=== PATIENT | female | born 2000 | race African-American/Black ===

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

== ENCOUNTER 2018-02-07 00:19 | Emergency (ER) | payer OTHER ==
[~2018-02-07] VITALS: Ht 160 cm; Wt 88.5 kg
== END 2018-02-07 02:54 | disposition left against medical advice (07) ==
LOC: EDUNIT# 00:19 → ER 00:21
DX: R22.43 Localized swelling, mass and lump, lower limb, bilateral (principal)
CPT/HCPCS: 99281

== ENCOUNTER 2018-04-27 13:00 | Emergency (ER) | payer SELFPAY ==
[2018-05-20] MEDS ORDERED: METH18TA4 PO (10:34)
[2018-05-20] MEDS ORDERED: ONDA4TAB8 SL (11:33)
[2018-05-20] MEDS ORDERED: DOXY100T2 PO (11:49)
== END 2018-04-27 13:29 | disposition left against medical advice (07) ==
LOC: EDUNIT# 13:00 → ER 13:02
DX: N93.8 Other specified abnormal uterine and vaginal bleeding (principal); R10.9 Unspecified abdominal pain

== ENCOUNTER 2018-04-29 21:23 | Emergency (ER) | payer SELFPAY ==
[~2018-04-29] VITALS: Ht 160 cm; Wt 88.5 kg
[~2018-04-29 21:23] MED LIST changes: -DOXY100T2 PO; -METH18TA4 PO; -ONDA4TAB8 SL
--- NOTE | 2018-04-29 21:48 | ED GU-Female ---
General Stated Complaint: REQUEST FOR ULTRASOUND, POSS MISCARRIGE Source: patient Exam Limitations: no limitations History of Present Illness Date Seen by Provider: Apr 29, 2018 Time Seen by Provider: 21:46 Initial Comments to ER accompanied by boyfriend with reports of possible miscarriage. She's had several negative tests at home and one positive test last week. She missed a period last month and followed up with [facility] this morning. She had outpatient laboratory studies done and an ultrasound done here. Labs were done at [facility]. She states that she was supposed to receive a call back but has not yet received. Timing/Duration: just prior to arrival Severity/Quality: cramping Location: unknown Radiation: none Activities at Onset: none Allergies and Home Medications Allergies Coded Allergies: No Known Drug Allergies (Unverified , 10/12/16) Patient Home Medication List Home Medication List Reviewed: Yes Review of Systems Constitutional: see HPI EENTM: see HPI Respiratory: no symptoms reported Cardiovascular: see HPI Genitourinary: no symptoms reported Musculoskeletal: no symptoms reported Skin: no symptoms reported Psychiatric/Neurological: No Symptoms Reported Past Hppsjtq-Ysayqg-Pjpfyq Hx Patient Social History Drug of Choice: CANNIBUS Type Used: Cigarettes Recent Foreign Travel: No Contact w/Someone Who Travel: No Recent Hopitalizations: No Immunizations Up To Date Tetanus Booster (TDap): Less than 5yrs PED Vaccines UTD: Yes Seasonal Allergies Seasonal Allergies: No Past Medical History Surgeries: No Respiratory: No Cardiac: No Neurological: No Genitourinary: No Gastrointestinal: No Musculoskeletal: No Endocrine: No HEENT: No Cancer: No Psychosocial: Yes ADD/ADHD, Anxiety Integumentary: No Blood Disorders: No Family Medical History Diabetes, Hypertension Physical Exam Vital Signs Capillary Refill : General Appearance: WD/WN, no apparent distress HEENT: PERRL/EOMI, normal ENT inspection Neck: non-tender, full range of motion Cardiovascular: regular rate, rhythm, no murmur Respiratory: no respiratory distress, no accessory muscle use Gastrointestinal: normal bowel sounds, soft, tenderness (mild suprapubic tenderness) Extremities: normal range of motion, non-tender Neurologic/Psychiatric: alert, normal mood/affect, oriented x 3 Skin: normal color, warm/dry Progress/Results/Core Measures Suspected Sepsis SIRS Temperature: Pulse: Respiratory Rate: Laboratory Tests 04/29/18 21:55: White Blood Count 9.2 Blood Pressure / Mean: Laboratory Tests 04/29/18 21:55: Platelet Count 370 Results/Orders Lab Results Laboratory Tests Test 04/29/18 21:48 04/29/18 21:55 Range/Units Urine Test NEGATIVE NEGATIVE White Blood Count 9.2 4.3-11.0 10^3/uL Red Blood Count 4.40 4.35-5.85 10^6/uL Hemoglobin 13.4 11.5-16.0 G/DL Hematocrit 39 35-52 % Mean Corpuscular Volume 88 80-99 FL Mean Corpuscular Hemoglobin 31 25-34 PG Mean Corpuscular Hemoglobin Concent 35 32-36 G/DL Red Cell Distribution Width 14.1 10.0-14.5 % Platelet Count 370 130-400 10^3/uL Mean Platelet Volume 9.4 7.4-10.4 FL Neutrophils (%) (Auto) 64 42-75 % Lymphocytes (%) (Auto) 30 12-44 % Monocytes (%) (Auto) 5 0-12 % Eosinophils (%) (Auto) 1 0-10 % Basophils (%) (Auto) 0 0-10 % Neutrophils # (Auto) 5.9 1.8-7.8 X 10^3 Lymphocytes # (Auto) 2.8 1.0-4.0 X 10^3 Monocytes # (Auto) 0.5 0.0-1.0 X 10^3 Eosinophils # (Auto) 0.1 0.0-0.3 10^3/uL Basophils # (Auto) 0.0 0.0-0.1 10^3/uL Human Chorionic Gonadotropin, Quant < 5 <5 MIU/ML My Orders Orders - DIANNE KENNEDY BUSINESS TECHNOLOGY ANALYST Cbc With Automated Diff (04/29/18 21:42) Hcg,Quantitative (04/29/18 21:42) Ua Culture If Indicated (04/29/18 21:59) Hcg,Qualitative Urine (04/29/18 21:59) Rx-Acetaminophen/Codeine (Rx-Tylenol #3) (04/29/18 22:45) Vital Signs/I&O Capillary Refill : Diagnostic Imaging Diagonstic Imaging: Ultrasound Comments NAME: KELBY MOSLEY [facility] REC#: [id number] PT STATUS: REG CLI : 2000 PHYSICIAN: MIKE CHU APRN ADMIT DATE: 04/29/18/RAD Signed Date of Exam: 04/29/18 US OB SINGLE FETUS<14 [id number] PROCEDURE: US OB SINGLE FETUS <14 WKS. TECHNIQUE: Multiple real-time grayscale images were obtained over the gravid uterus in various projections. INDICATION: Vaginal bleeding and positive test. FINDINGS: The uterus measures 6.4 x 3.2 x 5 cm. Endometrial thickness is 6 mm. There are no myometrial or endometrial masses. Neither ovary is visualized. There is no sonographic evidence of an intrauterine or extrauterine . There is no free fluid. IMPRESSION: Unremarkable pelvic sonogram. Specifically, there is no sonographic evidence of an intrauterine or extrauterine . Recommend correlation with beta-hCG and follow-up ultrasound as clinically warranted. Dictated by: Dictated on workstation # [id number] Dict: 04/29/18 1230 Trans: 04/29/18 1240 Interpreted by: CHRIS QUACH MD Electronically signed by: CHRIS QUACH MD 04/29/18 1240 Departure Communication (Admissions) I did discuss with the patient and the boyfriend who is at the bedside the possibilities. This would include that she's had a complete miscarriage which would explain the empty uterus on ultrasound today with hCG less than 5.alternatively, she may have had a false positive test at home and menstrual irregularities since she states that this is not the normal time for her menstrual period and is heavier than usual. This would suggest that she's completed a miscarriage. either way,She is not this time and should follow-up with [facility]. Impression Primary Impression: irregular vaginal bleeding Disposition: HOME, SELF-CARE Condition: Stable Departure-Patient Inst. Decision time for Depature: 22:31 Referrals: VALENTÍN DURHAM DO (PCP) Primary Care Physician MIKE CUH APRN (Family) Primary Care Physician Patient Instructions: Menstrual Cramps (DC) Add. Discharge Instructions: 1. Return to ER for any concerns 2. Follow-up with your doctor tomorrow 3. DIANNE KENNEDY APRN Apr 29, 2018 21:48
[2018-04-29 22:07] LABS: BASOPHILS % (AUTO) 0 % (0-10); EOSINOPHILS # (AUTO) 0.1 10^3/uL (0.0-0.3); EOSINOPHILS % (AUTO) 1 % (0-10); HEMATOCRIT 39 % (35-52); HEMOGLOBIN 13.4 G/DL (11.5-16.0); LYMPHOCYTES # (AUTO) 2.8 X 10^3 (1.0-4.0); LYMPHOCYTES % (AUTO) 30 % (12-44); MEAN CORPUSCULAR HEMOGLOBIN 31 PG (25-34); MEAN CORPUSCULAR HGB CONC 35 G/DL (32-36); MEAN CORPUSCULAR VOLUME 88 FL (80-99); MEAN PLATELET VOLUME 9.4 FL (7.4-10.4); MONOCYTES # (AUTO) 0.5 X 10^3 (0.0-1.0); MONOCYTES % (AUTO) 5 % (0-12); NEUTROPHILS # (AUTO) 5.9 X 10^3 (1.8-7.8); NEUTROPHILS % (AUTO) 64 % (42-75); PLATELET COUNT 370 10^3/uL (130-400); RED CELL DISTRIBUTION WIDTH 14.1 % (10.0-14.5); WHITE BLOOD COUNT 9.2 10^3/uL (4.3-11.0)
[2018-04-29 22:23] LABS: BILIRUBIN,URINE NEGATIVE (NEGATIVE); CLARITY,URINE CLEAR; COLOR,URINE AMBER; GLUCOSE, URINE (UA) NEGATIVE (NEGATIVE); KETONES,URINE NEGATIVE (NEGATIVE); LEUKOCYTE ESTERASE ,URINE NEGATIVE (NEGATIVE); NITRITE,URINE NEGATIVE (NEGATIVE); PH,URINE 6.5 (5-9); PROTEIN,URINE 2+ (NEGATIVE); UROBILINOGEN,URINE NORMAL (NORMAL)
[2018-04-29 22:44] LABS: BACTERIA,URINE TRACE /HPF; RBC,URINE TNTC /HPF; WBC,URINE RARE /HPF
[2018-04-29] MEDS ORDERED: RX-ACETAMINOPHEN/CODEINE TAB PPK #4 PO SCH (22:45)
[2018-05-20] MEDS ORDERED: METH18TA4 PO (10:34)
[2018-05-20] MEDS ORDERED: ONDA4TAB8 SL (11:33)
[2018-05-20] MEDS ORDERED: DOXY100T2 PO (11:49)
== END 2018-04-29 22:56 | disposition home or self-care (01) ==
LOC: EDUNIT# 21:23 → ER 21:25
DX: N93.8 Other specified abnormal uterine and vaginal bleeding (principal); F41.9 Anxiety disorder, unspecified; F90.9 Attention-deficit hyperactivity disorder, unspecified type; Z32.02 Encounter for pregnancy test, result negative
CPT/HCPCS: 36415; 81000; 84702; 84703; 85025; 99283

== ENCOUNTER → 2018-04-29 | Outpatient (CLI) | payer SELFPAY ==
[~2018-04-29] MED LIST changes: +DOXY100T2 PO; +METH18TA4 PO; +ONDA4TAB8 SL
--- NOTE | 2018-04-29 12:35 | Diagnostic Imaging Report ---
PROCEDURE: US OB SINGLE FETUS <14 WKS. TECHNIQUE: Multiple real-time grayscale images were obtained over the gravid uterus in various projections. INDICATION: Vaginal bleeding and positive test. FINDINGS: The uterus measures 6.4 x 3.2 x 5 cm. Endometrial thickness is 6 mm. There are no myometrial or endometrial masses. Neither ovary is visualized. There is no sonographic evidence of an intrauterine or extrauterine . There is no free fluid. IMPRESSION: Unremarkable pelvic sonogram. Specifically, there is no sonographic evidence of an intrauterine or extrauterine . Recommend correlation with beta-hCG and follow-up ultrasound as clinically warranted. Dictated by: Dictated on workstation # [id number]
== END ==
LOC: RAD 11:31
PROVIDERS: ATTEND Nurse Practitioner Family
DX: O46.90 Antepartum hemorrhage, unspecified, unspecified trimester (principal); Z3A.00 Weeks of gestation of pregnancy not specified
CPT/HCPCS: 76801

== ENCOUNTER 2018-05-22 00:02 | Emergency (ER) | payer SELFPAY ==
[~2018-05-22] VITALS: Ht 167.6 cm; Wt 86.2 kg
[~2018-05-22 00:02] MED LIST changes: +DOXY100T2 PO; +METH18TA4 PO; +ONDA4TAB8 SL
--- NOTE | 2018-05-22 00:27 | ED Pediatric Illness ---
HPI-Pediatric Illness General Chief Complaint: Abdominal/GI Problems Stated Complaint: ABD PAIN Nursing Triage Note: patient presents with nausea x 4 days. patient states was evaluated yesterday for same and given antibiotic and nausea medication but was not able to get them filled at the pharmacy as she does not have insurance Source: patient Exam Limitations: other (DIFFICULT TO KEEP ON SUBJECT) History of Present Illness Date Seen by Provider: May 22, 2018 Time Seen by Provider: 00:12 Initial Comments PT ARRIVES VIA POV PT WITH A MULTITUDE OF COMPLAINTS AND VERY DIFFICULT TO KEEP ON SUBJECT PT STATES "ALL THE SAME THE OTHER DAY" PT STATES "MY WHOLE LEFT SIDE HURTS" "MY EAR HURTS AND IT HURTS ALL THE WAY DOWN MY THROAT DOWN TO MY STOMACH" HAS HAD NAUSEA AND VOMITED X 4 TODAY NO DIARRHEA. HAD BM JUST PRIOR TO ARRIVAL--STATES SHE HAD A FEW SMALL LOKESH, BUT HAD TO STOP BECAUSE SHE HAD TO THROW UP C/O EPIGASTRIC PAIN --STATES "PAIN IN MY STOMACH AND IT'S CONNECTED IN WITH MY CHEST AND IT'S HARD TO BREATHE ANY MY CHEST HAS BEEN HURTING AND I BEEN HAVING SHARP PAINS IN MY CHEST" "IT FEELS LIKE NEEDLES STABBING ME IN THE CHEST WHEN I THROW UP" NO PROBLEMS URINATING--PT VOIDED JUST PRIOR TO ARRIVAL PT HAS BEEN EATING AND DRINKING ALL DAY TODAY--ATE HOT LINKS AND NOODLES JUST PRIOR TO ARRIVAL, AND DRANK DR. PEPPER JUST PRIOR TO ARRIVAL. HAD CHIPS THIS MORNING, AND HAS HAD [employer] AND FRIES TODAY. HAS HAD JUICE TO DRINK WELL TODAY. STATES SYMPTOMS HAVE BEEN GOING ON FOR 4 DAYS PT WAS SEEN HERE YESTERDAY FOR SAME--HAD A MULTITUDE OF COMPLAINTS AT THAT TIME ALSO PT WAS GIVEN DX OF PLEURITIC CHEST PAIN. SHE ALSO WANTED "CYST" TREATED--WAS INGROWN PUBIC HAIR. PT WAS GIVEN RX'S FOR DOXYCYCLINE AND ZOFRAN. PT DID NOT GET EITHER MEDICATION FILLED, STATING "I DON'T HAVE ANY INSURANCE-I CAN'T GET THEM FILLED IF I DON'T HAVE ANY INSURANCE" EXPLAINED TO PT THAT SHE DID NOT HAVE TO HAVE INSURANCE TO GET PRESCRIPTIONS FILLED, AND THAT PERHAPS IF SHE GOT THE RX FOR ZOFRAN FILLED, SHE WOULDN'T BE VOMITING, AND THAT HER SYMPTOMS WOULD NOT GET BETTER IF SHE DID NOT GET HER PRESCRIPTIONS FILLED. PT STATES SHE HAS NO INTENTION OF GETTING ANY PRESCRIPTIONS FILLED. STATES SHE DOES NOT HAVE ANY MONEY PT GOES TO [facility] AND HAS NOT ATTEMPTED TO SEE THEM AT ANY TIME FOR THIS PROBLEM, AND ADVISED HER THAT IF SHE GOES THERE, THEY CAN ASSIST HER WITH GETTING PRESCRIPTIONS FILLED. LMP--SOMETIME IN FEBRUARY. STATES SHE HAD A MISCARRIAGE LAST MONTH, "BUT THEY SAID I WASN'T " PT WAS SEEN HERE 04/27 AND 04/29 FOR VAGINAL BLEEDING, TESTS AND ULTRASOUND SHOWED NO SIGNS OF , AND QUANT BETA HCG WAS <5. PT IS NOT ON CONTROL PT HAS HAD 7 ER VISITS IN 2018--VARIOUS COMPLAINTS Allergies and Home Medications Allergies Coded Allergies: sulfamethoxazole (Verified Allergy, Unknown, 05/20/18) trimethoprim (Verified Allergy, Unknown, 05/20/18) Home Medications Doxycycline Hyclate 100 Mg Tablet, 100 MG PO BID Prescribed by: PRISCILLA CALLE on 05/20/18 1149 Hyoscyamine Sulfate 0.125 Mg Tab.subl, 1-2 TAB SL Q4H Prescribed by: DORINA FRANZ on 05/22/18 0244 Nitrofurantoin Monohyd/M-Cryst 100 Mg Capsule, 100 MG PO BID Prescribed by: DORINA FRANZ on 05/22/18 0244 Ondansetron 4 Mg Tab.rapdis, 4 MG SL Q4H PRN for NAUSEA/VOMITING-1ST LINE Prescribed by: PRISCILLA CALLE on 05/20/18 1133 Pantoprazole Sodium 40 Mg Tablet.dr, 40 MG PO DAILY Prescribed by: DORINA FRANZ on 05/22/18 0244 Promethazine HCl 25 Mg Supp.rect, 25 MG RC Q4H Prescribed by: DORINA FRANZ on 05/22/18 0244 Patient Home Medication List Home Medication List Reviewed: Yes Constitutional: chills, dizziness EENTM: ear pain, throat pain Respiratory: see HPI, short of breath Cardiovascular: see HPI, chest pain Gastrointestinal: see HPI, abdominal pain, constipation, nausea, vomiting Genitourinary: no symptoms reported Musculoskeletal: see HPI Skin: no symptoms reported Psychiatric/Neurological: See HPI, Anxiety, Headache Endocrine: No Symptoms Reported Hematologic/Lymphatic: No Symptoms Reported PMH-Pediatrics Recent Foreign Travel: No Contact w/other who traveled: No Hospitalization with Isolation: Denies Tetanus Booster (TDap): Less than 5yrs Seasonal Allergies: No HX Surgeries: No Hx Respiratory Disorders: No Hx Cardiovascular Disorders: No Hx Neurological Disorders: No Hx Reproductive Disorders: No Hx Genitourinary Disorders: No Hx Gastrointestinal Disorders: No Hx Musculoskeletal Disorders: No Hx Endocrine Disorders: No HX ENT Disorders: No Hx Cancer: No Hx Psychiatric Problems: Yes Behavioral Health Disorders: ADD/ADHD, Anxiety HX Skin/Integumentary Disorder: No Hx Blood Disorders: No Significant Family History: Diabetes, Hypertension Other + SMOKING + THC + ETOH --OCCASIONAL USE Physical Exam-Pediatric Physical Exam Vital Signs Vital Signs - First Documented 05/22/18 00:08 Temp 98.2 Pulse 94 Resp 18 B/P (MAP) 123/58 Capillary Refill : General Appearance: active, other (VERY DRAMATIC, TALKS RAPIDLY NON-STOP, THRASHING AND MOVING ALL ABOUT, FORCED DRY HEAVES. PT IS WEARING A WIG) HENT: head inspection normal, TMs normal, nose normal, pharynx normal Neck: non-tender, full range of motion, supple, normal inspection Respiratory: chest non-tender, normal breath sounds, no respiratory distress, no accessory muscle use Cardiovascular: regular rate, rhythm, no edema, no JVD, no murmur Gastrointestinal: normal bowel sounds, soft, no organomegaly; No distended, No guarding, No rebound; tenderness (MILD EPIGASTRIC AND SUPRAPUBIC TENDERNESS); No hernia, No mass Extremities: normal range of motion, non-tender, normal inspection, no pedal edema, no calf tenderness, normal capillary refill Neurologic/Psychiatric: county manager II-XII nml as tested, no motor/sensory deficits, alert, oriented x 3 Skin: normal color (PT IS BLACK), warm/dry, tattoos/piercings (TATTOOS) Progress/Results/Core Measures Results/Orders Lab Results Laboratory Tests Test 05/22/18 00:25 05/22/18 00:40 05/22/18 01:00 Range/Units Urine Color YELLOW Urine Clarity CLEAR Urine pH 6.5 5-9 Urine Specific [place] 1.010 L 1.016-1.022 Urine Protein NEGATIVE NEGATIVE Urine Glucose (UA) NEGATIVE NEGATIVE Urine Ketones NEGATIVE NEGATIVE Urine Nitrite NEGATIVE NEGATIVE Urine Bilirubin NEGATIVE NEGATIVE Urine Urobilinogen NORMAL NORMAL MG/DL Urine Leukocyte Esterase 1+ H NEGATIVE Urine RBC (Auto) 2+ H NEGATIVE Urine RBC 2-5 H /HPF Urine WBC 0-2 /HPF Urine Squamous Epithelial Cells 5-10 /HPF Urine Crystals NONE /LPF Urine Bacteria TRACE /HPF Urine Casts NONE /LPF Urine Mucus MODERATE H /LPF Urine Culture Indicated NO Urine Opiates Screen NEGATIVE NEGATIVE Urine Oxycodone Screen NEGATIVE NEGATIVE Urine Methadone Screen NEGATIVE NEGATIVE Urine Propoxyphene Screen NEGATIVE NEGATIVE Urine Barbiturates Screen NEGATIVE NEGATIVE Ur Tricyclic Antidepressants Screen NEGATIVE NEGATIVE Urine Phencyclidine Screen NEGATIVE NEGATIVE Urine Amphetamines Screen NEGATIVE NEGATIVE Urine Methamphetamines Screen NEGATIVE NEGATIVE Urine Benzodiazepines Screen NEGATIVE NEGATIVE Urine Cocaine Screen NEGATIVE NEGATIVE Urine Cannabinoids Screen NEGATIVE NEGATIVE White Blood Count 12.1 H 4.3-11.0 10^3/uL Red Blood Count 4.34 L 4.35-5.85 10^6/uL Hemoglobin 12.9 11.5-16.0 G/DL Hematocrit 38 35-52 % Mean Corpuscular Volume 88 80-99 FL Mean Corpuscular Hemoglobin 30 25-34 PG Mean Corpuscular Hemoglobin Concent 34 32-36 G/DL Red Cell Distribution Width 14.5 10.0-14.5 % Platelet Count 339 130-400 10^3/uL Mean Platelet Volume 9.4 7.4-10.4 FL Neutrophils (%) (Auto) 68 42-75 % Lymphocytes (%) (Auto) 27 12-44 % Monocytes (%) (Auto) 5 0-12 % Eosinophils (%) (Auto) 0 0-10 % Basophils (%) (Auto) 0 0-10 % Neutrophils # (Auto) 8.2 H 1.8-7.8 X 10^3 Lymphocytes # (Auto) 3.3 1.0-4.0 X 10^3 Monocytes # (Auto) 0.6 0.0-1.0 X 10^3 Eosinophils # (Auto) 0.1 0.0-0.3 10^3/uL Basophils # (Auto) 0.0 0.0-0.1 10^3/uL Sodium Level 140 135-145 MMOL/L Potassium Level 3.8 3.6-5.0 MMOL/L Chloride Level 108 H 98-107 MMOL/L Carbon Dioxide Level 20 L 21-32 MMOL/L Anion Gap 12 5-14 MMOL/L Blood Urea Nitrogen 11 7-18 MG/DL Creatinine 0.85 0.60-1.30 MG/DL Estimat Glomerular Filtration Rate > 60 BUN/Creatinine Ratio 13 Glucose Level 100 70-105 MG/DL Calcium Level 9.6 8.5-10.1 MG/DL Total Bilirubin 0.3 0.1-1.0 MG/DL Aspartate Amino Transf (AST/SGOT) 21 5-34 U/L Alanine Aminotransferase (ALT/SGPT) 12 0-55 U/L Alkaline Phosphatase 67 40-136 U/L Total Protein 8.3 H 6.4-8.2 GM/DL Albumin 4.6 H 3.2-4.5 GM/DL Amylase Level 75 25-125 U/L Lipase 6 L 8-78 U/L Human Chorionic Gonadotropin, Quant < 5 <5 MIU/ML Serum Alcohol < 10 <10 MG/DL Monoscreen NEGATIVE NEGATIVE Group A Streptococcus Screen NEGATIVE NEGATIVE My Orders Orders - DORINA FRANZ DO Saline Lock/Iv-Start (05/22/18 00:25) Urine Bedside (05/22/18 00:25) Alcohol (05/22/18 00:25) Amylase (05/22/18 00:25) Cbc With Automated Diff (05/22/18 00:25) Comprehensive Metabolic Panel (05/22/18 00:25) Drug Screen Stat (Urine) (05/22/18 00:25) Lipase (05/22/18 00:25) Monotest (05/22/18 00:25) Rapid Strep A Screen (05/22/18 00:25) Ua Culture If Indicated (05/22/18 00:25) Ondansetron Injection (Zofran Injectio (05/22/18 00:30) Hyoscyamine Sl Tablet (Levsin Sl Tablet) (05/22/18 00:30) Hcg,Quantitative (05/22/18 00:43) Ct Chest/Abdomen/Pelvis W (05/22/18 01:07) Promethazine Injection (Phenergan Injec (05/22/18 01:15) Diphenhydramine Injection (Benadryl Inje (05/22/18 01:15) Iohexol Injection (Omnipaque 350 Mg/Ml 1 (05/22/18 01:15) Sodium Chloride Flush (Catheter Flush Sy (05/22/18 01:15) Medications Given in ED Current Medications Medications Dose Ordered Sig/Nkechi Route Start Time Stop Time Status Last Admin Dose Admin Diphenhydramine HCl 25 mg ONCE ONCE IVP 05/22/18 01:15 05/22/18 01:16 DC 05/22/18 01:57 25 MG Hyoscyamine Sulfate 0.25 mg ONCE ONCE SL 05/22/18 00:30 05/22/18 00:31 UNV 05/22/18 00:38 0.25 MG Iohexol 100 ml ONCE ONCE IV 05/22/18 01:15 05/22/18 01:16 DC 05/22/18 01:33 100 ML Ondansetron HCl 4 mg ONCE ONCE IVP 05/22/18 00:30 05/22/18 00:31 UNV 05/22/18 00:45 4 MG Promethazine HCl 25 mg ONCE ONCE IVP 05/22/18 01:15 05/22/18 01:16 DC 05/22/18 01:57 25 MG Sodium Chloride 10 ml NEEDED PRN IV 05/22/18 01:15 05/22/18 01:33 10 ML Vital Signs/I&O 05/22/18 00:08 Temp 98.2 Pulse 94 Resp 18 B/P (MAP) 123/58 Progress Progress Note : Progress Note NO RELIEF WITH ZOFRAN--PT CONTINUES TO HAVE FORCED DRY HEAVES, CONTINUED THRASHING ALL OVER, ANXIOUS GIVEN LEVSIN, PHENERGAN + BENADRYL WITH RESOLUTION OF ALL SYMPTOMS AND PT SLEPT/ RESTED QUIETLY FOR REMAINDER OF ER STAY PT WANTS TO GO HOME Diagnostic Imaging Comments CT CHEST/ABDOMEN/PELVIS--NO ACUTE PROCESS, PER [facility] VIA FAX @ [phone] Reviewed: Reviewed by Me Departure Impression Primary Impression: NAUSEA, VOMITING AND EPIGASTRIC PAIN Additional Impression: UTI (urinary tract infection) Disposition: HOME, SELF-CARE Condition: Improved Departure-Patient Inst. Referrals: VALENTÍN DURHAM DO (PCP) Primary Care Physician MIKE CHU APRN (Family) Primary Care Physician Patient Instructions: Acute Abdomen (Belly Pain), Adult (DC), Nausea and Vomiting, Adult (DC), Urinary Tract Infection, Adult (DC) Add. Discharge Instructions: CLEAR LIQUIDS--WATER, BROTH, JELLO, GATORADE TOMORROW IF YOUR NAUSEA IS BETTER, ADD BRATS DIET TO CLEAR LIQUIDS--BANANAS, RICE, APPLESAUCE, TOAST, SALTINES FOLLOW UP WITH [facility] IN 2-3 DAYS IF NO BETTER--CALL THEM IN THE MORNING FOR ASSISTANCE GETTING YOUR PRESCRIPTIONS FILLED. All discharge instructions reviewed with patient and/or family. Voiced understanding. Scripts Pantoprazole Sodium (Protonix) 40 Mg Tablet.dr 40 MG PO DAILY, #15 TAB Prov: DORINA FRANZ DO 05/22/18 Hyoscyamine Sulfate (Levsin-Sl) 0.125 Mg Tab.subl 1-2 TAB SL Q4H for Abdominal Pain, #15 TAB Prov: DORINA FRANZ DO 05/22/18 Promethazine HCl (Phenergan) 25 Mg Supp.rect 25 MG RC Q4H for Nausea/Vomiting, #10 SUPP.RECT Prov: DORINA FRANZ DO 05/22/18 Nitrofurantoin Monohyd/M-Cryst (Macrobid 100 mg Capsule) 100 Mg Capsule 100 MG PO BID, #20 CAP Prov: DORINA FRANZ DO 05/22/18 DORINA FRANZ DO May 22, 2018 00:27
[2018-05-22] MEDS ORDERED: HYOSCYAMINE 0.125 MG (LEVSIN) TAB ONE (00:29)
[2018-05-22] MEDS ORDERED: ONDANSETRON 4 MG/2 ML (SDV) Z0FRAN ONE (00:29)
[2018-05-22] MEDS ORDERED: ONDANSETRON 4 MG/2 ML (SDV) Z0FRAN IVP ONE (00:30)
[2018-05-22] MEDS ORDERED: HYOSCYAMINE 0.125 MG (LEVSIN) TAB SL ONE (00:30)
[2018-05-22 00:36] LABS: BILIRUBIN,URINE NEGATIVE (NEGATIVE); CLARITY,URINE CLEAR; COLOR,URINE YELLOW; GLUCOSE, URINE (UA) NEGATIVE (NEGATIVE); KETONES,URINE NEGATIVE (NEGATIVE); LEUKOCYTE ESTERASE ,URINE 1+ (NEGATIVE); NITRITE,URINE NEGATIVE (NEGATIVE); PH,URINE 6.5 (5-9); PROTEIN,URINE NEGATIVE (NEGATIVE); UROBILINOGEN,URINE NORMAL (NORMAL)
[2018-05-22 00:48] LABS: BACTERIA,URINE TRACE /HPF; WBC,URINE 0-2 /HPF
[2018-05-22 00:52] LABS: BASOPHILS % (AUTO) 0 % (0-10); EOSINOPHILS # (AUTO) 0.1 10^3/uL (0.0-0.3); EOSINOPHILS % (AUTO) 0 % (0-10); HEMATOCRIT 38 % (35-52); HEMOGLOBIN 12.9 G/DL (11.5-16.0); LYMPHOCYTES # (AUTO) 3.3 X 10^3 (1.0-4.0); LYMPHOCYTES % (AUTO) 27 % (12-44); MEAN CORPUSCULAR HEMOGLOBIN 30 PG (25-34); MEAN CORPUSCULAR HGB CONC 34 G/DL (32-36); MEAN CORPUSCULAR VOLUME 88 FL (80-99); MEAN PLATELET VOLUME 9.4 FL (7.4-10.4); MONOCYTES # (AUTO) 0.6 X 10^3 (0.0-1.0); MONOCYTES % (AUTO) 5 % (0-12); NEUTROPHILS # (AUTO) 8.2 X 10^3 (1.8-7.8); NEUTROPHILS % (AUTO) 68 % (42-75); PLATELET COUNT 339 10^3/uL (130-400); RED BLOOD COUNT 4.34 10^6/uL (4.35-5.85); RED CELL DISTRIBUTION WIDTH 14.5 % (10.0-14.5); WHITE BLOOD COUNT 12.1 10^3/uL (4.3-11.0)
[2018-05-22 00:53] LABS: AMPHETAMINE SCREEN, URINE NEGATIVE (NEGATIVE); BARBITURATE SCREEN URINE NEGATIVE (NEGATIVE); BENZODIAZEPINES SCREEN URINE NEGATIVE (NEGATIVE); CANNABINOID SCREEN, URINE NEGATIVE (NEGATIVE); COCAINE SCREEN URINE NEGATIVE (NEGATIVE); METHADONE STAT NEGATIVE (NEGATIVE); METHAMPHETAMINE SCREEN URINE S NEGATIVE (NEGATIVE); OPIATE SCREEN URINE NEGATIVE (NEGATIVE); OXYCODONE STAT NEGATIVE (NEGATIVE); PROPOXYPHENE STAT NEGATIVE (NEGATIVE); TRICYCLIC ANTIDEPRESSANTS SCRE NEGATIVE (NEGATIVE)
[2018-05-22 01:13] LABS: ALANINE AMINOTRANSFERASE 12 U/L (0-55); ALBUMIN 4.6 GM/DL (3.2-4.5); ALKALINE PHOSPHATASE 67 U/L (40-136); AMYLASE 75 U/L (25-125); BILIRUBIN,TOTAL 0.3 MG/DL (0.1-1.0); BUN/CREATININE RATIO 13; CALCIUM 9.6 MG/DL (8.5-10.1); CARBON DIOXIDE 20 MMOL/L (21-32); CHLORIDE 108 MMOL/L (98-107); CREATININE SERUM 0.85 MG/DL (0.60-1.30); GFR ESTIMATED > 60; GLUCOSE 100 MG/DL (70-105); LIPASE 6 U/L (8-78); POTASSIUM 3.8 MMOL/L (3.6-5.0); SODIUM 140 MMOL/L (135-145); TOTAL PROTEIN 8.3 GM/DL (6.4-8.2)
[2018-05-22] MEDS ORDERED: IOHEXOL 350 MG/ML 100 ML (OMNIPAQUE 350) VIAL IV ONE (01:15)
[2018-05-22] MEDS ORDERED: CATHETER FLUSH 10 ML SYR IV PRN (01:15)
[2018-05-22] MEDS ORDERED: diphenhydrAMINE 50 MG/ML INJ (BENADRYL) IVP ONE (01:15)
[2018-05-22] MEDS ORDERED: PROMETHAZINE INJ 25 MG/ML (PHENERGAN) AMP IVP ONE (01:15)
[2018-05-22] MEDS ORDERED: PANT40TA2 PO (02:44)
[2018-05-22] MEDS ORDERED: HYOS0.1283 SL (02:44)
[2018-05-22] MEDS ORDERED: PROM25SU43 RC (02:44)
[2018-05-22] MEDS ORDERED: NITR-65 PO (02:44)
--- NOTE | 2018-05-22 08:08 | Diagnostic Imaging Report ---
PROCEDURE: CT chest, abdomen, and pelvis with contrast. TECHNIQUE: Multiple contiguous axial images were obtained through the chest, abdomen, and pelvis after the administration of intravenous contrast. INDICATION: Abdominal pain with nausea. Exam compared with abdominal and pelvic CT 08/06/2017. CHEST: There is no lung mass, nodule or consolidation. No evidence of pneumonia or edema. There is no pleural or pericardial effusion and there is no pneumothorax. Heart and pericardium unremarkable. The aorta is patent and nonaneurysmal. No hilar or mediastinal lymphadenopathy. No acute soft tissue or osseous chest wall lesion. Abdomen pelvis: Liver, gallbladder and bile ducts appeared unremarkable. Spleen, adrenals and pancreas unremarkable. The unobstructed kidneys appeared normal. Uterus, adnexa and urinary bladder unremarkable. The appendix unremarkable. There is no evidence for acute diverticulitis. No pneumatosis or free gas. No focal inflammatory process. No ascites, abscess, hematoma or fluid collection. No focal inflammatory change is apparent. The osseous structures were unremarkable. IMPRESSION: CT chest: Unremarkable CT chest. Abdomen pelvis: No obstructive process, inflammatory changes or acute appearing abnormalities. Agree with preliminary. Dictated by: Dictated on workstation # [id number]
[2018-06-20] MEDS ORDERED: PANT40TA2 PO (14:47)
[2018-06-20] MEDS ORDERED: SUCR1TAB36 PO (14:47)
== END 2018-05-22 02:50 | disposition home or self-care (01) ==
LOC: EDUNIT# 00:02 → ER 00:03
DX: N39.0 Urinary tract infection, site not specified (principal); R11.2 Nausea with vomiting, unspecified; R10.13 Epigastric pain; Z88.2 Allergy status to sulfonamides; Z88.1 Allergy status to other antibiotic agents
CPT/HCPCS: 36415; 71260; 74177; 80053; 80306; 80320; 81000; 82150; 83690; 84702; 84703; 85025; 86308; 87430; 96374; 96375

== ENCOUNTER → 2018-06-06 | Outpatient (CLI) | payer SELFPAY ==
[~2018-06-06] MED LIST changes: +ACHD5005 PO; +CATHETER FLUSH 10 ML SYR IV PRN; +HYOS0.1283 SL; +NITR-65 PO; +PANT40TA2 PO; +PROM25SU43 RC; +SUCR1TAB36 PO
--- NOTE | 2018-06-06 17:23 | Diagnostic Imaging Report ---
INDICATION: Right upper quadrant pain. TECHNIQUE: Patient was administered 5.0 mCi technetium-99m Choletec intravenously, and imaging over the abdomen was performed. After 60 minutes, patient ingested one can of Ensure, and the gallbladder ejection fraction was calculated. FINDINGS: There is homogeneous uptake of activity by the liver with prompt excretion of activity into the common duct and gallbladder. Normal passage of activity into the small bowel is seen. Gallbladder ejection fraction is 71%. There is minimal activity in the left upper quadrant, suggestive of bile reflux. IMPRESSION: 1. No evidence of cystic duct or common bile duct obstruction. 2. Gallbladder ejection fraction of 71%. 3. Mild bile reflux. Dictated by: Dictated on workstation # [id number]
== END ==
LOC: CARD 09:25
PROVIDERS: ATTEND Nurse Practitioner Family
DX: R10.11 Right upper quadrant pain (principal); R93.5 Abnormal findings on diagnostic imaging of other abdominal regions, including retroperitoneum
CPT/HCPCS: 78227

== ENCOUNTER 2018-06-17 18:29 | Emergency (ER) | payer SELFPAY ==
[~2018-06-17] VITALS: Ht 167.6 cm; Wt 86.2 kg
[~2018-06-17 18:29] MED LIST changes: -ACHD5005 PO; -CATHETER FLUSH 10 ML SYR IV PRN; -SUCR1TAB36 PO
[2018-06-17] MEDS ORDERED: NS IV 1000 ML 1,000 ML IV SCH (18:45)
[2018-06-17] MEDS ORDERED: fentaNYL INJECTION 100 MCG/2 ML AMP IVP ONE (18:45)
[2018-06-17] MEDS ORDERED: ONDANSETRON 4 MG/2 ML (SDV) Z0FRAN IVP ONE (18:45)
--- NOTE | 2018-06-17 18:45 | ED Abdominal Pain ---
General Stated Complaint: GALLBLADDER/APPENDIX INFLAMMATION Source of Information: Patient Exam Limitations: No Limitations History of Present Illness Date Seen by Provider: Jun 17, 2018 Time Seen by Provider: 18:41 Initial Comments Patient is a 17-year-old female who presents to the emergency room with complaints of right upper and lower quadrant abdominal pain and nausea. She reports that she was seen at [facility] this morning and told that it was most likely "inflammation of her appendix and gallbladder", and they referred her to Dr. Castillo who she has not followed up with yet. She reports that the pain became worse this evening and she could not wait until an appointment was made. Denies any vomiting. Timing/Duration: 3-4 Days Location: RUQ, RLQ Radiation: RLQ Activities at Onset: None Modifying Factors: Worsens With Movement (the pain is worse with movement and ambulation.) Associated Symptoms: No Fever/Chills; Nausea/Vomiting Allergies and Home Medications Allergies Coded Allergies: sulfamethoxazole (Verified Allergy, Unknown, 05/20/18) trimethoprim (Verified Allergy, Unknown, 05/20/18) Home Medications Doxycycline Hyclate 100 Mg Tablet, 100 MG PO BID Prescribed by: PRISCILLA CALLE on 05/20/18 1149 Hydrocodone Bit/Acetaminophen 1 Tab Tab, 1 EACH PO Q4H PRN for PAIN Prescribed by: DAY KILLIAN on 06/17/18 221 Hyoscyamine Sulfate 0.125 Mg Tab.subl, 1-2 TAB SL Q4H Prescribed by: DORINA FRANZ on 05/22/18 0244 Nitrofurantoin Monohyd/M-Cryst 100 Mg Capsule, 100 MG PO BID Prescribed by: DORINA FRANZ on 05/22/18 0244 Ondansetron 4 Mg Tab.rapdis, 4 MG SL Q4H PRN for NAUSEA/VOMITING-1ST LINE Prescribed by: PRISCILLA CALLE on 05/20/18 1133 Ondansetron 4 Mg Tab.rapdis, 4 MG SL Q4H PRN for NAUSEA/VOMITING-1ST LINE Prescribed by: DAY KILLIAN on 06/17/18 2214 Pantoprazole Sodium 40 Mg Tablet.dr, 40 MG PO DAILY Prescribed by: WEST AGUDELO on 06/20/18 1447 Promethazine HCl 25 Mg Supp.rect, 25 MG RC Q4H Prescribed by: DORINA FRANZ on 05/22/18 0244 Sucralfate 1 Gm Tablet, 1 GM PO QID Prescribed by: WEST AGUDELO on 06/20/18 1447 Patient Home Medication List Home Medication List Reviewed: Yes Review of Systems Constitutional: see HPI; No chills, No fever Gastrointestinal: Abdominal Pain; Denies Constipated, Denies Diarrhea; Nausea; Denies Vomiting Genitourinary: No Symptoms Reported All Other Systems Reviewed Negative Unless Noted: Yes Past Hdmtyqd-Xcqxqc-Mufimw Hx Patient Social History Drug of Choice: thc Type Used: Cigarettes 2nd Hand Smoke Exposure: No Recent Foreign Travel: No Contact w/Someone Who Travel: No Recent Hopitalizations: No Immunizations Up To Date Tetanus Booster (TDap): Less than 5yrs PED Vaccines UTD: Yes Seasonal Allergies Seasonal Allergies: No Past Medical History Surgeries: No Respiratory: No Cardiac: Yes High Cholesterol Neurological: No Reproductive Disorders: No Genitourinary: No Gastrointestinal: No Musculoskeletal: No Endocrine: No HEENT: No Cancer: No Psychosocial: Yes ADD/ADHD, Anxiety Integumentary: No Blood Disorders: No Family Medical History Diabetes, Hypertension Physical Exam Vital Signs Capillary Refill : Height/Weight/BMI Height: 5'6.00" Weight: 190lbs. oz. 86.740996zz; 28.12 BMI Method:Stated General Appearance: WD/WN, no apparent distress Respiratory: chest non-tender, lungs clear, normal breath sounds, no respiratory distress, no accessory muscle use Cardiovascular: regular rate, rhythm, no edema, no gallop, no JVD, no murmur Gastrointestinal: normal bowel sounds, soft, no organomegaly, no pulsatile mass , guarding (right lower quadrant guarding.), tenderness (right lower quadrant tenderness.) Neurologic/Psychiatric: alert, normal mood/affect, oriented x 3 Skin: normal color, warm/dry Lymphatic: no adenopathy Progress/Results/Core Measures Results/Orders Lab Results Laboratory Tests Test 06/17/18 18:54 06/17/18 18:59 Range/Units White Blood Count 13.0 H 4.3-11.0 10^3/uL Red Blood Count 4.49 4.35-5.85 10^6/uL Hemoglobin 13.2 11.5-16.0 G/DL Hematocrit 39 35-52 % Mean Corpuscular Volume 87 80-99 FL Mean Corpuscular Hemoglobin 29 25-34 PG Mean Corpuscular Hemoglobin Concent 34 32-36 G/DL Red Cell Distribution Width 14.4 10.0-14.5 % Platelet Count 392 130-400 10^3/uL Mean Platelet Volume 9.2 7.4-10.4 FL Neutrophils (%) (Auto) 68 42-75 % Lymphocytes (%) (Auto) 26 12-44 % Monocytes (%) (Auto) 6 0-12 % Eosinophils (%) (Auto) 1 0-10 % Basophils (%) (Auto) 0 0-10 % Neutrophils # (Auto) 8.8 H 1.8-7.8 X 10^3 Lymphocytes # (Auto) 3.3 1.0-4.0 X 10^3 Monocytes # (Auto) 0.7 0.0-1.0 X 10^3 Eosinophils # (Auto) 0.1 0.0-0.3 10^3/uL Basophils # (Auto) 0.0 0.0-0.1 10^3/uL Sodium Level 142 135-145 MMOL/L Potassium Level 3.5 L 3.6-5.0 MMOL/L Chloride Level 112 H 98-107 MMOL/L Carbon Dioxide Level 20 L 21-32 MMOL/L Anion Gap 10 5-14 MMOL/L Blood Urea Nitrogen 13 7-18 MG/DL Creatinine 0.96 0.60-1.30 MG/DL Estimat Glomerular Filtration Rate > 60 BUN/Creatinine Ratio 14 Glucose Level 89 70-105 MG/DL Calcium Level 10.0 8.5-10.1 MG/DL Total Bilirubin 0.5 0.1-1.0 MG/DL Aspartate Amino Transf (AST/SGOT) 14 5-34 U/L Alanine Aminotransferase (ALT/SGPT) 8 0-55 U/L Alkaline Phosphatase 65 40-136 U/L Total Protein 8.4 H 6.4-8.2 GM/DL Albumin 4.7 H 3.2-4.5 GM/DL Amylase Level 60 25-125 U/L Lipase 4 L 8-78 U/L Serum Test, Qualitative NEGATIVE NEGATIVE Urine Color YELLOW Urine Clarity CLEAR Urine pH 6.5 5-9 Urine Specific [place] 1.015 L 1.016-1.022 Urine Protein 1+ H NEGATIVE Urine Glucose (UA) NEGATIVE NEGATIVE Urine Ketones NEGATIVE NEGATIVE Urine Nitrite NEGATIVE NEGATIVE Urine Bilirubin NEGATIVE NEGATIVE Urine Urobilinogen NORMAL NORMAL MG/DL Urine Leukocyte Esterase 2+ H NEGATIVE Urine RBC (Auto) 2+ H NEGATIVE Urine RBC 5-10 H /HPF Urine WBC 2-5 /HPF Urine Squamous Epithelial Cells 25-50 H /HPF Urine Crystals NONE /LPF Urine Bacteria FEW H /HPF Urine Casts NONE /LPF Urine Mucus LARGE H /LPF Urine Culture Indicated NO My Orders Orders - DAY KILLIAN Comprehensive Metabolic Panel (06/17/18 18:40) Lipase (06/17/18 18:40) Amylase (06/17/18 18:40) Ua Culture If Indicated (06/17/18 18:40) Hcg,Qualitative Serum (06/17/18 18:40) Saline Lock/Iv-Start (06/17/18 18:40) Cbc With Automated Diff (06/17/18 18:40) Ct Abdomen/Pelvis W (06/17/18 18:40) Ns Iv 1000 Ml (Sodium Chloride 0.9%) (06/17/18 18:45) Fentanyl Injection (Sublimaze Injection (06/17/18 18:45) Ondansetron Injection (Zofran Injectio (06/17/18 18:45) Iohexol Injection (Omnipaque 350 Mg/Ml 1 (06/17/18 19:00) Ns (Ivpb) (Sodium Chloride 0.9% Ivpb Bag (06/17/18 19:00) Us Non Ob Transvaginal [id number] (06/17/18 20:12) Rx-Ondansetron Po (Rx-Zofran Po) (06/17/18 22:16) Rx-Hydrocodone/Apap 5-325 Mg (Rx-Vicodin (06/17/18 22:30) Rx-Hydrocodone/Apap 5-325 Mg (Rx-Vicodin (06/17/18 22:17) Rx-Ondansetron Po (Rx-Zofran Po) (06/17/18 22:17) Iv Push Refinish Technician Ed (06/17/18 ) Medications Given in ED Vital Signs/I&O Progress Progress Note : Time: 19:00 Progress Note Patient's pain is much better after the administration of fentanyl and her nausea is alleviated. 2012: Patient was informed of CT findings and the recommendation of the ultrasound. She agrees with ultrasound order. Her pain is controlled at this time she has no longer nauseated. 2200: Patient agrees with plans of discharge and close follow-up with Dr. Davidson at [facility] and Dr. Castillo. Diagnostic Imaging Diagonstic Imaging: CT, Ultrasound Plain Films/CT/US/NM/MRI: abdomen, pelvis Comments NAME: KELBY MOSLEY [facility] REC#: [id number] PT STATUS: REG ER : 2000 PHYSICIAN: DAY KILLIAN ADMIT DATE: 06/17/18/ER Signed Date of Exam: 06/17/18 CT ABDOMEN/PELVIS W PROCEDURE: CT abdomen and pelvis with contrast. TECHNIQUE: Multiple contiguous axial images were obtained through the abdomen and pelvis after administration of intravenous contrast. INDICATION: Right lower quadrant abdominal pain COMPARISON: None FINDINGS: The lung bases are clear. The gallbladder, solid organs, vascular structures and bowel are unremarkable. Slight constipation is seen in the proximal colon. The appendix is normal. There is a cyst on the right ovary measuring 2.5 cm. There is mild amount of free fluid in the pelvis. This is likely physiologic. There is no inflammatory process, solid mass or abscess. Followup with ultrasound is recommended to assure resolution. The uterus is otherwise unremarkable. Distal ureters and urinary bladder normal. Osseous structures are age-appropriate. IMPRESSION: 1. A 2.5 cm cyst on the right ovary likely physiologic follicle with resultant free fluid in the pelvis. No overt hemoperitoneum seen. There is no inflammatory process. Followup with ultrasound is recommended to assure resolution. 2. Normal appendix. Dictated by: Dictated on workstation # [id number] Dict: 06/17/181953 Trans: 06/17/182020 Interpreted by: NEO MCCURDY Electronically signed by: NEO MCCURDY 06/17/182020 NAME: KELBY MOSLEY [facility] REC#: [id number] PT STATUS: REG ER : 2000 PHYSICIAN: DAY KILLIAN ADMIT DATE: 06/17/18/ER Signed Date of Exam: 06/17/18 US NON OB TRANSVAGINAL 23593 INDICATION: Pelvic pain, right ovarian cyst. EXAM: Transvaginal ultrasound images were obtained/ COMPARISON: None. FINDINGS: The uterus measures 7 x 4 x 3 cm and has a normal appearance. The endometrium is normal at 10 mm. The right ovary measures 3.5 x 3.5 x 3 cm. There is a hemorrhagic follicle in the right ovary measuring approximately 3 cm. Recommend followup to assure resolution. The left ovary measures 3 x 2 x 2.3 cm and has a normal appearance. There is a small amount of free fluid in the pelvis. There is no torsion or suspicious mass. IMPRESSION: Likely physiologic hemorrhagic follicle in the right ovary with trace free fluid in the pelvic cul-de-sac. Dictated by: Dictated on workstation # [id number] Dict: 06/17/182143 Trans: 06/17/182151 Interpreted by: NEO MCCURDY Electronically signed by: NEO MCCURDY 06/17/182151 Departure Impression Primary Impression: Ruptured ovarian cyst Disposition: HOME, SELF-CARE Condition: Stable/Unchanged Departure-Patient Inst. Decision time for Depature: 22:12 Referrals: VALENTÍN DURHAM DO (PCP) Primary Care Physician MIKE CHU APRN (Family) Primary Care Physician WARD DAVIDSON MD Patient Instructions: Ovarian Cyst (DC) Add. Discharge Instructions: Take medications as directed. Follow-up with [facility] within 1 week for recheck. Return back to the emergency room for any worsening pain, nausea, or any other worsening symptoms, or any concerns as needed. Scripts Ondansetron (Zofran Odt) 4 Mg Tab.rapdis 4 MG SL Q4H PRN for NAUSEA/VOMITING-1ST LINE, #14 TAB Prov: DAY KILLIAN 06/17/18 Hydrocodone Bit/Acetaminophen (Hydrocodone/Acetaminophen 5/325mg Tablet) 1 Tab Tab 1 EACH PO Q4H PRN for PAIN, #14 TAB Prov: DAY KILLIAN 06/17/18 DAY KILLIAN Jun 17, 2018 18:45
[2018-06-17] MEDS ORDERED: NS 100 ML (IVPB) BAG IV ONE (19:00)
[2018-06-17] MEDS ORDERED: IOHEXOL 350 MG/ML 100 ML (OMNIPAQUE 350) VIAL IV ONE (19:00)
[2018-06-17 19:04] LABS: BASOPHILS % (AUTO) 0 % (0-10); EOSINOPHILS # (AUTO) 0.1 10^3/uL (0.0-0.3); EOSINOPHILS % (AUTO) 1 % (0-10); HEMATOCRIT 39 % (35-52); HEMOGLOBIN 13.2 G/DL (11.5-16.0); LYMPHOCYTES # (AUTO) 3.3 X 10^3 (1.0-4.0); LYMPHOCYTES % (AUTO) 26 % (12-44); MEAN CORPUSCULAR HEMOGLOBIN 29 PG (25-34); MEAN CORPUSCULAR HGB CONC 34 G/DL (32-36); MEAN CORPUSCULAR VOLUME 87 FL (80-99); MEAN PLATELET VOLUME 9.2 FL (7.4-10.4); MONOCYTES # (AUTO) 0.7 X 10^3 (0.0-1.0); MONOCYTES % (AUTO) 6 % (0-12); NEUTROPHILS # (AUTO) 8.8 X 10^3 (1.8-7.8); NEUTROPHILS % (AUTO) 68 % (42-75); PLATELET COUNT 392 10^3/uL (130-400); RED BLOOD COUNT 4.49 10^6/uL (4.35-5.85); RED CELL DISTRIBUTION WIDTH 14.4 % (10.0-14.5)
[2018-06-17 19:07] LABS: BILIRUBIN,URINE NEGATIVE (NEGATIVE); CLARITY,URINE CLEAR; COLOR,URINE YELLOW; GLUCOSE, URINE (UA) NEGATIVE (NEGATIVE); KETONES,URINE NEGATIVE (NEGATIVE); LEUKOCYTE ESTERASE ,URINE 2+ (NEGATIVE); NITRITE,URINE NEGATIVE (NEGATIVE); PH,URINE 6.5 (5-9); PROTEIN,URINE 1+ (NEGATIVE); UROBILINOGEN,URINE NORMAL (NORMAL)
[2018-06-17 19:15] LABS: BACTERIA,URINE FEW /HPF; SQUAMOUS EPITHELIAL CELL,UR 25-50 /HPF
[2018-06-17 19:25] LABS: ALANINE AMINOTRANSFERASE 8 U/L (0-55); ALBUMIN 4.7 GM/DL (3.2-4.5); ALKALINE PHOSPHATASE 65 U/L (40-136); AMYLASE 60 U/L (25-125); BILIRUBIN,TOTAL 0.5 MG/DL (0.1-1.0); BUN/CREATININE RATIO 14; CARBON DIOXIDE 20 MMOL/L (21-32); CHLORIDE 112 MMOL/L (98-107); CREATININE SERUM 0.96 MG/DL (0.60-1.30); GFR ESTIMATED > 60; GLUCOSE 89 MG/DL (70-105); LIPASE 4 U/L (8-78); POTASSIUM 3.5 MMOL/L (3.6-5.0); SODIUM 142 MMOL/L (135-145); TOTAL PROTEIN 8.4 GM/DL (6.4-8.2)
--- NOTE | 2018-06-17 20:04 | Diagnostic Imaging Report ---
PROCEDURE: CT abdomen and pelvis with contrast. TECHNIQUE: Multiple contiguous axial images were obtained through the abdomen and pelvis after administration of intravenous contrast. INDICATION: Right lower quadrant abdominal pain COMPARISON: None FINDINGS: The lung bases are clear. The gallbladder, solid organs, vascular structures and bowel are unremarkable. Slight constipation is seen in the proximal colon. The appendix is normal. There is a cyst on the right ovary measuring 2.5 cm. There is mild amount of free fluid in the pelvis. This is likely physiologic. There is no inflammatory process, solid mass or abscess. Followup with ultrasound is recommended to assure resolution. The uterus is otherwise unremarkable. Distal ureters and urinary bladder normal. Osseous structures are age-appropriate. IMPRESSION: 1. A 2.5 cm cyst on the right ovary likely physiologic follicle with resultant free fluid in the pelvis. No overt hemoperitoneum seen. There is no inflammatory process. Followup with ultrasound is recommended to assure resolution. 2. Normal appendix. Dictated by: Dictated on workstation # [id number]
--- NOTE | 2018-06-17 21:49 | Diagnostic Imaging Report ---
INDICATION: Pelvic pain, right ovarian cyst. EXAM: Transvaginal ultrasound images were obtained/ COMPARISON: None. FINDINGS: The uterus measures 7 x 4 x 3 cm and has a normal appearance. The endometrium is normal at 10 mm. The right ovary measures 3.5 x 3.5 x 3 cm. There is a hemorrhagic follicle in the right ovary measuring approximately 3 cm. Recommend followup to assure resolution. The left ovary measures 3 x 2 x 2.3 cm and has a normal appearance. There is a small amount of free fluid in the pelvis. There is no torsion or suspicious mass. IMPRESSION: Likely physiologic hemorrhagic follicle in the right ovary with trace free fluid in the pelvic cul-de-sac. Dictated by: Dictated on workstation # [id number]
[2018-06-17] MEDS ORDERED: ACHD5005 PO (22:14)
[2018-06-17] MEDS ORDERED: ONDA4TAB8 SL (22:14)
[2018-06-17] MEDS ORDERED: RX-ONDANSETRON 4 MG ODT (ZOFRAN) PPK #4 PO STA (22:16)
[2018-06-17] MEDS ORDERED: RX-HYDROCODONE/APAP 5/325 MG #4 TAB PK PO ONE (22:17)
[2018-06-17] MEDS ORDERED: RX-ONDANSETRON 4 MG ODT (ZOFRAN) PPK #4 ONE (22:17)
[2018-06-17] MEDS ORDERED: RX-HYDROCODONE/APAP 5/325 MG #4 TAB PK PO PRN (22:30)
[2018-06-20] MEDS ORDERED: PANT40TA2 PO (14:47)
[2018-06-20] MEDS ORDERED: SUCR1TAB36 PO (14:47)
== END 2018-06-17 22:24 | disposition home or self-care (01) ==
LOC: EDUNIT# 18:29 → ER 18:30
DX: N83.201 Unspecified ovarian cyst, right side (principal); E78.00 Pure hypercholesterolemia, unspecified; F90.9 Attention-deficit hyperactivity disorder, unspecified type; F41.9 Anxiety disorder, unspecified; Z88.2 Allergy status to sulfonamides; Z88.8 Allergy status to other drugs, medicaments and biological substances
CPT/HCPCS: 36415; 74177; 76830; 80053; 81000; 82150; 83690; 84703; 85025; 96361; 96374; 96375

== ENCOUNTER 2018-06-20 13:20 | Day surgery (SDC) | payer SELFPAY ==
[~2018-06-20] VITALS: Ht 167.6 cm; Wt 86.2 kg
[~2018-06-20 13:20] MED LIST changes: +ACHD5005 PO
[2018-06-20] MEDS ORDERED: LACTATED RINGERS 1,000 ML IV STA (13:21)
[2018-06-20 13:30] VITALS: BP 120/72
[2018-06-20] MEDS ORDERED: HURRICAINE EXT TUBE (BENZOCAINE) XX PRN (13:30)
[2018-06-20] MEDS ORDERED: LACTATED RINGERS 1,000 ML IV ONE (13:37)
[2018-06-20] MEDS ORDERED: PROPOFOL INJECTION 50 ML IV ONE (14:01)
--- NOTE | 2018-06-20 14:44 | Progress Note-Pre Operative ---
Pre-Operative Progress Note H&P Reviewed The H&P was reviewed, patient examined and no changes noted. Date Seen by Provider: Jun 20, 2018 Time Seen by Provider: 13:45 Date H&P Reviewed: Jun 20, 2018 Time H&P Reviewed: 13:45 Pre-Operative Diagnosis: epigastric abdominal pain WEST AGUDELO DO Jun 20, 2018 14:44
[2018-06-20 14:45] VITALS: BP 145/56
--- NOTE | 2018-06-20 14:45 | Progress Note-Post Operative ---
Post-Operative Progess Note Surgeon (s)/Manager Data Warehousing (s) Surgeon WEST AGUDELO DO Manager Data Warehousing: na Pre-Operative Diagnosis epigastric abdominal pain Post-Operative Diagnosis gastritis with antral erosions Procedure & Operative Findings Date of Procedure 06/20/18 Procedure Performed/Findings egd c biopsies of antrum Anesthesia Type per boot maker Estimated Blood Loss Estimated blood loss (mL): scant Specimens/Packing Specimens Removed antrum WEST AGUDELO DO Jun 20, 2018 14:45
[2018-06-20] MEDS ORDERED: SUCR1TAB36 PO (14:47)
[2018-06-20] MEDS ORDERED: PANT40TA2 PO (14:47)
--- NOTE | 2018-06-20 14:50 | Discharge Inst-Simple/Standard ---
Discharge Inst-Standard Discharge Medications New, Converted or Re-Newed RX: Transmitted to Pharmacy Patient Instructions/Follow Up Plan of Care/Instructions/FU: 3 weeks Oleg Activity as Tolerated: Yes Discharge Diet: Regular Diet (gastrtis diet) Other Inst to Patient Follow up Appt: Make appointment for 3 week. Instructions: Gastritis/ulcer diet Symptoms to Report: Appetite Changes, Extremity Discoloration, Numbness/Tingling, Swelling Increased , Bleeding Excessive, Eyesight Changes, Pain Increased, Urine Color Change, Constipation(Persistent), Fever over 101 degree F, Pain/Pressure in chest, Urinating Difficulty, Cough Up/Vomit Blood, Heart Beat Irreg/Pounding, Pain/ Pressure in jaw, Vaginal Bleeding Increase, Cramps in feet or legs, Lightheadedness, Pain/Pressure in shoulder, Diarrhea(Persistent), Memory Changes Suddenly, Questions/Concerns, Weight gain consecutive days, Dizziness/ Fainting, Nausea/Vomiting, Shortness of Breath, Weight gain over 2 pounds If questions or concerns contact your physician Or seek help at emergency department. WEST AGUDELO DO Jun 20, 2018 14:50
[2018-06-20 15:13] VITALS: BP 111/62
--- NOTE | 2018-06-20 20:29 | OPERATIVE REPORT ---
DATE OF SERVICE: 06/20/2018 PREOPERATIVE DIAGNOSIS: Epigastric abdominal pain. POSTOPERATIVE DIAGNOSIS: Gastritis with antral erosions. PROCEDURE: EGD with biopsies of the antrum. SURGEON: West Dejesus DO ANESTHESIA: Per CHUTE BOSS. ESTIMATED BLOOD LOSS: Scant. INDICATIONS: The patient is a 17-year-old female, who has been having significant epigastric abdominal pain. She has had workup for the gallbladder, which was all negative. She understands risks and benefits of procedure and wished to proceed with procedure. Consent was signed in the chart. DESCRIPTION OF PROCEDURE: The patient was taken to the endoscopy suite, placed in left lateral recumbent position. Timeout was performed. Scope was inserted in the mouth, down the esophagus into the stomach and continue to be insufflated. The antrum had significant erythematous changes and some antral erosions. Scope was inserted into the pylorus and into the duodenum, which had no polyps, masses or ulcerations. No erythematous changes. Scope was then slowly retracted back into the stomach and was further insufflated. Biopsies of the antrum were obtained. Scope was retroflexed noting no hiatal hernia, no other pathology. Scope was returned to its normal position, slowly withdrawn until back into the distal esophagus, which had no polyps, masses or ulcerations. No erythematous changes. Scope was slowly retracted back until completely removed. The patient tolerated the procedure well without any complications. She was taken to recovery room in stable condition. RECOMMENDATIONS: The patient will be started on Protonix 40 mg daily and Carafate 1 gram 4 times a day. The patient will return to the clinic in 3 weeks to discuss pathology and see how she is doing at that time. If she has any problems prior to that, she should be reevaluated at that time. The patient is in agreement with the plan. Job ID: [id number] DocumentID: [id number] Dictated Date: 06/20/2018 15:32:15 Small Electric Engine Technician Date: 06/20/2018 20:28:37 Dictated By: WEST DEJESUS DO [facility] CENTERMariia
== END 2018-06-20 15:15 | disposition home or self-care (01) ==
LOC: SDC 13:20 → ENDO 15:15
PROVIDERS: ATTEND Surgery
DX: K29.70 Gastritis, unspecified, without bleeding (principal); K25.9 Gastric ulcer, unspecified as acute or chronic, without hemorrhage or perforation; F17.210 Nicotine dependence, cigarettes, uncomplicated
CPT/HCPCS: 84703

== ENCOUNTER 2018-07-10 00:52 | Emergency (ER) | payer SELFPAY ==
[~2018-07-10] VITALS: Ht 167.6 cm; Wt 86.2 kg
[~2018-07-10 00:52] MED LIST changes: +SUCR1TAB36 PO
[2018-07-10 01:33] LABS: HCG,QUALITATIVE URINE NEGATIVE (NEGATIVE)
[2018-07-10 01:40] LABS: AMPHETAMINE SCREEN, URINE NEGATIVE (NEGATIVE); BARBITURATE SCREEN URINE NEGATIVE (NEGATIVE); BENZODIAZEPINES SCREEN URINE NEGATIVE (NEGATIVE); CANNABINOID SCREEN, URINE NEGATIVE (NEGATIVE); COCAINE SCREEN URINE NEGATIVE (NEGATIVE); METHADONE STAT NEGATIVE (NEGATIVE); METHAMPHETAMINE SCREEN URINE S NEGATIVE (NEGATIVE); OPIATE SCREEN URINE NEGATIVE (NEGATIVE); OXYCODONE STAT NEGATIVE (NEGATIVE); PROPOXYPHENE STAT NEGATIVE (NEGATIVE); TRICYCLIC ANTIDEPRESSANTS SCRE NEGATIVE (NEGATIVE)
--- NOTE | 2018-07-10 02:05 | ED Headache ---
General Chief Complaint: Head/Cervical Problems Stated Complaint: HEAD PAIN Nursing Triage Note: PT PRESNETS TO ER WITH COMPLAINT OF HEADACHE FOR 2-3 DAYS. AND "TINGLING ALL OVER". Source: patient History of Present Illness Date Seen by Provider: Jul 10, 2018 Time Seen by Provider: 01:10 Initial Comments PT ARRIVES VIA POV FROM HOME C/O GENERALIZED HEADACHE FOR AT LEAST 2 MONTHS, WORSE THE LAST FEW DAYS--STATES "SINCE IT STARTED COMING OUT HERE" A COUPLE OF MONTHS AGO SYMPTOMS NO DIFFERENT TODAY HAS NOT TAKEN ANYTHING FOR PAIN TODAY--TOOK 1 IBUPROFEN YESTERDAY MORNING AND 1 TYLENOL AT 1600 YESTERDAY. HAS NOT SOUGHT CARE AT ANY TIME FOR THIS PT ALSO C/O "NUMB AND TINGLY ALL OVER MY BODY"--ALSO GOING ON FOR AT LEAST 2 MONTHS. STATES 'I ALMOST PASSED OUT EARLIER BECAUSE OF IT" PT GOES ON AT LENGTH WITH MULTITUDE OF OTHER ONGOING /CHRONIC COMPLAINTS-- DIFFICULT TO KEEP ON SUBJECT NONE OF THESE SYMPTOMS ARE ANY DIFFERENT TONIGHT PT WITH MULTITUDE OF VISITS--10 VISITS IN 2018 PT HAD EGS 06/20/[address] AGUDELO LMP 06/26/18 NORMAL. NO CONTROL PCP: [facility] ALSO GOES TO [facility] Allergies and Home Medications Allergies Coded Allergies: sulfamethoxazole (Verified Allergy, Unknown, 05/20/18) trimethoprim (Verified Allergy, Unknown, 05/20/18) Home Medications Doxycycline Hyclate 100 Mg Tablet, 100 MG PO BID Prescribed by: PRISCILLA CALLE on 05/20/18 1149 Hydrocodone Bit/Acetaminophen 1 Tab Tab, 1 EACH PO Q4H PRN for PAIN Prescribed by: DAY KILLIAN on 06/17/18 2214 Hyoscyamine Sulfate 0.125 Mg Tab.subl, 1-2 TAB SL Q4H Prescribed by: DORINA FRANZ on 05/22/18 0244 Nitrofurantoin Monohyd/M-Cryst 100 Mg Capsule, 100 MG PO BID Prescribed by: DORINA FRANZ on 05/22/18 0244 Ondansetron 4 Mg Tab.rapdis, 4 MG SL Q4H PRN for NAUSEA/VOMITING-1ST LINE Prescribed by: PRISCILLA CALLE on 05/20/18 1133 Ondansetron 4 Mg Tab.rapdis, 4 MG SL Q4H PRN for NAUSEA/VOMITING-1ST LINE Prescribed by: DAY KILLIAN on 06/17/184 Pantoprazole Sodium 40 Mg Tablet.dr, 40 MG PO DAILY Prescribed by: WEST AGUDELO on 06/20/18 1447 Promethazine HCl 25 Mg Supp.rect, 25 MG RC Q4H Prescribed by: DORINA FRANZ on 05/22/18 0244 Sucralfate 1 Gm Tablet, 1 GM PO QID Prescribed by: WEST AGUDELO on 06/20/18 1447 Patient Home Medication List Home Medication List Reviewed: Yes Review of Systems Constitutional: No diaphoresis; dizziness, weakness Eyes: No Symptoms Reported Ears, Nose, Mouth, Throat: ear pain (ONGOING FOR MONTHS), mouth pain (CHRONIC DENTAL ISSUSES--HAS BEEN TO [facility] AND WAS REFERRED TO DR. MURRY FOR TOOTH EXTRACTION, BUT HAS NOT ATTEMPTED TO MAKE AN APPOINTMENT WITH DR. MURRY OR ANY OTHER DENTIST/ORAL SURGEON ) Respiratory: no symptoms reported Cardiovascular: see HPI Gastrointestinal: nausea Genitourinary: no symptoms reported LMP: Jun 26, 2018 Musculoskeletal: joint pain (HIP AND BACK PAIN --CHRONIC COMPLAINT) Skin: no symptoms reported Psychiatric/Neurological: See HPI, Headache, Numbness, Paresthesia, Tingling; Denies Weakness Past Pcfzqwc-Mrrjhe-Iztjbi Hx Patient Social History Alcohol Use: Occasionally Uses Recreational Drug Use: Yes (THC) Drug of Choice: THC Smoking Status: Current Everyday Smoker Type Used: Cigarettes 2nd Hand Smoke Exposure: No Recent Foreign Travel: No Contact w/Someone Who Travel: No Recent Infectious Disease Expo: No Recent Hopitalizations: No Ebola Symptoms: Denies Symptoms Listed Immunizations Up To Date Tetanus Booster (TDap): Less than 5yrs PED Vaccines UTD: Yes Seasonal Allergies Seasonal Allergies: No Past Medical History Surgeries: No Respiratory: No Currently Using CPAP: No Currently Using BIPAP: No Cardiac: Yes High Cholesterol Neurological: Yes Headaches /Migraines Reproductive Disorders: No Genitourinary: No Gastrointestinal: No Musculoskeletal: No Endocrine: No HEENT: No Cancer: No Psychosocial: Yes ADD/ADHD, Anxiety Integumentary: No Blood Disorders: No Family Medical History Diabetes, Hypertension Physical Exam Vital Signs Vital Signs - First Documented 07/10/18 01:05 Temp 98.5 Pulse 106 Resp 20 B/P (MAP) 133/70 Pulse Ox 99 O2 Delivery Room Air Capillary Refill : Height, Weight, BMI Height: 5'6.00" Weight: 190lbs. 0.0oz. 86.394956wo; 28.12 BMI Method:Stated General Appearance: WD/WN, no apparent distress, other (TALKS RAPIDLY NON- STOP. WEARING A HAT WHICH COMPLETELY COVERS HER HEAD AND HAIR. DOES NOT APPEAR TO BE IN ANY DISCOMFORT OR DISTRESS) HEENT: PERRL/EOMI, normal ENT inspection, TMs normal, pharynx normal Neck: full range of motion, supple, normal inspection, tender lateral ( BILATERAL PARAVERTEBRAL CERVICAL MUSCLE TENDERNESS. NO RIGIDITY) Cardiovascular: regular rate, rhythm, no murmur Respiratory: normal breath sounds, no respiratory distress, no accessory muscle use Gastrointestinal: non tender, soft Extremities: normal inspection, no pedal edema, no calf tenderness, normal capillary refill Psychiatric: alert, oriented x 3 Crainal Nerves: normal hearing, normal speech, PERRL Coordination/Gait: normal gait Motor/Sensory: no motor deficit, no sensory deficit, no pronator drift Skin: normal color, warm/dry, tattoos/piercings (EXTENSIVE TATTOOS) Progress/Results/Core Measures Results/Orders Lab Results Laboratory Tests Test 07/10/18 01:18 Range/Units Urine Test NEGATIVE NEGATIVE Urine Opiates Screen NEGATIVE NEGATIVE Urine Oxycodone Screen NEGATIVE NEGATIVE Urine Methadone Screen NEGATIVE NEGATIVE Urine Propoxyphene Screen NEGATIVE NEGATIVE Urine Barbiturates Screen NEGATIVE NEGATIVE Ur Tricyclic Antidepressants Screen NEGATIVE NEGATIVE Urine Phencyclidine Screen NEGATIVE NEGATIVE Urine Amphetamines Screen NEGATIVE NEGATIVE Urine Methamphetamines Screen NEGATIVE NEGATIVE Urine Benzodiazepines Screen NEGATIVE NEGATIVE Urine Cocaine Screen NEGATIVE NEGATIVE Urine Cannabinoids Screen NEGATIVE NEGATIVE My Orders Orders - DORINA FRANZ DO Ct Head Wo (07/10/18 01:16) Urine Bedside (07/10/18 01:16) Drug Screen Stat (Urine) (07/10/18 01:16) Hcg,Qualitative Urine (07/10/18 01:19) Ketorolac Injection (Toradol Injection) (07/10/18 02:15) Diphenhydramine Injection (Benadryl Inje (07/10/18 02:15) Medications Given in ED Current Medications Medications Dose Ordered Sig/Nkechi Route Start Time Stop Time Status Last Admin Dose Admin Ketorolac Tromethamine 60 mg ONCE ONCE IM 07/10/18 02:15 07/10/18 02:17 DC 07/10/18 02:17 60 MG Vital Signs/I&O 07/10/18 07/10/18 01:05 02:19 Temp 98.5 98.5 Pulse 106 106 Resp 20 20 B/P (MAP) 133/70 Pulse Ox 99 99 O2 Delivery Room Air Room Air Progress Progress Note : Progress Note UNEVENTFUL ER STAY Diagnostic Imaging Comments CT HEAD--NO ACUTE PROCESS, PER [facility] VIA FAX @ 1023 Reviewed: Reviewed by Me Departure Impression Primary Impression: Headache Additional Impression: SUBJECTIVE PARESTHESIAS Disposition: HOME, SELF-CARE Condition: Stable Departure-Patient Inst. Referrals: [facility] (PCP) Primary Care Physician MIKE CHU APRN (Family) Primary Care Physician Patient Instructions: Headache, Adult (DC), Paresthesias (DC) Add. Discharge Instructions: HOME, REST LOTS OF CLEAR LIQUIDS FOLLOW UP WITH [facility] THIS WEEK FOR FURTHER CARE All discharge instructions reviewed with patient and/or family. Voiced understanding. DORINA FRANZ DO Jul 10, 2018 02:05
[2018-07-10] MEDS ORDERED: KETOROLAC 60 MG/2 ML VIAL IM ONE (02:15)
[2018-07-10] MEDS ORDERED: diphenhydrAMINE 50 MG/ML INJ (BENADRYL) IM ONE (02:15)
--- NOTE | 2018-07-10 06:09 | Diagnostic Imaging Report ---
PROCEDURE: CT head without contrast. TECHNIQUE: Multiple contiguous axial images were obtained through the brain without the use of intravenous contrast. INDICATION: Headache. FINDINGS: The ventricles and sulci are within normal limits. There is no hydrocephalus or cerebral edema. There is no midline shift or mass effect. There is no intracranial mass, hemorrhage, or extra-axial fluid collection. The visualized paranasal sinuses and mastoid air cells are clear. There are no regional areas of decreased attenuation appreciated to suggest an acute CVA. IMPRESSION: No acute intracranial abnormality. Dictated by: Dictated on workstation # [id number]
== END 2018-07-10 02:20 | disposition home or self-care (01) ==
LOC: EDUNIT# 00:52 → ER 00:55
DX: R51 Headache (principal); R20.2 Paresthesia of skin; E78.00 Pure hypercholesterolemia, unspecified; G43.909 Migraine, unspecified, not intractable, without status migrainosus; F90.9 Attention-deficit hyperactivity disorder, unspecified type; F41.9 Anxiety disorder, unspecified; F12.10 Cannabis abuse, uncomplicated; F17.210 Nicotine dependence, cigarettes, uncomplicated; Z88.2 Allergy status to sulfonamides; Z88.8 Allergy status to other drugs, medicaments and biological substances
CPT/HCPCS: 70450; 80306; 84703

== ENCOUNTER → 2018-08-07 | Outpatient (CLI) | payer SELFPAY ==
[~2018-08-07] MED LIST changes: -BENZ-13 PO; +BENZ100C18 PO; +IOHEXOL 350 MG/ML 100 ML (OMNIPAQUE 350) VIAL IV ONE; +NS 250 ML (IVPB) BAG IV ONE
--- NOTE | 2018-08-07 09:35 | Diagnostic Imaging Report ---
PROCEDURE: CT abdomen and pelvis with contrast. TECHNIQUE: Multiple contiguous axial images were obtained through the abdomen and pelvis after administration of intravenous contrast. INDICATION: Right ovarian cyst. Adnexal pain. COMPARISON: 06/17/2018. FINDINGS: Included portions of the lung bases are clear. CT ABDOMEN: Normal appendix is identified. Small bowel loops are nondistended. The kidneys, adrenal glands, spleen, pancreas, and liver have a normal CT appearance. There is no loculated fluid collection, free fluid, nor free air within the abdomen. No abnormal mesenteric or retroperitoneal adenopathy is seen. Bony structures show no acute abnormalities. CT PELVIS: Urinary bladder is minimally distended and unopacified. No calculi are seen within urinary bladder. Since the previous exam, there has been interval resolution of previous described right ovarian cyst and pelvic free fluid. No abnormal fluid collections are seen on today's exam. There is no free air. No abnormal lymph nodes are identified. Bony structures show no acute abnormalities. IMPRESSION: 1. Interval resolution of right-sided adnexal cyst and pelvic free fluid. 2. No acute abnormality seen within the abdomen or pelvis on today's exam. Dictated by: Dictated on workstation # [id number]
== END ==
LOC: RAD 08:10
PROVIDERS: ATTEND Nurse Practitioner Family
DX: N83.201 Unspecified ovarian cyst, right side (principal)
CPT/HCPCS: 74177

== ENCOUNTER 2018-10-02 01:44 | Emergency (ER) | payer SELFPAY ==
[~2018-10-02] VITALS: Ht 160 cm; Wt 86.2 kg
[~2018-10-02 01:44] MED LIST changes: -IOHEXOL 350 MG/ML 100 ML (OMNIPAQUE 350) VIAL IV ONE; -NS 250 ML (IVPB) BAG IV ONE
[2018-10-02] MEDS ORDERED: PANTOPRAZOLE 40 MG (PROTONIX) VIAL IV STA (02:03)
[2018-10-02] MEDS ORDERED: LACTATED RINGERS 1,000 ML IV ONE (02:03)
[2018-10-02] MEDS ORDERED: ONDANSETRON 4 MG/2 ML (SDV) Z0FRAN IVP ONE (02:15)
[2018-10-02 02:39] LABS: BASOPHILS % (AUTO) 0 % (0-10); EOSINOPHILS # (AUTO) 0.1 10^3/uL (0.0-0.3); EOSINOPHILS % (AUTO) 1 % (0-10); HEMATOCRIT 37 % (35-52); HEMOGLOBIN 12.3 G/DL (11.5-16.0); LYMPHOCYTES # (AUTO) 2.4 X 10^3 (1.0-4.0); LYMPHOCYTES % (AUTO) 25 % (12-44); MEAN CORPUSCULAR HEMOGLOBIN 30 PG (25-34); MEAN CORPUSCULAR HGB CONC 34 G/DL (32-36); MEAN CORPUSCULAR VOLUME 90 FL (80-99); MONOCYTES # (AUTO) 0.5 X 10^3 (0.0-1.0); MONOCYTES % (AUTO) 5 % (0-12); NEUTROPHILS # (AUTO) 6.5 X 10^3 (1.8-7.8); NEUTROPHILS % (AUTO) 69 % (42-75); PLATELET COUNT 345 10^3/uL (130-400); RED BLOOD COUNT 4.09 10^6/uL (4.35-5.85); RED CELL DISTRIBUTION WIDTH 13.6 % (10.0-14.5); WHITE BLOOD COUNT 9.4 10^3/uL (4.3-11.0)
[2018-10-02 02:40] LABS: BILIRUBIN,URINE NEGATIVE (NEGATIVE); CLARITY,URINE CLEAR; COLOR,URINE YELLOW; GLUCOSE, URINE (UA) NEGATIVE (NEGATIVE); KETONES,URINE NEGATIVE (NEGATIVE); LEUKOCYTE ESTERASE ,URINE NEGATIVE (NEGATIVE); NITRITE,URINE NEGATIVE (NEGATIVE); PH,URINE 6 (5-9); PROTEIN,URINE NEGATIVE (NEGATIVE); UROBILINOGEN,URINE NORMAL (NORMAL)
[2018-10-02 02:50] LABS: BACTERIA,URINE TRACE /HPF
[2018-10-02 02:53] LABS: AMPHETAMINE SCREEN, URINE NEGATIVE (NEGATIVE); BARBITURATE SCREEN URINE NEGATIVE (NEGATIVE); BENZODIAZEPINES SCREEN URINE NEGATIVE (NEGATIVE); CANNABINOID SCREEN, URINE NEGATIVE (NEGATIVE); COCAINE SCREEN URINE NEGATIVE (NEGATIVE); METHADONE STAT NEGATIVE (NEGATIVE); METHAMPHETAMINE SCREEN URINE S NEGATIVE (NEGATIVE); OPIATE SCREEN URINE NEGATIVE (NEGATIVE); OXYCODONE STAT NEGATIVE (NEGATIVE); PROPOXYPHENE STAT NEGATIVE (NEGATIVE); TRICYCLIC ANTIDEPRESSANTS SCRE NEGATIVE (NEGATIVE)
[2018-10-02 03:00] LABS: ALANINE AMINOTRANSFERASE 11 U/L (0-55); ALBUMIN 4.7 GM/DL (3.2-4.5); ALKALINE PHOSPHATASE 66 U/L (40-136); AMYLASE 76 U/L (25-125); BILIRUBIN,TOTAL 0.4 MG/DL (0.1-1.0); BUN/CREATININE RATIO 13; CALCIUM 9.9 MG/DL (8.5-10.1); CARBON DIOXIDE 22 MMOL/L (21-32); CHLORIDE 106 MMOL/L (98-107); CREATININE SERUM 0.84 MG/DL (0.60-1.30); GFR ESTIMATED > 60; GLUCOSE 109 MG/DL (70-105); LIPASE 6 U/L (8-78); MAGNESIUM 2.1 MG/DL (1.8-2.4); POTASSIUM 3.3 MMOL/L (3.6-5.0); SODIUM 141 MMOL/L (135-145); TOTAL PROTEIN 8.2 GM/DL (6.4-8.2)
[2018-10-02] MEDS ORDERED: HYOS0.1283 SL (04:04)
[2018-10-02] MEDS ORDERED: DICY20TA10 PO (04:04)
[2018-10-02] MEDS ORDERED: SUCR1ORA5 PO (04:04)
--- NOTE | 2018-10-02 04:04 | ED Abdominal Pain ---
General Chief Complaint: Abdominal/GI Problems Stated Complaint: ABD PAIN,HALLUCINATIONS Source of Information: Patient (DIFFICULT TO KEEP ON SUBJECT), Old Records History of Present Illness Date Seen by Provider: Oct 02, 2018 Time Seen by Provider: 01:53 Initial Comments PT ARRIVES VIA POV C/O LUQ PAIN RADIATING TO LEFT FLANK FOR THE PAST 2 DAYS TOOK IBUPROFEN X 1 YESTERDAY, TOOK TYLENOL X 1 YESTERDAY HAS CHRONIC ABDOMINAL PAIN AND STATES SHE HAS BEEN DX WITH [facility]--HAD AN EGD [address] AGUDELO. HAS A 3 MONTH FOLLOW UP APPOINTMENT ON SUNDAY PT HAS BEEN PRESCRIBED PANTOPRAZOLE AND CARAFATE, BUT STATES SHE HAS NOT BEEN TAKING THE CARAFATE BECAUSE THE PILLS ARE TOO BIG. + NAUSEA, NO VOMITING HAS HAD 2 HARD PEBBLE STOOLS TODAY NO FEVER + URINARY FREQUENCY--STATES SHE URINATES "6-7 TIMES AN HOUR" -STATES "EVERY TIME I DRINK SOMETHING I HAVE TO PEE" --IS NOT A NEW PROBLEM LMP 09/19/18--10 DAYS LATE. NO CONTROL, PT IS SEXUALLY ACTIVE THIS IS A CHRONIC PROBLEM AND IS UNCLEAR WHAT IS DIFFERENT TONIGHT PT HAS A MULTITUDE OF OTHER CHRONIC COMPLAINTS, NONE OF WHICH ARE NEW OR WORSE TONIGHT DIFFICULT TO KEEP ON SUBJECT AND TALKS NON-STOP PT WITH MULTITUDE OF VISITS FOR VARIOUS COMPLAINTS--11 VISITS IN 2017 PCP: [facility] SURGERY: DR. AGUDELO Allergies and Home Medications Allergies Coded Allergies: sulfamethoxazole (Verified Allergy, Unknown, 05/20/18) trimethoprim (Verified Allergy, Unknown, 05/20/18) Home Medications Dicyclomine HCl 20 Mg Tablet, 20 MG PO Q6H Prescribed by: DORINA FRANZ on 10/02/18 0404 Doxycycline Hyclate 100 Mg Tablet, 100 MG PO BID Prescribed by: PRISCILLA CALLE on 05/20/18 1149 Hydrocodone Bit/Acetaminophen 1 Tab Tab, 1 EACH PO Q4H PRN for PAIN Prescribed by: DAY KILLIAN on 06/17/18 2214 Hyoscyamine Sulfate 0.125 Mg Tab.subl, 1-2 TAB SL Q4H Prescribed by: DORINA FRANZ on 05/22/18 0244 Hyoscyamine Sulfate 0.125 Mg Tab.subl, 1-2 TAB SL Q4H Prescribed by: DORINA FRANZ on 10/02/18 0404 Nitrofurantoin Monohyd/M-Cryst 100 Mg Capsule, 100 MG PO BID Prescribed by: DORINA FRANZ on 05/22/18 0244 Ondansetron 4 Mg Tab.rapdis, 4 MG SL Q4H PRN for NAUSEA/VOMITING-1ST LINE Prescribed by: PRISCILLA CALLE on 05/20/18 1133 Ondansetron 4 Mg Tab.rapdis, 4 MG SL Q4H PRN for NAUSEA/VOMITING-1ST LINE Prescribed by: DAY KILLIAN on 06/17/18 2214 Pantoprazole Sodium 40 Mg Tablet.dr, 40 MG PO DAILY Prescribed by: WEST AGUDELO on 06/20/18 1447 Promethazine HCl 25 Mg Supp.rect, 25 MG RC Q4H Prescribed by: DORINA FRANZ on 05/22/18 0244 Sucralfate 1 Gm Tablet, 1 GM PO QID Prescribed by: WEST AGUDELO on 06/20/18 1447 Sucralfate 1 Gm/10 Ml Oral.susp, 1 GM PO QID AC AND HS Prescribed by: DORINA FRANZ on 10/02/18 040 Patient Home Medication List Home Medication List Reviewed: Yes Review of Systems Review of Systems Constitutional: No fever Gastrointestinal: See HPI, Abdominal Pain, Constipated, Nausea; Denies Vomiting Genitourinary: See HPI, Frequency; Denies Flank Pain Psychiatric/Neurological: Other (PT QUIT TAKING HER PSYCH MEDICATIONS 5-6 MONTHS AGO. ) Past Dxycxgh-Nvgtqm-Llisez Hx Patient Social History Alcohol Use: Occasionally Uses Recreational Drug Use: Yes (THC) Drug of Choice: THC Smoking Status: Current Everyday Smoker (1 PPD) Type Used: Cigarettes 2nd Hand Smoke Exposure: No Recent Foreign Travel: No Contact w/Someone Who Travel: No Recent Hopitalizations: No Immunizations Up To Date Tetanus Booster (TDap): Less than 5yrs PED Vaccines UTD: Yes Seasonal Allergies Seasonal Allergies: No Past Medical History Surgeries: Yes (EGD) Respiratory: No Currently Using CPAP: No Currently Using BIPAP: No Cardiac: Yes High Cholesterol Neurological: Yes Headaches /Migraines Reproductive Disorders: No Female Reproductive Disorders: Denies Genitourinary: No Gastrointestinal: Yes Ulcer Musculoskeletal: No Endocrine: No HEENT: No Cancer: No Psychosocial: Yes ADD/ADHD, Anxiety Integumentary: No Blood Disorders: No Family Medical History Diabetes, Hypertension Physical Exam Vital Signs Vital Signs - First Documented 10/02/18 01:50 Temp 96.9 Pulse 115 Resp 16 B/P (MAP) 140/75 (96) Pulse Ox 100 O2 Delivery Room Air Capillary Refill : Height/Weight/BMI Height: 5'6.00" Weight: 190lbs. 0.0oz. 86.736349vp; 28.12 BMI Method:Stated General Appearance: WD/WN, no apparent distress, other (WEARING A WIG. TALKS NON-STOP AT LENGTH. WALKS UPRIGHT AND MOVES QUICKLY WITHOUT DIFFICULTY, SITTING STYLE. DOES NOT APPEAR TO BE IN ANY DISCOMFORT OR DISTRESS. ) Respiratory: normal breath sounds, no respiratory distress, no accessory muscle use Cardiovascular: regular rate, rhythm, no edema, no JVD, no murmur Gastrointestinal: normal bowel sounds, soft, no organomegaly; No distended, No guarding, No rebound; tenderness (MILD LUQ TENDERNESS); No hernia, No mass Extremities: normal inspection Back: normal inspection, no CVA tenderness Neurologic/Psychiatric: java portal developer II-XII nml as tested, no motor/sensory deficits, alert, oriented x 3 Skin: normal color, warm/dry, tattoos/piercings (EXTENSIVE TATTOOS) Progress/Results/Core Measures Results/Orders Lab Results Laboratory Tests Test 10/02/18 02:30 Range/Units White Blood Count 9.4 4.3-11.0 10^3/uL Red Blood Count 4.09 L 4.35-5.85 10^6/uL Hemoglobin 12.3 11.5-16.0 G/DL Hematocrit 37 35-52 % Mean Corpuscular Volume 90 80-99 FL Mean Corpuscular Hemoglobin 30 25-34 PG Mean Corpuscular Hemoglobin Concent 34 32-36 G/DL Red Cell Distribution Width 13.6 10.0-14.5 % Platelet Count 345 130-400 10^3/uL Mean Platelet Volume 9.0 7.4-10.4 FL Neutrophils (%) (Auto) 69 42-75 % Lymphocytes (%) (Auto) 25 12-44 % Monocytes (%) (Auto) 5 0-12 % Eosinophils (%) (Auto) 1 0-10 % Basophils (%) (Auto) 0 0-10 % Neutrophils # (Auto) 6.5 1.8-7.8 X 10^3 Lymphocytes # (Auto) 2.4 1.0-4.0 X 10^3 Monocytes # (Auto) 0.5 0.0-1.0 X 10^3 Eosinophils # (Auto) 0.1 0.0-0.3 10^3/uL Basophils # (Auto) 0.0 0.0-0.1 10^3/uL Urine Color YELLOW Urine Clarity CLEAR Urine pH 6 5-9 Urine Specific [place] 1.015 L 1.016-1.022 Urine Protein NEGATIVE NEGATIVE Urine Glucose (UA) NEGATIVE NEGATIVE Urine Ketones NEGATIVE NEGATIVE Urine Nitrite NEGATIVE NEGATIVE Urine Bilirubin NEGATIVE NEGATIVE Urine Urobilinogen NORMAL NORMAL MG/DL Urine Leukocyte Esterase NEGATIVE NEGATIVE Urine RBC (Auto) 1+ H NEGATIVE Urine RBC NONE /HPF Urine WBC NONE /HPF Urine Squamous Epithelial Cells 10-25 H /HPF Urine Crystals NONE /LPF Urine Bacteria TRACE /HPF Urine Casts NONE /LPF Urine Mucus NEGATIVE /LPF Urine Culture Indicated NO Sodium Level 141 135-145 MMOL/L Potassium Level 3.3 L 3.6-5.0 MMOL/L Chloride Level 106 98-107 MMOL/L Carbon Dioxide Level 22 21-32 MMOL/L Anion Gap 13 5-14 MMOL/L Blood Urea Nitrogen 11 7-18 MG/DL Creatinine 0.84 0.60-1.30 MG/DL Estimat Glomerular Filtration Rate > 60 BUN/Creatinine Ratio 13 Glucose Level 109 H 70-105 MG/DL Calcium Level 9.9 8.5-10.1 MG/DL Corrected Calcium 8.5-10.1 MG/DL Magnesium Level 2.1 1.8-2.4 MG/DL Total Bilirubin 0.4 0.1-1.0 MG/DL Aspartate Amino Transf (AST/SGOT) 18 5-34 U/L Alanine Aminotransferase (ALT/SGPT) 11 0-55 U/L Alkaline Phosphatase 66 40-136 U/L Total Protein 8.2 6.4-8.2 GM/DL Albumin 4.7 H 3.2-4.5 GM/DL Amylase Level 76 25-125 U/L Lipase 6 L 8-78 U/L Urine Opiates Screen NEGATIVE NEGATIVE Urine Oxycodone Screen NEGATIVE NEGATIVE Urine Methadone Screen NEGATIVE NEGATIVE Urine Propoxyphene Screen NEGATIVE NEGATIVE Urine Barbiturates Screen NEGATIVE NEGATIVE Ur Tricyclic Antidepressants Screen NEGATIVE NEGATIVE Urine Phencyclidine Screen NEGATIVE NEGATIVE Urine Amphetamines Screen NEGATIVE NEGATIVE Urine Methamphetamines Screen NEGATIVE NEGATIVE Urine Benzodiazepines Screen NEGATIVE NEGATIVE Urine Cocaine Screen NEGATIVE NEGATIVE Urine Cannabinoids Screen NEGATIVE NEGATIVE My Orders Orders - DORINA FRANZ DO Saline Lock/Iv-Start (10/02/18 02:03) Urine Bedside (10/02/18 02:03) Amylase (10/02/18 02:03) Cbc With Automated Diff (10/02/18 02:03) Comprehensive Metabolic Panel (10/02/18 02:03) Drug Screen Stat (Urine) (10/02/18 02:03) Lipase (10/02/18 02:03) Magnesium (10/02/18 02:03) Ua Culture If Indicated (10/02/18 02:03) Ct Abd/Pelvis Wo(Kidney Stone) (10/02/18 02:03) Acute Abd Series (10/02/18 02:03) Ondansetron Injection (Zofran Injectio (10/02/18 02:15) Saline Lock/Iv-Start (10/02/18 02:03) Lactated Ringers (Lr 1000 Ml Iv Solution (10/02/18 02:03) Pantoprazole Injection (Protonix Injecti (10/02/18 02:03) Medications Given in ED Current Medications Medications Dose Ordered Sig/Nkechi Route Start Time Stop Time Status Last Admin Dose Admin Lactated Ringer's 1,000 ml @ 0 mls/hr Q0M ONCE IV 10/02/18 02:03 10/02/18 02:05 DC 10/02/18 02:50 0 MLS/HR Ondansetron HCl 4 mg ONCE ONCE IVP 10/02/18 02:15 10/02/18 02:16 DC 10/02/18 02:51 4 MG Vital Signs/I&O 10/02/18 10/02/18 01:50 04:20 Temp 96.9 96.9 Pulse 115 83 Resp 16 16 B/P (MAP) 140/75 (96) 110/69 (83) Pulse Ox 100 100 O2 Delivery Room Air Room Air Progress Progress Note : Progress Note UNEVENTFUL ER STAY Diagnostic Imaging Comments ACUTE ABDOMEN XRAYS--NO ACUTE PROCESS, PENDING RADIOLOGIST REVIEW CT ABDOMEN/PELVIS--NO ACUTE PROCESS PER [facility] VIA FAX @ [id number] Reviewed: Reviewed by Me Departure Impression Primary Impression: LUQ abdominal pain Disposition: 01 HOME, SELF-CARE Condition: Stable Departure-Patient Inst. Referrals: [facility] (PCP/Family) Primary Care Physician Patient Instructions: Acute Abdomen (Belly Pain), Adult (DC) Add. Discharge Instructions: TAKE ALL OF YOUR MEDICATIONS EXACTLY PRESCRIBED CLEAR LIQUIDS--WATER, BROTH, JELLO, GATORADE BRATS DIET--BANANAS, RICE, APPLESAUCE, TOAST, SALTINES KEEP YOUR APPOINTMENT WITH DR. AGUDELO FOLLOW UP WITH [facility] THIS WEEK FOR FURTHER CARE All discharge instructions reviewed with patient and/or family. Voiced understanding. Scripts Dicyclomine HCl (Dicyclomine HCl) 20 Mg Tablet 20 MG PO Q6H for Abdominal Pain, #20 TAB Prov: DORINA FRANZ DO 10/02/18 Sucralfate (Carafate) 1 Gm/10 Ml Oral.susp 1 GM PO QID AC AND HS, #400 ML Prov: DORINA FRANZ DO 10/02/18 Hyoscyamine Sulfate (Levsin-Sl) 0.125 Mg Tab.subl 1-2 TAB SL Q4H for Abdominal Pain, #15 TAB Prov: DORINA FRANZ DO 10/02/18 DORINA FRANZ DO Oct 02, 2018 04:04
[2018-10-02 04:20] VITALS: BP 110/69
--- NOTE | 2018-10-02 07:46 | Diagnostic Imaging Report ---
PROCEDURE: CT urinary tract, rule out kidney stone. TECHNIQUE: Multiple contiguous axial images were obtained through the abdomen and pelvis without the use of intravenous contrast. INDICATION: Left upper quadrant pain. Comparison with 08/07/2018. FINDINGS: The lung bases are clear. Liver appears normal. Gallbladder and bile ducts are normal. The pancreas and spleen are normal. The adrenal glands and kidneys are normal. Ureters are not dilated. Bladder is nondistended. There are no pelvic masses. There is no free air or free fluid. Bowel gas pattern is normal throughout. The appendix is visualized and is not distended. There is no periappendiceal edema. No adenopathy of pathologic size present. IMPRESSION: Negative CT abdomen and pelvis. Dictated by: Dictated on workstation # [id number]
--- NOTE | 2018-10-02 07:49 | Diagnostic Imaging Report ---
Indication: Left upper quadrant pain Exam: PA chest, supine and upright abdominal images were obtained Findings: The lungs are clear. There is no intraperitoneal free air. Bowel gas pattern is normal. Impression: Negative abdomen. Dictated by: Dictated on workstation # [id number]
== END 2018-10-02 04:20 | disposition home or self-care (01) ==
LOC: EDUNIT# 01:44 → ER 01:46
DX: R10.12 Left upper quadrant pain (principal); E78.00 Pure hypercholesterolemia, unspecified; G43.909 Migraine, unspecified, not intractable, without status migrainosus; F41.9 Anxiety disorder, unspecified; F90.9 Attention-deficit hyperactivity disorder, unspecified type; F17.210 Nicotine dependence, cigarettes, uncomplicated; F19.10 Other psychoactive substance abuse, uncomplicated; Z88.2 Allergy status to sulfonamides; Z88.1 Allergy status to other antibiotic agents
CPT/HCPCS: 36415; 74022; 74176; 80053; 80306; 81000; 82150; 83690; 83735; 85025; 96361; 96374; 96375

== ENCOUNTER 2018-11-11 14:04 | Emergency (ER) | payer SELFPAY ==
[~2018-11-11] VITALS: Ht 160 cm; Wt 81.6 kg
[~2018-11-11 14:04] MED LIST changes: +DICY20TA10 PO; +SUCR1ORA5 PO
--- NOTE | 2018-11-11 14:45 | ED Cough/URI ---
General Chief Complaint: Cough/Cold/Flu Symptoms Stated Complaint: POSS PNEUMONIA;COUGH;L FOOT SWELLING Nursing Triage Note: PT COMPLAINING OF PRODUCTIVE COUGH, BACK PAIN, AND LEFT FOOT PAIN. Source: patient Exam Limitations: no limitations History of Present Illness Date Seen by Provider: Nov 11, 2018 Time Seen by Provider: 14:41 Initial Comments Patient is a 18-year-old female who presents to the emergency room with complaints of productive cough, fever for the past week and left pain and intermittent swelling for the past 3 days. She denies taking any medications [id number] for her cough. She was able to ambulate to ED room 5 without difficulty. Timing/Duration: week Severity/Quality: moderate, productive cough Prior Episodes/Possible Cause: no prior episodes Associated Symptoms: cough, fever/chills Allergies and Home Medications Allergies Coded Allergies: sulfamethoxazole (Verified Allergy, Unknown, 05/20/18) trimethoprim (Verified Allergy, Unknown, 05/20/18) Home Medications Dicyclomine HCl 20 Mg Tablet, 20 MG PO Q6H Prescribed by: DORINA FRANZ on 10/02/18403 Doxycycline Hyclate 100 Mg Tablet, 100 MG PO BID Prescribed by: PRISCILLA CALLE on 05/20/18 1149 Hydrocodone Bit/Acetaminophen 1 Tab Tab, 1 EACH PO Q4H PRN for PAIN Prescribed by: DAY KILLIAN on 06/17/182213 Hyoscyamine Sulfate 0.125 Mg Tab.subl, 1-2 TAB SL Q4H Prescribed by: DORINA FRANZ on 05/22/18 0244 Hyoscyamine Sulfate 0.125 Mg Tab.subl, 1-2 TAB SL Q4H Prescribed by: DORINA FRANZ on 10/02/18 040 Nitrofurantoin Monohyd/M-Cryst 100 Mg Capsule, 100 MG PO BID Prescribed by: DORINA FRANZ on 05/22/18 0244 Ondansetron 4 Mg Tab.rapdis, 4 MG SL Q4H PRN for NAUSEA/VOMITING-1ST LINE Prescribed by: PRISCILLA CALLE on 05/20/18 1133 Ondansetron 4 Mg Tab.rapdis, 4 MG SL Q4H PRN for NAUSEA/VOMITING-1ST LINE Prescribed by: DAY KILLIAN on 06/17/18 221 Pantoprazole Sodium 40 Mg Tablet.dr, 40 MG PO DAILY Prescribed by: WEST AGUDELO on 06/20/18 1447 Promethazine HCl 25 Mg Supp.rect, 25 MG RC Q4H Prescribed by: DORINA FRANZ on 05/22/18 0244 Sucralfate 1 Gm Tablet, 1 GM PO QID Prescribed by: WEST AGUDELO on 06/20/18 1447 Sucralfate 1 Gm/10 Ml Oral.susp, 1 GM PO QID AC AND HS Prescribed by: DORINA FRANZ on 10/02/18 0404 Patient Home Medication List Home Medication List Reviewed: Yes Review of Systems Review of Systems Constitutional: see HPI, fever Respiratory: see HPI, cough, phlegm Musculoskeletal: see HPI, joint pain (left foot pain and swelling no injury. ) Past Xfnejas-Apuwyu-Eerzyi Hx Patient Social History Alcohol Use: Denies Use Recreational Drug Use: No Drug of Choice: THC Smoking Status: Current Everyday Smoker Type Used: Cigarettes Former Smoker, Quit: Jun 06, 2018 2nd Hand Smoke Exposure: No Recent Foreign Travel: No Contact w/Someone Who Travel: No Recent Infectious Disease Expo: No Recent Hopitalizations: No Immunizations Up To Date Tetanus Booster (TDap): Less than 5yrs PED Vaccines UTD: Yes Seasonal Allergies Seasonal Allergies: No Past Medical History Surgeries: Yes (EGD) Respiratory: No Currently Using CPAP: No Currently Using BIPAP: No Cardiac: Yes High Cholesterol Neurological: Yes Headaches /Migraines Reproductive Disorders: No Female Reproductive Disorders: Denies Genitourinary: No Gastrointestinal: Yes Ulcer Musculoskeletal: No Endocrine: No HEENT: No Cancer: No Psychosocial: Yes ADD/ADHD, Anxiety Integumentary: No Blood Disorders: No Family Medical History Diabetes, Hypertension Physical Exam Vital Signs - First Documented 11/11/18 14:16 Temp 97.7 Pulse 92 Resp 23 B/P (MAP) 115/64 (81) Pulse Ox 99 O2 Delivery Room Air Capillary Refill : Less Than 3 Seconds Height: 5'3.00" Weight: 180lbs. 0.0oz. 81.901872kp; 28.12 BMI Method:Stated General Appearance: WD/WN, no apparent distress HEENT: PERRL/EOMI, normal ENT inspection, TMs normal, pharynx normal Neck: non-tender, full range of motion, supple, normal inspection, carotid bruit Respiratory: chest non-tender, lungs clear, normal breath sounds, no respiratory distress, no accessory muscle use Cardiovascular: normal peripheral pulses, regular rate, rhythm, no edema, no gallop, no JVD, no murmur Extremities: normal range of motion, non-tender, normal inspection, no pedal edema, no calf tenderness, normal capillary refill Neurologic/Psychiatric: alert, normal mood/affect, oriented x 3 Skin: normal color, warm/dry Progress/Results/Core Measures Suspected Sepsis Recent Fever Within 48 Hours: No Infection Criteria Present: None New/Unexplained Altered Menta: No Sepsis Screen: No Definite Risk SIRS Temperature:97.7 Pulse: 92 Respiratory Rate: 23 Laboratory Tests 11/11/18 14:36: White Blood Count 7.4 Blood Pressure 115 /64 Mean: 81 Laboratory Tests 11/11/18 14:36: Creatinine 0.98, Platelet Count 343, Total Bilirubin 0.6 Results/Orders Lab Results Laboratory Tests Test 11/11/18 14:36 Range/Units White Blood Count 7.4 4.3-11.0 10^3/uL Red Blood Count 4.31 L 4.35-5.85 10^6/uL Hemoglobin 12.8 11.5-16.0 G/DL Hematocrit 38 35-52 % Mean Corpuscular Volume 89 80-99 FL Mean Corpuscular Hemoglobin 30 25-34 PG Mean Corpuscular Hemoglobin Concent 34 32-36 G/DL Red Cell Distribution Width 13.5 10.0-14.5 % Platelet Count 343 130-400 10^3/uL Mean Platelet Volume 9.3 7.4-10.4 FL Neutrophils (%) (Auto) 65 42-75 % Lymphocytes (%) (Auto) 28 12-44 % Monocytes (%) (Auto) 6 0-12 % Eosinophils (%) (Auto) 1 0-10 % Basophils (%) (Auto) 0 0-10 % Neutrophils # (Auto) 4.9 1.8-7.8 X 10^3 Lymphocytes # (Auto) 2.1 1.0-4.0 X 10^3 Monocytes # (Auto) 0.4 0.0-1.0 X 10^3 Eosinophils # (Auto) 0.1 0.0-0.3 10^3/uL Basophils # (Auto) 0.0 0.0-0.1 10^3/uL D-Dimer 0.28 0.00-0.49 UG/ML Sodium Level 139 135-145 MMOL/L Potassium Level 3.9 3.6-5.0 MMOL/L Chloride Level 108 H 98-107 MMOL/L Carbon Dioxide Level 23 21-32 MMOL/L Anion Gap 8 5-14 MMOL/L Blood Urea Nitrogen 12 7-18 MG/DL Creatinine 0.98 0.60-1.30 MG/DL Estimat Glomerular Filtration Rate > 60 BUN/Creatinine Ratio 12 Glucose Level 91 70-105 MG/DL Calcium Level 10.0 8.5-10.1 MG/DL Corrected Calcium 8.5-10.1 MG/DL Total Bilirubin 0.6 0.1-1.0 MG/DL Aspartate Amino Transf (AST/SGOT) 22 5-34 U/L Alanine Aminotransferase (ALT/SGPT) 15 0-55 U/L Alkaline Phosphatase 65 40-136 U/L Total Protein 8.3 H 6.4-8.2 GM/DL Albumin 4.6 H 3.2-4.5 GM/DL Micro Results Microbiology 11/11/18 Influenza Types A,B Antigen (ELEANOR) - Final, Complete My Orders Orders - DAY KILLIAN Cbc With Automated Diff (11/11/18 14:26) Comprehensive Metabolic Panel (11/11/18 14:26) Fibrin Degradation Products (11/11/18 14:26) Chest Pa/Lat (2 View) (11/11/18 14:26) Saline Lock/Iv-Start (11/11/18 14:26) Influenza A And B Antigens (11/11/18 14:26) Vital Signs/I&O 11/11/18 14:16 Temp 97.7 Pulse 92 Resp 23 B/P (MAP) 115/64 (81) Pulse Ox 99 O2 Delivery Room Air Capillary Refill : Less Than 3 Seconds Blood Pressure Mean: 81 Diagnostic Imaging Diagonstic Imaging: Xray Plain Films/CT/US/NM/MRI: chest Comments [facility] [place] NAME: KELBY MOSLEY Chuyita [facility] REC#: [id number] PT STATUS: REG ER : 2000 PHYSICIAN: DAY KILLIAN CEPHALOMETRIC TECHNICIAN ADMIT DATE: 12/17/18/ER Draft Date of Exam:11/11/18 CHEST PA/LAT (2 VIEW) INDICATION: Chest heaviness and cough. TIME OF EXAM: 03:31 p.m. Correlation is made with prior chest from 10/02/2018. FINDINGS: The heart size is normal. The pulmonary vascularity is unremarkable. The lungs are clear. No infiltrate, effusion or pneumothorax is detected. IMPRESSION: No acute cardiopulmonary process is detected. Dictated on workstation # [id number] Dict: 11/11/18 1512 Trans: 11/11/18 1521 [id number] Interpreted by: ERASTO MCCORMICK MD Electronically signed by: Reviewed: Reviewed by Me Departure Impression Primary Impression: Bronchitis Disposition: HOME, SELF-CARE Condition: Stable/Unchanged Departure-Patient Inst. Decision time for Depature: 15:41 [place]errals: [facility] [place] Primary Care Physician Patient Instructions: Bronchiolitis (DC) Add. Discharge Instructions: Take medication as directed. Follow-up with her primary care provider within 1 week for recheck. Return back to emergency room for any worsening symptoms or concerns as needed. All discharge instructions reviewed with patient and/or family. Voiced understanding. Scripts Methylprednisolone (Medrol) 4 Mg Tab.ds.pk 4 MG PO UD, #1 PKG Prov: DAY KILLIAN 11/11/18 Azithromycin (Zithromax) 250 Mg Tablet 250 MG PO UD, #6 TAB TAKE 2 TABLETS TODAY, THEN TAKE 1 TABLET DAILY FOR 4 MORE DAYS Prov: DAY KILLIAN 11/11/18 DAY KILLIAN Nov 11, 2018 14:45
[2018-11-11 14:46] LABS: HEMOGLOBIN 12.8 G/DL (11.5-16.0); RED BLOOD COUNT 4.31 10^6/uL (4.35-5.85); WHITE BLOOD COUNT 7.4 10^3/uL (4.3-11.0)
[2018-11-11 14:47] LABS: BASOPHILS % (AUTO) 0 % (0-10); EOSINOPHILS # (AUTO) 0.1 10^3/uL (0.0-0.3); EOSINOPHILS % (AUTO) 1 % (0-10); HEMATOCRIT 38 % (35-52); LYMPHOCYTES # (AUTO) 2.1 X 10^3 (1.0-4.0); LYMPHOCYTES % (AUTO) 28 % (12-44); MEAN CORPUSCULAR HEMOGLOBIN 30 PG (25-34); MEAN CORPUSCULAR HGB CONC 34 G/DL (32-36); MEAN CORPUSCULAR VOLUME 89 FL (80-99); MEAN PLATELET VOLUME 9.3 FL (7.4-10.4); MONOCYTES # (AUTO) 0.4 X 10^3 (0.0-1.0); MONOCYTES % (AUTO) 6 % (0-12); NEUTROPHILS # (AUTO) 4.9 X 10^3 (1.8-7.8); NEUTROPHILS % (AUTO) 65 % (42-75); PLATELET COUNT 343 10^3/uL (130-400); RED CELL DISTRIBUTION WIDTH 13.5 % (10.0-14.5)
[2018-11-11 15:06] LABS: ALANINE AMINOTRANSFERASE 15 U/L (0-55); ALBUMIN 4.6 GM/DL (3.2-4.5); ALKALINE PHOSPHATASE 65 U/L (40-136); BILIRUBIN,TOTAL 0.6 MG/DL (0.1-1.0); BUN/CREATININE RATIO 12; CARBON DIOXIDE 23 MMOL/L (21-32); CHLORIDE 108 MMOL/L (98-107); CREATININE SERUM 0.98 MG/DL (0.60-1.30); GFR ESTIMATED > 60; GLUCOSE 91 MG/DL (70-105); POTASSIUM 3.9 MMOL/L (3.6-5.0); SODIUM 139 MMOL/L (135-145); TOTAL PROTEIN 8.3 GM/DL (6.4-8.2)
--- NOTE | 2018-11-11 15:22 | Diagnostic Imaging Report ---
INDICATION: Chest heaviness and cough. TIME OF EXAM: 03:31 p.m. Correlation is made with prior chest from 10/02/2018. FINDINGS: The heart size is normal. The pulmonary vascularity is unremarkable. The lungs are clear. No infiltrate, effusion or pneumothorax is detected. IMPRESSION: No acute cardiopulmonary process is detected. Dictated by: Dictated on workstation # [id number]
[2018-11-11] MEDS ORDERED: METH4TAB PO (15:44)
[2018-11-11] MEDS ORDERED: AZIT250T PO (15:44)
[2018-11-11 15:52] VITALS: BP 113/78
== END 2018-11-11 15:53 | disposition home or self-care (01) ==
LOC: EDUNIT# 14:04 → ER 14:05
DX: J40 Bronchitis, not specified as acute or chronic (principal); E78.00 Pure hypercholesterolemia, unspecified; G43.909 Migraine, unspecified, not intractable, without status migrainosus; F98.8 Other specified behavioral and emotional disorders with onset usually occurring in childhood and adolescence; F90.9 Attention-deficit hyperactivity disorder, unspecified type; F41.9 Anxiety disorder, unspecified; F12.10 Cannabis abuse, uncomplicated; Z87.891 Personal history of nicotine dependence; Z88.2 Allergy status to sulfonamides; Z88.8 Allergy status to other drugs, medicaments and biological substances; Z87.19 Personal history of other diseases of the digestive system
CPT/HCPCS: 36415; 71046; 80053; 85025; 85379; 87804

== ENCOUNTER 2019-01-19 23:09 | Emergency (ER) | payer MEDICAID, OTHER ==
[~2019-01-19 23:09] MED LIST changes: +METH4TAB PO
== END 2019-01-19 23:55 | disposition left against medical advice (07) ==
LOC: EDUNIT# 23:09 → ER 23:11
DX: O20.9 Hemorrhage in early pregnancy, unspecified (principal); Z3A.08 8 weeks gestation of pregnancy

== ENCOUNTER 2019-03-23 06:34 | Emergency (ER) | payer MEDICAID ==
[~2019-03-23] VITALS: Ht 160 cm; Wt 81.6 kg
[2019-03-23] MEDS ORDERED: ACETAMINOPHEN 500 MG TAB (TYLENOL) PO ONE (06:45)
--- NOTE | 2019-03-23 06:53 | ED Lower Extremity ---
General Chief Complaint: Lower Extremity Stated Complaint: TWISTED ANKLE Source: patient, EMS Exam Limitations: no limitations History of Present Illness Date Seen by Provider: Mar 23, 2019 Time Seen by Provider: 06:36 Initial Comments patient reports the ER with chief complaint of about 2:30 this morning she fell down a step and rolled her right ankle. She is able to get around for a few hours but the swelling and pain became more intense and so she called EMS for a ride to the ER for evaluation. She's not taken anything for the pain. She does not take any routine medicines. She does not have any abdominal pain and vaginal bleeding dysuria fever chills cough. She denies striking her head or loss of consciousness. 17 weeks 5 days Allergies and Home Medications Allergies Coded Allergies: sulfamethoxazole (Verified Allergy, Unknown, 05/20/18) trimethoprim (Verified Allergy, Unknown, 05/20/18) Home Medications Azithromycin 250 Mg Tablet, 250 MG PO UD TAKE 2 TABLETS TODAY, THEN TAKE 1 TABLET DAILY FOR 4 MORE DAYS Prescribed by: DAY KILLIAN on 11/11/18 1544 Dicyclomine HCl 20 Mg Tablet, 20 MG PO Q6H Prescribed by: DORINA FRANZ on 10/02/18 0404 Doxycycline Hyclate 100 Mg Tablet, 100 MG PO BID Prescribed by: PRISCILLA CALLE on 05/20/18 1149 Hydrocodone Bit/Acetaminophen 1 Tab Tab, 1 EACH PO Q4H PRN for PAIN Prescribed by: DAY KILLIAN on 06/17/18 2214 Hyoscyamine Sulfate 0.125 Mg Tab.subl, 1-2 TAB SL Q4H Prescribed by: DORINA FRANZ on 05/22/18 0244 Hyoscyamine Sulfate 0.125 Mg Tab.subl, 1-2 TAB SL Q4H Prescribed by: DORINA FRANZ on 10/02/18 0404 Methylprednisolone 4 Mg Tab.ds.pk, 4 MG PO UD Prescribed by: DAY KILLIAN on 11/11/18 1544 Nitrofurantoin Monohyd/M-Cryst 100 Mg Capsule, 100 MG PO BID Prescribed by: DORINA FRANZ on 05/22/18 0244 Ondansetron 4 Mg Tab.rapdis, 4 MG SL Q4H PRN for NAUSEA/VOMITING-1ST LINE Prescribed by: PRISCILLA CALLE on 05/20/18 1133 Ondansetron 4 Mg Tab.rapdis, 4 MG SL Q4H PRN for NAUSEA/VOMITING-1ST LINE Prescribed by: DAY KILLIAN on 06/17/182213 Pantoprazole Sodium 40 Mg Tablet.dr, 40 MG PO DAILY Prescribed by: WEST AGUDELO on 06/20/18 1447 Promethazine HCl 25 Mg Supp.rect, 25 MG RC Q4H Prescribed by: DORINA FRANZ on 05/22/18 0244 Sucralfate 1 Gm Tablet, 1 GM PO QID Prescribed by: WEST AGUDELO on 06/20/18 1447 Sucralfate 1 Gm/10 Ml Oral.susp, 1 GM PO QID AC AND HS Prescribed by: DORINA FRANZ on 10/02/18 0404 Patient Home Medication List Home Medication List Reviewed: Yes Review of Systems Constitutional: No chills, No diaphoresis EENTM: No hearing loss, No ear pain Respiratory: No cough, No short of breath Cardiovascular: No chest pain, No edema Gastrointestinal: No abdominal pain, No nausea Past Lozzygo-Yxpuas-Lyaflz Hx Patient Social History Alcohol Use: Denies Use Recreational Drug Use: No Drug of Choice: THC Smoking Status: Current Someday Smoker Type Used: Cigarettes Former Smoker, Quit: Jun 06, 2018 2nd Hand Smoke Exposure: No Recent Hopitalizations: No Immunizations Up To Date Tetanus Booster (TDap): Less than 5yrs PED Vaccines UTD: Yes Seasonal Allergies Seasonal Allergies: No Past Medical History Surgeries: Yes (EGD) Respiratory: No Currently Using CPAP: No Currently Using BIPAP: No Cardiac: Yes High Cholesterol Neurological: Yes Headaches /Migraines Reproductive Disorders: No Female Reproductive Disorders: Denies Genitourinary: No Gastrointestinal: Yes Ulcer Musculoskeletal: No Endocrine: No HEENT: No Cancer: No Psychosocial: Yes ADD/ADHD, Anxiety Integumentary: No Blood Disorders: No Family Medical History Diabetes, Hypertension Physical Exam Vital Signs Vital Signs - First Documented 03/23/19 06:34 Pulse 100 Resp 20 B/P (MAP) 127/73 (91) Capillary Refill : Height, Weight, BMI Height: 5'3.00" Weight: 180lbs. 0.0oz. 81.976193zu; 28.12 BMI Method:Stated General Appearance: WD/WN, mild distress HEENT: PERRL/EOMI, pharynx normal Neck: normal inspection Cardiovascular: normal peripheral pulses, regular rate, rhythm Respiratory: no respiratory distress, no accessory muscle use Knees: bilateral knee non-tender, bilateral knee normal inspection, bilateral knee normal range of motion Ankles: left ankle non-tender, left ankle normal inspection; bilateral ankle normal range of motion; left ankle no evidence of injury; right ankle bone tenderness (posterior lateral malleolus), right ankle soft tissue tenderness, right ankle swelling Feet: bilateral foot non-tender, bilateral foot normal inspection, bilateral foot normal range of motion, bilateral foot no evidence of injury Neurologic/Tendon: normal sensation, normal motor functions, normal tendon functions, responds to pain, no evidence tendon injury Neurologic/Psychiatric: alert, normal mood/affect, oriented x 3 Skin: normal color, warm/dry Progress/Results/Core Measures Results/Orders My Orders Orders - SLY NGUYEN Acetaminophen Tablet (Tylenol Tablet) (03/23/19 06:45) Ankle, Right, 3 Views (03/23/19 06:45) Medications Given in ED Current Medications Medications Dose Ordered Sig/Nkechi Route Start Time Stop Time Status Last Admin Dose Admin Acetaminophen 1,000 mg ONCE ONCE PO 03/23/19 06:45 03/23/19 06:46 DC 03/23/19 06:45 1,000 MG Vital Signs/I&O 03/23/19 06:34 Pulse 100 Resp 20 B/P (MAP) 127/73 (91) Progress Progress Note : Time: 06:58 Progress Note Ankle x-ray. Ice, Tylenol. Diagnostic Imaging Diagonstic Imaging: Xray Plain Films/CT/US/NM/MRI: ankle (r) Comments No acute osseous abnormalities. Reviewed: Reviewed by Me Departure Impression Primary Impression: Sprained ankle Qualified Codes: S93.401A - Sprain of unspecified ligament of right ankle, initial encounter Disposition: 01 HOME, SELF-CARE Condition: Stable Departure-Patient Inst. Decision time for Depature: 07:17 Referrals: [facility] (PCP/Family) Primary Care Physician Patient Instructions: Ankle Sprain (DC) Add. Discharge Instructions: Rest your ankle when you do not need to be on it and elevated above the level of your heart when possible to help with swelling. Wrap the ankle with an Mc bandage for compression to help reduce swelling and pain. Ice the ankle for 20 minutes on every 4 hours for the first 2-3 days. Use the crutches for one to 2 weeks as necessary to get around. Tylenol 1000 mg every 8 hours as necessary for pain. You can also use the air splint placed in your shoe to help give you some extra support as necessary. Follow-up with primary care in 1 week for reevaluation. All discharge instructions reviewed with patient and/or family. Voiced understanding. Work/School Note: Work Release Form Date Seen in the Emergency Department: Mar 23, 2019 Return to Work: Mar 23, 2019 Restrictions: Need Release from Doctor Other Restrictions Listed Below: Elevate ankle when possible and use crutches as needed until 04/06/19. SLY NGUYEN Mar 23, 2019 06:53
[2019-03-23 07:44] VITALS: BP 130/75
--- NOTE | 2019-03-23 07:58 | Diagnostic Imaging Report ---
INDICATION: Twisting injury, pain FINDINGS: Soft tissue swelling about the ankle laterally is noted. Medial, lateral, and posterior malleoli appeared intact. The articular surface is smooth. No widening of the mortise. No fracture identified. IMPRESSION: Swelling laterally, however, no fracture identified. Dictated by: Dictated on workstation # [id number]
== END 2019-03-23 07:44 | disposition home or self-care (01) ==
LOC: EDUNIT# 06:34 → ER 06:38
DX: O9A.212 Injury, poisoning and certain other consequences of external causes complicating pregnancy, second trimester (principal); S93.401A Sprain of unspecified ligament of right ankle, initial encounter; O99.412 Diseases of the circulatory system complicating pregnancy, second trimester; E78.00 Pure hypercholesterolemia, unspecified; O99.352 Diseases of the nervous system complicating pregnancy, second trimester; G43.909 Migraine, unspecified, not intractable, without status migrainosus; O99.342 Other mental disorders complicating pregnancy, second trimester; F98.8 Other specified behavioral and emotional disorders with onset usually occurring in childhood and adolescence; F41.9 Anxiety disorder, unspecified; F90.9 Attention-deficit hyperactivity disorder, unspecified type; Z87.19 Personal history of other diseases of the digestive system; Z82.49 Family history of ischemic heart disease and other diseases of the circulatory system; Z79.52 Long term (current) use of systemic steroids; Z87.891 Personal history of nicotine dependence; Z88.2 Allergy status to sulfonamides; Z88.8 Allergy status to other drugs, medicaments and biological substances; Z3A.17 17 weeks gestation of pregnancy; W10.8XXA Fall (on) (from) other stairs and steps, initial encounter; X50.1XXA Overexertion from prolonged static or awkward postures, initial encounter
CPT/HCPCS: 73610

== ENCOUNTER → 2019-03-27 | Outpatient (CLI) | payer MEDICAID ==
--- NOTE | 2019-03-27 15:02 | Diagnostic Imaging Report ---
INDICATION: survey. TECHNIQUE: Multiple real-time grayscale images were obtained over the gravid uterus. COMPARISON: None. FINDINGS: There are no prior studies available for comparison. There is a single live fetus in breech presentation. heart motion was noted and a rate of 139 bpm was recorded. There were no abnormalities identified. The growth parameters are fairly uniform. The placenta is posterior and there is no previa. The amniotic fluid volume is within normal limits. The cervix was identified and measures 3.8 cm in length. Biometrical measurements are as follows: Biparietal 3.57 cm, age 17 weeks 0 days. Head circumference 14.04 cm, age 17 weeks 3 days. Abdominal circumference 12.45 cm, age 18 weeks 1 days. Femur length 2.30 cm, age 17 weeks 0 days. Sonographic estimate age: 17 weeks 3 days. Sonographic estimated date of delivery: 09/01/2019. Estimated Weight: 197 gm (+/- 29 gm). LMP percentile: 9%. heart rate: 139 beats per minute. number: 1 of 1. IMPRESSION: 1. There is a single live fetus approximately 17 weeks 3 days gestation + / - 1 week. EDC is 09/01/2019. 2. There were no abnormalities identified. 3. The growth parameters are fairly uniform. Dictated by: Dictated on workstation # [id number]
== END ==
LOC: RAD 12:50
PROVIDERS: ATTEND Obstetrics & Gynecology
DX: Z36.89 Encounter for other specified antenatal screening (principal); Z3A.17 17 weeks gestation of pregnancy
CPT/HCPCS: 76805

== ENCOUNTER 2019-05-13 09:17 | Observation (INO) | payer MEDICAID ==
[~2019-05-13] VITALS: Ht 162.6 cm; Wt 91.6 kg
--- NOTE | 2019-05-13 09:25 | NUR ---
KELBY MOSLEY presented to unit from ED, with c/o LIGHT HEADED;ABD PAIN. KELBY MOSLEY weighed, gowned, voided, and to bed. EFHM and TOCO applied, VS taken. KELBY MOSLEY oriented to bed controls, call light, TV, heat, and A/C controls.
[2019-05-13 09:30] VITALS: BP 112/61
[2019-05-13] MEDS ORDERED: NS IV 1000 ML 1,000 ML IV SCH (10:00)
[2019-05-13] MEDS ORDERED: PROMETHAZINE INJ 25 MG/ML (PHENERGAN) AMP IVP PRN (10:00)
[2019-05-13 10:28] LABS: BILIRUBIN,URINE NEGATIVE (NEGATIVE); GLUCOSE, URINE (UA) NEGATIVE (NEGATIVE); KETONES,URINE NEGATIVE (NEGATIVE); LEUKOCYTE ESTERASE ,URINE 1+ (NEGATIVE); NITRITE,URINE NEGATIVE (NEGATIVE); PH,URINE 7 (5-9); PROTEIN,URINE NEGATIVE (NEGATIVE); UROBILINOGEN,URINE NORMAL (NORMAL)
[2019-05-13 10:29] LABS: BACTERIA,URINE FEW /HPF; CLARITY,URINE CLEAR; COLOR,URINE YELLOW; WBC,URINE 0-2 /HPF
[2019-05-13 10:49] LABS: BASOPHILS % (AUTO) 0 % (0-10); EOSINOPHILS # (AUTO) 0.1 10^3/uL (0.0-0.3); EOSINOPHILS % (AUTO) 0 % (0-10); HEMATOCRIT 33 % (35-52); LYMPHOCYTES # (AUTO) 1.3 X 10^3 (1.0-4.0); LYMPHOCYTES % (AUTO) 11 % (12-44); MEAN CORPUSCULAR HEMOGLOBIN 30 PG (25-34); MEAN CORPUSCULAR HGB CONC 34 G/DL (32-36); MEAN CORPUSCULAR VOLUME 90 FL (80-99); MONOCYTES # (AUTO) 0.6 X 10^3 (0.0-1.0); MONOCYTES % (AUTO) 5 % (0-12); NEUTROPHILS # (AUTO) 9.6 X 10^3 (1.8-7.8); NEUTROPHILS % (AUTO) 83 % (42-75); PLATELET COUNT 279 10^3/uL (130-400); RED CELL DISTRIBUTION WIDTH 14.7 % (10.0-14.5); WHITE BLOOD COUNT 11.6 10^3/uL (4.3-11.0)
[2019-05-13] MEDS ORDERED: morphine INJ 10 MG/ML 1ML (SYR OR VIAL) IVP STA (10:50)
[2019-05-13] MEDS ORDERED: morphine INJ 10 MG/ML 1ML (SYR OR VIAL) ONE (10:51)
[2019-05-13 11:12] LABS: BUN/CREATININE RATIO 9; CARBON DIOXIDE 20 MMOL/L (21-32); CHLORIDE 109 MMOL/L (98-107); CREATININE SERUM 0.65 MG/DL (0.60-1.30); POTASSIUM 3.8 MMOL/L (3.6-5.0); SODIUM 139 MMOL/L (135-145)
[2019-05-13 11:13] LABS: ALANINE AMINOTRANSFERASE 10 U/L (0-55); ALBUMIN 3.6 GM/DL (3.2-4.5); ALKALINE PHOSPHATASE 62 U/L (40-136); BILIRUBIN,TOTAL 0.2 MG/DL (0.1-1.0); CALCIUM 9.7 MG/DL (8.5-10.1); GFR ESTIMATED > 60; GLUCOSE 99 MG/DL (70-105); TOTAL PROTEIN 6.8 GM/DL (6.4-8.2)
[2019-05-13] MEDS: D5 LR IV SOLUTION 1,000 ML IV SCH ×2 (14:30→16:56)
--- NOTE | 2019-05-13 15:21 | Diagnostic Imaging Report ---
INDICATION: Abdominal pain. FINDINGS: There is a single live fetus in a cephalic presentation. The heart rate was recorded at 147 BPM. The placenta is posterior. The amniotic fluid index is 13.6 cm. No retroplacental fluid collection or evidence of abruption is seen. The cervical length is 4.1 cm. IMPRESSION: Unremarkable limited obstetrical ultrasound. Dictated by: Dictated on workstation # [id number]
[2019-05-13] MEDS: DICYCLOMINE 10 MG (BENTYL) CAP PO PRN (16:59)
[2019-05-13 17:46] VITALS: BP 115/61
[2019-05-13] MEDS: fentaNYL INJECTION 100 MCG/2 ML AMP IVP PRN (17:49)
--- NOTE | 2019-05-13 19:20 | NUR ---
Report to Flaco Lopez RN.
--- NOTE | 2019-05-13 19:35 | NUR ---
Dr. Sahni on unit and informed of patient's arrival and complaints, new orders received. Addendum: 05/13/19 at 1940 by RICKEY MCKEON RN Time should be 0935.
[2019-05-13] MEDS ORDERED: diphenhydrAMINE 25 MG TAB (BENADRYL) PO PRN (21:30)
--- NOTE | 2019-05-13 22:12 | Anesthesia-Procedure Note ---
Procedures/Interventions Procedure Start/Stop/Diagnosis Date of Procedure: May 13, 2019 Start Time: 21:58 Stop Time: 22:12 Central Line/IV Access Lumen: single Central Line Procedure: no betadine prep, no sterile drapes applied, no sterile dressing applied Complications: none Post Position: good blood return Progress I was asked to start a peripheral IV on patient in Room 315. Patient is 25 weeks and needs IV fluids. Previous IV infiltrated and PROSPER Patel unable to start a second one. 22 g IV started in patient's left hand. Secured with opsite. Reported off to PROSPER Mcadams SHANNA R CRNA May 13, 2019 22:12
[2019-05-13 23:48] LABS: HEPATITIS C ANTIBODY C Non-Reactive (Non-Reactive)
[2019-05-14] MEDS: fentaNYL INJECTION 100 MCG/2 ML AMP IVP PRN (00:09)
[2019-05-14] MEDS: D5 LR IV SOLUTION 1,000 ML IV SCH (00:55)
[2019-05-14] MEDS: DICYCLOMINE 10 MG (BENTYL) CAP PO PRN ×2 (05:18)
[2019-05-14 06:29] VITALS: BP 110/58
[2019-05-14] MEDS ORDERED: LORATADINE (CLARITIN) 10 MG TAB PO SCH (09:00)
[2019-05-14 14:16] LABS: BASOPHILS % (AUTO) 0 % (0-10); EOSINOPHILS # (AUTO) 0.1 10^3/uL (0.0-0.3); EOSINOPHILS % (AUTO) 1 % (0-10); HEMATOCRIT 30 % (35-52); HEMOGLOBIN 9.9 G/DL (11.5-16.0); LYMPHOCYTES # (AUTO) 1.4 X 10^3 (1.0-4.0); LYMPHOCYTES % (AUTO) 14 % (12-44); MEAN CORPUSCULAR HEMOGLOBIN 31 PG (25-34); MEAN CORPUSCULAR HGB CONC 33 G/DL (32-36); MEAN CORPUSCULAR VOLUME 91 FL (80-99); MONOCYTES # (AUTO) 0.7 X 10^3 (0.0-1.0); MONOCYTES % (AUTO) 7 % (0-12); NEUTROPHILS # (AUTO) 7.5 X 10^3 (1.8-7.8); NEUTROPHILS % (AUTO) 78 % (42-75); PLATELET COUNT 247 10^3/uL (130-400); RED CELL DISTRIBUTION WIDTH 14.6 % (10.0-14.5); WHITE BLOOD COUNT 9.5 10^3/uL (4.3-11.0)
[2019-05-14 15:38] LABS: ALANINE AMINOTRANSFERASE 11 U/L (0-55); ALKALINE PHOSPHATASE 55 U/L (40-136); BILIRUBIN,TOTAL 0.2 MG/DL (0.1-1.0); BUN/CREATININE RATIO 7; CALCIUM 8.5 MG/DL (8.5-10.1); CARBON DIOXIDE 18 MMOL/L (21-32); CHLORIDE 109 MMOL/L (98-107); CREATININE SERUM 0.75 MG/DL (0.60-1.30); GFR ESTIMATED > 60; GLUCOSE 119 MG/DL (70-105); POTASSIUM 3.4 MMOL/L (3.6-5.0); SODIUM 136 MMOL/L (135-145); TOTAL PROTEIN 5.6 GM/DL (6.4-8.2)
--- NOTE | 2019-05-14 15:46 | Short Stay Summary ---
History of Present Illness History of Present Illness Reason for visit/HPI abdominal pain in Date of Admission 05/13/19 (notes not done at time of admission/observation due to [employer] being down) Date of Discharge 05/14/19 Time Seen by Provider: 10:30 Attending Physician Brian Carmona DO Admitting Physician Karla Piedra Consult [address] Carmona. Patient was admitted as outpatient due to abdominal pain. She also complained of lightheadedness. States these are not contractions. Some nausea, no vomiting or diarrhea. Has not eaten much due to pain. States pain is not associated with diet, she thinks. But has not felt liek eating. no sick contacts that she is aware of. however, after she was on the floor she did have emesis She is also concerned about STI. States she had found out her SO had been with another man and she left him, but has since had intercourse so she is concerned. STI workup was done. She has no complaint of discharge and no symptoms that she is concerned about related to STI. She has no rash, no fever. Good FM and no bleeding. Allergies and Home Medications Allergies Coded Allergies: diphenhydramine (Verified Allergy, Severe, Shortness of Breath, 05/14/19) HIVES SWELLING sulfamethoxazole (Verified Allergy, Unknown, 05/20/18) trimethoprim (Verified Allergy, Unknown, 05/20/18) Home Medications No Active Prescriptions or Reported Meds Patient Home Medication List Home Medication List Reviewed: Yes Past Fwmnvkk-Mqvoqv-Goayln Hx Patient Social History Marrital Status: single Number of Children: 1 Number of living children: 1 Drug of Choice: THC Former Smoker, Quit: Jun 06, 2018 Type Used: Cigarettes 2nd Hand Smoke Exposure: No Physical Abuse Screen: Yes (FOB) Sexual Abuse: No Recent Foreign Travel: No Contact w/other who traveled: No Recent Hopitalizations: No Recent Infectious Disease Expo: No Immunizations Up To Date Tetanus Booster (TDap): Less than 5yrs Pediatric: Yes Seasonal Allergies Seasonal Allergies: No Surgeries Yes (EGD) Respiratory No Currently Using CPAP: No Currently Using BIPAP: No Cardiovascular Yes High Cholesterol Neurological Yes Headaches /Migraines Reproductive System Expected Date of Delivery: Aug 26, 2019 Hx : 2 Hx Para: 0 Hx Total # of Abortions (Spona: 1 Hx Reproductive Disorders: No Female Reproductive Disorders: Denies Genitourinary No Gastrointestinal Yes Ulcer Musculoskeletal No Endocrine History of Endocrine Disorders: No HEENT History of HEENT Disorders: No Cancer No Psychosocial History of Psychiatric Problem: Yes Behavioral Health Disorders: ADD/ADHD, Anxiety Integumentary History of Skin or Integumenta: No Blood Transfusions History of Blood Disorders: No Family Medical History Significant Family History: Diabetes, Hypertension Review of Systems Constitutional: dizziness, malaise EENTM: see HPI Cardiovascular: no symptoms reported Gastrointestinal: abdominal pain (RUQ LUQ), heartburn; No jaundice; loss of appetite, nausea; No vomiting; other (no contractions) Genitourinary: no symptoms reported : Yes Control/STD Prophylaxis: None Musculoskeletal: no symptoms reported Skin: no symptoms reported Psychiatric/Neurological: No Symptoms Reported All Other Systems Reviewed Negative Unless Noted: Yes Physical Exam Vital Signs Vital Signs - First Documented 05/13/19 05/14/19 09:30 06:29 Temp 98.2 Pulse 84 Resp 18 B/P (MAP) 112/61 (78) Pulse Ox 98 O2 Delivery Room Air Capillary Refill : Height, Weight, BMI Height: 5'4.00" Weight: 202lbs. 0.0oz. 91.340108vb; 34.7 BMI Method:Stated General Appearance: Mild Distress Neck: Full Range of Motion, Normal Inspection Respiratory: Chest Non Tender, Lungs Clear, Normal Breath Sounds, No Accessory Muscle Use, No Respiratory Distress Cardiovascular: Regular Rate, Rhythm, No Edema, Normal Peripheral Pulses Gastrointestinal: Normal Bowel Sounds; No Abnormal Bowel Sounds, No Distended, No Guarding, No Mass, No Rebound; Tenderness, Other (Tenderness generalized in the upper abdomen. Some tenderness with uterine palpation but this is not the same) Skin: Normal Color, Warm/Dry Lymphatic: No Adenopathy Short Stay Diagnosis Discharge Diagnosis-Short Stay Final Discharge Diagnosis: abdominal pain gastritis due to 25 week gestation Conclusion Labs Laboratory Tests 05/14/19 06:00: Sodium Level 136, Potassium Level 3.4L, Chloride Level 109H, Carbon Dioxide Level 18L, Anion Gap 9, Blood Urea Nitrogen 5L, Creatinine 0.75, Estimat Glomerular Filtration Rate > 60, BUN/Creatinine Ratio 7, Glucose Level 119H, Calcium Level 8.5, Corrected Calcium 9.3, Total Bilirubin 0.2, Aspartate Amino Transf (AST/SGOT) 13, Alanine Aminotransferase (ALT/SGPT) 11, Alkaline Phosphatase 55, Total Protein 5.6L, Albumin 3.0L 05/14/19 08:57: White Blood Count 9.5, Red Blood Count 3.25L, Hemoglobin 9.9L, Hematocrit 30L, Mean Corpuscular Volume 91, Mean Corpuscular Hemoglobin 31, Mean Corpuscular Hemoglobin Concent 33, Red Cell Distribution Width 14.6H, Platelet Count 247, Mean Platelet Volume 9.0, Neutrophils (%) (Auto) 78H, Lymphocytes (%) (Auto) 14, Monocytes (%) (Auto) 7, Eosinophils (%) (Auto) 1, Basophils (%) (Auto) 0, Neutrophils # (Auto) 7.5, Lymphocytes # (Auto) 1.4, Monocytes # (Auto) 0.7, Eosinophils # (Auto) 0.1, Basophils # (Auto) 0.0 Conclusion/Plan Workup for cause of abdominal pain is unremarkable. She had initial elevated WBC slightly (11). But other labs are non diagnostic. She had negative UA. OB US negative for abruption. Cervical exam negative. STI workup pending but no evidence of STI Kept overnight as she continued to complain of pain and then had emesis. This was controlled with promethazine. She was given bentyl and this seemed to be the best for pain. the working diagnosis is gastritis or enteritis due to viral infection. She was discharged to home on the morning on 05/14 as she was feeling better and workup was negative. KARLA PIEDRA DO May 14, 2019 3:46 pm
--- NOTE | 2019-05-18 15:51 | Physician Query-Final Dx ---
LEONCIO GERARDO 05/18/19 3:50pm: Final Diagnosis Give Final Diagnosis Please give Final Diagnosis ANNE PIEDRA DO 06/09/19 9:47am: Final Diagnosis Give Final Diagnosis 25 week gestation gastritis abdominal pain LEONCIO GERARDO May 18, 2019 3:50 pm ANNE PIEDRA DO Jun 09, 2019 9:47 am
== END 2019-05-14 11:26 | disposition home or self-care (01) ==
LOC: WSo 09:17 → LDRP 09:19 → WSo 05-14 11:55 → EDSTATUS 05-27 00:18
PROVIDERS: ADMIT Obstetrics & Gynecology; ATTEND Obstetrics & Gynecology
DX: O99.332 Smoking (tobacco) complicating pregnancy, second trimester (principal); F17.210 Nicotine dependence, cigarettes, uncomplicated; O99.282 Endocrine, nutritional and metabolic diseases complicating pregnancy, second trimester; K29.70 Gastritis, unspecified, without bleeding; E78.00 Pure hypercholesterolemia, unspecified; O99.612 Diseases of the digestive system complicating pregnancy, second trimester; K25.9 Gastric ulcer, unspecified as acute or chronic, without hemorrhage or perforation; O99.342 Other mental disorders complicating pregnancy, second trimester; F41.9 Anxiety disorder, unspecified; O99.352 Diseases of the nervous system complicating pregnancy, second trimester; G43.909 Migraine, unspecified, not intractable, without status migrainosus; Z3A.25 25 weeks gestation of pregnancy
CPT/HCPCS: 36415; 76815; 80053; 80074; 81000; 85025; 86703; 86780; 87088; 87491; 87591; 96361; 96374; 96375; 96376; 99211; G0378

== ENCOUNTER 2019-05-30 03:29 | Outpatient (CLI) | payer MEDICAID ==
[~2019-05-30] VITALS: Ht 162.6 cm; Wt 92.5 kg
--- NOTE | 2019-05-30 03:30 | NUR ---
KELBY MOSLEY presented to unit via W/C from ED, accompanied by Anival Mahoney ED aide, with c/o RT SIDE PAIN. KELBY MOSLEY weighed, gowned, voided, and to bed. EFHM and TOCO applied, VS taken. KELBY MOSLEY oriented to bed controls, call light, TV, heat, and A/C controls.
[2019-05-30 03:43] VITALS: BP 130/73
--- NOTE | 2019-05-30 04:30 | NUR ---
Pt. left [facility] ambulatory unaccompanied, to home via private vehicle. Copy of D/C instructions w/pt.
== END 2019-05-30 04:30 | disposition home or self-care (01) ==
LOC: WSo 03:29 → LDRP 03:33 → WSo 04:30
PROVIDERS: ATTEND Obstetrics & Gynecology
DX: O99.89 Other specified diseases and conditions complicating pregnancy, childbirth and the puerperium (principal); R10.9 Unspecified abdominal pain; Z3A.27 27 weeks gestation of pregnancy
CPT/HCPCS: 99213

== ENCOUNTER 2019-06-28 09:47 | Emergency (ER) | payer MEDICAID ==
[~2019-06-28] VITALS: Ht 152.4 cm; Wt 94.8 kg
[2019-06-28 10:45] LABS: ABG BASE EXCESS -5.7 MMOL/L (-2.5-2.5); ABG OXYGEN SATURATION 98 % (94-100); ABG PCO2 31 MMHG (35-45); ABG PH 7.39 (7.37-7.43); ABG PO2 96 MMHG (79-93); ABG TCO2 19.4 MMOL/L (21.0-31.0)
[2019-06-28 10:48] LABS: ALLENS TEST YES-POS; INSPIRED O2 ROOM AIR; PATIENT TEMP 98.1; VENTILATOR NO
[2019-06-28 10:51] LABS: BILIRUBIN,URINE NEGATIVE (NEGATIVE); CLARITY,URINE CLEAR; COLOR,URINE YELLOW; GLUCOSE, URINE (UA) NEGATIVE (NEGATIVE); KETONES,URINE NEGATIVE (NEGATIVE); LEUKOCYTE ESTERASE ,URINE 2+ (NEGATIVE); NITRITE,URINE NEGATIVE (NEGATIVE); PH,URINE 7 (5-9); PROTEIN,URINE NEGATIVE (NEGATIVE); UROBILINOGEN,URINE NORMAL (NORMAL)
--- NOTE | 2019-06-28 10:56 | ED General ---
General Chief Complaint: Dizziness/Syncope Stated Complaint: DIZZY / LIGHT HEADED / SOA Nursing Triage Note: AMB TO ROOM C/O BEING DIZZY AND NOT FEELING WELL. REPORT HER CARBON MONOXIDE DECTOR WENT OFF AND WHILE SHE WAS HAVING BECAME WEAK BECAME DIZZY AND WEAK. CON'T TO FEEL DIZZY AND WEAK. IS PREG LMP WAS IN DEC DUE IN AUG. Nursing Sepsis Screen: No Definite Risk Source of Information: Patient History of Present Illness Date Seen by Provider: Jun 28, 2019 Time Seen by Provider: 10:10 Initial Comments PT ARRIVES VIA POV STATES SHE WAS SITTING ON THE TOILET, HAVING A BM--STARTED FEELING DIZZY AND "LIGHTHEADED LIKE WHAT'S BEEN GOING ON THE WHOLE , BUT TODAY IT WAS EXTREME AND I THOUGHT I WAS GOING TO PASS OUT, AND I LAID DOWN AND EVERYTHING WAS SPINNING" STATES "5 MINUTES LATER THE "CARBON DIOXIDE" DETECTOR WENT OFF" STATES "MY CHEST FELT HEAVY AND TIGHT AND I FELT LIKE I COULDN'T BREATHE" "BUT MY BREATHING IS BETTER NOW" C/O HEADACHE NO VISION CHANGES NO PARESTHESIAS OR MOTOR DEFICITS. NO SYNCOPE NO PALPITATIONS NO SWELLING IN LEGS/ FEET OR PAIN IN CALVES PT STATES SHE IS 30 WEEKS --SEES DR. RAI. NEXT APPOINTMENT IS 07/03/19 NO PROBLEMS WITH THIS PT IS G2 P 0 PT HAS BEEN TOLD SHE IS ANEMIC, BUT HAS REFUSED TO TAKE VITAMINS, OR THE PRESCRIBED IRON PILLS. SHE STATES "I GOT A PRESCRIPTION AT THE PHARMACY, I JUST NEVER PICKED IT UP" PT DENIES ANY VAGINAL BLEEDING OR PAIN PT DENIES ANY FEVER OR RECENT ILLNESS NO PROBLEMS URINATING + ACTIVE MOVEMENT PT WITH MULTIPLE ER VISITS PCP: [facility] COMPENSATION ANALYST: DR. RAI Allergies and Home Medications Allergies Coded Allergies: diphenhydramine (Verified Allergy, Severe, Shortness of Breath, 05/14/19) HIVES SWELLING sulfamethoxazole (Verified Allergy, Unknown, 05/20/18) trimethoprim (Verified Allergy, Unknown, 05/20/18) Home Medications Nitrofurantoin Monohyd/M-Cryst 100 Mg Capsule, 100 MG PO BID Prescribed by: DORINA FRANZ on 06/28/19 1129 Patient Home Medication List Home Medication List Reviewed: Yes Review of Systems Review of Systems Constitutional: see HPI, dizziness; No fever, No malaise, No weakness EENTM: no symptoms reported; No blurred vision, No double vision, No nose congestion Respiratory: see HPI; No cough; short of breath; No wheezing Cardiovascular: see HPI, chest pain; No edema, No palpitations, No syncope, No vascular heart diseas Gastrointestinal: no symptoms reported; No abdominal pain, No nausea, No vomiting Genitourinary: no symptoms reported : Yes Musculoskeletal: no symptoms reported Skin: no symptoms reported Psychiatric/Neurological: See HPI, Headache; Denies Numbness, Denies Paresthesia, Denies Seizure, Denies Tingling, Denies Tremors, Denies Weakness Hematologic/Lymphatic: See HPI, Anemia Immunological/Allergic: no symptoms reported Past Ablyllb-Znfjsv-Jlrwob Hx Patient Social History Alcohol Use: Denies Use Recreational Drug Use: Yes (THC) Drug of Choice: THC Smoking Status: Former Smoker (1 PPD) Type Used: Cigarettes Former Smoker, Quit: Jun 06, 2018 2nd Hand Smoke Exposure: No Recent Foreign Travel: No Contact w/Someone Who Travel: No Recent Infectious Disease Expo: No Recent Hopitalizations: No Immunizations Up To Date Tetanus Booster (TDap): Less than 5yrs PED Vaccines UTD: Yes Seasonal Allergies Seasonal Allergies: No Past Medical History Surgeries: Yes (EGD) Respiratory: No Currently Using CPAP: No Currently Using BIPAP: No Cardiac: Yes High Cholesterol Neurological: Yes Headaches /Migraines : Yes Hx : 2 Hx Para: 0 Reproductive Disorders: No Female Reproductive Disorders: Denies Genitourinary: No Gastrointestinal: Yes (CHRONIC ABDOMINAL PAIN COMPLAINTS) Chronic Constipation, Ulcer Musculoskeletal: No Endocrine: No HEENT: No Cancer: No Psychosocial: Yes ADD/ADHD, Anxiety Integumentary: No Blood Disorders: No Family Medical History Diabetes, Hypertension Physical Exam Vital Signs Vital Signs - First Documented 06/28/19 09:54 Temp 99.2 Pulse 90 Resp 18 B/P (MAP) 127/64 (85) Pulse Ox 99 O2 Delivery Room Air Capillary Refill : Less Than 3 Seconds Height, Weight, BMI Height: 5'4.00" Weight: 209lbs. 0.0oz. 94.619803gt; 35.0 BMI Method:Stated General Appearance: No Apparent Distress, WD/WN, Other (WEARING A WIG--BLACK/BLUE/WHITE) HEENT: PERRL/EOMI; No Pale Conjunctivae (L), No Pale Conjunctivae (R) Neck: Normal Inspection Respiratory: Normal Breath Sounds, No Accessory Muscle Use, No Respiratory Distress Cardiovascular: Regular Rate, Rhythm, No Edema, No JVD, No Murmur, Normal Peripheral Pulses Gastrointestinal: Non Tender, Soft, Other (GRAVID UTERUS, ACTIVE MOVEMENT, FHR 135) Back: No CVA Tenderness Extremity: Normal Capillary Refill, Normal Inspection, Normal Range of Motion, Non Tender, No Calf Tenderness, No Pedal Edema Neurologic/Psychiatric: Alert, Oriented x3, No Motor/Sensory Deficits, Normal Mood/Affect, news video editor II-XII Norm as Tested Skin: Normal Color (PT IS BLACK), Warm/Dry, Tattoos/Piercings (MULTIPLE TATTOOS) Progress/Results/Core Measures Suspected Sepsis Recent Fever Within 48 Hours: No Infection Criteria Present: None New/Unexplained Altered Menta: No Sepsis Screen: No Definite Risk SIRS Temperature:99.2 Pulse: 90 Respiratory Rate: 18 Laboratory Tests 06/28/19 10:49: White Blood Count 9.3 Blood Pressure 127 /64 Mean: 85 Laboratory Tests 06/28/19 10:49: Creatinine 0.66, Platelet Count 303, Total Bilirubin 0.2 06/28/19 10:55: INR Comment 1.0 Results/Orders Lab Results Laboratory Tests Test 06/28/19 10:35 06/28/19 10:40 06/28/19 10:49 06/28/19 10:55 Range/Units Blood Gas Puncture Site RT BRACH Blood Gas Patient Temperature 98.1 Arterial Blood pH 7.39 7.37-7.43 Arterial Blood Partial Pressure CO2 31 L 35-45 MMHG Arterial Blood Partial Pressure O2 96 H 79-93 MMHG Arterial Blood HCO3 18 L 23-27 MMOL/L Arterial Blood Total CO2 19.4 L 21.0-31.0 MMOL/L Arterial Blood Oxygen Saturation 98 94-100 % Arterial Blood Base Excess -5.7 L -2.5-2.5 MMOL/L Cecilio Test YES-POS Carboxyhemoglobin 2.0 0.5-2.5 % Blood Gas Ventilator Setting NO Blood Gas Inspired Oxygen ROOM AIR Urine Color YELLOW Urine Clarity CLEAR Urine pH 7 5-9 Urine Specific [place] 1.010 L 1.016-1.022 Urine Protein NEGATIVE NEGATIVE Urine Glucose (UA) NEGATIVE NEGATIVE Urine Ketones NEGATIVE NEGATIVE Urine Nitrite NEGATIVE NEGATIVE Urine Bilirubin NEGATIVE NEGATIVE Urine Urobilinogen NORMAL NORMAL MG/DL Urine Leukocyte Esterase 2+ H NEGATIVE Urine RBC (Auto) NEGATIVE NEGATIVE Urine RBC NONE /HPF Urine WBC 5-10 H /HPF Urine Crystals PRESENT H /LPF Urine Amorphous Sediment FEW [place] PHOSPHATE H /LPF Urine Bacteria MODERATE H /HPF Urine Casts NONE /LPF Urine Mucus NEGATIVE /LPF Urine Culture Indicated YES Urine Opiates Screen NEGATIVE NEGATIVE Urine Oxycodone Screen NEGATIVE NEGATIVE Urine Methadone Screen NEGATIVE NEGATIVE Urine Propoxyphene Screen NEGATIVE NEGATIVE Urine Barbiturates Screen NEGATIVE NEGATIVE Ur Tricyclic Antidepressants Screen NEGATIVE NEGATIVE Urine Phencyclidine Screen NEGATIVE NEGATIVE Urine Amphetamines Screen NEGATIVE NEGATIVE Urine Methamphetamines Screen NEGATIVE NEGATIVE Urine Benzodiazepines Screen NEGATIVE NEGATIVE Urine Cocaine Screen NEGATIVE NEGATIVE Urine Cannabinoids Screen NEGATIVE NEGATIVE White Blood Count 9.3 4.3-11.0 10^3/uL Red Blood Count 3.35 L 4.35-5.85 10^6/uL Hemoglobin 9.9 L 11.5-16.0 G/DL Hematocrit 30 L 35-52 % Mean Corpuscular Volume 90 80-99 FL Mean Corpuscular Hemoglobin 30 25-34 PG Mean Corpuscular Hemoglobin Concent 33 32-36 G/DL Red Cell Distribution Width 14.3 10.0-14.5 % Platelet Count 303 130-400 10^3/uL Mean Platelet Volume 8.7 7.4-10.4 FL Neutrophils (%) (Auto) 74 42-75 % Lymphocytes (%) (Auto) 20 12-44 % Monocytes (%) (Auto) 6 0-12 % Eosinophils (%) (Auto) 1 0-10 % Basophils (%) (Auto) 0 0-10 % Neutrophils # (Auto) 6.9 1.8-7.8 X 10^3 Lymphocytes # (Auto) 1.9 1.0-4.0 X 10^3 Monocytes # (Auto) 0.5 0.0-1.0 X 10^3 Eosinophils # (Auto) 0.1 0.0-0.3 10^3/uL Basophils # (Auto) 0.0 0.0-0.1 10^3/uL Sodium Level 138 135-145 MMOL/L Potassium Level 3.6 3.6-5.0 MMOL/L Chloride Level 111 H 98-107 MMOL/L Carbon Dioxide Level 17 L 21-32 MMOL/L Anion Gap 10 5-14 MMOL/L Blood Urea Nitrogen 5 L 7-18 MG/DL Creatinine 0.66 0.60-1.30 MG/DL Estimat Glomerular Filtration Rate > 60 BUN/Creatinine Ratio 8 Glucose Level 99 70-105 MG/DL Calcium Level 9.1 8.5-10.1 MG/DL Corrected Calcium 9.6 8.5-10.1 MG/DL Magnesium Level 1.7 L 1.8-2.4 MG/DL Total Bilirubin 0.2 0.1-1.0 MG/DL Aspartate Amino Transf (AST/SGOT) 13 5-34 U/L Alanine Aminotransferase (ALT/SGPT) 8 0-55 U/L Alkaline Phosphatase 83 40-136 U/L Total Protein 6.5 6.4-8.2 GM/DL Albumin 3.4 3.2-4.5 GM/DL Prothrombin Time 14.0 12.2-14.7 SEC INR Comment 1.0 0.8-1.4 Activated Partial Thromboplast Time 35 24-35 SEC My Orders Orders - DORINA FRANZ DO Ed Iv/Invasive Line Start (06/28/19 10:20) Monitor-Rhythm Ecg Trace Only (06/28/19 10:20) Arterial Blood Gas (06/28/19 10:35) Cbc With Automated Diff (06/28/19 10:20) Comprehensive Metabolic Panel (06/28/19 10:20) Drug Screen Stat (Urine) (06/28/19 10:20) Magnesium (06/28/19 10:20) Protime With Inr (06/28/19 10:20) Partial Thromboplastin Time (06/28/19 10:20) Ua Culture If Indicated (06/28/19 10:20) Heart Tones (06/28/19 10:45) Arterial Blood Draw (06/28/19 ) Carboxyhemoglobin (06/28/19 10:55) Urine Culture (06/28/19 10:40) Magnesium Oxide Tablet (Mag Ox Tablet) (06/28/19 11:30) Medications Given in ED Current Medications Medications Dose Ordered Sig/Nkechi Route Start Time Stop Time Status Last Admin Dose Admin Magnesium Oxide 800 mg ONCE ONCE PO 06/28/19 11:30 06/28/19 11:31 DC 06/28/19 11:30 800 MG Vital Signs/I&O 06/28/19 06/28/19 09:54 11:41 Temp 99.2 Pulse 90 83 Resp 18 16 B/P (MAP) 127/64 (85) 102/75 (84) Pulse Ox 99 98 O2 Delivery Room Air Room Air Capillary Refill : Less Than 3 Seconds Blood Pressure Mean: 85 Progress Note : Progress Note FHR 135 PT HAD NO COMPLAINTS FOR REMAINDER OF ER STAY PT IS SYMPTOM-FREE AT DISMISSAL PT ADVISED OF NEED FOR VITAMINS AND FOR IRON CALLED OB DEPT, PT IS NOT HAVING ANY ABDOMINAL PAIN OR CONTRACTIONS AND HAS GOOD FHT'S, PT DOES NOT REQUIRE GOING TO OB DEPT, BUT PT CAME COME TO DEPT IF SHE WOULD LIKE. Departure Impression Primary Impression: UTI (urinary tract infection) in in third trimester Additional Impressions: Hypomagnesemia Anemia affecting in third trimester Disposition: 01 HOME, SELF-CARE Condition: Improved Departure-Patient Inst. Referrals: LEILA RAI,LOCAL PHYSICIAN (PCP) Primary Care Physician Patient Instructions: Anemia Caused by Low Iron, Avoiding Infections in , Low Magnesium Level (DC), Nutrition Before and During , Urinary Tract Infection, Adult (DC) Add. Discharge Instructions: GET YOUR PRESCRIPTIONS FILLED AND TAKE PRESCRIBED DRINK LOTS OF CLEAR LIQUIDS--NO COFFEE, POP OR TEA FOLLOW UP WITH DR. RAI THIS WEEK SCHEDULED, OR SOONER IF SYMPTOMS WORSEN All discharge instructions reviewed with patient and/or family. Voiced understanding. Scripts Nitrofurantoin Monohyd/M-Cryst (Macrobid 100 mg Capsule) 100 Mg Capsule 100 MG PO BID, #20 CAP Prov: DORINA FRANZ DO 06/28/19 DORINA FRANZ DO Jun 28, 2019 10:56
[2019-06-28 10:57] LABS: BASOPHILS % (AUTO) 0 % (0-10); EOSINOPHILS # (AUTO) 0.1 10^3/uL (0.0-0.3); EOSINOPHILS % (AUTO) 1 % (0-10); HEMATOCRIT 30 % (35-52); HEMOGLOBIN 9.9 G/DL (11.5-16.0); LYMPHOCYTES # (AUTO) 1.9 X 10^3 (1.0-4.0); LYMPHOCYTES % (AUTO) 20 % (12-44); MEAN CORPUSCULAR HEMOGLOBIN 30 PG (25-34); MEAN CORPUSCULAR HGB CONC 33 G/DL (32-36); MEAN CORPUSCULAR VOLUME 90 FL (80-99); MEAN PLATELET VOLUME 8.7 FL (7.4-10.4); MONOCYTES # (AUTO) 0.5 X 10^3 (0.0-1.0); MONOCYTES % (AUTO) 6 % (0-12); NEUTROPHILS # (AUTO) 6.9 X 10^3 (1.8-7.8); NEUTROPHILS % (AUTO) 74 % (42-75); PLATELET COUNT 303 10^3/uL (130-400); RED CELL DISTRIBUTION WIDTH 14.3 % (10.0-14.5); WHITE BLOOD COUNT 9.3 10^3/uL (4.3-11.0)
[2019-06-28 10:58] LABS: AMORPHOUS SEDIMENT,UR FEW AMOR PHOSPHATE /LPF; BACTERIA,URINE MODERATE /HPF
[2019-06-28 11:14] LABS: AMPHETAMINE SCREEN, URINE NEGATIVE (NEGATIVE); BARBITURATE SCREEN URINE NEGATIVE (NEGATIVE); BENZODIAZEPINES SCREEN URINE NEGATIVE (NEGATIVE); CANNABINOID SCREEN, URINE NEGATIVE (NEGATIVE); COCAINE SCREEN URINE NEGATIVE (NEGATIVE); METHADONE STAT NEGATIVE (NEGATIVE); METHAMPHETAMINE SCREEN URINE S NEGATIVE (NEGATIVE); OPIATE SCREEN URINE NEGATIVE (NEGATIVE); OXYCODONE STAT NEGATIVE (NEGATIVE); PROPOXYPHENE STAT NEGATIVE (NEGATIVE); TRICYCLIC ANTIDEPRESSANTS SCRE NEGATIVE (NEGATIVE)
[2019-06-28 11:17] LABS: ALANINE AMINOTRANSFERASE 8 U/L (0-55); ALBUMIN 3.4 GM/DL (3.2-4.5); ALKALINE PHOSPHATASE 83 U/L (40-136); BILIRUBIN,TOTAL 0.2 MG/DL (0.1-1.0); BUN/CREATININE RATIO 8; CALCIUM 9.1 MG/DL (8.5-10.1); CARBON DIOXIDE 17 MMOL/L (21-32); CHLORIDE 111 MMOL/L (98-107); CREATININE SERUM 0.66 MG/DL (0.60-1.30); GFR ESTIMATED > 60; GLUCOSE 99 MG/DL (70-105); MAGNESIUM 1.7 MG/DL (1.8-2.4); POTASSIUM 3.6 MMOL/L (3.6-5.0); SODIUM 138 MMOL/L (135-145); TOTAL PROTEIN 6.5 GM/DL (6.4-8.2)
[2019-06-28] MEDS ORDERED: NITR-65 PO (11:29)
[2019-06-28] MEDS ORDERED: MAGNESIUM OXIDE (MAG-OX)400 MG TAB PO ONE (11:30)
[2019-06-28 11:41] VITALS: BP 102/75
--- OUTSIDE RECORDS SUMMARY | 2019-06-28 14:28 | XMS REPORT | Continuity of Care Document ---
Author Organization Unknown Address Unknown Phone Unavailable Allergies There is no data. Medications There is no data. Problems Date [...] MD 368.9 Unspecified Visual Disturbance 11/07/2012 ERNIE REEN MD 799.51 Attention Or Concentration Deficit 11/07/2012 ERNIE RENE MD V20.2 WELL CHILD 11/07/2012 ERNIE RENE MD 368.9 Unspecified Visual Disturbance 11/07/2012 ERNIE RENE MD 799.51 Attention Or Concentration Deficit 11/07/2012 ERNIE RENE MD V20.2 WELL CHILD 11/07/2012 HERIBERTO MARTINEZ APRN 368.9 Unspecified Visual Disturbance 11/07/2012 HERIBERTO MARTINEZ APRN A 799.51 Attention Or Concentration Deficit 11/07/2012 HERIBERTO [...] ANJU ABREU, ERNIE 314.01 ADHD COMBINED 12/23/2012 HERIBERTO MARTINEZ APRN A 311 DEPRESSIVE DISORDER NOS 12/23/2012 HERIBERTO MARTINEZ APRN A 314.01 ADHD COMBINED 12/23/2012 ANJU ABREU, ERNIE 311 DEPRESSIVE DISORDER NOS 12/23/2012 ANJU ABREU, ERNIE 314.01 ADHD COMBINED 12/25/2012 V58.69 MEDICATION HIGH RISK 12/25/2012 ANJU ABREU, ERNIE V58.69 MEDICATION HIGH RISK 12/25/2012 ANJU ABREU, ERNIE V58.69 MEDICATION HIGH RISK 12/25/2012 HERIBERTO MARTINEZ APRN V58.69 MEDICATION HIGH RISK 12/25/2012 ANJU ABREU, ERNIE V58.69 MEDICATION HIGH RISK 12/11/2013 ANJU ABREU, ERNIE 780.2 SYNCOPE Procedures Code Description [place] [address] Audiogram (Screening) 11/07/2012 37962 Screening Test Of Visual Acuity, Quantitative, Bilateral 11/07/2012 Psychiatr Alton Lindsay 11/07/2012 88076 PSYCH DIAGNOSTIC EVALUATION 12/24/2012 26009 EKG, TRACING (IN-HOUSE) 12/11/2013 14792 EEG 12/11/2013 NEUROLOGY VALERY CORRALES 12/11/2013 Results Test Result Range Genital Culture, Routine - 11/01/16 17:42 Genital Culture, Routine Note hCG,Beta Subunit,Qual,Serum - 12/11/16 15:57 hCG,Beta Subunit,Qual,Serum Negative mIU/mL Negative <6 Encounters ACCT No. Visit Date/Time Discharge Status Pt. Type Provider Facility Loc./Unit Complaint [id number] 12/11/2013 14:04:00 12/11/2013 23:59:59 CLS Outpatient ERNIE RENE MD [id number] 11/05/2013 14:37:00 11/05/2013 23:59:59 CLS Outpatient HERIBERTO MARTINEZ APRN [id number] 10/06/2013 15:02:00 10/06/2013 23:59:59 CLS Outpatient ERNIE RENE MD [id number] 01/09/2013 09:06:00 01/09/2013 23:59:59 CLS Outpatient ERNIE RENE MD [id number] 12/25/2012 07:54:00 12/25/2012 23:59:59 CLS Outpatient [id number] 12/23/2012 13:58:00 12/23/2012 23:59:59 CLS Outpatient [id number] 11/07/2012 10:46:00 11/07/2012 23:59:59 CLS Outpatient [id number] 11/07/2012 10:46:00 11/07/2012 23:59:59 CLS Outpatient [id number] 12/11/2012 19:14:12 RECURRING [id number] 12/12/2016 08:06:00 Document Registration [id number] 11/05/2016 07:05:00 Document Registration
== END 2019-06-28 11:41 | disposition home or self-care (01) ==
LOC: EDUNIT# 09:47 → ER 09:49
DX: O23.43 Unspecified infection of urinary tract in pregnancy, third trimester (principal); O99.283 Endocrine, nutritional and metabolic diseases complicating pregnancy, third trimester; E83.42 Hypomagnesemia; O99.013 Anemia complicating pregnancy, third trimester; O99.323 Drug use complicating pregnancy, third trimester; F12.10 Cannabis abuse, uncomplicated; O99.343 Other mental disorders complicating pregnancy, third trimester; F90.9 Attention-deficit hyperactivity disorder, unspecified type; F41.9 Anxiety disorder, unspecified; E78.00 Pure hypercholesterolemia, unspecified; O99.353 Diseases of the nervous system complicating pregnancy, third trimester; G43.909 Migraine, unspecified, not intractable, without status migrainosus; Z88.2 Allergy status to sulfonamides; Z88.8 Allergy status to other drugs, medicaments and biological substances; Z88.1 Allergy status to other antibiotic agents; Z87.891 Personal history of nicotine dependence; Z3A.32 32 weeks gestation of pregnancy; Z82.49 Family history of ischemic heart disease and other diseases of the circulatory system
CPT/HCPCS: 36415; 36600; 80053; 80306; 81000; 82375; 82805; 83735; 85025; 85610; 85730; 87088

== ENCOUNTER 2019-07-04 04:22 | Emergency (ER) | payer MEDICAID ==
[~2019-07-04] VITALS: Ht 162.6 cm; Wt 96.2 kg
--- NOTE | 2019-07-04 04:33 | NUR ---
Lizy jensen in [facility] - 07/04/19 at 0441 by TROY PT GOING TO OB UNIT
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
[2019-07-04 05:10] LABS: BASOPHILS % (AUTO) 0 % (0-10); EOSINOPHILS # (AUTO) 0.1 10^3/uL (0.0-0.3); EOSINOPHILS % (AUTO) 1 % (0-10); HEMATOCRIT 30 % (35-52); LYMPHOCYTES % (AUTO) 19 % (12-44); MEAN CORPUSCULAR HEMOGLOBIN 30 PG (25-34); MEAN CORPUSCULAR HGB CONC 34 G/DL (32-36); MEAN CORPUSCULAR VOLUME 90 FL (80-99); MEAN PLATELET VOLUME 8.4 FL (7.4-10.4); MONOCYTES # (AUTO) 0.6 X 10^3 (0.0-1.0); MONOCYTES % (AUTO) 5 % (0-12); NEUTROPHILS # (AUTO) 7.8 X 10^3 (1.8-7.8); NEUTROPHILS % (AUTO) 75 % (42-75); PLATELET COUNT 301 10^3/uL (130-400); RED CELL DISTRIBUTION WIDTH 14.3 % (10.0-14.5); WHITE BLOOD COUNT 10.5 10^3/uL (4.3-11.0)
[2019-07-04] MEDS ORDERED: PROMETHAZINE 25 MG (PHENERGAN) TAB PO ONE (05:15)
[2019-07-04] MEDS ORDERED: HYDROcodone/APAP 5 MG/325 MG (LORTAB) TAB PO ONE (05:15)
[2019-07-04 05:20] LABS: BILIRUBIN,URINE NEGATIVE (NEGATIVE); CLARITY,URINE CLEAR; COLOR,URINE YELLOW; GLUCOSE, URINE (UA) NEGATIVE (NEGATIVE); KETONES,URINE NEGATIVE (NEGATIVE); LEUKOCYTE ESTERASE ,URINE 2+ (NEGATIVE); NITRITE,URINE NEGATIVE (NEGATIVE); PH,URINE 8 (5-9); PROTEIN,URINE NEGATIVE (NEGATIVE); UROBILINOGEN,URINE NORMAL (NORMAL)
[2019-07-04 05:29] LABS: BACTERIA,URINE TRACE /HPF; WBC,URINE 0-2 /HPF
[2019-07-04 05:31] LABS: ALANINE AMINOTRANSFERASE 8 U/L (0-55); ALBUMIN 3.5 GM/DL (3.2-4.5); ALKALINE PHOSPHATASE 90 U/L (40-136); BILIRUBIN,TOTAL 0.2 MG/DL (0.1-1.0); BUN/CREATININE RATIO 6; CALCIUM 8.9 MG/DL (8.5-10.1); CARBON DIOXIDE 19 MMOL/L (21-32); CHLORIDE 112 MMOL/L (98-107); CREATININE SERUM 0.63 MG/DL (0.60-1.30); GFR ESTIMATED > 60; GLUCOSE 88 MG/DL (70-105); POTASSIUM 3.5 MMOL/L (3.6-5.0); SODIUM 139 MMOL/L (135-145); TOTAL PROTEIN 6.5 GM/DL (6.4-8.2)
[2019-07-04 05:33] LABS: AMPHETAMINE SCREEN, URINE NEGATIVE (NEGATIVE); BARBITURATE SCREEN URINE NEGATIVE (NEGATIVE); BENZODIAZEPINES SCREEN URINE NEGATIVE (NEGATIVE); CANNABINOID SCREEN, URINE NEGATIVE (NEGATIVE); COCAINE SCREEN URINE NEGATIVE (NEGATIVE); METHADONE STAT NEGATIVE (NEGATIVE); METHAMPHETAMINE SCREEN URINE S NEGATIVE (NEGATIVE); OPIATE SCREEN URINE NEGATIVE (NEGATIVE); OXYCODONE STAT NEGATIVE (NEGATIVE); PROPOXYPHENE STAT NEGATIVE (NEGATIVE); TRICYCLIC ANTIDEPRESSANTS SCRE NEGATIVE (NEGATIVE)
[2019-07-04 05:35] LABS: PROTHROMBIN TIME PATIENT 13.1 SEC (12.2-14.7)
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
[2019-07-04 06:11] VITALS: BP 119/80
== END 2019-07-04 06:22 | disposition home or self-care (01) ==
LOC: EDUNIT# 04:22 → ER 04:42
DX: O9A.213 Injury, poisoning and certain other consequences of external causes complicating pregnancy, third trimester (principal); S06.0X0A Concussion without loss of consciousness, initial encounter; O26.893 Other specified pregnancy related conditions, third trimester; R51 Headache; O99.283 Endocrine, nutritional and metabolic diseases complicating pregnancy, third trimester; E78.00 Pure hypercholesterolemia, unspecified; O99.343 Other mental disorders complicating pregnancy, third trimester; F41.9 Anxiety disorder, unspecified; F90.9 Attention-deficit hyperactivity disorder, unspecified type; Z86.69 Personal history of other diseases of the nervous system and sense organs; Z87.440 Personal history of urinary (tract) infections; Z88.1 Allergy status to other antibiotic agents; Z88.2 Allergy status to sulfonamides; Z88.8 Allergy status to other drugs, medicaments and biological substances; Z87.891 Personal history of nicotine dependence; Z82.49 Family history of ischemic heart disease and other diseases of the circulatory system; Z3A.32 32 weeks gestation of pregnancy; Y04.0XXA Assault by unarmed brawl or fight, initial encounter
CPT/HCPCS: 36415; 80053; 80306; 81000; 85025; 85610; 85730

== ENCOUNTER 2019-07-22 05:47 | Outpatient (CLI) | payer MEDICAID ==
[~2019-07-22] VITALS: Ht 162.6 cm; Wt 98.4 kg
--- NOTE | 2019-07-22 05:49 | NUR ---
KELBY MOSLEY presented to unit via WC from ED, accompanied by staff, with c/o CONTACTIONS,FLUID LEAKAGE. KELBY MOSLEY weighed, gowned, voided, and to bed. EFHM and TOCO applied, VS taken. KELBY MOSLEY oriented to bed controls, call light, TV, heat, and A/C controls.
[2019-07-22 06:00] VITALS: BP 134/68
--- NOTE | 2019-07-22 06:00 | NUR ---
sve performed. 1cm 50%. nitrazine negative.
[2019-07-22 06:09] LABS: BILIRUBIN,URINE NEGATIVE (NEGATIVE); CLARITY,URINE CLEAR; COLOR,URINE YELLOW; GLUCOSE, URINE (UA) NEGATIVE (NEGATIVE); KETONES,URINE NEGATIVE (NEGATIVE); LEUKOCYTE ESTERASE ,URINE 1+ (NEGATIVE); NITRITE,URINE NEGATIVE (NEGATIVE); PH,URINE 7 (5-9); PROTEIN,URINE NEGATIVE (NEGATIVE); UROBILINOGEN,URINE NORMAL (NORMAL)
[2019-07-22] MEDS ORDERED: FERR-84 PO (06:09)
[2019-07-22 06:17] LABS: WBC,URINE 0-2 /HPF
[2019-07-22 06:18] LABS: BACTERIA,URINE TRACE /HPF
[2019-07-22 07:50] VITALS: BP 118/71
--- NOTE | 2019-07-22 08:02 | NUR ---
SVE 1 cm/Thick/Posterior. Patient up to restroom to void.
--- NOTE | 2019-07-22 08:07 | NUR ---
Dr. Sahni updated on patient's status. New orders received.
--- NOTE | 2019-07-22 08:23 | NUR ---
Discharge instructions and medications reviewed with patient both written and verbally. Patient verbalizes understanding and questions answered.
--- NOTE | 2019-07-22 08:25 | NUR ---
Patient discharged at this time and ambulated from the unit. No signs or symptoms of distress noted.
--- NOTE | 2019-07-23 08:02 | Physician Query-Final Dx ---
BABS SPAULDING 07/23/19 0802: Clinic Account Progress/Dx Physician Query: Please give diagnosis Please remember to include weeks gestation Date of Service Jul 22, 2019 at 05:47 ANNE PIEDRA DO 08/13/19 1310: Clinic Account Progress/Dx DIAGNOSIS: Diagnosis 35 weeks vaginal discharge BABS SPAULDING Jul 23, 2019 08:02 ANNE PIEDRA DO Aug 13, 2019 13:10
== END 2019-07-22 08:25 | disposition home or self-care (01) ==
LOC: WSo 05:47 → LDRP 05:48 → WSo 08:25
PROVIDERS: ATTEND Obstetrics & Gynecology
DX: O99.89 Other specified diseases and conditions complicating pregnancy, childbirth and the puerperium (principal); N89.8 Other specified noninflammatory disorders of vagina; Z3A.35 35 weeks gestation of pregnancy
CPT/HCPCS: 81000; 99214

== ENCOUNTER 2019-07-27 16:12 | Outpatient (CLI) | payer MEDICAID ==
[~2019-07-27] VITALS: Ht 162.6 cm; Wt 99.5 kg
[~2019-07-27 16:12] MED LIST changes: +FERR-84 PO
--- NOTE | 2019-07-27 16:15 | NUR ---
KELBY MOSLEY presented to unit via W/C from ED, accompanied by FAMILY, with c/o WATER BROKE,CONTRACTIONS. KELBY MOSLEY weighed, gowned, voided, and to bed. EFHM and TOCO applied, VS taken. KELBY MOSLEY oriented to bed controls, call light, TV, heat, and A/C controls.
[2019-07-27 16:26] VITALS: BP 127/70
[2019-07-27 16:46] LABS: BILIRUBIN,URINE NEGATIVE (NEGATIVE); CLARITY,URINE SLIGHTLY CLOUDY; COLOR,URINE YELLOW; GLUCOSE, URINE (UA) NEGATIVE (NEGATIVE); KETONES,URINE NEGATIVE (NEGATIVE); LEUKOCYTE ESTERASE ,URINE 3+ (NEGATIVE); NITRITE,URINE NEGATIVE (NEGATIVE); PH,URINE 7 (5-9); PROTEIN,URINE 2+ (NEGATIVE); UROBILINOGEN,URINE NORMAL (NORMAL)
[2019-07-27 16:52] LABS: BACTERIA,URINE LARGE /HPF; SQUAMOUS EPITHELIAL CELL,UR 25-50 /HPF; WBC,URINE 25-50 /HPF
--- NOTE | 2019-07-27 17:17 | NUR ---
DR. RAI NOTIFIED OF PT'S ARRIVAL, C/O, GESTATION, AMNIO NEGATIVE, SVE, REVIEW OF STRIP, UA RESULTS. NEW ORDERS RECEIVED.
--- NOTE | 2019-07-27 17:40 | NUR ---
REFER TO LABOR FLOW SHEET.
--- NOTE | 2019-07-27 17:45 | NUR ---
DISCHARGE PAPERS PROVIDED AND REVIEWED WITH PT, PT VERBALIZES UNDERSTANDING. QUESTIONS ANSWERED. PAPER SIGNED.
--- NOTE | 2019-07-27 17:52 | NUR ---
PT DISCHARGED FROM -319 TO PERSONAL AUTO VIA W/C IN STABLE CONDITION ACC BY FRIEND.
--- NOTE | 2019-08-04 08:40 | Physician Query-Final Dx ---
[facility]ABS [facility]ING 08/04/19 0840: Clinic Account Progress/Dx Physician Query: Please give diagnosis Please remember to include weeks gestation Date of Service Jul 27, 2019 at 16:12 LEILA RAI DO 08/05/19 1708: Clinic Account Progress/Dx DIAGNOSIS: Diagnosis 36 week IUP Cramping Pelvic discomfort BABS SPAULDING Aug 04, 2019 08:40 LEILA RAI DO Aug 05, 2019 17:08
== END 2019-07-27 17:52 | disposition home or self-care (01) ==
LOC: WSo 16:12 → LDRP 16:12 → WSo 17:52
PROVIDERS: ATTEND Obstetrics & Gynecology
DX: O26.893 Other specified pregnancy related conditions, third trimester (principal); R10.2 Pelvic and perineal pain; Z3A.36 36 weeks gestation of pregnancy
CPT/HCPCS: 81000; 99213

== ENCOUNTER 2019-08-02 13:27 | Outpatient (CLI) | payer MEDICAID ==
[~2019-08-02] VITALS: Ht 162.6 cm; Wt 99.8 kg
--- NOTE | 2019-08-02 13:35 | NUR ---
KELBY MOSLEY presented to unit via amb from ED, accompanied by s.o., with c/o BACK,STOMACH PAIN. KELBY MOSLEY weighed, gowned, voided, and to bed. 1340 EFHM and TOCO applied, VS taken. KELBY MOSLEY oriented to bed controls, call light, TV, heat, and A/C controls.
[2019-08-02 13:40] VITALS: BP 119/64
--- NOTE | 2019-08-02 13:50 | NUR ---
PT STATES SHE WAS FOLLOWING S.O. TO [place] TO STAY THIS WEEK UNTIL SUNDAY WHEN SHE STARTED HAVING CTXS. THEY HAD GOTTEN TO [place] AND TURNED AROUND TO COME BE CHECKED OUT.
[2019-08-02 14:08] VITALS: BP 111/63
[2019-08-02 14:14] LABS: BILIRUBIN,URINE NEGATIVE (NEGATIVE); CLARITY,URINE CLEAR; COLOR,URINE YELLOW; GLUCOSE, URINE (UA) NEGATIVE (NEGATIVE); KETONES,URINE NEGATIVE (NEGATIVE); LEUKOCYTE ESTERASE ,URINE 3+ (NEGATIVE); NITRITE,URINE NEGATIVE (NEGATIVE); PH,URINE 7 (5-9); PROTEIN,URINE NEGATIVE (NEGATIVE); UROBILINOGEN,URINE NORMAL (NORMAL)
[2019-08-02 14:20] LABS: BACTERIA,URINE FEW /HPF; WBC,URINE 25-50 /HPF
--- NOTE | 2019-08-02 14:56 | NUR ---
DR. PIEDRA NOTIFIED OF PT'S ARRIVAL, COMPLAINT, GESTATIONAL AGE, CTX PATTERN, AND UA RESULTS. ORDER TO MONITOR 1 MORE HOUR AND RECHECK CERVIX. MAY DISCHARGE IF UNCHANGED.
--- NOTE | 2019-08-02 15:15 | NUR ---
ORDER TO ALLOW PT TO EAT SOMETHING. INSTRUCTED PT TO EAT LIGHT.
[2019-08-02 15:44] VITALS: BP 124/63
--- NOTE | 2019-08-02 16:20 | NUR ---
DISCHARGE INSTRUCTIONS REVIEWED WITH PT AND S.O. WITH STATED UNDERSTANDING. S.O. CONTINUING TO ASK IF PT CAN GO AHEAD AND GO TO [place] [employer] [employer] [place] WITH HIM TODAY. ADVISED PT AND S.O. THAT IT WAS STRONGLY RECOMMENDED TO NOT TRAVEL THAT FAR DURING THIS LATE IN . INFORMED PT THAT DR. PIEDRA ALSO SAID FOR HER NOT TO TRAVEL TO [place] THIS CLOSE TO HER DUE DATE. PT STATES SHE WILL NOT GO WITH HIM.
[2019-08-02 16:30] VITALS: BP 124/63
--- NOTE | 2019-08-02 16:30 | NUR ---
DISMISSED AMB FROM [facility] IN STABLE CONDITION ACC BY RickyOMaritza
--- NOTE | 2019-08-04 08:43 | Physician Query-Final Dx ---
BABS SPAULDING 08/04/19 0843: Clinic Account Progress/Dx Physician Query: Please give diagnosis Please remember to include weeks gestation Date of Service Aug 02, 2019 at 13:27 ANNE PIEDRA DO 08/22/19 0619: Clinic Account Progress/Dx DIAGNOSIS: Diagnosis 36 week gestation back pain abdominal pain, NOS BABS SPAULDING Aug 04, 2019 08:43 ANNE PIEDRA DO Aug 22, 2019 06:19
== END 2019-08-02 16:30 | disposition home or self-care (01) ==
LOC: WSo 13:27 → LDRP 13:27 → WSo 16:30
PROVIDERS: ATTEND Obstetrics & Gynecology
DX: O62.9 Abnormality of forces of labor, unspecified (principal); Z3A.36 36 weeks gestation of pregnancy
CPT/HCPCS: 81000; 87077; 87088; 99214

== ENCOUNTER 2019-08-03 19:32 | Emergency (ER) | payer MEDICAID ==
[~2019-08-03] VITALS: Ht 162.6 cm; Wt 99.8 kg
[2019-08-03] MEDS ORDERED: ACETAMINOPHEN 500 MG TAB (TYLENOL) PO STA (20:08)
[2019-08-03] MEDS ORDERED: RT-ALBUTEROL SULF 2.5 MG/3 ML PRE-MIX VIAL INH STA (20:08)
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
[2019-08-03 21:10] LABS: BASOPHILS % (AUTO) 0 % (0-10); EOSINOPHILS # (AUTO) 0.1 10^3/uL (0.0-0.3); EOSINOPHILS % (AUTO) 1 % (0-10); HEMATOCRIT 31 % (35-52); HEMOGLOBIN 10.1 G/DL (11.5-16.0); LYMPHOCYTES # (AUTO) 1.9 X 10^3 (1.0-4.0); LYMPHOCYTES % (AUTO) 20 % (12-44); MEAN CORPUSCULAR HEMOGLOBIN 29 PG (25-34); MEAN CORPUSCULAR HGB CONC 33 G/DL (32-36); MEAN CORPUSCULAR VOLUME 90 FL (80-99); MEAN PLATELET VOLUME 9.2 FL (7.4-10.4); MONOCYTES # (AUTO) 0.5 X 10^3 (0.0-1.0); MONOCYTES % (AUTO) 5 % (0-12); NEUTROPHILS # (AUTO) 6.8 X 10^3 (1.8-7.8); NEUTROPHILS % (AUTO) 74 % (42-75); PLATELET COUNT 292 10^3/uL (130-400); RED CELL DISTRIBUTION WIDTH 15.1 % (10.0-14.5); WHITE BLOOD COUNT 9.3 10^3/uL (4.3-11.0)
[2019-08-03 21:30] LABS: ALANINE AMINOTRANSFERASE 9 U/L (0-55); ALBUMIN 3.5 GM/DL (3.2-4.5); ALKALINE PHOSPHATASE 117 U/L (40-136); BILIRUBIN,TOTAL 0.3 MG/DL (0.1-1.0); BUN/CREATININE RATIO 5; CALCIUM 9.1 MG/DL (8.5-10.1); CARBON DIOXIDE 18 MMOL/L (21-32); CHLORIDE 110 MMOL/L (98-107); CREATININE SERUM 0.73 MG/DL (0.60-1.30); GFR ESTIMATED > 60; GLUCOSE 108 MG/DL (70-105); MAGNESIUM 1.9 MG/DL (1.6-2.4); POTASSIUM 3.2 MMOL/L (3.6-5.0); SODIUM 139 MMOL/L (135-145); TOTAL PROTEIN 6.7 GM/DL (6.4-8.2)
[2019-08-03 21:43] LABS: BILIRUBIN,URINE NEGATIVE (NEGATIVE); CLARITY,URINE CLEAR; COLOR,URINE YELLOW; GLUCOSE, URINE (UA) NEGATIVE (NEGATIVE); KETONES,URINE NEGATIVE (NEGATIVE); LEUKOCYTE ESTERASE ,URINE 1+ (NEGATIVE); NITRITE,URINE NEGATIVE (NEGATIVE); PH,URINE 7 (5-9); PROTEIN,URINE NEGATIVE (NEGATIVE); UROBILINOGEN,URINE NORMAL (NORMAL)
[2019-08-03 22:17] LABS: BACTERIA,URINE NEGATIVE /HPF
[2019-08-03 22:54] VITALS: BP 143/90
== END 2019-08-03 22:54 | disposition home or self-care (01) ==
LOC: EDUNIT# 19:32 → ER 19:33
DX: O26.893 Other specified pregnancy related conditions, third trimester (principal); R51 Headache; O99.333 Smoking (tobacco) complicating pregnancy, third trimester; F17.210 Nicotine dependence, cigarettes, uncomplicated; O99.283 Endocrine, nutritional and metabolic diseases complicating pregnancy, third trimester; E78.00 Pure hypercholesterolemia, unspecified; O99.343 Other mental disorders complicating pregnancy, third trimester; F90.9 Attention-deficit hyperactivity disorder, unspecified type; F41.9 Anxiety disorder, unspecified; Z86.69 Personal history of other diseases of the nervous system and sense organs; Z88.8 Allergy status to other drugs, medicaments and biological substances; Z88.1 Allergy status to other antibiotic agents; Z88.2 Allergy status to sulfonamides; Z82.49 Family history of ischemic heart disease and other diseases of the circulatory system; Z3A.37 37 weeks gestation of pregnancy
CPT/HCPCS: 36415; 80053; 81000; 83735; 85025; 93005; 94640

== ENCOUNTER 2019-08-03 23:26 | Outpatient (CLI) | payer MEDICAID ==
[~2019-08-03] VITALS: Ht 162.6 cm; Wt 99.3 kg
--- NOTE | 2019-08-03 22:54 | NUR ---
KELBY MOSLEY presented to unit via wheelchair from ED, accompanied by friend, for FOLLOW UP to ER VISIT. KELBY MOSLEY weighed, gowned, voided, and to bed. EFHM and TOCO applied, VS taken. KELBY MOSLEY oriented to bed controls, call light, TV, heat, and A/C controls.
[2019-08-03 23:00] VITALS: BP 121/67
--- NOTE | 2019-08-03 23:38 | NUR ---
Pt given written and verbal discharge instructions, pt to call office in am to discuss a sooner appointment date. Pt IV form ER discontinued and pt ambulated to private vehicle with friend.
--- NOTE | 2019-08-04 08:39 | Physician Query-Final Dx ---
BABS SPAULDING 08/04/19 0839: Clinic Account Progress/Dx Physician Query: Please give diagnosis Please remember to include week gestation Date of Service Aug 03, 2019 at 23:26 ANNE PIEDRA DO 08/22/19 0620: Clinic Account Progress/Dx DIAGNOSIS: Diagnosis 36 week gestation headache JASSONBABS Blackwood Aug 04, 2019 08:39 ANNE PIEDRA DO Aug 22, 2019 06:20
== END 2019-08-03 23:37 | disposition home or self-care (01) ==
LOC: WSo 23:26 → LDRP 23:29 → WSo 23:37
PROVIDERS: ATTEND Obstetrics & Gynecology
DX: O99.89 Other specified diseases and conditions complicating pregnancy, childbirth and the puerperium (principal); R51 Headache; Z3A.36 36 weeks gestation of pregnancy
CPT/HCPCS: 99212

== ENCOUNTER 2019-08-05 21:58 | Outpatient (CLI) | payer MEDICAID ==
[~2019-08-05] VITALS: Ht 162.6 cm; Wt 99.3 kg
--- NOTE | 2019-08-05 22:02 | NUR ---
KELBY MOSLEY presented to unit via wheelchair from ED, accompanied by family, with c/o WATER BROKE. KELBY MOSLEY weighed, gowned, voided, and to bed. EFHM and TOCO applied, VS taken. KELBY MOSLEY oriented to bed controls, call light, TV, heat, and A/C controls.
[2019-08-05 22:15] VITALS: BP 133/77
[2019-08-05 22:52] VITALS: BP 129/69
[2019-08-05 22:52] LABS: BILIRUBIN,URINE NEGATIVE (NEGATIVE); COLOR,URINE YELLOW; GLUCOSE, URINE (UA) NEGATIVE (NEGATIVE); KETONES,URINE NEGATIVE (NEGATIVE); LEUKOCYTE ESTERASE ,URINE 3+ (NEGATIVE); NITRITE,URINE NEGATIVE (NEGATIVE); PH,URINE 8 (5-9); PROTEIN,URINE NEGATIVE (NEGATIVE); UROBILINOGEN,URINE NORMAL (NORMAL)
[2019-08-05 22:59] LABS: BACTERIA,URINE TRACE /HPF; CLARITY,URINE SL CLOUDY
[2019-08-05 23:41] LABS: BILIRUBIN,URINE NEGATIVE (NEGATIVE); CLARITY,URINE CLEAR; COLOR,URINE YELLOW; GLUCOSE, URINE (UA) NEGATIVE (NEGATIVE); KETONES,URINE NEGATIVE (NEGATIVE); LEUKOCYTE ESTERASE ,URINE 2+ (NEGATIVE); NITRITE,URINE NEGATIVE (NEGATIVE); PH,URINE 7 (5-9); PROTEIN,URINE 2+ (NEGATIVE); UROBILINOGEN,URINE NORMAL (NORMAL)
[2019-08-06] LABS: BACTERIA,URINE TRACE /HPF; RBC,URINE 25-50 /HPF
--- NOTE | 2019-08-06 00:20 | NUR ---
Written discharge instructions reviewed with patient. Discharge instructions signed and copy given. Patient dismissed home, ambulated off unit. Condition stable. No signs or symptoms of distress.
--- NOTE | 2019-08-06 09:48 | Physician Query-Final Dx ---
BABS SPAULDING 08/06/19 0948: Clinic Account Progress/Dx Physician Query: Please give diagnosis Please include weeks gestation Date of Service Aug 05, 2019 at 21:58 ANNE PIEDRA DO 08/27/19 1045: Clinic Account Progress/Dx DIAGNOSIS: Diagnosis 37 week gestation vaginal discharge rupture of membranes ruled out BABS SPAULDING Aug 06, 2019 09:48 ANNE PIEDRA DO Aug 27, 2019 10:45
== END 2019-08-06 00:20 | disposition home or self-care (01) ==
LOC: WSo 21:58 → LDRP 21:58 → WSo 08-06 00:20
PROVIDERS: ATTEND Obstetrics & Gynecology
DX: Z03.71 Encounter for suspected problem with amniotic cavity and membrane ruled out (principal); O99.89 Other specified diseases and conditions complicating pregnancy, childbirth and the puerperium; N89.8 Other specified noninflammatory disorders of vagina; Z3A.37 37 weeks gestation of pregnancy
CPT/HCPCS: 81000; 87088; 99214

== ENCOUNTER 2019-08-07 08:39 | Outpatient (CLI) | payer MEDICAID ==
[~2019-08-07] VITALS: Ht 162.6 cm; Wt 100.3 kg
--- NOTE | 2019-08-07 08:49 | NUR ---
KELBY MOSLEY presented to unit via amb from ED, accompanied by mother, with c/o CONTRACTIONS. KELBY MOSLEY weighed, gowned, voided, and to bed. 0903 EFHM and TOCO applied, VS taken. KELBY MOSLEY oriented to bed controls, call light, TV, heat, and A/C controls.
[2019-08-07 09:06] VITALS: BP 133/62
--- NOTE | 2019-08-07 09:25 | NUR ---
DR. WOOD NOTIFIED OF PT ARRIVAL, GESTATIONAL AGE, COMPLAINT, CERVICAL EXAM, CTX PATTERN, AND FHR TRACING. ORDER TO CONTINUE TO MONITOR AND RECHECK CERVIX IN 1 HOUR.
[2019-08-07 11:25] VITALS: BP 133/62
--- NOTE | 2019-08-07 11:25 | NUR ---
DISCHARGE INSTRUCTIONS REVIEWED WITH COPY TO PT. STATES UNDERSTANDING OF INSTRUCTIONS AND NEED TO F/U SCHEDULED AND NEEDED. DISMISSED FROM WS IN STABLE CONDITION ACC BY MOTHER. RATES PAIN 03/05.
--- NOTE | 2019-08-08 08:03 | Physician Query-Final Dx ---
BABS SPAULDING 08/08/19 0803: Clinic Account Progress/Dx Physician Query: Please give diagnosis Please remember to include weeks of gestation Date of Service Aug 07, 2019 at 08:39 JAMISON WOOD MD 08/08/19 1245: Clinic Account Progress/Dx DIAGNOSIS: Diagnosis 37 weeks with false labor BABS SPAULDING Aug 08, 2019 08:03 JAMISON WOOD MD Aug 08, 2019 12:45
== END 2019-08-07 11:25 | disposition home or self-care (01) ==
LOC: WSo 08:39 → LDRP 08:42 → WSo 11:25
PROVIDERS: ATTEND Obstetrics & Gynecology
DX: O47.1 False labor at or after 37 completed weeks of gestation (principal); Z3A.37 37 weeks gestation of pregnancy
CPT/HCPCS: 99213

== ENCOUNTER 2019-08-18 20:22 | Outpatient (CLI) | payer MEDICAID ==
[~2019-08-18] VITALS: Ht 162.6 cm; Wt 101.8 kg
--- NOTE | 2019-08-18 20:30 | NUR ---
KELBY MOSLEY presented to unit via ambulation from home/ED, accompanied by SO, with c/o ABD PAIN,VAG BLEEDING. KELBY MOSLEY weighed, gowned, voided, and to bed. EFHM and TOCO applied, VS taken. KELBY MOSLEY oriented to bed controls, call light, TV, heat, and A/C controls.
[2019-08-18 20:55] LABS: BILIRUBIN,URINE NEGATIVE (NEGATIVE); CLARITY,URINE CLEAR; COLOR,URINE YELLOW; GLUCOSE, URINE (UA) NEGATIVE (NEGATIVE); KETONES,URINE NEGATIVE (NEGATIVE); LEUKOCYTE ESTERASE ,URINE 2+ (NEGATIVE); NITRITE,URINE NEGATIVE (NEGATIVE); PH,URINE 7 (5-9); PROTEIN,URINE NEGATIVE (NEGATIVE); UROBILINOGEN,URINE NORMAL (NORMAL)
[2019-08-18 21:18] LABS: BACTERIA,URINE FEW /HPF
--- NOTE | 2019-08-18 21:35 | NUR ---
D/C instructions given & explained, pt. verbalized understanding & signed, copy of D/C instructions to pt. Pt. left WS ambulatory, to home via private vehicle escorted by SO.
--- NOTE | 2019-08-19 08:31 | Physician Query-Final Dx ---
BABS SPAULDING 08/19/19 0831: Clinic Account Progress/Dx Physician Query: Please give diagnosis Please add # weeks gestation Date of Service Aug 18, 2019 at 20:22 CHRIS MAYBERRY DO 08/19/19 2133: Clinic Account Progress/Dx Physician Query: Please give diagnosis DIAGNOSIS: Diagnosis Intrauterine at 36 weeks 2. Pelvic Pain 3. Third Trimester Bleeding BABS SPAULDING Aug 19, 2019 08:31 CHRIS MAYBERRY DO Aug 19, 2019 21:33
== END 2019-08-18 21:35 | disposition home or self-care (01) ==
LOC: WSo 20:22 → LDRP 20:22 → WSo 21:35
PROVIDERS: ATTEND Obstetrics & Gynecology
DX: O46.93 Antepartum hemorrhage, unspecified, third trimester (principal); O26.893 Other specified pregnancy related conditions, third trimester; R10.2 Pelvic and perineal pain; Z3A.36 36 weeks gestation of pregnancy
CPT/HCPCS: 81000; 87088

== ENCOUNTER 2019-08-20 17:12 | Inpatient (IN) | payer MEDICAID ==
[2019-08-20] VITALS (20 sets, daily range): BP systolic 131–153; BP diastolic 67–86
[~2019-08-20] VITALS: Ht 162.6 cm; Wt 100.4 kg
--- NOTE | 2019-08-20 17:00 | NUR ---
KELBY MOSLEY presented to unit via AMB from HOME, accompanied by S.O., with c/o INDUCTION OF LABOR. KELBY MOSLEY weighed, gowned, voided, and to bed. EFHM and TOCO applied, VS taken. KELBY MOSLEY oriented to bed controls, call light, TV, heat, and A/C controls.
--- NOTE | 2019-08-20 17:30 | NUR ---
DR. RAI NOTIFIED OF PT'S ARRIVAL. ORDERS RECEIVED.
[2019-08-20] MEDS ORDERED: D5 LR IV SOLUTION 1,000 ML IV ONE (17:34)
[2019-08-20] MEDS: D5 LR IV SOLUTION 1,000 ML IV SCH (18:29)
[2019-08-20 18:42] LABS: BASOPHILS % (AUTO) 0 % (0-10); EOSINOPHILS % (AUTO) 0 % (0-10); HEMATOCRIT 29 % (35-52); HEMOGLOBIN 9.7 G/DL (11.5-16.0); LYMPHOCYTES # (AUTO) 1.5 X 10^3 (1.0-4.0); LYMPHOCYTES % (AUTO) 13 % (12-44); MEAN CORPUSCULAR HEMOGLOBIN 29 PG (25-34); MEAN CORPUSCULAR HGB CONC 33 G/DL (32-36); MEAN CORPUSCULAR VOLUME 88 FL (80-99); MEAN PLATELET VOLUME 9.1 FL (7.4-10.4); MONOCYTES # (AUTO) 0.7 X 10^3 (0.0-1.0); MONOCYTES % (AUTO) 6 % (0-12); NEUTROPHILS # (AUTO) 9.3 X 10^3 (1.8-7.8); NEUTROPHILS % (AUTO) 81 % (42-75); PLATELET COUNT 318 10^3/uL (130-400); WHITE BLOOD COUNT 11.5 10^3/uL (4.3-11.0)
[2019-08-20] MEDS: OXYTOCIN/NORMAL SALINE 500 ML IV SCH (18:59)
[2019-08-20 19:04] LABS: ALANINE AMINOTRANSFERASE 13 U/L (0-55); ALBUMIN 3.5 GM/DL (3.2-4.5); ALKALINE PHOSPHATASE 114 U/L (40-136); BILIRUBIN,TOTAL 0.4 MG/DL (0.1-1.0); BUN/CREATININE RATIO 5; CARBON DIOXIDE 19 MMOL/L (21-32); CHLORIDE 111 MMOL/L (98-107); CREATININE SERUM 0.73 MG/DL (0.60-1.30); GFR ESTIMATED > 60; GLUCOSE 84 MG/DL (70-105); SODIUM 141 MMOL/L (135-145); TOTAL PROTEIN 6.7 GM/DL (6.4-8.2); URIC ACID 5.3 MG/DL (2.6-7.2)
--- NOTE | 2019-08-20 19:55 | NUR ---
DR. RAI NOTIFIED OF PT'S LAB RESULTS, CERVICAL EXAM, PITOCIN STARTED AT 1900, FHR TRACING AND CTX PATTERN. INFORMED OF PT REFUSAL OF EPIDURAL AT THIS TIME AND RATING PAIN 10/10. ORDERS RECEIVED.
[2019-08-20] MEDS ORDERED: HYDROmorphone 2 MG/ML VIAL (DILAUDID) IVP ONE (20:00)
[2019-08-21] VITALS (71 sets, daily range): BP systolic 114–195; BP diastolic 54–104
[2019-08-21] MEDS: LACTATED RINGERS 1,000 ML IV SCH ×2 (00:45→08:10)
[2019-08-21] MEDS ORDERED: SUFENTA 0.6MCG/ML BUPIVA 0.125 100 ML ONE (00:51)
[2019-08-21] MEDS: D5 LR IV SOLUTION 1,000 ML IV SCH (01:26)
--- NOTE | 2019-08-21 01:28 | NUR ---
Orders received to keep Pitocin off until further notice.
[2019-08-21] MEDS ORDERED: BUPIVACAINE 0.25% 30 ML (SENSORCAINE) VIAL ONE (01:32)
[2019-08-21] MEDS ORDERED: fentaNYL INJECTION 100 MCG/2 ML AMP ONE (01:32)
--- NOTE | 2019-08-21 01:46 | NUR ---
Genevieve Weaver here for epidural placement. Procedure explained, consent reviewed and signed by anesthesia. Questions answered to patient's satisfaction. Time out taken to verify correct patient/procedure. Patient up to side of bed, assisted into sitting position. Betadine prep done x3 and sterile drape applied. Local done, see anesthesia record. Test dose given, see anesthesia record for drug and dosage. Epidural catheter secured in place. Epidural placement complete. Assisted back into bed, monitors adjusted. Epidural dosed, see anesthesia record. Epidural of Sufenta/Bupvicaine @ 12cc/hr stated per pump. Patient tolerated procedure well.
[2019-08-21] MEDS: EPIDURAL (SUFENTA 0.6MCG/ML BUPIVA 0.125%) 100 ML BAG EPI PRN ×2 (02:05→08:49)
[2019-08-21] MEDS ORDERED: NALOXONE 0.4 MG/ML 1 ML (NARCAN) VIAL IV PRN ×2 (02:30)
[2019-08-21] MEDS ORDERED: METOCLOPRAMIDE INJ 10 MG/2 ML (REGLAN) IV PRN (02:30)
[2019-08-21] MEDS ORDERED: ONDANSETRON 4 MG/2 ML (SDV) Z0FRAN IV PRN (02:30)
[2019-08-21] MEDS: CATHETER FLUSH 10 ML SYR IV SCH ×2 (03:38→07:07)
--- NOTE | 2019-08-21 07:00 | NUR ---
REPORT FROM NIKITA CHENG.
[2019-08-21] MEDS: OXYTOCIN/NORMAL SALINE 500 ML IV SCH (07:07)
[2019-08-21] MEDS ORDERED: LIDOCAINE/EPI 2% 1:200,00 (XYLOCAINE) 10 ML VIAL ONE (07:46)
--- NOTE | 2019-08-21 07:50 | Anesthesia-Regional Post-Op ---
Regional Patient Condition Mental Status: Alert, Oriented x3 Circulation: Same as Pre-Op Headache: Absent Sensation: Full Recovery Motor Block: Absent Post Op Complications Complications None Follow Up Care/Instructions Patient Instructions None needed. Anesthesia/Patient Condition Patient is doing well, no complaints, stable vital signs, no apparent adverse anesthesia problems. No complications reported per nursing. EVER CHANCE CRNA Aug 21, 2019 07:50
[2019-08-21] MEDS ORDERED: FAMOTIDINE 20MG/2ML IV (PEPCID) ONE (07:54)
[2019-08-21] MEDS ORDERED: CITRIC ACID/SOB CIT (BICITRA) 30 ML UDC ONE (07:54)
--- NOTE | 2019-08-21 08:10 | History & Physical-OB ---
OB - Chief Complaint & HPI Date/Time Date of Admission: Date of Admission: Aug 20, 2019 at 17:14 Date seen by a Provider: Aug 20, 2019 Time Seen by a Provider: 14:00 Chief Complaint/History OB-Reason for Admission/Chief: Induction of Labor Hx : 1 Hx Para: 0 Expected Date of Delivery: Aug 26, 2019 Gestational Age in Weeks: 39 Gestational Age in Days: 1 Indication for induction: medical complication Other reason for admission: Mild PreE, induction of labor at 39 weeks Admission Nurse Assessment Rev: Yes History of Labs O pos Antibody neg RI RPR NR HIV NR HBsAg NR GC neg GBS neg Allergies and Home Medications Allergies Coded Allergies: diphenhydramine (Verified Allergy, Severe, Shortness of Breath, 08/05/19) HIVES SWELLING amoxicillin (Verified Allergy, Unknown, throat swells shut, 08/05/19) sulfamethoxazole (Verified Allergy, Unknown, 08/05/19) trimethoprim (Verified Allergy, Unknown, 08/05/19) Home Medications Ferrous Sulfate 325 Mg Tablet, 325 MG PO DAILY, (Reported) Patient Home Medication List Home Medication List Reviewed: Yes OB - History Hx of Present Care: Yes Ultrasounds: Normal mid trimester US Obstetrical Complications: Pre-eclampsia Medical Complications: None Delivery History Hx Blood Disorders: No Patient Past Medical History n/a Social History/Family History HIV/AIDS: No Recent Infectious Disease Expo: No Sexually Transmitted Disease: Yes (CHLAMYDIA) Alcohol Use: Denies Use Recreational Drug Use: No 2nd Hand Smoke Exposure: No Immunizations Hepatitis A: Yes Hepatitis B: Yes Tetanus Booster (TDap): Less than 5yrs OB - Admission Exam Physical Exam Vitals: Vital Signs 08/21/19 08/21/19 08/21/19 02:05 06:40 06:55 Temp 37.2 Pulse 74 Resp 18 B/P (MAP) 152/70 (97) Pulse Ox 100 O2 Delivery Room Air O2 Flow Rate 10.00 HEENT: NCAT Heart: Rhythm Normal Lungs: Clear Abdomen: Gravid Extremities: Normal Reflexes: Normal Cervical Dilatation: 3cm Effacement: 75% Station: -1 Membranes: Intact Heart Rate: 130's Accelerations: Accelerations Present Decelerations: No Decelerations Short Term Variability: Present Correspondence Review Clerk Variability: Average (6-25) Vargas Scoring Tool (Modified) Dilation (cm): 3-4cm (2) Effacement (%): 51-79% (2) Descent/Station: -1,0 (2) Cervix Consistency: Soft (2) Cervix Position: Anterior (2) Vargas Score: 10 Labs Laboratory Tests Test 08/20/19 18:20 08/20/19 18:21 08/20/19 18:45 Range/Units Sodium Level 141 135-145 MMOL/L Potassium Level 3.0 L 3.6-5.0 MMOL/L Chloride Level 111 H 98-107 MMOL/L Carbon Dioxide Level 19 L 21-32 MMOL/L Anion Gap 11 5-14 MMOL/L Blood Urea Nitrogen 4 L 7-18 MG/DL Creatinine 0.73 0.60-1.30 MG/DL Estimat Glomerular Filtration Rate > 60 BUN/Creatinine Ratio 5 Glucose Level 84 70-105 MG/DL Uric Acid 5.3 2.6-7.2 MG/DL Calcium Level 9.0 8.5-10.1 MG/DL Corrected Calcium 9.4 8.5-10.1 MG/DL Total Bilirubin 0.4 0.1-1.0 MG/DL Aspartate Amino Transf (AST/SGOT) 20 5-34 U/L Alanine Aminotransferase (ALT/SGPT) 13 0-55 U/L Alkaline Phosphatase 114 40-136 U/L Total Protein 6.7 6.4-8.2 GM/DL Albumin 3.5 3.2-4.5 GM/DL White Blood Count 11.5 H 4.3-11.0 10^3/uL Red Blood Count 3.29 L 4.35-5.85 10^6/uL Hemoglobin 9.7 L 11.5-16.0 G/DL Hematocrit 29 L 35-52 % Mean Corpuscular Volume 88 80-99 FL Mean Corpuscular Hemoglobin 29 25-34 PG Mean Corpuscular Hemoglobin Concent 33 32-36 G/DL Red Cell Distribution Width 15.0 H 10.0-14.5 % Platelet Count 318 130-400 10^3/uL Mean Platelet Volume 9.1 7.4-10.4 FL Neutrophils (%) (Auto) 81 H 42-75 % Lymphocytes (%) (Auto) 13 12-44 % Monocytes (%) (Auto) 6 0-12 % Eosinophils (%) (Auto) 0 0-10 % Basophils (%) (Auto) 0 0-10 % Neutrophils # (Auto) 9.3 H 1.8-7.8 X 10^3 Lymphocytes # (Auto) 1.5 1.0-4.0 X 10^3 Monocytes # (Auto) 0.7 0.0-1.0 X 10^3 Eosinophils # (Auto) 0.0 0.0-0.3 10^3/uL Basophils # (Auto) 0.0 0.0-0.1 10^3/uL Urine Protein 11 6-12 MG/DL Urine Creatinine 28 L 30-125 MG/DL Urine Protein/Creatinine Ratio 0.39 OB - Assessment/Plan/Diagnosis Assessment Assessment: induction of labor Admission Dx 18 yo G1 @ 39 weeks Mild PreE GBS neg Admission Status: Inpatient Order (span 2 midnights) Reason for Inpatient Admission: Induction of labor at 39 weeks Plan Plan: Induction Induction Method: per Pitocin Protocol LEILA RAI DO Aug 21, 2019 08:10
--- NOTE | 2019-08-21 12:08 | NUR ---
1207- SPONTANENOUS DELIVERY OF PLACENTA, PITOCIN WIDE OPEN, EPIDURAL STOPPED.
--- NOTE | 2019-08-21 12:10 | NUR ---
PERICARE COMPLETED, PAD AND PANTIES APPLIED, ICE PACK TO PERINEUM, PT REPOSITIONED IN BED, EPIDURAL CATH REMOVED, BLACK TIP NOTED, FFU/1 MOD LOCHIA NOTED. SKIN TO SKIN.
[2019-08-21] MEDS ORDERED: OXYTOCIN/NORMAL SALINE 500 ML IV SCH (12:19)
--- NOTE | 2019-08-21 12:20 | NUR ---
INFANT REMAINS SKIN TO SKIN, FAMILY AT BEDSIDE, FFU/1 LT/MOD LOCHIA NOTED.
--- NOTE | 2019-08-21 12:26 | OB Labor & Delivery Record ---
L&D History Date of Service Date of Service: Aug 21, 2019 History Expected Date of Delivery: Aug 26, 2019 Gestational Age in Weeks: 39 Hx : 1 Hx Para: 0 Complications Events: Routine care Operative Indications (Cesarea: N/A-Vaginal Delivery Intrapartal Events: None L&D Stage1 Stage One Onset of Labor - Date: Aug 21, 2019 Monitors and Tracing Monitor Mode: Internal Heart Rate: 125 Monitor Accelerations: Uniform Monitor Decelerations: Variable Station: +1 Jail Variability: Average (6-10) Short Term Variability: Present Presentation: Vertex Vital Signs VS - Last 72 Hours, by Label 08/20/19 08/20/19 08/20/19 08/20/19 17:19 18:50 19:00 19:15 Temp 36.9 Pulse 97 82 74 78 Resp 20 20 18 18 B/P (MAP) 134/82 (99) 137/76 (96) 138/76 (96) 142/77 (98) Pulse Ox 98 O2 Delivery Room Air Room Air Room Air Room Air 08/20/19 08/20/19 08/20/19 08/20/19 19:30 19:45 20:00 20:15 Pulse 80 71 76 76 Resp 18 18 18 18 B/P (MAP) 146/67 (93) 145/71 (95) 137/82 (100) 136/83 (100) O2 Delivery Room Air Room Air Room Air Room Air 08/20/19 08/20/19 08/20/19 08/20/19 20:30 21:00 21:15 21:30 Temp 37.2 Pulse 88 80 91 85 Resp 18 18 18 18 B/P (MAP) 140/74 (96) 148/77 (100) 145/82 (103) 143/76 (98) O2 Delivery Room Air Room Air Room Air Room Air 08/20/19 08/20/19 08/20/19 08/20/19 21:45 22:00 22:15 22:30 Pulse 87 79 94 74 Resp 18 18 18 18 B/P (MAP) 148/83 (104) 153/85 (107) 152/86 (108) 139/84 (102) O2 Delivery Room Air Room Air Room Air Room Air 08/20/19 08/20/19 08/20/19 08/20/19 22:45 23:00 23:15 23:30 Temp 37.1 Pulse 75 82 71 77 Resp 18 18 18 18 B/P (MAP) 142/78 (99) 131/72 (91) 137/85 (102) 140/78 (98) O2 Delivery Room Air Room Air Room Air Room Air 08/21/19 08/21/19 08/21/19 08/21/19 00:00 00:15 00:50 01:05 Temp 36.4 Pulse 65 71 72 77 Resp 18 18 18 18 B/P (MAP) 130/70 (90) 133/68 (89) 133/67 (89) 135/70 (91) O2 Delivery Room Air Room Air Room Air Room Air 08/21/19 08/21/19 08/21/19 08/21/19 01:15 01:30 01:40 01:50 Pulse 82 86 74 77 Resp 18 18 18 18 B/P (MAP) 138/78 (98) 183/101 (128) 166/79 (108) 154/65 (94) Pulse Ox 100 100 100 O2 Delivery Non Rebreather Non Rebreather Non Rebreather Non Rebreather O2 Flow Rate 10.00 10.00 10.00 10.00 08/21/19 08/21/19 08/21/19 08/21/19 01:55 02:00 02:05 02:10 Pulse 77 72 75 67 Resp 18 18 18 18 B/P (MAP) 146/67 (93) 153/71 (98) 139/74 (95) 128/71 (90) Pulse Ox 100 100 100 100 O2 Delivery Non Rebreather Non Rebreather Non Rebreather Room Air O2 Flow Rate 10.00 10.00 10.00 08/21/19 08/21/19 08/21/19 08/21/19 02:13 02:20 02:23 02:26 Pulse 76 87 79 71 Resp 18 18 18 18 B/P (MAP) 114/56 (75) 118/54 (75) 127/64 (85) 139/62 (87) Pulse Ox 100 100 100 100 O2 Delivery Room Air Room Air Room Air Room Air 08/21/19 08/21/19 08/21/19 08/21/19 02:35 02:40 02:48 02:53 Temp 37.0 Pulse 80 80 79 86 Resp 18 18 18 18 B/P (MAP) 129/67 (87) 132/61 (84) 138/80 (99) 137/69 (91) Pulse Ox 100 100 100 100 O2 Delivery Room Air Room Air Room Air Room Air 08/21/19 08/21/19 08/21/19 08/21/19 03:10 03:25 03:40 03:55 Pulse 70 74 75 75 Resp 18 18 18 18 B/P (MAP) 126/65 (85) 125/58 (80) 115/65 (82) 121/67 (85) Pulse Ox 100 100 100 100 O2 Delivery Room Air Room Air Room Air Room Air 08/21/19 08/21/19 08/21/19 08/21/19 04:10 04:25 04:40 04:55 Temp 37.0 Pulse 72 82 70 79 Resp 18 18 18 18 B/P (MAP) 135/74 (94) 195/84 (121) 142/80 (100) 137/68 (91) Pulse Ox 99 100 100 100 O2 Delivery Room Air Room Air Room Air Room Air 08/21/19 08/21/19 08/21/19 08/21/19 05:10 05:25 05:40 05:55 Pulse 74 74 75 74 Resp 18 18 18 18 B/P (MAP) 137/69 (91) 131/73 (92) 137/76 (96) 137/67 (90) Pulse Ox 100 99 100 100 O2 Delivery Room Air Room Air Room Air Room Air 08/21/19 08/21/19 08/21/19 08/21/19 06:10 06:25 06:40 06:55 Temp 37.2 Pulse 70 67 79 74 Resp 18 18 18 18 B/P (MAP) 130/66 (87) 146/75 (98) 136/72 (93) 152/70 (97) Pulse Ox 100 100 100 100 O2 Delivery Room Air Room Air Room Air Room Air 08/21/19 08/21/19 08/21/19 08/21/19 07:05 07:25 07:45 08:00 Temp 37.0 Pulse 69 89 77 80 Resp 18 18 18 18 B/P (MAP) 136/70 (92) 129/69 (89) 152/74 (100) 172/80 (110) Pulse Ox 100 100 100 100 O2 Delivery Room Air Room Air Room Air Non Rebreather O2 Flow Rate 15.00 08/21/19 08/21/19 08/21/19 08/21/19 08:15 08:20 08:25 08:30 Pulse 106 93 78 89 Resp 18 18 18 18 B/P (MAP) 170/104 (126) 170/93 (118) 171/97 (121) 152/76 (101) Pulse Ox 100 100 100 100 O2 Delivery Non Rebreather Non Rebreather Non Rebreather Non Rebreather O2 Flow Rate 15.00 15.00 15.00 15.00 08/21/19 08/21/19 08/21/19 08/21/19 08:35 08:40 08:45 08:50 Pulse 84 76 75 73 Resp 18 18 18 18 B/P (MAP) 159/83 (108) 133/96 (108) 144/78 (100) 144/75 (98) Pulse Ox 100 100 100 100 O2 Delivery Non Rebreather Non Rebreather Non Rebreather Room Air O2 Flow Rate 15.00 15.00 10.00 08/21/19 08/21/19 08/21/19 08/21/19 08:55 09:15 09:30 09:45 Pulse 78 101 82 91 Resp 18 18 18 18 B/P (MAP) 150/80 (103) 146/77 (100) 161/93 (115) Pulse Ox 100 100 100 100 O2 Delivery Room Air Room Air Room Air Room Air Rupture of Membranes Spontaneous Ruture of Membrane: Yes Amniotic Membrane Rupture Time: 0010 Amniotic Membrane Fluid Desc.: Clear Vaginal Bleeding Description: Normal Show Induction/Anesthesia Epidural Cath Placement - Time: 0154 Progress/Notes Patient progressed with pitocin augmentation to complete and +2 station. 1st stage complicated by intermittant variable decels and one prolonged decel to the 40s last 2 minutes with return to baseline and recovery of variability and accels. L&D Stage2 Stage Two Stage II Date: Aug 21, 2019 Monitors and Tracing Monitor Mode: Internal Heart Rate: 125 Monitor Decelerations: Variable Jail Variability: Average (6-10) Short Term Variability: Present Position: Right Occiput Anterior Presentation: Vertex Cord Descript/Complications Cord Vessel Description: 3 Vessels Delivery Type Delivery Method: Spontaneous Vaginal Anterior Shoulder: Left Episiotomy/Perineal Laceration Laceraction(s)/Extensions: Yes Episiotomy Description: Right Mediolateral Sutures Used: Vicryl (RML repaired using 3-0 and 2-0 vicryl suture in usual fashion) Condition of Delivery 1 minute Comment: 7 5 minute Comment: 9 Notes Live female infant weight 7lbs 3 oz Condition of Condition of Infant: Living Exam: No Observed Abnormalities Resuscitation Resuscitation: N/A - Spontaneous Resp L&D Stage3 Stage Three Stage III Date: Aug 21, 2019 Pictocin Pitocin Administration mu/min: 2 Pitocin ml/hr: 2 Pitocin Administration Comment: Pitocin wide open 30 u at [facility] Placenta Delivery Placenta Delivery: Spontaneous Delivery Summary Summary Estimated blood loss (mL): 350 Attending at delivery: Leila Rai DO Condition of Delivery Examined: Cervix Examined, Uterus Explored Post Hemorrhage: No Condition of Mother stable Condition of Infant (s) stable LEILA RAI DO Aug 21, 2019 12:26
[2019-08-21] MEDS ORDERED: IBUPROFEN 600 MG (MOTRIN) TAB PO ONE (12:27)
[2019-08-21] MEDS ORDERED: BENZOCAINE/MENTHOL (DERMOPLAST) 56 ML CAN TP PRN (12:30)
[2019-08-21] MEDS ORDERED: MEASLES,MUMPS,RUBELLA 1 EA INJ SQ ONE (12:30)
[2019-08-21] MEDS ORDERED: TETANUS,DIPTH,PERTUSS P/F (BOOSTRIX) 0.5 ML VIAL IM ONE (12:30)
[2019-08-21] MEDS ORDERED: WITCH HAZEL(TUCKS) 40 EA JAR TOP PRN (12:30)
[2019-08-21] MEDS ORDERED: HYDROcodone/APAP 5 MG/325 MG (LORTAB) TAB PO PRN (12:30)
[2019-08-21] MEDS: IBUPROFEN 600 MG (MOTRIN) TAB PO SCH ×2 (12:30→18:37)
--- NOTE | 2019-08-21 12:30 | NUR ---
2ND BAG PITOCIN STARTED, SCHEDULED MOTRIN GIVEN PO, FAMILY AT BEDSIDE.
[2019-08-21] MEDS ORDERED: LIDOCAINE/EPI 1%-1:200,000 (XYLOCAINE) 10 ML VIAL INJ ONE (13:00)
--- NOTE | 2019-08-21 13:40 | NUR ---
PT AMBULATED TO BR, VOIDED WITHOUT DIFFICULTY, PAD AND PANTIES CHANGED, PT TRANSFERRED BY WC TO PP ROOM 3311 FOR CONTINUED CARE, TOLERATED WELL, EXPLAINED INFO PAPERS, ROOM SERVICE, PLAN OF CARE NO QUESTIONS NOTED, FFU/2 LT LOCHIA NOTED.
[2019-08-21] MEDS ORDERED: CATHETER FLUSH 10 ML SYR IV SCH (14:00)
--- NOTE | 2019-08-21 14:55 | NUR ---
PT IN BED, MULTIPLE VISITORS PRESENT. NO NEEDS VOICED AT THIS TIME.
--- NOTE | 2019-08-21 16:46 | NUR ---
PT PREPPING TO AMBULATE OFF THE UNIT, IV DC'D. SITE CLEAR, CATHETER TIP INTACT. GAUZE AND BAND AID APPLIED. PT CONTINUES TO AMBULATE OFF THE UNIT ALONE.
--- NOTE | 2019-08-21 17:09 | NUR ---
PT RETURNS BACK TO UNIT.
--- NOTE | 2019-08-21 18:28 | NUR ---
PT IS NOT IN HER ROOM AT THIS TIME.
--- NOTE | 2019-08-21 18:37 | NUR ---
PT SITTING IN BED, INFANT. MULTIPLE VISITORS PRESENT. ROUTINE MOTRIN GIVEN PO; SEE EMAR FOR FURTHER. NO FURTHER NEEDS VOICED.
[2019-08-21] MEDS: DOCUSATE SODIUM 100 MG (COLACE) CAP PO SCH (20:29)
[2019-08-22] VITALS: BP 139/78
[2019-08-22] MEDS: IBUPROFEN 600 MG (MOTRIN) TAB PO SCH ×3 (00:17→12:35)
[2019-08-22 04:00] VITALS: BP 131/74
[2019-08-22 06:01] LABS: BASOPHILS % (AUTO) 0 % (0-10); EOSINOPHILS % (AUTO) 0 % (0-10); HEMATOCRIT 27 % (35-52); HEMOGLOBIN 8.9 G/DL (11.5-16.0); LYMPHOCYTES # (AUTO) 2.4 X 10^3 (1.0-4.0); LYMPHOCYTES % (AUTO) 16 % (12-44); MEAN CORPUSCULAR HEMOGLOBIN 30 PG (25-34); MEAN CORPUSCULAR HGB CONC 34 G/DL (32-36); MEAN CORPUSCULAR VOLUME 89 FL (80-99); MONOCYTES # (AUTO) 0.8 X 10^3 (0.0-1.0); MONOCYTES % (AUTO) 6 % (0-12); NEUTROPHILS # (AUTO) 11.4 X 10^3 (1.8-7.8); NEUTROPHILS % (AUTO) 78 % (42-75); PLATELET COUNT 279 10^3/uL (130-400); RED CELL DISTRIBUTION WIDTH 14.8 % (10.0-14.5); WHITE BLOOD COUNT 14.7 10^3/uL (4.3-11.0)
[2019-08-22] MEDS ORDERED: PRENATAL VITAMIN 1 EA TAB PO SCH (07:00)
[2019-08-22] MEDS ORDERED: FERROUS SULF 325 MG (IRON) TAB PO SCH (08:00)
[2019-08-22] MEDS ORDERED: FERR325T18 PO (08:06)
[2019-08-22] MEDS ORDERED: ACHD5005 PO (08:06)
[2019-08-22] MEDS ORDERED: DOCU100C37 PO (08:06)
[2019-08-22] MEDS ORDERED: Benzocaine/Menthol TP (08:06)
[2019-08-22] MEDS ORDERED: IBUP-844 PO (08:06)
--- NOTE | 2019-08-22 08:09 | Discharge Inst-Women's Service ---
Discharge Inst-Women's Serv Depart Medication/Instructions New, Converted or Re-Newed RX: RX on Chart Final Diagnosis PPD 1 NVD Problems Reviewed?: Yes Consults/Follow Up Additional Follow Up: Yes Orders/Referrals Dr. Rai Activity Activity: Activity as Tolerated Driving Instructions: No Driving for 1 Week NO SMOKING: NO SMOKING Nothing Inside Vagina: No Douching, No [place], No Tampons Diet Discharge Diet: No Restrictions Symptoms to Report to : Bleeding Excessive, Pain Increased, Fever Over 101 Degrees F, Vaginal Bleeding Increase, Questions/Concerns LEILA RAI DO Aug 22, 2019 08:08
--- NOTE | 2019-08-22 08:13 | Postpartum Progress Note ---
Note Note Day # 1 Subjective: Patient is without complaints. Ambulating, voiding. Tolerating a regular diet without nausea or vomiting. Normal lochia. Pain is well controlled with oral pain medications. Objective: Physical Exam: General - Alert and oriented, no apparent distress Abdomen - Soft, appropriately tender to palpation, non-distended, fundus firm at umbilicus Extremities - no edema, negative Harman's bilaterally Assessment: PPD 1 NVD Acute blood loss anemia Plan: Routine care. Encourage breast feeding. Encourage ambulation. Ferrous sulfate supplementation. Plan for discharge today Vitals - Labs Vital Signs - I&O Vital Signs Date Time Temp Pulse Resp B/P (MAP) Pulse Ox O2 Delivery O2 Flow Rate FiO2 08/22/19 04:00 37.0 85 19 131/74 (93) 98 08/22/19 00:00 37.3 79 18 139/78 (98) 98 Room Air 08/21/19 21:00 98 Room Air 08/21/19 19:49 36.8 82 17 115/74 (88) 99 08/21/19 18:16 37.2 86 17 146/78 (100) 100 08/21/19 17:22 37.1 74 17 141/74 (96) 100 08/21/19 16:13 36.9 72 17 135/77 (96) 98 08/21/19 15:07 36.6 70 20 133/78 (96) 100 Room Air 08/21/19 14:15 37.0 75 20 129/82 (98) 100 Room Air 08/21/19 13:30 74 20 148/70 (96) Room Air 08/21/19 13:10 93 20 136/69 (91) Room Air 08/21/19 12:55 93 20 142/76 (98) Room Air 08/21/19 12:40 91 20 141/82 (101) Room Air 08/21/19 12:15 102 18 135/103 (114) Room Air 08/21/19 12:00 142 18 117/57 (77) Non Rebreather 15.00 08/21/19 11:45 92 18 140/79 (99) 100 Non Rebreather 15.00 08/21/19 11:30 83 18 122/70 (87) 100 Room Air 08/21/19 11:15 87 18 118/56 (76) 100 Non Rebreather 15.00 08/21/19 11:00 78 18 122/57 (78) 100 Non Rebreather 15.00 08/21/19 10:45 90 18 136/74 (94) 100 Room Air 08/21/19 10:30 87 18 118/64 (82) 100 Room Air 08/21/19 10:15 37.9 85 18 157/67 (97) 100 Room Air 08/21/19 10:00 87 18 155/79 (104) 100 Room Air 08/21/19 09:45 91 18 161/93 (115) 100 Room Air 08/21/19 09:30 82 18 100 Room Air 08/21/19 09:15 101 18 146/77 (100) 100 Room Air 08/21/19 08:55 78 18 150/80 (103) 100 Room Air 08/21/19 08:50 73 18 144/75 (98) 100 Room Air 08/21/19 08:45 75 18 144/78 (100) 100 Non Rebreather 10.00 08/21/19 08:40 76 18 133/96 (108) 100 Non Rebreather 15.00 08/21/19 08:35 84 18 159/83 (108) 100 Non Rebreather 15.00 08/21/19 08:30 89 18 152/76 (101) 100 Non Rebreather 15.00 08/21/19 08:25 78 18 171/97 (121) 100 Non Rebreather 15.00 08/21/19 08:20 93 18 170/93 (118) 100 Non Rebreather 15.00 08/21/19 08:15 106 18 170/104 (126) 100 Non Rebreather 15.00 I & O 08/22/19 07:00 Intake Total 5600 ml Balance 5600 ml Labs Laboratory Tests 08/22/19 05:45: White Blood Count 14.7H, Red Blood Count 3.00L, Hemoglobin 8.9L, Hematocrit 27L, Mean Corpuscular Volume 89, Mean Corpuscular Hemoglobin 30, Mean Corpuscular Hemoglobin Concent 34, Red Cell Distribution Width 14.8H, Platelet Count 279, Mean Platelet Volume 9.0, Neutrophils (%) (Auto) 78H, Lymphocytes (%) (Auto) 16, Monocytes (%) (Auto) 6, Eosinophils (%) (Auto) 0, Basophils (%) (Auto) 0, Neutrophils # (Auto) 11.4H, Lymphocytes # (Auto) 2.4, Monocytes # (Auto) 0.8, Eosinophils # (Auto) 0.0, Basophils # (Auto) 0.0, Neutrophils % (Manual) LEILA RAI DO Aug 22, 2019 08:13
[2019-08-22] MEDS: DOCUSATE SODIUM 100 MG (COLACE) CAP PO SCH (09:43)
[2019-08-22 09:45] VITALS: BP 129/73
--- NOTE | 2019-08-22 09:45 | NUR ---
PT . VS OBTAINED. MEDS GIVEN PO; SEE EMAR FOR FURTHER. CALL LIGHT WITHIN REACH. S/O AT THE BEDSIDE.
[2019-08-22 12:00] VITALS: BP 139/72
--- NOTE | 2019-08-22 12:05 | NUR ---
DISCHARGE PAPERS PROVIDED AND REVIEWED WITH PT, PT VERBALIZES UNDERSTANDING AND DENIES ANY QUESTIONS AT THIS TIME. PAPER SIGNED.
[2019-08-22] MEDS ORDERED: TETANUS,DIPTH,PERTUSS P/F (BOOSTRIX) 0.5 ML VIAL IM ONE (12:08)
--- NOTE | 2019-08-22 14:45 | NUR ---
PT DISCHARGED FROM -311 TO PERSONAL AUTO VIA AMBULATORY IN STABLE CONDITION ACC BY S/O AND OB STAFF.
== END 2019-08-22 14:45 | disposition home or self-care (01) | DRG 806 ==
LOC: WSo 17:12 → LDRP 17:12 → WSo 17:13 → LDRP 17:14
PROVIDERS: ADMIT Obstetrics & Gynecology; ATTEND Obstetrics & Gynecology
PROC: 10E0XZZ Delivery of Products of Conception, External Approach (ICD-10-PCS; principal; 2019-08-21)
PROC: 0W8NXZZ Division of Female Perineum, External Approach (ICD-10-PCS; 2019-08-21)
PROC: 3E033VJ Introduction of Other Hormone into Peripheral Vein, Percutaneous Approach (ICD-10-PCS; 2019-08-21)
DX: O14.04 Mild to moderate pre-eclampsia, complicating childbirth (principal); O76 Abnormality in fetal heart rate and rhythm complicating labor and delivery; O90.81 Anemia of the puerperium; D62 Acute posthemorrhagic anemia; O99.344 Other mental disorders complicating childbirth; F41.9 Anxiety disorder, unspecified; O99.214 Obesity complicating childbirth; E66.9 Obesity, unspecified; O98.32 Other infections with a predominantly sexual mode of transmission complicating childbirth; A74.9 Chlamydial infection, unspecified; Z3A.39 39 weeks gestation of pregnancy; Z37.0 Single live birth; Z88.1 Allergy status to other antibiotic agents; Z88.2 Allergy status to sulfonamides
CPT/HCPCS: 36415; 80053; 81000; 82570; 84156; 84550; 85007; 85025; 85027; 86850; 86900; 86901; 87088; 90715; 99213

== ENCOUNTER 2020-06-04 01:22 | Outpatient (CLI) | payer MEDICAID ==
[~2020-06-04] VITALS: Ht 162.6 cm; Wt 105.1 kg
[~2020-06-04 01:22] MED LIST changes: +Benzocaine/Menthol TP; +DOCU100C37 PO; +FERR325T18 PO; +IBUP-844 PO
--- NOTE | 2020-06-04 01:30 | NUR ---
KELBY MOSLEY presented to unit via wc from ED, accompanied by staff, with c/o PRESSURE,HURTS TO WALK,BLOOD DISCHARGE. KELBY MOSLEY weighed, gowned, voided, and to bed. EFHM and TOCO applied, VS taken. KELBY MOSLEY oriented to bed controls, call light, TV, heat, and A/C controls. above and further assessments carried out per this rn.
[2020-06-04 01:53] LABS: BILIRUBIN,URINE NEGATIVE (NEGATIVE); CLARITY,URINE SL CLOUDY; COLOR,URINE YELLOW; GLUCOSE, URINE (UA) NEGATIVE (NEGATIVE); KETONES,URINE TRACE (NEGATIVE); LEUKOCYTE ESTERASE ,URINE NEGATIVE (NEGATIVE); NITRITE,URINE NEGATIVE (NEGATIVE); PH,URINE 7.5 (5-9); PROTEIN,URINE 1+ (NEGATIVE)
[2020-06-04 02:00] VITALS: BP 98/54
[2020-06-04 02:10] VITALS: BP 98/54
--- NOTE | 2020-06-04 02:11 | NUR ---
NO PNR AVAILABLE AT THIS TIME. PT REPORTS MOVING TO [place] 05/25 AND HAS YET TO ESTABLISH CARE LOCALLY.
[2020-06-04 02:13] LABS: AMPHETAMINE SCREEN, URINE NEGATIVE (NEGATIVE); BARBITURATE SCREEN URINE NEGATIVE (NEGATIVE); BENZODIAZEPINES SCREEN URINE NEGATIVE (NEGATIVE); CANNABINOID SCREEN, URINE NEGATIVE (NEGATIVE); COCAINE SCREEN URINE NEGATIVE (NEGATIVE); METHADONE STAT NEGATIVE (NEGATIVE); METHAMPHETAMINE SCREEN URINE S NEGATIVE (NEGATIVE); OPIATE SCREEN URINE NEGATIVE (NEGATIVE); OXYCODONE STAT NEGATIVE (NEGATIVE); PROPOXYPHENE STAT NEGATIVE (NEGATIVE); TRICYCLIC ANTIDEPRESSANTS SCRE NEGATIVE (NEGATIVE)
[2020-06-04 02:14] LABS: BACTERIA,URINE TRACE /HPF
[2020-06-04 02:22] VITALS: BP 98/54
[2020-06-04] MEDS ORDERED: PAMI30VI8 SQ (02:27)
[2020-06-04] MEDS ORDERED: INSU100V5 SQ (02:27)
[2020-06-04] MEDS ORDERED: ASPI-999 PO (02:27)
--- NOTE | 2020-06-04 02:30 | NUR ---
DISCHARGE PACKET GIVEN AND EXPLAINED, UNDERSTANDING VOICED PER PT, RN URGED SEVERAL TIMES FOR PT TO CALL OFFICE TO ESTABLISH CARE, PT REPORTS HAVING OFFICES NUMBER, RN VOICES UNDERSTANDING. PT DENIES NEEDS, NO SS DISTRESS AT THIS TIME. AMBULATORY OFF UNIT, BELONGINGS IN HAND.
--- NOTE | 2020-06-07 08:14 | Physician Query-Final Dx ---
Clinic Account Progress/Dx Physician Query: Please give diagnosis Please include # weeks gestation Date of Service Jun 04, 2020 at 01:22 BABS SPAULDING Jun 07, 2020 08:14
== END 2020-06-04 02:30 | disposition home or self-care (01) ==
LOC: WSo 01:22 → LDRP 01:24 → WSo 02:30
PROVIDERS: ATTEND Family Medicine
DX: O26.892 Other specified pregnancy related conditions, second trimester (principal); N89.8 Other specified noninflammatory disorders of vagina; Z3A.20 20 weeks gestation of pregnancy
CPT/HCPCS: 80306; 81000; 82962; 99213

== ENCOUNTER 2020-06-23 19:53 | Outpatient (CLI) | payer MEDICAID ==
[~2020-06-23] VITALS: Ht 162.6 cm; Wt 106.4 kg
[~2020-06-23 19:53] MED LIST changes: +ASPI-999 PO; +INSU100V5 SQ; +PAMI30VI8 SQ
--- NOTE | 2020-06-23 19:55 | NUR ---
KELBY MOSLEY presented to unit via from ED, with c/o LOW BLOOD SUGAR, KELBY MOSLEY weighed, gowned, voided, and to bed. EFHM and TOCO applied, VS taken. KELBY MOSLEY oriented to bed controls, call light, TV, heat, and A/C controls.
--- NOTE | 2020-06-23 20:00 | NUR ---
Pt reports around 1900 today she was cooking pizza and started to feel her bs drop. Checked her sugar and it was 70. Pt reports she ate a piece of chocolate and brought her sugar back up to 80. Pt is now c/o headache. Pt states she gets headaches frequently and takes tylenol for them. Denies taking any tylenol today.
[2020-06-23 20:12] VITALS: BP 127/59
--- NOTE | 2020-06-23 20:47 | NUR ---
notified of pt's arrival and complaint. u/a results, bs, complaints, vs and tracing reviewed with Orders received.
[2020-06-23 21:07] VITALS: BP 127/59
[2020-06-23] MEDS ORDERED: ACETAMINOPHEN 500 MG TAB (TYLENOL) PO ONE (21:15)
--- NOTE | 2020-06-23 21:16 | NUR ---
Plan of care discussed with pt. Pt verbalized understanding. Pt agreeable with plan
--- NOTE | 2020-06-23 21:35 | NUR ---
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 States she is feeling better and requesting discharge. Discharge instructions verbalized. Pt is going to call office tomorrow for follow up. Pt dc'd off unit to pvt car.
--- NOTE | 2020-06-24 08:12 | Physician Query-Final Dx ---
Clinic Account Progress/Dx Physician Query: Please give diagnosis Please include # weeks gestation Date of Service Jun 23, 2020 at 19:53 BABS SPAULDING Jun 24, 2020 08:12
== END 2020-06-23 21:35 ==
LOC: WSo 19:53 → LDRP 19:55 → WSo 21:35
PROVIDERS: ATTEND Obstetrics & Gynecology
DX: O26.52 Maternal hypotension syndrome, second trimester (principal); O99.810 Abnormal glucose complicating pregnancy; Z3A.23 23 weeks gestation of pregnancy
CPT/HCPCS: 82962

== ENCOUNTER 2020-06-25 09:14 | Emergency (ER) | payer MEDICAID ==
[~2020-06-25] VITALS: Ht 162 cm; Wt 106.1 kg
[2020-06-25 10:19] LABS: BASOPHILS % (AUTO) 0 % (0-10); EOSINOPHILS # (AUTO) 0.1 10^3/uL (0.0-0.3); EOSINOPHILS % (AUTO) 1 % (0-10); HEMATOCRIT 30 % (35-52); HEMOGLOBIN 9.9 G/DL (11.5-16.0); LYMPHOCYTES # (AUTO) 1.9 X 10^3 (1.0-4.0); LYMPHOCYTES % (AUTO) 22 % (12-44); MEAN CORPUSCULAR HEMOGLOBIN 29 PG (25-34); MEAN CORPUSCULAR HGB CONC 33 G/DL (32-36); MEAN CORPUSCULAR VOLUME 86 FL (80-99); MONOCYTES # (AUTO) 0.4 X 10^3 (0.0-1.0); MONOCYTES % (AUTO) 4 % (0-12); NEUTROPHILS # (AUTO) 6.1 X 10^3 (1.8-7.8); NEUTROPHILS % (AUTO) 73 % (42-75); PLATELET COUNT 330 10^3/uL (130-400); RED CELL DISTRIBUTION WIDTH 16.2 % (10.0-14.5); WHITE BLOOD COUNT 8.4 10^3/uL (4.3-11.0)
[2020-06-25 10:29] LABS: ALBUMIN 3.3 GM/DL (3.2-4.5)
[2020-06-25 10:30] LABS: CHLORIDE 112 MMOL/L (98-107); POTASSIUM 3.5 MMOL/L (3.6-5.0); SODIUM 138 MMOL/L (135-145)
[2020-06-25 10:31] LABS: CALCIUM 8.9 MG/DL (8.5-10.1)
[2020-06-25 10:32] LABS: GLUCOSE 126 MG/DL (70-105); TOTAL PROTEIN 6.4 GM/DL (6.4-8.2)
[2020-06-25 10:33] LABS: CARBON DIOXIDE 18 MMOL/L (21-32)
[2020-06-25 10:34] LABS: BILIRUBIN,TOTAL 0.2 MG/DL (0.1-1.0)
[2020-06-25 10:36] LABS: ALKALINE PHOSPHATASE 66 U/L (40-136); CREATININE SERUM 0.66 MG/DL (0.60-1.30); GFR ESTIMATED > 60
[2020-06-25 10:37] LABS: BUN/CREATININE RATIO 8
[2020-06-25 10:39] LABS: ALANINE AMINOTRANSFERASE 15 U/L (0-55)
[2020-06-25 10:42] LABS: ERYTHROCYTE SEDIMENTATION RATE 55 MM/HR (0-20)
[2020-06-25] MEDS ORDERED: RX-ALBUTEROL INHALER 8 GM HFA (VENTOLIN) IH PRN (11:30)
--- NOTE | 2020-06-25 11:39 | ED Respiratory ---
General Chief Complaint: Respiratory Problems Stated Complaint: SOA/BLACK MOLD EXPOSURE Nursing Triage Note: pt presents to ed with complaints of cp with inspiration and soa starting today. pt reports she has black mold in her rental house and her land lord has not delat with it yet. pt denies fever, cough, congestion, travel, or known sick contact. Source: patient Exam Limitations: no limitations History of Present Illness Date Seen by Provider: Jun 25, 2020 Time Seen by Provider: 11:12 Initial Comments Here with report of increasing symptoms related to mold exposure in her house over the last month. States that she gets some cough and shortness of air and her chest feels tight when she is around it and better when she is away. That has worsened today. She took Tylenol at 5 AM and that helped for about 15 purnima lorri and then got worse again. She is here for further evaluation related to that. She is at about [address] Carmona. No history of COVID exposure or high risk activity per the patient. Stays at home. Her significant other comes and goes to work but he is not sick and symptoms have been going on for about a month now. Timing/Duration: getting worse, changing over time, other (one month) Severity: moderate Prior Episodes/Possible Cause: allergen exposure Modifying Factors: Improves With Other (removing herself from exposures area in her house.) Associated Symptoms: chest pain/soreness; No cough, No fever/chills, No muscle aches, No nasal congestion; shortness of breath; No sore throat, No wheezing Allergies and Home Medications Allergies Coded Allergies: diphenhydramine (Verified Allergy, Severe, Shortness of Breath, 08/05/19) HIVES SWELLING amoxicillin (Verified Allergy, Unknown, throat swells shut, 08/05/19) sulfamethoxazole (Verified Allergy, Unknown, 08/05/19) trimethoprim (Verified Allergy, Unknown, 08/05/19) Home Medications Aspirin 81 Mg Tab.chew, 81 MG PO DAILY, (Reported) Insulin Determir 1,000 Units/10 Ml Soln, 25 UNITS SQ HS, (Reported) Insulin Lispro 100 Unit/1 Ml Cartridge, 15 UNIT SQ TID, (Reported) Patient Home Medication List Home Medication List Reviewed: Yes Review of Systems Review of Systems Constitutional: see HPI EENTM: no symptoms reported Respiratory: No cough; short of breath Cardiovascular: chest pain; No edema Gastrointestinal: No abdominal pain, No nausea, No vomiting Genitourinary: no symptoms reported Expected Date of Delivery: Oct 16, 2020 Musculoskeletal: no symptoms reported Skin: No pruritus, No rash Psychiatric/Neurological: No Symptoms Reported Past Egdkknv-Fctldb-Caktjj Hx Past Med/Social Hx: Reviewed Nursing Past Med/Soc Hx Patient Social History Alcohol Use: Denies Use Recreational Drug Use: No Drug of Choice: THC Smoking Status: Current Everyday Smoker Type Used: Cigarettes Former Smoker, Quit: Jun 06, 2018 2nd Hand Smoke Exposure: No Recent Foreign Travel: No Contact w/Someone Who Travel: No Recent Infectious Disease Expo: No Recent Hopitalizations: No Physical Abuse: No Sexual Abuse: No Mistreated: No Fear: No Immunizations Up To Date Tetanus Booster (TDap): Less than 5yrs PED Vaccines UTD: Yes Seasonal Allergies Seasonal Allergies: No Past Medical History Surgeries: Yes (EGD) Respiratory: No Currently Using CPAP: No Currently Using BIPAP: No Cardiac: No High Cholesterol Neurological: No (MIGRAINES) Headaches /Migraines Expected Date of Delivery: Oct 16, 2020 Hx : 2 Hx Para: 1 Reproductive Disorders: No Female Reproductive Disorders: Denies Sexually Transmitted Disease: Yes (CHLAMYDIA) HIV/AIDS: No Genitourinary: No Gastrointestinal: Yes (CHRONIC ABDOMINAL PAIN COMPLAINTS) Chronic Constipation, Ulcer Musculoskeletal: No Endocrine: Yes Diabetes, Insulin dep HEENT: No Loss of Vision: Denies Hearing Impairment: Denies Cancer: No Psychosocial: Yes ADD/ADHD, Anxiety Integumentary: No Blood Disorders: No Family Medical History Reviewed Nursing Family Hx Diabetes mellitus MATERNAL GRANDMOTHER Hypertension MATERNAL GRANDMOTHER Diabetes, Hypertension Physical Exam Vital Signs - First Documented 06/25/20 09:46 Temp 36.8 Pulse 90 Resp 18 B/P (MAP) 120/68 (85) Pulse Ox 99 Capillary Refill : Less Than 3 Seconds Height: 5'4.00" Weight: 221lbs. 0.4oz. 100.677649oo; 40.00 BMI Method:Stated General Appearance: WD/WN, no apparent distress HEENT: PERRL/EOMI, TMs normal, pharynx normal Neck: full range of motion, supple Respiratory: lungs clear, normal breath sounds, no respiratory distress, no accessory muscle use Cardiovascular: regular rate, rhythm, no murmur Gastrointestinal: non tender, soft, other (gravid) Neurologic/Psychiatric: alert, oriented x 3 Skin: normal color, warm/dry Progress/Results/Core Measures Suspected Sepsis Recent Fever Within 48 Hours: No Infection Criteria Present: None New/Unexplained Altered Menta: No Sepsis Screen: No Definite Risk SIRS Temperature: Pulse: 90 Respiratory Rate: 18 Laboratory Tests 06/25/20 09:57: White Blood Count 8.4 Blood Pressure 120 /68 Mean: 85 Laboratory Tests 06/25/20 09:57: Creatinine 0.66, Platelet Count 330, Total Bilirubin 0.2 Results/Orders Lab Results Laboratory Tests Test 06/25/20 09:57 Range/Units White Blood Count 8.4 4.3-11.0 10^3/uL Red Blood Count 3.47 L 4.35-5.85 10^6/uL Hemoglobin 9.9 L 11.5-16.0 G/DL Hematocrit 30 L 35-52 % Mean Corpuscular Volume 86 80-99 FL Mean Corpuscular Hemoglobin 29 25-34 PG Mean Corpuscular Hemoglobin Concent 33 32-36 G/DL Red Cell Distribution Width 16.2 H 10.0-14.5 % Platelet Count 330 130-400 10^3/uL Mean Platelet Volume 9.0 7.4-10.4 FL Neutrophils (%) (Auto) 73 42-75 % Lymphocytes (%) (Auto) 22 12-44 % Monocytes (%) (Auto) 4 0-12 % Eosinophils (%) (Auto) 1 0-10 % Basophils (%) (Auto) 0 0-10 % Neutrophils # (Auto) 6.1 1.8-7.8 X 10^3 Lymphocytes # (Auto) 1.9 1.0-4.0 X 10^3 Monocytes # (Auto) 0.4 0.0-1.0 X 10^3 Eosinophils # (Auto) 0.1 0.0-0.3 10^3/uL Basophils # (Auto) 0.0 0.0-0.1 10^3/uL Erythrocyte Sedimentation Rate 55 H 0-20 MM/HR D-Dimer 0.76 H 0.00-0.49 UG/ML Sodium Level 138 135-145 MMOL/L Potassium Level 3.5 L 3.6-5.0 MMOL/L Chloride Level 112 H 98-107 MMOL/L Carbon Dioxide Level 18 L 21-32 MMOL/L Anion Gap 8 5-14 MMOL/L Blood Urea Nitrogen 5 L 7-18 MG/DL Creatinine 0.66 0.60-1.30 MG/DL Estimat Glomerular Filtration Rate > 60 BUN/Creatinine Ratio 8 Glucose Level 126 H 70-105 MG/DL Calcium Level 8.9 8.5-10.1 MG/DL Corrected Calcium 9.5 8.5-10.1 MG/DL Total Bilirubin 0.2 0.1-1.0 MG/DL Aspartate Amino Transf (AST/SGOT) 21 5-34 U/L Alanine Aminotransferase (ALT/SGPT) 15 0-55 U/L Alkaline Phosphatase 66 40-136 U/L Lactate Dehydrogenase 172 125-220 U/L Troponin I < 0.028 <0.028 NG/ML C-Reactive Protein High Sensitivity 1.36 H 0.00-0.50 MG/DL Total Protein 6.4 6.4-8.2 GM/DL Albumin 3.3 3.2-4.5 GM/DL Procalcitonin 0.02 <0.10 NG/ML My Orders Orders - PRISCILLA CALLE MD Cbc With Automated Diff (06/25/20 10:08) Comprehensive Metabolic Panel (06/25/20 10:08) Hs C Reactive Protein (06/25/20 10:08) Troponin I (06/25/20 10:08) Ekg Tracing (06/25/20 10:08) Chest 1 View, Ap/Pa Only (06/25/20 10:08) Fibrin Degradation Products (06/25/20 10:08) Procalcitonin (Pct) (06/25/20 10:08) Erythrocyte Sedimentation Rate (06/25/20 10:08) LDH (06/25/20 10:08) Ed Iv/Invasive Line Start (06/25/20 10:08) Rx-Albuterol Inhaler (Rx-Ventolin Hfa In (06/25/20 11:30) Medications Given in ED Current Medications Medications Dose Ordered Sig/Nkechi Route Start Time Stop Time Status Last Admin Dose Admin Albuterol Sulfate 2 PUFFS QID PRN IH 06/25/20 11:30 06/25/20 11:45 1 GM Vital Signs/I&O 06/25/20 09:46 Temp 36.8 Pulse 90 Resp 18 B/P (MAP) 120/68 (85) Pulse Ox 99 Capillary Refill : Less Than 3 Seconds Blood Pressure Mean: 85 Progress Note : Progress Note Seen and evaluated. IV, labs, EKG and chest x-ray ordered. I did discuss the case with Dr. Carmona. He agrees with the chest x-ray after reviewing labs. Initially seen and full personal protective equipment but downgraded as his does not seem to be COVID-19 related or risk due to time frame. Albuterol MDI 2 puffs given. Labs reassuring at this point. Pending chest x-ray. Monitor patient. 1235: No acute findings. Overall doing a little better. Discharged home with return precautions. Patient verbalize understanding instructions and agreement w ith plan. ECG Initial ECG Impression Date: Jun 25, 2020 Initial ECG Impression Time: 10:04 Initial ECG Rate: 80 Initial ECG Rhythm: Normal Sinus Initial ECG Impression: Normal Initial ECG Comparisson: No Previous ECG Available Comment Sinus rhythm with normal axis. No evidence of ST elevation CT. No previous available for comparison. Interpreted by me. Diagnostic Imaging Diagonstic Imaging: Xray Plain Films/CT/US/NM/MRI: chest Comments [facility]. [place], [place] NAME: KELBY MOSLEY [facility] REC#: [id number] PT STATUS: REG ER : 2000 PHYSICIAN: PRISCILLA CALLE MD ADMIT DATE: 06/25/20/ER Draft Date of Exam:06/25/20 CHEST 1 VIEW, AP/PA ONLY Indication: Chest pain with inspiration, shortness of air. Exam compared 11/11/2018. Findings: The lungs are clear. No failure, effusion or pneumothorax. No free air beneath the diaphragms. Impression: Normal frontal chest. Dictated on workstation # [id number] Dict: 06/25/20 1200 Trans: 06/25/20 1204 CV [id number] Interpreted by: BENIGNO DENNY Electronically signed by: Departure Impression Primary Impression: Reactive airway disease Qualified Codes: J45.21 - Mild intermittent asthma with (acute) exacerbation Additional Impression: 24 weeks gestation of Disposition: 01 HOME, SELF-CARE Condition: Improved Departure-Patient Inst. Decision time for Depature: 12:36 Referrals: LEILA CARMONA DO (PCP/Family) Primary Care Physician Patient Instructions: Acute Bronchitis, Adult (DC) Add. Discharge Instructions: All discharge instructions reviewed with patient and/or family. Voiced understanding. You may do the albuterol inhaler 2 puffs every 4 hours as needed for chest tightness. You may take Tylenol or the generic acetaminophen 1000 mg every 6 hours as needed for pain. You should avoid exposure to agents that caused chest tightness with you such as the black mold that you discussed. Talk with her landlord about this. You may take rmph-yzx-rivoiwc Zyrtec or the generic per [facility] directions to reduce allergic symptoms for the direction of Dr. Carmona. Follow-up with Dr. Carmona next week for recheck and further evaluation as scheduled. Return for worse pain, fever, vomiting, weakness, breathing problems or other concerns as needed. Copy Copies To 1: LEILA CARMONA TIMOTHY D MD Jun 25, 2020 11:39
--- NOTE | 2020-06-25 12:05 | Diagnostic Imaging Report ---
Indication: Chest pain with inspiration, shortness of air. Exam compared 11/11/2018. Findings: The lungs are clear. No failure, effusion or pneumothorax. No free air beneath the diaphragms. Impression: Normal frontal chest. Dictated by: Dictated on workstation # [id number]
[2020-06-25 13:05] VITALS: BP 116/65
--- OUTSIDE RECORDS SUMMARY | 2020-06-25 17:20 | XMS REPORT | Continuity of Care Document ---
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 Name Role Phone NICHOALS Unavailable Unavailable Problems No Data Provided for This Section Medications No Data Provided for This Section Allergies, Adverse Reactions, Alerts No Known Medication Allergies Immunizations Immunization Date Given Site Status Last Updated Comments Source Evaluated Forecast 06/25/2020 completed table.evaluated-forecast { border-collapse: collapse; font-family: Chardon, Helvetica, sans-serif; } .evaluated-forecast th, .evaluated-forecast td { paddinpx 8px; } .evaluated-forecast thead th { background: #[id number]; text-transform: lowercase; text-align: left; font-size: 15px; color: #fff; } .evaluated-forecast tr { border: 1px solid #[id number]; } .evaluated- forecast tbody tr { border-bottom: 1px solid #[id number]; } .evaluated- forecast tbody tr:nth-child(odd) { background: #[id number]; } .e valuated-forecast tbody th, .evaluated-forecast tbody tr td { border- right: 1px solid #[id number]; } .evaluated-forecast tfoot th { background: #[id number]; text-align: left; font-weight: normal; font-size: 10px; color: #fff; } .evaluated-forecast tr *:nth- child(3), .evaluated-forecast tr *:nth-child(4) { text-align: right; } HepA, Adult 1999 Men B FHbp (Trumenba) 2008 HPV9 (Gardasil-9) 2007 Td 07/26/2011 MMR 07/26/2011 JAMES (Varivax) 09/20/2011 HepB, Adult 2017 Influenza IIV4 MDV 05/26/2020 Zoster Subunit (Shingrix) 2048 PPSV23 (Pneumovax 23) 2063 Polio, UF FX42927-1^Too Old^LN Hib, UF BZ55287-8^Too Old^LN Rotavirus, UF HX15116-9^Too Old^LN Meningococcal, UF WC89503-9^Too Old^LN PH8822, Tdap 06/28/2011 Not Given RR4329, JAMES (Varivax) 06/28/2011 Not Given DV6164, Results No Data Provided for This Section Pathology Reports No Data Provided for This Section Diagnostic Reports No Data Provided for This Section Consultation Notes No Data Provided for This Section Discharge Summaries No Data Provided for This Section History and Physicals No Data Provided for This Section Vital Signs No Data Provided for This Section Encounters No Data Provided for This Section Procedures No Data Provided for This Section Plan of Care No Data Provided for This Section Social History No Data Provided for This Section Assessment and Plan No Data Provided for This Section Family History No Data Provided for This Section Advance Directives No Data Provided for This Section Functional Status No Data Provided for This Section
--- OUTSIDE RECORDS SUMMARY | 2020-06-25 17:20 | XMS REPORT | Continuity of Care Document ---
Demographics Preferred Language Unknown Marital Status Unknown Uatsdin Affiliation Unknown Race Unknown Ethnic Group Unknown Author Organization Unknown Address Unknown Phone Unavailable Allergies There is no data. Medications There is no data. Problems Date Dx Coded Attending Type Code Diagnosis Diagnosed By 11/07/2012 368.9 UNSP ECIFIED VISUAL DISTURBANCE 11/07/2012 799.51 ATT ENTION OR CONCENTRATION DEFICIT 11/07/2012 V20.2 WELL CHILD 11/07/2012 368.9 UNSP ECIFIED VISUAL DISTURBANCE 11/07/2012 799.51 ATT ENTION OR CONCENTRATION DEFICIT 11/07/2012 V20.2 WELL CHILD 11/07/2012 368.9 UNSP ECIFIED VISUAL DISTURBANCE 11/07/2012 799.51 ATT ENTION OR CONCENTRATION DEFICIT 11/07/2012 V20.2 WELL CHILD 11/07/2012 368.9 Unsp ecified Visual Disturbance 11/07/2012 799.51 Att ention Or Concentration Deficit 11/07/2012 V20.2 WELL CHILD [...] RENE MD V20.2 WELL CHILD 12/23/2012 311 DEPRES SIVE DISORDER NOS 12/23/2012 314.01 ADH D COMBINED 12/23/2012 311 DEPRES SIVE DISORDER NOS 12/23/2012 314.01 ADH D COMBINED 12/23/2012 ANJU ABREU, ERNIE 311 DEPRESSIVE [...] ABREU, ERNIE 314.01 ADHD COMBINED 12/25/2012 V58.69 MED ICATION HIGH RISK 12/25/2012 ANJU ABREU, ERNIE V58.69 MEDICATION HIGH RISK 12/25/2012 ANJU ABREU, ERNIE V58.69 MEDICATION HIGH RISK 12/25/2012 HERIBERTO MARTINEZ APRN A V58.69 MEDICATION HIGH RISK 12/25/2012 ANJU ABREU, ERNIE V58.69 MEDICATION HIGH RISK 12/11/2013 ANJU ABREU, ERNIE 780.2 SYNCOPE Procedures Code Description [place] [address] Ky ogram (Screening) 11/07/2012 50017 Scre ening Test Of Visual Acuity, Quantitative, Bilateral Psychiatr Alton Lindsay 11/07/2012 70606 PSYC H DIAGNOSTIC EVALUATION 12/24/2012 42828 EKG, TRACING (IN-HOUSE) 12/11/2013 26762 EEG 12/11/2013 NEUROLOGY VALERY CORRALES 12/11/2013 Results Test Result Range Genital Culture, Routine - 11/01/16 17:4 2 Genital Culture, Routine Note hCG,Beta Subunit,Qual,Serum - 12/11/16 1 5:57 hCG,Beta Subunit,Qual,Serum Negative mIU/mL Negative <6 Encounters ACCT No. Visit Date/Time Discharge Status Pt. Type Provider Facility Loc./Unit Complaint [id number] 12/12/2016 08:06:00 Document Registration [id number] 12/11/2013 14:04:00 12/11/2013 23:59: 59 CLS Outpatient ERNIE RENE MD [id number] 11/05/2013 14:37:00 11/05/2013 23:59: 59 CLS Outpatient HERIBERTO MARTINEZ APRN [id number] 10/06/2013 15:02:00 10/06/2013 23:59: 59 CLS Outpatient ERNIE RENE MD [id number] 01/09/2013 09:06:00 01/09/2013 23:59: 59 CLS Outpatient ERNIE RENE MD [id number] 12/25/2012 07:54:00 12/25/2012 23:59: 59 CLS Outpatient [id number] 12/23/2012 13:58:00 12/23/2012 23:59: 59 CLS Outpatient [id number] 11/07/2012 10:46:00 11/07/2012 23:59: 59 CLS Outpatient [id number] 11/07/2012 10:46:00 11/07/2012 23:59: 59 CLS Outpatient [id number] 12/11/2012 19:14:12 [facility] [id number] 11/05/2016 07:05:00 Document Registration
== END 2020-06-25 13:03 | disposition home or self-care (01) ==
LOC: EDUNIT# 09:14 → ER 09:16
DX: O99.512 Diseases of the respiratory system complicating pregnancy, second trimester (principal); J45.909 Unspecified asthma, uncomplicated; Z77.120 Contact with and (suspected) exposure to mold (toxic); Z3A.24 24 weeks gestation of pregnancy; Z87.891 Personal history of nicotine dependence; O24.912 Unspecified diabetes mellitus in pregnancy, second trimester; Z79.4 Long term (current) use of insulin; E78.00 Pure hypercholesterolemia, unspecified; O99.342 Other mental disorders complicating pregnancy, second trimester; F90.9 Attention-deficit hyperactivity disorder, unspecified type; F41.9 Anxiety disorder, unspecified
CPT/HCPCS: 36415; 71045; 80053; 83615; 84145; 84484; 85025; 85379; 85652; 86141; 93005

== ENCOUNTER 2020-07-17 00:05 | Outpatient (CLI) | payer MEDICAID ==
[~2020-07-17] VITALS: Ht 162.6 cm; Wt 108.3 kg
--- NOTE | 2020-07-17 00:10 | NUR ---
KELBY MOSLEY presented to unit via wc from ED, accompanied by staff, with c/o CONTRACTIONS. KELBY MOSLEY weighed, gowned, voided, and to bed. EFHM and TOCO applied, VS taken. KELBY MOSLEY oriented to bed controls, call light, TV, heat, and A/C controls.
[2020-07-17 00:18] VITALS: BP_SYST 119; BP_SYST 123; BP_DIAS 56; BP_DIAS 58
[2020-07-17 00:41] LABS: BILIRUBIN,URINE NEGATIVE (NEGATIVE); CLARITY,URINE CLEAR; COLOR,URINE YELLOW; GLUCOSE, URINE (UA) NEGATIVE (NEGATIVE); KETONES,URINE NEGATIVE (NEGATIVE); LEUKOCYTE ESTERASE ,URINE NEGATIVE (NEGATIVE); NITRITE,URINE NEGATIVE (NEGATIVE); PROTEIN,URINE NEGATIVE (NEGATIVE)
--- NOTE | 2020-07-17 00:43 | NUR ---
dr. iglesias called and updated on pt's arrival and c/o gush of fluid 45min ago, denies sex, lower abdominal and lower back pain off and on rating 06/04. New orders received.
[2020-07-17] MEDS ORDERED: TERBUTALINE INJ 1 MG/ML (BRETHINE) AMP ONE (00:44)
[2020-07-17] MEDS ORDERED: hydrOXYzine (VISTARIL/ATARAX) 25 MG capsule/tablet PO ONE (00:45)
[2020-07-17] MEDS ORDERED: TERBUTALINE INJ 1 MG/ML (BRETHINE) AMP SC ONE (00:45)
[2020-07-17] MEDS ORDERED: hydrOXYzine (VISTARIL/ATARAX) 25 MG capsule/tablet ONE (00:45)
[2020-07-17 00:58] LABS: BACTERIA,URINE NEGATIVE /HPF
--- NOTE | 2020-07-17 01:05 | NUR ---
Pt denies pain at this time, feeling better. dr. iglesias called and dc orders received.
--- NOTE | 2020-07-17 01:58 | NUR ---
Discharge instructions and handouts provided at this time. Patient verbalized understanding of all instructions. Patient ambulating off of unit to private vehicle at this time.
--- NOTE | 2020-07-19 08:17 | Physician Query-Final Dx ---
Clinic Account Progress/Dx Physician Query: Please give diagnosis Please include # weeks gestation Date of Service Jul 17, 2020 at 00:05 BABS SPAULDING Jul 19, 2020 08:17
== END 2020-07-17 01:58 ==
LOC: WSo 00:05 → LDRP 00:06 → WSo 00:10 → UNDOADMIN 00:10 → LDRP 00:10
PROVIDERS: ATTEND Obstetrics & Gynecology
DX: O62.9 Abnormality of forces of labor, unspecified (principal); Z3A.20 20 weeks gestation of pregnancy
CPT/HCPCS: 81000; 96372; 99213

== ENCOUNTER 2020-09-22 06:42 | Outpatient (CLI) | payer MEDICAID ==
[~2020-09-22] VITALS: Ht 162.6 cm; Wt 107.0 kg
--- NOTE | 2020-09-22 06:48 | NUR ---
Pt arrived on unit with C/O UC times 24 hours that increased to 5 to 10 min.
--- NOTE | 2020-09-22 06:48 | NUR ---
KELBY MOSLEY presented to unit via ambulation from ED, accompanied by SO, with c/o CONTRACTIONS. KELBY MOSLEY weighed, gowned, voided, and to bed. EFHM and TOCO applied, VS taken. KELBY MOSLEY oriented to bed controls, call light, TV, heat, and A/C controls.
[2020-09-22 07:15] VITALS: BP 120/68
[2020-09-22 07:40] VITALS: BP 120/68
--- NOTE | 2020-09-22 08:05 | NUR ---
Dr Carmona updated on reactive NST, blood sugar of 96. orders to discharge if no change in cervical exam
--- NOTE | 2020-09-22 08:15 | NUR ---
sve per tammie lorenz rn, 3cm 50%, ballotable.
--- NOTE | 2020-09-22 08:15 | NUR ---
plan of care reviewed with pt and s.o. monitors off and pt up to get dressed.
--- NOTE | 2020-09-22 08:30 | NUR ---
Discharge instructions explained, signed and copy to patient. pt verbalized understanding of instructions and denied questions. Ambulates self off unit accompanied by s.o. to private vehicle with belongings in hand.
--- NOTE | 2020-09-23 08:17 | Physician Query-Final Dx ---
BABS SPAULDING 09/23/2017: Clinic Account Progress/Dx Physician Query: Please give diagnosis Please include # weeks gestation Date of Service Sep 22, 2020 at 06:42 LEILA RAI DO 09/23/202040: Clinic Account Progress/Dx DIAGNOSIS: Diagnosis 36 week IUP Irregular contractions BABS SPAULDING Sep 23, 2020 08:17 LEILA RAI DO Sep 23, 2020 20:41
== END 2020-09-22 08:30 ==
LOC: WSo 06:42 → LDRP 06:42 → WSo 08:30
PROVIDERS: ATTEND Obstetrics & Gynecology
DX: Z34.93 Encounter for supervision of normal pregnancy, unspecified, third trimester (principal); Z3A.39 39 weeks gestation of pregnancy
CPT/HCPCS: 82962; G0463; 99213

== ENCOUNTER 2020-09-23 05:59 | Inpatient (IN) | payer MEDICAID ==
[~2020-09-23] VITALS: Ht 162.6 cm; Wt 109.0 kg
[2020-09-23] VITALS (57 sets, daily range): BP systolic 113–152; BP diastolic 54–97
--- NOTE | 2020-09-23 06:05 | NUR ---
KELBY MOSLEY presented to unit via ambulation from ED, accompanied by SO, with c/o INDUCTION. KELBY MOSLEY weighed, gowned, voided, and to bed. EFHM and TOCO applied, VS taken. KELBY MOSLEY oriented to bed controls, call light, TV, heat, and A/C controls.
--- NOTE | 2020-09-23 07:00 | NUR ---
Pt placed on EFM, IV established and paperwork completed, report off to on coming shift.
[2020-09-23] MEDS ORDERED: D5 LR IV SOLUTION 1,000 ML IV SCH (07:18)
[2020-09-23] MEDS ORDERED: OXYTOCIN PRE-MIX DRIP 500 ML IV ONE (07:24)
[2020-09-23] MEDS ORDERED: D5 LR IV SOLUTION 1,000 ML IV ONE (07:24)
[2020-09-23 07:28] LABS: BASOPHILS % (AUTO) 0 % (0-10); EOSINOPHILS % (AUTO) 0 % (0-10); HEMATOCRIT 30 % (35-52); HEMOGLOBIN 9.2 g/dL (11.5-16.0); LYMPHOCYTES # (AUTO) 1.9 10^3/uL (1.0-4.0); LYMPHOCYTES % (AUTO) 22 % (12-44); MEAN CORPUSCULAR HEMOGLOBIN 26 pg (25-34); MEAN CORPUSCULAR HGB CONC 31 g/dL (32-36); MEAN CORPUSCULAR VOLUME 86 fL (80-99); MEAN PLATELET VOLUME 9.6 fL (9.0-12.2); MONOCYTES # (AUTO) 0.4 10^3/uL (0.0-1.0); MONOCYTES % (AUTO) 4 % (0-12); NEUTROPHILS # (AUTO) 6.2 10^3/uL (1.8-7.8); NEUTROPHILS % (AUTO) 73 % (42-75); PLATELET COUNT 317 10^3/uL (130-400); WHITE BLOOD COUNT 8.5 10^3/uL (4.3-11.0)
[2020-09-23 07:29] LABS: BILIRUBIN,URINE NEGATIVE (NEGATIVE); CLARITY,URINE CLEAR; COLOR,URINE YELLOW; GLUCOSE, URINE (UA) NEGATIVE (NEGATIVE); KETONES,URINE NEGATIVE (NEGATIVE); LEUKOCYTE ESTERASE ,URINE 1+ (NEGATIVE); NITRITE,URINE NEGATIVE (NEGATIVE); PH,URINE 7.5 (5-9); PROTEIN,URINE NEGATIVE (NEGATIVE)
--- NOTE | 2020-09-23 07:32 | NUR ---
FSBS 105mg/dl.
[2020-09-23 07:36] LABS: BACTERIA,URINE FEW /HPF; SQUAMOUS EPITHELIAL CELL,UR 25-50 /HPF
[2020-09-23] MEDS ORDERED: OXYTOCIN PRE-MIX DRIP 500 ML IV SCH ×2 (07:42→20:42)
[2020-09-23] MEDS ORDERED: NS IV 1000 ML 1,000 ML IV SCH ×2 (07:45→08:30)
[2020-09-23] MEDS ORDERED: NS IV 1000 ML 1,000 ML ONE (07:49)
--- NOTE | 2020-09-23 08:35 | History & Physical-OB ---
OB - Chief Complaint & HPI Date/Time Date of Admission: Date of Admission: Sep 23, 2020 at 05:59 Date seen by a Provider: Sep 23, 2020 Time Seen by a Provider: 08:00 Chief Complaint/History OB-Reason for Admission/Chief: Induction of Labor Hx : 2 Hx Para: 1 Expected Date of Delivery: Oct 13, 2020 Gestational Age in Weeks: 37 Gestational Age in Days: 1 Indication for induction: medical complication Other reason for admission: Class B Pregestational diabetes Cholestatsis of Admission Nurse Assessment Rev: Yes History of Labs O pos Antibody neg RI RPR NR HBsAg NR HIV NR GC neg GBS neg Allergies and Home Medications Allergies Coded Allergies: diphenhydramine (Verified Allergy, Severe, Shortness of Breath, 08/05/19) HIVES SWELLING amoxicillin (Verified Allergy, Unknown, throat swells shut, 08/05/19) sulfamethoxazole (Verified Allergy, Unknown, 08/05/19) trimethoprim (Verified Allergy, Unknown, 08/05/19) Home Medications Insulin Determir 1,000 Units/10 Ml Soln, 54 UNITS SQ HS, (Reported) Insulin Lispro 100 Unit/1 Ml Cartridge, 15 UNIT SQ TID, (Reported) Patient Home Medication List Home Medication List Reviewed: Yes OB - History Hx of Present Care: Yes Ultrasounds: Normal mid trimester US Obstetrical Complications: Other (Pregestational DM Class B, Intrahepatic Cholestasis of ) Medical Complications: None Delivery History Hx Blood Disorders: No Patient Past Medical History n/a Social History/Family History HIV/AIDS: No Sexually Transmitted Disease: Yes (CHLAMYDIA) 2nd Hand Smoke Exposure: No Immunizations Hepatitis A: Yes Hepatitis B: Yes Tetanus Booster (TDap): Less than 5yrs OB - Admission Exam Physical Exam HEENT: NCAT Heart: Rhythm Normal Lungs: Clear Abdomen: Gravid Extremities: Normal Reflexes: Normal Cervical Dilatation: 3cm Effacement: 75% Station: -1 Membranes: Intact Heart Rate: 130's Accelerations: Accelerations Present Decelerations: No Decelerations Short Term Variability: Present Clinical Rn Manager Variability: Average (6-25) Contractions on Admission: 6-10 Minutes Apart Intensity: Mild Labs Laboratory Tests Test 09/23/20 06:15 09/23/20 06:40 09/23/20 07:32 Range/Units Urine Color YELLOW Urine Clarity CLEAR Urine pH 7.5 5-9 Urine Specific [place] 1.015 L 1.016-1.022 Urine Protein NEGATIVE NEGATIVE Urine Glucose (UA) NEGATIVE NEGATIVE Urine Ketones NEGATIVE NEGATIVE Urine Nitrite NEGATIVE NEGATIVE Urine Bilirubin NEGATIVE NEGATIVE Urine Urobilinogen 0.2 < = 1.0 MG/DL Urine Leukocyte Esterase 1+ H NEGATIVE Urine RBC (Auto) NEGATIVE NEGATIVE Urine RBC NONE /HPF Urine WBC 10-25 H /HPF Urine Squamous Epithelial Cells 25-50 H /HPF Urine Crystals NONE /LPF Urine Bacteria FEW H /HPF Urine Casts NONE /LPF Urine Mucus NEGATIVE /LPF Urine Culture Indicated YES White Blood Count 8.5 4.3-11.0 10^3/uL Red Blood Count 3.48 L 3.80-5.11 10^6/uL Hemoglobin 9.2 L 11.5-16.0 g/dL Hematocrit 30 L 35-52 % Mean Corpuscular Volume 86 80-99 fL Mean Corpuscular Hemoglobin 26 25-34 pg Mean Corpuscular Hemoglobin Concent 31 L 32-36 g/dL Red Cell Distribution Width 16.1 H 10.0-14.5 % Platelet Count 317 130-400 10^3/uL Mean Platelet Volume 9.6 9.0-12.2 fL Immature Granulocyte % (Auto) 0 % Neutrophils (%) (Auto) 73 42-75 % Lymphocytes (%) (Auto) 22 12-44 % Monocytes (%) (Auto) 4 0-12 % Eosinophils (%) (Auto) 0 0-10 % Basophils (%) (Auto) 0 0-10 % Neutrophils # (Auto) 6.2 1.8-7.8 10^3/uL Lymphocytes # (Auto) 1.9 1.0-4.0 10^3/uL Monocytes # (Auto) 0.4 0.0-1.0 10^3/uL Eosinophils # (Auto) 0.0 0.0-0.3 10^3/uL Basophils # (Auto) 0.0 0.0-0.1 10^3/uL Immature Granulocyte # (Auto) 0.0 0.0-0.1 10^3/uL Glucometer 105 70-110 MG/DL OB - Assessment/Plan/Diagnosis Assessment Assessment: induction of labor Admission Dx 19 yo @ 37.1 Whites Classification B pregestational diabetes Intrahepatic cholestasis of GBS neg Poor compliance Admission Status: Inpatient Order (span 2 midnights) Reason for Inpatient Admission: Induction of labor at term Plan Plan: Induction Induction Method: AROM Other Plan Insulin drip regimen entered, will initiate with active labor. LEILA RAI DO Sep 23, 2020 08:35
--- NOTE | 2020-09-23 08:51 | NUR ---
anesthesia notified of pt's request for epidural placement.
[2020-09-23] MEDS ORDERED: fentaNYL 2 mcg/ml BUPIVA 0.125 100 ML ONE (08:54)
[2020-09-23] MEDS ORDERED: LACTATED RINGERS 1,000 ML IV SCH (09:18)
[2020-09-23] MEDS ORDERED: EPIDURAL (fentaNYL 2 MCG/ML BUPIVA 0.125%)100 ML BAG EPI SCH ×2 (09:30→12:30)
[2020-09-23] MEDS ORDERED: ONDANSETRON 4 MG/2 ML (SDV) Z0FRAN IV PRN (09:30)
[2020-09-23] MEDS ORDERED: NALOXONE 0.4 MG/ML 1 ML (NARCAN) VIAL IV PRN ×2 (09:30)
[2020-09-23] MEDS ORDERED: METOCLOPRAMIDE INJ 10 MG/2 ML (REGLAN) IV PRN (09:30)
[2020-09-23] MEDS ORDERED: diphenhydrAMINE 50 MG/ML INJ (BENADRYL) IV PRN (12:30)
[2020-09-23] MEDS ORDERED: [UNRECOGNIZED DRUG - OTHER] IV SCH ×2 (12:45)
[2020-09-23] MEDS ORDERED: BUPIVACAINE IV SCH ×2 (12:45)
[2020-09-23] MEDS ORDERED: CATHETER FLUSH 10 ML SYR IV SCH ×2 (14:00→22:00)
--- NOTE | 2020-09-23 15:50 | NUR ---
report given to PROSPER Eugene.
--- NOTE | 2020-09-23 16:15 | Labor Progress Note ---
LINDA JAY MD 09/23/20 1615: Labor Progress Note Labor Progress Note Time Seen by Provider: 16:12 Subjective: Pt denies complaints. Objective: (Can we insert 24 hour vitals here?) Cervical exam: 5+/75%/-1 Consistency: soft Position: posterior Presentation: heart tones: 145-150 beats per minute, moderate variability, reactive Tocometer: 5 ctx/10 minutes Assessment/Plan: Josue Carmona is a (19 /Para 2 / 1,Gestational Age (wks)37 here for induction of labor with preg c/b T2DM, obesity. CEFM/TOCO Continue pitocin Anesthesia: epidural Anticipate vaginal delivery. BG q1 hour and Insulin drip and D5NS per protocol Next check in 2-4 hours or as indicated d/w Dr. Mathew Jay MD [facility] Resident Physician, PGY-2 Vitals - Labs Vital Signs - I&O Vital Signs Date Time Temp Pulse Resp B/P (MAP) Pulse Ox O2 Delivery O2 Flow Rate FiO2 09/23/20 15:45 83 18 138/74 (95) 100 Room Air 09/23/20 15:30 79 18 145/76 (99) 99 Room Air 09/23/20 15:15 87 18 142/69 (93) 100 Room Air 09/23/20 15:00 73 18 141/78 (99) 100 Room Air 09/23/20 14:45 89 18 128/60 (82) 98 Room Air 09/23/20 14:30 83 18 129/67 (87) 98 Room Air 09/23/20 14:15 80 18 100 Room Air 09/23/20 14:00 85 18 99 Room Air 09/23/20 13:45 83 18 136/68 (90) 99 Room Air 09/23/20 13:30 85 18 134/67 (89) 100 Room Air 09/23/20 13:15 36.8 80 18 120/58 (78) 99 Room Air 09/23/20 13:00 78 18 136/77 (96) 100 Room Air 09/23/20 12:45 78 18 136/77 (96) 100 Room Air 09/23/20 12:30 86 18 139/75 (96) 100 Room Air 09/23/20 12:15 77 18 132/68 (89) 100 Room Air 09/23/20 12:00 81 18 142/66 (91) 100 Room Air 09/23/20 11:45 79 18 140/64 (89) 100 Room Air 09/23/20 11:30 81 18 136/65 (88) 100 Room Air 09/23/20 11:15 69 18 140/72 (94) 100 Room Air 09/23/20 11:00 86 18 137/64 (88) 100 Room Air 09/23/20 10:45 75 18 138/65 (89) 98 Room Air 09/23/20 10:30 78 18 98 Room Air 09/23/20 10:15 72 18 100 Room Air 09/23/20 10:00 98 18 152/67 (95) 100 Room Air 09/23/20 09:57 86 18 147/67 (93) 100 Room Air 09/23/20 09:55 95 18 136/63 (87) 91 Room Air 09/23/20 09:45 86 18 100 Room Air 09/23/20 09:40 96 18 100 Room Air 09/23/20 09:35 85 18 149/76 (100) 100 Room Air 09/23/20 09:30 79 18 98 Room Air 09/23/20 09:25 77 18 140/89 (106) 99 Room Air 09/23/20 09:20 78 18 146/97 (113) 99 Room Air 09/23/20 09:15 77 18 141/81 (101) 100 Room Air 09/23/20 09:00 80 18 139/73 (95) Room Air 09/23/20 08:45 79 18 139/73 (95) Room Air 09/23/20 08:30 85 18 118/57 (77) Room Air 09/23/20 08:15 75 18 138/82 (100) Room Air 09/23/20 08:00 71 18 143/85 (104) Room Air 09/23/20 07:30 36.8 92 18 130/83 (99) Room Air Labs Laboratory Tests 09/23/20 06:15: Urine Color YELLOW, Urine Clarity CLEAR, Urine pH 7.5, Urine Specific [place] 1. 015L, Urine Protein NEGATIVE, Urine Glucose (UA) NEGATIVE, Urine Ketones NEGATIVE, Urine Nitrite NEGATIVE, Urine Bilirubin NEGATIVE, Urine Urobilinogen 0.2, Urine Leukocyte Esterase 1+H, Urine RBC (Auto) NEGATIVE, Urine RBC NONE, Urine WBC 10-25H, Urine Squamous Epithelial Cells 25-50H, Urine Crystals NONE, Urine Bacteria FEWH, Urine Casts NONE, Urine Mucus NEGATIVE, Urine Culture Indicated YES 09/23/20 06:40: White Blood Count 8.5, Red Blood Count 3.48L, Hemoglobin 9.2L, Hematocrit 30L, Mean Corpuscular Volume 86, Mean Corpuscular Hemoglobin 26, Mean Corpuscular Hemoglobin Concent 31L, Red Cell Distribution Width 16.1H, Platelet Count 317, Mean Platelet Volume 9.6, Immature Granulocyte % (Auto) 0, Neutrophils (%) (Auto) 73, Lymphocytes (%) (Auto) 22, Monocytes (%) (Auto) 4, Eosinophils (%) ( Auto) 0, Basophils (%) (Auto) 0, Neutrophils # (Auto) 6.2, Lymphocytes # (Auto) 1.9, Monocytes # (Auto) 0.4, Eosinophils # (Auto) 0.0, Basophils # (Auto) 0.0, Immature Granulocyte # (Auto) 0.0 09/23/20 07:32: Glucometer 105 09/23/20 09:58: Glucometer 97 09/23/20 11:06: Glucometer 71 09/23/20 12:05: Glucometer 96 09/23/20 13:03: Glucometer 107 09/23/20 14:03: Glucometer 134H 09/23/20 15:11: Glucometer 83 09/23/20 16:02: Glucometer 68L BRIAN CARMONA DO 09/23/202041: Labor Progress Note Labor Progress Note Time Seen by Provider: 20:15 Verification and Attestation of Resident E/M Service A resident physician performed and documented this service in my presence. I r eviewed and verified all information documented and made modifications to such information, when appropriate. I personally performed the physical exam and medical decision making. Brian Carmona, Sep 23, 2020,20:42 LINDA JAY MD Sep 23, 2020 16:15 BRIAN CARMONA DO Sep 23, 2020 20:42
--- NOTE | 2020-09-23 18:09 | NUR ---
Anival Meneses [employer] notified of need to re-evaluate epidural.
[2020-09-23] MEDS ORDERED: LIDOCAINE PF 2% 5 ML (XYLOCAINE) VIAL ONE ×2 (18:45→19:19)
[2020-09-23] MEDS ORDERED: LIDOCAINE/EPI 2% 1:200,00 (XYLOCAINE) 10 ML VIAL ONE (20:16)
[2020-09-23] MEDS ORDERED: TETANUS,DIPTH,PERTUSS P/F (BOOSTRIX) 0.5 ML VIAL IM ONE (20:45)
[2020-09-23] MEDS ORDERED: DIBUCAINE (NUPERCAINAL) 1% OINT 30 GM TOP PRN (20:45)
[2020-09-23] MEDS ORDERED: MEASLES,MUMPS,RUBELLA 1 EA INJ SQ ONE (20:45)
[2020-09-23] MEDS ORDERED: KETOROLAC 30 MG/ML VIAL IVP ONE (20:45)
[2020-09-23] MEDS ORDERED: WITCH HAZEL(TUCKS) 40 EA JAR TOP PRN (20:45)
[2020-09-23] MEDS ORDERED: BENZOCAINE/MENTHOL (DERMOPLAST) 60 ML CAN TP PRN (20:45)
[2020-09-23] MEDS ORDERED: KETOROLAC 30 MG/ML VIAL ONE (20:54)
--- NOTE | 2020-09-23 20:55 | OB Labor & Delivery Record ---
L&D History Date of Service Date of Service: Sep 23, 2020 History Expected Date of Delivery: Oct 13, 2020 Gestational Age in Weeks: 37 Hx : 2 Hx Para: 1 Complications Events: Gestational Diabetes (Cholestasis of ) Operative Indications (Cesarea: N/A-Vaginal Delivery Intrapartal Events: None L&D Stage1 Stage One Onset of Labor - Date: Sep 23, 2020 Monitors and Tracing Monitor Mode: Internal Heart Rate: 140 Station: -1 Vital Signs VS - Last 72 Hours, by Label 09/23/20 09/23/20 09/23/20 09/23/20 06:56 07:30 08:00 08:15 Temp 36.8 36.8 Pulse 96 92 71 75 Resp 18 18 18 18 B/P (MAP) 130/83 (99) 143/85 (104) 138/82 (100) Pulse Ox 97 O2 Delivery Room Air Room Air Room Air Room Air 09/23/20 09/23/20 09/23/20 09/23/20 08:30 08:45 09:00 09:15 Pulse 85 79 80 77 Resp 18 18 18 18 B/P (MAP) 118/57 (77) 139/73 (95) 139/73 (95) 141/81 (101) Pulse Ox 100 O2 Delivery Room Air Room Air Room Air Room Air 09/23/20 09/23/20 09/23/20 09/23/20 09:20 09:25 09:30 09:35 Pulse 78 77 79 85 Resp 18 18 18 18 B/P (MAP) 146/97 (113) 140/89 (106) 149/76 (100) Pulse Ox 99 99 98 100 O2 Delivery Room Air Room Air Room Air Room Air 09/23/20 09/23/20 09/23/20 09/23/20 09:40 09:45 09:55 09:57 Pulse 96 86 95 86 Resp 18 18 18 18 B/P (MAP) 136/63 (87) 147/67 (93) Pulse Ox 100 100 91 100 O2 Delivery Room Air Room Air Room Air Room Air 09/23/20 09/23/20 09/23/20 09/23/20 10:00 10:15 10:30 10:45 Pulse 98 72 78 75 Resp 18 18 18 18 B/P (MAP) 152/67 (95) 138/65 (89) Pulse Ox 100 100 98 98 O2 Delivery Room Air Room Air Room Air Room Air 09/23/20 09/23/20 09/23/20 09/23/20 11:00 11:15 11:30 11:45 Pulse 86 69 81 79 Resp 18 18 18 18 B/P (MAP) 137/64 (88) 140/72 (94) 136/65 (88) 140/64 (89) Pulse Ox 100 100 100 100 O2 Delivery Room Air Room Air Room Air Room Air 09/23/20 09/23/20 09/23/20 09/23/20 12:00 12:15 12:30 12:45 Pulse 81 77 86 78 Resp 18 18 18 18 B/P (MAP) 142/66 (91) 132/68 (89) 139/75 (96) 136/77 (96) Pulse Ox 100 100 100 100 O2 Delivery Room Air Room Air Room Air Room Air 09/23/20 09/23/20 09/23/20 09/23/20 13:00 13:15 13:30 13:45 Temp 36.8 Pulse 78 80 85 83 Resp 18 18 18 18 B/P (MAP) 136/77 (96) 120/58 (78) 134/67 (89) 136/68 (90) Pulse Ox 100 99 100 99 O2 Delivery Room Air Room Air Room Air Room Air 09/23/20 09/23/20 09/23/20 09/23/20 14:00 14:15 14:30 14:45 Pulse 85 80 83 89 Resp 18 18 18 18 B/P (MAP) 129/67 (87) 128/60 (82) Pulse Ox 99 100 98 98 O2 Delivery Room Air Room Air Room Air Room Air 09/23/20 09/23/20 09/23/20 09/23/20 15:00 15:15 15:30 15:45 Pulse 73 87 79 83 Resp 18 18 18 18 B/P (MAP) 141/78 (99) 142/69 (93) 145/76 (99) 138/74 (95) Pulse Ox 100 100 99 100 O2 Delivery Room Air Room Air Room Air Room Air 09/23/20 09/23/20 09/23/20 09/23/20 16:15 16:30 16:45 17:00 Temp 37.2 37.2 Pulse 90 83 76 79 Resp 18 18 18 18 B/P (MAP) 120/69 (86) 118/54 (75) 113/54 (73) 130/58 (82) Pulse Ox 99 100 100 100 O2 Delivery Room Air Room Air Room Air Room Air 09/23/20 09/23/20 09/23/20 09/23/20 17:15 17:30 17:45 18:00 Temp 37.1 Pulse 85 81 76 82 Resp 18 18 18 18 B/P (MAP) 135/63 (87) 133/67 (89) 135/72 (93) 121/56 (77) Pulse Ox 100 100 100 100 O2 Delivery Room Air Room Air Room Air Room Air 09/23/20 09/23/20 09/23/20 09/23/20 18:15 18:30 18:45 19:00 Temp 37.0 Pulse 72 80 80 81 Resp 18 18 18 18 B/P (MAP) 135/69 (91) 131/59 (83) 138/71 (93) 138/71 (93) Pulse Ox 100 100 100 100 O2 Delivery Room Air Room Air Room Air Room Air 09/23/20 09/23/20 19:15 19:30 Temp 37.6 Pulse 78 85 Resp 18 18 B/P (MAP) 144/72 (96) 127/58 (81) Pulse Ox 100 100 O2 Delivery Room Air Room Air Rupture of Membranes Spontaneous Ruture of Membrane: No Amniotic Membrane Rupture Time: 0751 Amniotic Membrane Fluid Desc.: Clear Vaginal Bleeding Description: Normal Show Induction/Anesthesia Epidural Cath Placement - Time: 0933 Progress/Notes Patient admitted and AROM and Pitocin started. She received a max dose of 16 mu pitocin, and progressed with and epidural to complete and 0 station. L&D Stage2 Stage Two Stage II Date: Sep 23, 2020 Monitors and Tracing Monitor Mode: Internal Heart Rate: 140 Monitor Accelerations: Uniform Monitor Decelerations: Variable Set Off Press Operator Variability: Average (6-10) Short Term Variability: Present Position: Right Occiput Anterior Presentation: Vertex Cord Descript/Complications Cord Vessel Description: 3 Vessels Delivery Type Infant Delivery Method: Spontaneous Vaginal Anterior Shoulder: Left Episiotomy/Perineal Laceration Laceraction(s)/Extensions: Yes Episiotomy Description: Perineal Extension/lac, 1st degree Degree (describe repair) Bilateral periurethral and 1st degree perineal laceration repaired using 3-0 rapide. Condition of Delivery 1 minute Comment: 8 5 minute Comment: 9 Notes Live female infant weight 7lbs 15 oz Condition of Condition of : Living Exam: No Observed Abnormalities Resuscitation Resuscitation: N/A - Spontaneous Resp L&D Stage3 Pictocin Pitocin Administration mu/min: 16 Pitocin ml/hr: 16 Pitocin Administration Comment: 30 mu wide open after delivery of placenta Placenta Delivery Placenta Delivery: Spontaneous Delivery Summary Summary Estimated blood loss (mL): 300 Attending at delivery: Leila Rai DO Condition of Delivery Examined: Cervix Examined, Uterus Explored Post Hemorrhage: No Condition of Mother stable Condition of Infant (s) stable LEILA RAI DO Sep 23, 2020 20:55
--- NOTE | 2020-09-23 21:40 | NUR ---
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 Pt is able to move both legs, Pt transfer to ' and taken to the bathroom. Positive void pericare completed. Rubra light/moderate. no clots expressed.
[2020-09-23] MEDS: DOCUSATE SODIUM 100 MG (COLACE) CAP PO SCH (21:55)
[2020-09-23] MEDS ORDERED: inSUlin ASPART (NovoLOG) 1 UNIT/0.01 ML (CHARGE PER UNIT) ONE (22:45)
--- NOTE | 2020-09-23 22:50 | NUR ---
Pt ambulated to the bathroom. positive void. Pericare completed. rubra light. Pt requesting tx to room. pt ambulated to room 312. Orientated to room. info papers discussed. Pt denies any further needs. Pt still has not eaten her food that was delivered. Voiced with patient to notify rn when she was going to eat for meal time insulin.
--- NOTE | 2020-09-23 23:00 | NUR ---
Pt requesting to shower. towels and bath accessories provided. Iv secured.
[2020-09-23] MEDS: HYDROcodone/APAP 5 MG/325 MG (LORTAB) TAB PO PRN (23:40)
[2020-09-24] MEDS: inSUlin ASPART (NovoLOG) 1 UNIT/0.01 ML (CHARGE PER UNIT) SC SCH ×4 (01:09→17:29)
[2020-09-24] MEDS: IBUPROFEN 600 MG (MOTRIN) TAB PO SCH ×4 (02:34→20:11)
[2020-09-24 03:00] VITALS: BP 144/90
[2020-09-24] MEDS: HYDROcodone/APAP 5 MG/325 MG (LORTAB) TAB PO PRN ×3 (05:02→13:37)
[2020-09-24 05:18] LABS: BASOPHILS % (AUTO) 0 % (0-10); EOSINOPHILS % (AUTO) 0 % (0-10); HEMATOCRIT 26 % (35-52); HEMOGLOBIN 8.3 g/dL (11.5-16.0); LYMPHOCYTES # (AUTO) 1.9 10^3/uL (1.0-4.0); LYMPHOCYTES % (AUTO) 18 % (12-44); MEAN CORPUSCULAR HEMOGLOBIN 27 pg (25-34); MEAN CORPUSCULAR HGB CONC 32 g/dL (32-36); MEAN CORPUSCULAR VOLUME 85 fL (80-99); MEAN PLATELET VOLUME 9.8 fL (9.0-12.2); MONOCYTES # (AUTO) 0.7 10^3/uL (0.0-1.0); MONOCYTES % (AUTO) 6 % (0-12); NEUTROPHILS # (AUTO) 7.9 10^3/uL (1.8-7.8); NEUTROPHILS % (AUTO) 75 % (42-75); PLATELET COUNT 266 10^3/uL (130-400); WHITE BLOOD COUNT 10.6 10^3/uL (4.3-11.0)
--- NOTE | 2020-09-24 06:12 | Postpartum Progress Note ---
LINDA JAY MD 09/24/20 0612: Note Note Day # 1 Subjective: Patient is without complaints. Ambulating, voiding. Tolerating a regular diet without nausea or vomiting. Normal lochia. Has some severe cramping/aching pain in her pelvis, but it is generally controlled with oral pain medications. Formula feeding currently. Reports seems too tired and won't wake up for breast feeds. She plans to breast feed exclusively at home. Objective: Physical Exam: General - Alert and oriented, no apparent distress Lungs - non-labored respiration Abdomen - Soft, appropriately tender to palpation, non-distended, fundus firm at umbilicus Extremities - no edema, negative Harman's bilaterally Neuro - grossly intact Assessment: 19 y/o female G3 now P2012 with c/b T2DM, cholestasis of , tobacco use, and obesity who is post- day # 1, status post vaginal delivery. - Recovering well, hemodynamically stable - Blood glucose 96 this morning - hgb 9.2 -> 8.3 - BP elevated up to 144/90 Plan: Routine care. Encourage breast feeding. Encourage ambulation. Ferrous sulfate supplementation. Continue Detmir 20u at bedtime and Aspart 6u with meals Plan for discharge PPD 1-2 pending baby's discharge, BP and glucose control d/w Dr. Mathew Jay MD [facility] Resident Physician, PGY-2 Vitals - Labs Vital Signs - I&O Vital Signs Date Time Temp Pulse Resp B/P (MAP) Pulse Ox O2 Delivery O2 Flow Rate FiO2 09/24/20 03:00 36.5 66 18 144/90 (108) 100 Room Air 09/23/20 23:00 36.8 91 18 145/81 (102) 100 Room Air 09/23/20 22:00 37.3 88 18 149/78 (101) 100 Room Air 09/23/20 21:45 84 18 132/63 (86) 100 Room Air 09/23/20 21:15 86 18 147/75 (99) 100 Room Air 09/23/20 21:00 91 18 146/81 (102) 100 Room Air 09/23/20 20:45 38.3 105 18 135/93 (107) 100 Room Air 09/23/20 20:30 93 18 142/64 (90) 100 Room Air 09/23/20 20:15 96 18 135/59 (84) 100 Room Air 09/23/20 20:00 87 18 145/56 (85) 100 Room Air 09/23/20 19:45 83 18 122/57 (78) 100 Room Air 09/23/20 19:30 37.6 85 18 127/58 (81) 100 Room Air 09/23/20 19:15 78 18 144/72 (96) 100 Room Air 09/23/20 19:00 81 18 138/71 (93) 100 Room Air 09/23/20 18:45 80 18 138/71 (93) 100 Room Air 09/23/20 18:30 37.0 80 18 131/59 (83) 100 Room Air 09/23/20 18:15 72 18 135/69 (91) 100 Room Air 09/23/20 18:00 37.1 82 18 121/56 (77) 100 Room Air 09/23/20 17:45 76 18 135/72 (93) 100 Room Air 09/23/20 17:30 81 18 133/67 (89) 100 Room Air 09/23/20 17:15 85 18 135/63 (87) 100 Room Air 09/23/20 17:00 37.2 79 18 130/58 (82) 100 Room Air 09/23/20 16:45 76 18 113/54 (73) 100 Room Air 09/23/20 16:30 83 18 118/54 (75) 100 Room Air 09/23/20 16:15 37.2 90 18 120/69 (86) 99 Room Air 09/23/20 15:45 83 18 138/74 (95) 100 Room Air 09/23/20 15:30 79 18 145/76 (99) 99 Room Air 09/23/20 15:15 87 18 142/69 (93) 100 Room Air 09/23/20 15:00 73 18 141/78 (99) 100 Room Air 09/23/20 14:45 89 18 128/60 (82) 98 Room Air 09/23/20 14:30 83 18 129/67 (87) 98 Room Air 09/23/20 14:15 80 18 100 Room Air 09/23/20 14:00 85 18 99 Room Air 09/23/20 13:45 83 18 136/68 (90) 99 Room Air 09/23/20 13:30 85 18 134/67 (89) 100 Room Air 09/23/20 13:15 36.8 80 18 120/58 (78) 99 Room Air 09/23/20 13:00 78 18 136/77 (96) 100 Room Air 09/23/20 12:45 78 18 136/77 (96) 100 Room Air 09/23/20 12:30 86 18 139/75 (96) 100 Room Air 09/23/20 12:15 77 18 132/68 (89) 100 Room Air 09/23/20 12:00 81 18 142/66 (91) 100 Room Air 09/23/20 11:45 79 18 140/64 (89) 100 Room Air 09/23/20 11:30 81 18 136/65 (88) 100 Room Air 09/23/20 11:15 69 18 140/72 (94) 100 Room Air 09/23/20 11:00 86 18 137/64 (88) 100 Room Air 09/23/20 10:45 75 18 138/65 (89) 98 Room Air 09/23/20 10:30 78 18 98 Room Air 09/23/20 10:15 72 18 100 Room Air 09/23/20 10:00 98 18 152/67 (95) 100 Room Air 09/23/20 09:57 86 18 147/67 (93) 100 Room Air 09/23/20 09:55 95 18 136/63 (87) 91 Room Air 09/23/20 09:45 86 18 100 Room Air 09/23/20 09:40 96 18 100 Room Air 09/23/20 09:35 85 18 149/76 (100) 100 Room Air 09/23/20 09:30 79 18 98 Room Air 09/23/20 09:25 77 18 140/89 (106) 99 Room Air 09/23/20 09:20 78 18 146/97 (113) 99 Room Air 09/23/20 09:15 77 18 141/81 (101) 100 Room Air 09/23/20 09:00 80 18 139/73 (95) Room Air 09/23/20 08:45 79 18 139/73 (95) Room Air 09/23/20 08:30 85 18 118/57 (77) Room Air 09/23/20 08:15 75 18 138/82 (100) Room Air 09/23/20 08:00 71 18 143/85 (104) Room Air 09/23/20 07:30 36.8 92 18 130/83 (99) Room Air 09/23/20 06:56 36.8 96 18 97 Room Air I & O 09/24/20 07:00 Intake Total 2300 ml Balance 2300 ml Labs Laboratory Tests 09/23/20 06:15: Urine Color YELLOW, Urine Clarity CLEAR, Urine pH 7.5, Urine Specific [place] 1. 015L, Urine Protein NEGATIVE, Urine Glucose (UA) NEGATIVE, Urine Ketones NEGATIVE, Urine Nitrite NEGATIVE, Urine Bilirubin NEGATIVE, Urine Urobilinogen 0.2, Urine Leukocyte Esterase 1+H, Urine RBC (Auto) NEGATIVE, Urine RBC NONE, Urine WBC 10-25H, Urine Squamous Epithelial Cells 25-50H, Urine Crystals NONE, Urine Bacteria FEWH, Urine Casts NONE, Urine Mucus NEGATIVE, Urine Culture Indicated YES 09/23/20 06:40: White Blood Count 8.5, Red Blood Count 3.48L, Hemoglobin 9.2L, Hematocrit 30L, Mean Corpuscular Volume 86, Mean Corpuscular Hemoglobin 26, Mean Corpuscular Hemoglobin Concent 31L, Red Cell Distribution Width 16.1H, Platelet Count 317, Mean Platelet Volume 9.6, Immature Granulocyte % (Auto) 0, Neutrophils (%) (Auto) 73, Lymphocytes (%) (Auto) 22, Monocytes (%) (Auto) 4, Eosinophils (%) ( Auto) 0, Basophils (%) (Auto) 0, Neutrophils # (Auto) 6.2, Lymphocytes # (Auto) 1.9, Monocytes # (Auto) 0.4, Eosinophils # (Auto) 0.0, Basophils # (Auto) 0.0, Immature Granulocyte # (Auto) 0.0 09/23/20 07:32: Glucometer 105 09/23/20 09:58: Glucometer 97 09/23/20 11:06: Glucometer 71 09/23/20 12:05: Glucometer 96 09/23/20 13:03: Glucometer 107 09/23/20 14:03: Glucometer 134H 09/23/20 15:11: Glucometer 83 09/23/20 16:02: Glucometer 68L 09/23/20 16:54: Glucometer 89 09/23/20 18:02: Glucometer 85 09/23/20 18:53: Glucometer 106 09/23/20 20:04: Glucometer 89 09/23/20 21:22: Glucometer 84 09/24/20 02:38: Glucometer 96 09/24/20 04:41: White Blood Count 10.6, Red Blood Count 3.09L, Hemoglobin 8.3L, Hematocrit 26L, Mean Corpuscular Volume 85, Mean Corpuscular Hemoglobin 27, Mean Corpuscular Hemoglobin Concent 32, Red Cell Distribution Width 15.9H, Platelet Count 266, Mean Platelet Volume 9.8, Immature Granulocyte % (Auto) 0, Neutrophils (%) (Auto) 75, Lymphocytes (%) (Auto) 18, Monocytes (%) (Auto) 6, Eosinophils (%) (Auto) 0, Basophils (%) (Auto) 0, Neutrophils # (Auto) 7.9H, Lymphocytes # (Auto) 1.9, Monocytes # (Auto) 0.7, Eosinophils # (Auto) 0.0, Basophils # (Auto) 0.0, Immature Granulocyte # (Auto) 0.0 BRIAN RAI DO 09/24/20 0719: Note Note Diagnosis: PPD 1 NVD Acute blood loss anemia DM Type 2 Cholestasis of - resolved pp Verification and Attestation of Resident E/M Service A resident physician performed and documented this service in my presence. I reviewed and verified all information documented by the resident and made modifications to such information, when appropriate. I personally performed the physical exam and medical decision making. Brian Rai Sep 24, 2020,07:18 LINDA JAY MD Sep 24, 2020 06:12 BRIAN RAI DO Sep 24, 2020 07:19
--- NOTE | 2020-09-24 06:49 | Anesthesia-Regional Post-Op ---
Regional Patient Condition Mental Status: Alert, Oriented x3 Circulation: Same as Pre-Op Headache: Absent Sensation: Full Recovery Motor Block: Absent Post Op Complications Complications None Follow Up Care/Instructions Patient Instructions None needed. Anesthesia/Patient Condition Patient is doing well, no complaints, stable vital signs, no apparent adverse anesthesia problems. No complications reported per nursing. [place] [facility] [place]: SINDHU Omer CRNA Sep 24, 2020 06:49
[2020-09-24] MEDS: DOCUSATE SODIUM 100 MG (COLACE) CAP PO SCH ×2 (08:26→20:11)
[2020-09-24] MEDS ORDERED: FERROUS SULF 325 MG (IRON) TAB PO SCH (09:00)
[2020-09-24] MEDS ORDERED: IBUP-844 PO (09:03)
[2020-09-24] MEDS ORDERED: DCS100C PO (09:03)
[2020-09-24] MEDS ORDERED: BENZ78AE5 TP (09:03)
[2020-09-24] MEDS ORDERED: INSU100V16 SC (09:03)
[2020-09-24] MEDS ORDERED: ACHD5005 PO (09:03)
[2020-09-24] MEDS ORDERED: DIBU30OI TOP (09:03)
[2020-09-24] MEDS ORDERED: INSU100V5 SQ (09:03)
--- NOTE | 2020-09-24 09:03 | Discharge Inst-Women's Service ---
Discharge Inst-Women's Serv Depart Medication/Instructions New, Converted or Re-Newed RX: RX on Chart Problems Reviewed?: Yes Consults/Follow Up Additional Follow Up: Yes Activity Activity: Activity as Tolerated Driving Instructions: No Driving for 1 Week NO SMOKING: NO SMOKING Nothing Inside Vagina: No Douching, No [place], No Tampons Diet Discharge Diet: No Restrictions Symptoms to Report to : Bleeding Excessive, Pain Increased, Fever Over 101 Degrees F, Vaginal Bleeding Increase, Questions/Concerns For Any Problems or Questions: Contact Your Physician LEILA RAI DO Sep 24, 2020 09:03
--- NOTE | 2020-09-24 09:04 | Discharge Inst-Women's Service ---
Discharge Inst-Women's Serv Depart Medication/Instructions New, Converted or Re-Newed RX: RX on Chart Final Diagnosis PPD 2 NVD DM type 2 Problems Reviewed?: Yes Consults/Follow Up Additional Follow Up: Yes Orders/Referrals Dr. Rai in 6 weeks Activity Activity: Activity as Tolerated Driving Instructions: No Driving for 1 Week NO SMOKING: NO SMOKING Nothing Inside Vagina: No Douching, No [place], No Tampons Diet Discharge Diet: No Restrictions Symptoms to Report to : Bleeding Excessive, Pain Increased, Fever Over 101 Degrees F, Vaginal Bleeding Increase, Questions/Concerns For Any Problems or Questions: Contact Your Physician LEILA RAI DO Sep 24, 2020 09:04
[2020-09-24 09:30] VITALS: BP 126/60
--- NOTE | 2020-09-24 15:00 | NUR ---
This RN assuming care of pt.
[2020-09-24 15:30] VITALS: BP 125/74
--- NOTE | 2020-09-24 17:20 | NUR ---
Pt desires to go home this evening if baby is discharged.
[2020-09-24 20:13] VITALS: BP 140/90
--- NOTE | 2020-09-24 22:00 | NUR ---
Discharge instructions reviewed with pt. Pt. has no questions or concerns. Baby nurse at bedside now to review 's discharge.
--- NOTE | 2020-09-24 22:30 | NUR ---
Pt. walked down to personal vehicle with this nurse. loaded into car in rear facing carseat. No s/s of distress. Pt. states that she will call up with any concerns.
== END 2020-09-24 22:30 | disposition home or self-care (01) | DRG 805 ==
LOC: LDRP 05:59
PROVIDERS: ADMIT Obstetrics & Gynecology; ATTEND Obstetrics & Gynecology
PROC: 10E0XZZ Delivery of Products of Conception, External Approach (ICD-10-PCS; principal; 2020-09-23)
PROC: 10907ZC Drainage of Amniotic Fluid, Therapeutic from Products of Conception, Via Natural or Artificial Opening (ICD-10-PCS; 2020-09-23)
PROC: 3E033VJ Introduction of Other Hormone into Peripheral Vein, Percutaneous Approach (ICD-10-PCS; 2020-09-23)
PROC: 0HQ9XZZ Repair Perineum Skin, External Approach (ICD-10-PCS; 2020-09-23)
DX: O24.429 Gestational diabetes mellitus in childbirth, unspecified control (principal); K83.1 Obstruction of bile duct; Z37.0 Single live birth; O26.62 Liver and biliary tract disorders in childbirth; D62 Acute posthemorrhagic anemia; Z3A.37 37 weeks gestation of pregnancy; O71.82 Other specified trauma to perineum and vulva; O70.0 First degree perineal laceration during delivery; E66.9 Obesity, unspecified; O99.214 Obesity complicating childbirth; O99.334 Smoking (tobacco) complicating childbirth; F17.210 Nicotine dependence, cigarettes, uncomplicated; O90.81 Anemia of the puerperium
CPT/HCPCS: 36415; 81000; 82962; 85025; 86850; 86900; 86901; 87088

== ENCOUNTER 2020-09-28 23:15 | Emergency (ER) | payer MEDICAID ==
[~2020-09-28] VITALS: Ht 162 cm; Wt 104.0 kg
[~2020-09-28 23:15] MED LIST changes: +BENZ78AE5 TP; +DCS100C PO; +DIBU30OI TOP; +INSU100V16 SC
--- NOTE | 2020-09-28 23:35 | NUR ---
Pt reports increased pain and vaginal bleeding since giving on the 23 of September; states she had an uneventful vaginal . Pt reports she has gone through several pads and has been passing large clots.
[2020-09-28 23:42] LABS: BILIRUBIN,URINE NEGATIVE (NEGATIVE); CLARITY,URINE CLEAR; COLOR,URINE YELLOW; GLUCOSE, URINE (UA) NEGATIVE (NEGATIVE); KETONES,URINE NEGATIVE (NEGATIVE); LEUKOCYTE ESTERASE ,URINE 3+ (NEGATIVE); NITRITE,URINE NEGATIVE (NEGATIVE); PH,URINE 6.5 (5-9); PROTEIN,URINE NEGATIVE (NEGATIVE)
[2020-09-28 23:54] LABS: BASOPHILS % (AUTO) 0 % (0-10); EOSINOPHILS # (AUTO) 0.1 10^3/uL (0.0-0.3); EOSINOPHILS % (AUTO) 1 % (0-10); HEMATOCRIT 31 % (35-52); HEMOGLOBIN 9.5 g/dL (11.5-16.0); LYMPHOCYTES # (AUTO) 1.8 10^3/uL (1.0-4.0); LYMPHOCYTES % (AUTO) 23 % (12-44); MEAN CORPUSCULAR HEMOGLOBIN 27 pg (25-34); MEAN CORPUSCULAR HGB CONC 31 g/dL (32-36); MEAN CORPUSCULAR VOLUME 86 fL (80-99); MEAN PLATELET VOLUME 9.1 fL (9.0-12.2); MONOCYTES # (AUTO) 0.4 10^3/uL (0.0-1.0); MONOCYTES % (AUTO) 5 % (0-12); NEUTROPHILS # (AUTO) 5.3 10^3/uL (1.8-7.8); NEUTROPHILS % (AUTO) 70 % (42-75); PLATELET COUNT 357 10^3/uL (130-400); WHITE BLOOD COUNT 7.6 10^3/uL (4.3-11.0)
[2020-09-28 23:56] LABS: BACTERIA,URINE MODERATE /HPF; WBC,URINE 25-50 /HPF
[2020-09-29] LABS: INR 0.9 (0.8-1.4)
[2020-09-29 00:06] LABS: ALBUMIN 3.4 GM/DL (3.2-4.5); CHLORIDE 109 MMOL/L (98-107); POTASSIUM 4.1 MMOL/L (3.6-5.0); SODIUM 141 MMOL/L (135-145)
[2020-09-29 00:07] LABS: CALCIUM 8.3 MG/DL (8.5-10.1)
[2020-09-29 00:08] LABS: GLUCOSE 85 MG/DL (70-105)
[2020-09-29 00:09] LABS: TOTAL PROTEIN 6.8 GM/DL (6.4-8.2)
[2020-09-29 00:10] LABS: BILIRUBIN,TOTAL 0.3 MG/DL (0.1-1.0); CARBON DIOXIDE 23 MMOL/L (21-32)
[2020-09-29 00:12] LABS: ALKALINE PHOSPHATASE 135 U/L (40-136); CREATININE SERUM 0.83 MG/DL (0.60-1.30); GFR ESTIMATED > 60
[2020-09-29 00:13] LABS: BUN/CREATININE RATIO 13
[2020-09-29 00:15] LABS: ALANINE AMINOTRANSFERASE 26 U/L (0-55)
[2020-09-29] MEDS ORDERED: cefTRIAXone FOR IV USE 1,000 MG in WATER (STERILE) FOR INJECTION 10 ML IV ONE (00:30)
--- NOTE | 2020-09-29 00:30 | NUR ---
Pt resting; awaiting results
[2020-09-29] MEDS ORDERED: CEFD300C3 PO (00:36)
--- NOTE | 2020-09-29 00:36 | ED GU-Female ---
General Chief Complaint: Female Reproductive Stated Complaint: PELVIC & BACK PAIN,PRUITT Nursing Triage Note: Pt here with concerns for vaginal bleeding and abdominal pain; she states that she just had a vaginal on the . Nursing Sepsis Screen: No Definite Risk Source: patient History of Present Illness Date Seen by Provider: Sep 28, 2020 Time Seen by Provider: 23:24 Initial Comments PT ARRIVES VIA POV FROM HOME STATES SHE DELIVERED 09/23/20--NORMAL VAGINAL DELIVERY PT STATES SHE HAS BEEN BLEEDING AND HAVING ABDOMINAL PAIN SINCE DELIVERY. STATES ABDOMINAL PAIN IS NO DIFFERENT TONIGHT. STATES SHE HAS BEEN PASSING CLOTS, AND CLAIMS TO HAVE GONE THROUGH 20 PADS SINCE 1899 TONIGHT STATES BEFORE TONIGHT SHE WAS ONLY HAVING SOME LIGHT BLEEDING AND NO CLOTS AND USING LESS THAN 10 PADS A DAY NO FEVER MILD NAUSEA, NO VOMITING NO URINARY SYMPTOMS NO COUGH OR SHORTNESS OF BREATH NO SWELLING IN LEGS/ FEET NO DIZZINESS OR SYNCOPE PT IS BREAST FEEDING PT IS AB0--LAST CHILD WAS BORN 08/20/19 PT IS INSULIN DEPENDENT DIABETIC. HAS NOT CHECKED BLOOD GLUCOSE RECENTLY PT IS NOTED TO BE WEARING THIN PANTI LINERS--NOT MAXI PADS PCP: [facility]IA DEL [facility]-BUT HAS NOT BEEN SEEN BY ANY ADULT DR'S THERE, AND CLAIMS SHE DOES NOT SEE ANYONE FOR HER INSULIN DEPENDENT DIABETES FACTORY HELPER: DR. RAI Allergies and Home Medications Allergies Coded Allergies: diphenhydramine (Verified Allergy, Severe, Shortness of Breath, 08/05/19) HIVES SWELLING amoxicillin (Verified Allergy, Unknown, throat swells shut, 08/05/19) sulfamethoxazole (Verified Allergy, Unknown, 08/05/19) trimethoprim (Verified Allergy, Unknown, 08/05/19) Home Medications Benzocaine/Menthol 78 Gm Aerosol, 56 ML TP UD PRN for PAIN- SEE INSTRUCTIONS Prescribed by: LEILA RAI on 09/24/20902 Cefdinir 300 Mg Capsule, 300 MG PO BID Prescribed by: DORINA FRANZ on 09/29/20 003 Dibucaine 30 Gm Oint, 0 GM TOP UD PRN for PAIN- SEE INSTRUCTIONS Prescribed by: LEILA RAI on 09/24/20902 Docusate Sodium 100 Mg Capsule, 100 MG PO BID PRN for CONSTIPATION-1ST LINE Prescribed by: LEILA RAI on 09/24/20902 Hydrocodone/Acetaminophen 1 Each Tablet, 1 TAB PO Q4H PRN for PAIN-MODERATE (5- 7) Prescribed by: LEILA RAI on 09/24/20902 Ibuprofen 600 Mg Tablet, 600 MG PO Q6HR Prescribed by: LEILA RAI on 09/24/20902 Insulin Aspart 100 Unit/1 Ml Susp, 6 UNIT SC WM Prescribed by: LEILA RAI on 09/24/20902 Insulin Determir 1,000 Units/10 Ml Soln, 20 UNIT SQ HS Prescribed by: LEILA RAI on 09/24/20902 Patient Home Medication List Home Medication List Reviewed: Yes Review of Systems Review of Systems Constitutional: no symptoms reported; No chills, No diaphoresis, No dizziness, No fever Respiratory: no symptoms reported; No cough, No short of breath Cardiovascular: no symptoms reported; No chest pain, No edema, No palpitations, No syncope Gastrointestinal: see HPI, abdominal pain; No constipation, No diarrhea; nausea; No vomiting Genitourinary: see HPI; denies dysuria, denies flank pain : No Musculoskeletal: no symptoms reported Skin: no symptoms reported Psychiatric/Neurological: No Symptoms Reported Endocrine: See HPI; Denies Increased Thrist, Denies Increased Urine Hematologic/Lymphatic: See HPI; Denies Easy Bleeding, Denies Easy Bruising Past Zvqldvo-Gtylxr-Wfqioe Hx Past Med/Social Hx: Reviewed and Corrections made Patient Social History Alcohol Use: Denies Use (USED TEEN) Recreational Drug Use: Yes (THC TEEN) Drug of Choice: THC Smoking Status: Current Everyday Smoker (1/2 PPD) Type Used: Cigarettes 2nd Hand Smoke Exposure: No Recent Foreign Travel: No Contact w/Someone Who Travel: No Recent Infectious Disease Expo: No Recent Hopitalizations: No Immunizations Up To Date Tetanus Booster (TDap): Less than 5yrs PED Vaccines UTD: Yes Seasonal Allergies Seasonal Allergies: No Past Medical History Surgeries: Yes (EGD) Respiratory: No Currently Using CPAP: No Currently Using BIPAP: No Cardiac: Yes High Cholesterol Neurological: Yes Headaches /Migraines Reproductive Disorders: No Female Reproductive Disorders: Denies Sexually Transmitted Disease: Yes (CHLAMYDIA) HIV/AIDS: No Genitourinary: No Gastrointestinal: Yes (CHRONIC ABDOMINAL PAIN COMPLAINTS) Chronic Constipation, Ulcer Musculoskeletal: No Endocrine: Yes Diabetes, Insulin dep HEENT: No Loss of Vision: Denies Hearing Impairment: Denies Cancer: No Psychosocial: Yes ADD/ADHD, Anxiety Integumentary: No Blood Disorders: No Family Medical History Diabetes mellitus MATERNAL GRANDMOTHER Hypertension MATERNAL GRANDMOTHER Diabetes, Hypertension Physical Exam Vital Signs Vital Signs - First Documented 09/28/20 23:25 Temp 36.4 Pulse 65 Resp 20 B/P (MAP) 136/99 (111) Pulse Ox 99 O2 Delivery Room Air Capillary Refill : Less Than 3 Seconds Height, Weight, BMI Height: 5'4.00" Weight: 221lbs. 0.4oz. 100.699210eu; 39.00 BMI Method:Stated General Appearance: WD/WN, obese HEENT: PERRL/EOMI Neck: normal inspection Cardiovascular: normal peripheral pulses, regular rate, rhythm, no murmur Respiratory: normal breath sounds, no respiratory distress, no accessory muscle use Gastrointestinal: normal bowel sounds, soft, no organomegaly, tenderness (LOWER ABDOMINAL TENDERNESS. FUNDUS MID WAY BETWEEN UMBILICUS AND PUBIS) Pelvic: normal external exam, other (NO GROSS VAGINAL BLEEDING ON EXTERNAL EXAM. ONLY A SMALL SMEAR OF BLOOD ON CURRENT PANTILINER. ) Back: no CVA tenderness Extremities: normal inspection, no pedal edema, normal capillary refill Neurologic/Psychiatric: no motor/sensory deficits, alert, normal mood/affect, oriented x 3 Skin: normal color (PT IS BLACK), warm/dry, tattoos/piercings (MULTIPLE TATTOOS) Progress/Results/Core Measures Suspected Sepsis Recent Fever Within 48 Hours: No Infection Criteria Present: None New/Unexplained Altered Menta: No Sepsis Screen: No Definite Risk SIRS Temperature: Pulse: 65 Respiratory Rate: 20 Laboratory Tests 09/28/20 23:30: White Blood Count 7.6 Blood Pressure 136 /99 Mean: 111 Laboratory Tests 09/28/20 23:30: Creatinine 0.83, INR Comment 0.9, Platelet Count 357, Total Bilirubin 0.3 Results/Orders Lab Results Laboratory Tests Test 09/28/20 23:30 Range/Units White Blood Count 7.6 4.3-11.0 10^3/uL Red Blood Count 3.58 L 3.80-5.11 10^6/uL Hemoglobin 9.5 L 11.5-16.0 g/dL Hematocrit 31 L 35-52 % Mean Corpuscular Volume 86 80-99 fL Mean Corpuscular Hemoglobin 27 25-34 pg Mean Corpuscular Hemoglobin Concent 31 L 32-36 g/dL Red Cell Distribution Width 16.9 H 10.0-14.5 % Platelet Count 357 130-400 10^3/uL Mean Platelet Volume 9.1 9.0-12.2 fL Immature Granulocyte % (Auto) 0 % Neutrophils (%) (Auto) 70 42-75 % Lymphocytes (%) (Auto) 23 12-44 % Monocytes (%) (Auto) 5 0-12 % Eosinophils (%) (Auto) 1 0-10 % Basophils (%) (Auto) 0 0-10 % Neutrophils # (Auto) 5.3 1.8-7.8 10^3/uL Lymphocytes # (Auto) 1.8 1.0-4.0 10^3/uL Monocytes # (Auto) 0.4 0.0-1.0 10^3/uL Eosinophils # (Auto) 0.1 0.0-0.3 10^3/uL Basophils # (Auto) 0.0 0.0-0.1 10^3/uL Immature Granulocyte # (Auto) 0.0 0.0-0.1 10^3/uL Prothrombin Time 13.0 12.2-14.7 SEC INR Comment 0.9 0.8-1.4 Activated Partial Thromboplast Time 31 24-35 SEC Urine Color YELLOW Urine Clarity CLEAR Urine pH 6.5 5-9 Urine Specific [place] <=1.005 1.016-1.022 Urine Protein NEGATIVE NEGATIVE Urine Glucose (UA) NEGATIVE NEGATIVE Urine Ketones NEGATIVE NEGATIVE Urine Nitrite NEGATIVE NEGATIVE Urine Bilirubin NEGATIVE NEGATIVE Urine Urobilinogen 0.2 < = 1.0 MG/DL Urine Leukocyte Esterase 3+ H NEGATIVE Urine RBC (Auto) 3+ H NEGATIVE Urine RBC 10-25 H /HPF Urine WBC 25-50 H /HPF Urine Squamous Epithelial Cells 2-5 /HPF Urine Crystals NONE /LPF Urine Bacteria MODERATE H /HPF Urine Casts NONE /LPF Urine Mucus NEGATIVE /LPF Urine Culture Indicated YES Sodium Level 141 135-145 MMOL/L Potassium Level 4.1 3.6-5.0 MMOL/L Chloride Level 109 H 98-107 MMOL/L Carbon Dioxide Level 23 21-32 MMOL/L Anion Gap 9 5-14 MMOL/L Blood Urea Nitrogen 11 7-18 MG/DL Creatinine 0.83 0.60-1.30 MG/DL Estimat Glomerular Filtration Rate > 60 BUN/Creatinine Ratio 13 Glucose Level 85 70-105 MG/DL Calcium Level 8.3 L 8.5-10.1 MG/DL Corrected Calcium 8.8 8.5-10.1 MG/DL Total Bilirubin 0.3 0.1-1.0 MG/DL Aspartate Amino Transf (AST/SGOT) 38 H 5-34 U/L Alanine Aminotransferase (ALT/SGPT) 26 0-55 U/L Alkaline Phosphatase 135 40-136 U/L Total Protein 6.8 6.4-8.2 GM/DL Albumin 3.4 3.2-4.5 GM/DL My Orders Orders - DORINA FRANZ DO Ua Culture If Indicated (09/28/20 23:24) Ed Iv/Invasive Line Start (09/28/20 23:48) Cbc With Automated Diff (09/28/20 23:48) Comprehensive Metabolic Panel (09/28/20 23:48) Protime With Inr (09/28/20 23:48) Partial Thromboplastin Time (09/28/20 23:48) Urine Culture (09/28/20 23:30) Ceftriaxone For Iv Use (Rocephin For I (09/29/20 00:30) Medications Given in ED Current Medications Medications Dose Ordered Sig/Nkechi Route Start Time Stop Time Status Last Admin Dose Admin Ceftriaxone Sodium 1000 mg/ Sterile Water 10 ml @ 200 mls/hr ONCE ONCE IV 09/29/20 00:30 09/29/20 00:32 DC 09/29/20 00:42 200 MLS/HR Vital Signs/I&O 09/28/20 09/29/20 23:25 01:06 Temp 36.4 Pulse 65 63 Resp 20 20 B/P (MAP) 136/99 (111) 141/97 Pulse Ox 99 98 O2 Delivery Room Air Room Air Capillary Refill : Less Than 3 Seconds Blood Pressure Mean: 111 Progress Note : Progress Note PT DID NOT GO THROUGH ANY PADS OR PASS ANY CLOTS DURING ER STAY Departure Impression Primary Impression: POST VAGINAL BLEEDING Additional Impression: UTI Disposition: 01 HOME, SELF-CARE Condition: Stable Departure-Patient Inst. Referrals: ERNIE RENE MD (PCP) Primary Care Physician LEILA RAI DO (Family) Primary Care Physician Patient Instructions: How to Do a Sitz Bath, Normal Bleeding After Having a Baby, Urinary Tract Infection, Adult (DC) Add. Discharge Instructions: CONTINUE ALL POST INSTRUCTIONS FOLLOW UP WITH DR. RAI THIS WEEK FOR FURTHER CARE, RETURN TO ER IF WORSE All discharge instructions reviewed with patient and/or family. Voiced understanding. Scripts Cefdinir (Cefdinir) 300 Mg Capsule 300 MG PO BID, #20 CAP Prov: DORINA FRANZ DO 09/29/20 DORINA FRANZ DO Sep 29, 2020 00:36
--- NOTE | 2020-09-29 01:00 | NUR ---
D/C instructions provided with verbal understanding noted. Pt ambulated from ER without incident.
[2020-09-29 01:06] VITALS: BP 141/97
== END 2020-09-29 01:06 | disposition home or self-care (01) ==
LOC: EDUNIT# 23:15 → ER 23:18
DX: O72.1 Other immediate postpartum hemorrhage (principal); O86.29 Other urinary tract infection following delivery; E11.9 Type 2 diabetes mellitus without complications; E66.9 Obesity, unspecified; F17.210 Nicotine dependence, cigarettes, uncomplicated; Z82.49 Family history of ischemic heart disease and other diseases of the circulatory system; Z83.3 Family history of diabetes mellitus; Z88.1 Allergy status to other antibiotic agents; Z88.2 Allergy status to sulfonamides; Z88.8 Allergy status to other drugs, medicaments and biological substances; Z79.4 Long term (current) use of insulin
CPT/HCPCS: 36415; 80053; 81000; 85025; 85610; 85730; 87088

== ENCOUNTER 2021-01-24 16:01 | Emergency (ER) | payer MEDICAID ==
[~2021-01-24] VITALS: Ht 162.5 cm; Wt 97.2 kg
[~2021-01-24 16:01] MED LIST changes: +CEFD300C3 PO
[2021-01-24 17:00] LABS: BILIRUBIN,URINE NEGATIVE (NEGATIVE); CLARITY,URINE CLEAR; COLOR,URINE YELLOW; GLUCOSE, URINE (UA) NEGATIVE (NEGATIVE); KETONES,URINE NEGATIVE (NEGATIVE); LEUKOCYTE ESTERASE ,URINE TRACE (NEGATIVE); NITRITE,URINE NEGATIVE (NEGATIVE); PROTEIN,URINE NEGATIVE (NEGATIVE)
[2021-01-24 17:07] LABS: BACTERIA,URINE NEGATIVE /HPF
[2021-01-24 17:37] LABS: BASOPHILS % (AUTO) 0 % (0-10); EOSINOPHILS # (AUTO) 0.1 10^3/uL (0.0-0.3); EOSINOPHILS % (AUTO) 1 % (0-10); HEMATOCRIT 38 % (35-52); LYMPHOCYTES # (AUTO) 2.3 10^3/uL (1.0-4.0); LYMPHOCYTES % (AUTO) 25 % (12-44); MEAN CORPUSCULAR HEMOGLOBIN 28 pg (25-34); MEAN CORPUSCULAR HGB CONC 32 g/dL (32-36); MEAN CORPUSCULAR VOLUME 87 fL (80-99); MEAN PLATELET VOLUME 8.9 fL (9.0-12.2); MONOCYTES # (AUTO) 0.4 10^3/uL (0.0-1.0); MONOCYTES % (AUTO) 5 % (0-12); NEUTROPHILS # (AUTO) 6.5 10^3/uL (1.8-7.8); NEUTROPHILS % (AUTO) 70 % (42-75); PLATELET COUNT 340 10^3/uL (130-400); WHITE BLOOD COUNT 9.4 10^3/uL (4.3-11.0)
--- NOTE | 2021-01-24 18:28 | ED GU-Female ---
General Chief Complaint: OB < 20 WEEKS Stated Complaint: ABD PAIN 8 WKS Nursing Triage Note: PATIENT IS APX 10WEEKS PREG FOR 1 WEEK IS HAS HAD LOW ABD PAIN HAS NOT SEEN PCP FOR. WORSE WITH MOVEMENT Nursing Sepsis Screen: No Definite Risk Source: patient Exam Limitations: no limitations History of Present Illness Date Seen by Provider: Jan 24, 2021 Time Seen by Provider: 18:05 Initial Comments Here with report of being approximately 4 to 8 weeks and having left lower quadrant abdominal pain. Denies dysuria, vaginal bleeding or vaginal discharge. Last completed 4 months ago. She has had 2 children and 2 years and this is her third . Onset of pain about a week or 2 ago and has continued. Timing/Duration: week, changing over time Severity/Quality: aching Location: LLQ Radiation: none Activities at Onset: none Sexual [place] History: less than 2 months ago Associated Symptoms: abdominal pain (Left upper quadrant occasional but has been chronic for quite some time); No fever/chills, No loss of bladder control, No lower back pain, No nausea/vomiting, No urinary frequency Allergies and Home Medications Allergies Coded Allergies: diphenhydramine (Verified Allergy, Severe, Shortness of Breath, 08/05/19) HIVES SWELLING amoxicillin (Verified Allergy, Unknown, throat swells shut, 08/05/19) sulfamethoxazole (Verified Allergy, Unknown, 08/05/19) trimethoprim (Verified Allergy, Unknown, 08/05/19) Home Medications Benzocaine/Menthol 78 Gm Aerosol, 56 ML TP UD PRN for PAIN- SEE INSTRUCTIONS Prescribed by: LEILA RAI on 09/24/20902 Cefdinir 300 Mg Capsule, 300 MG PO BID Prescribed by: DORINA FRANZ on 09/29/20 0036 Dibucaine 30 Gm Oint, 0 GM TOP UD PRN for PAIN- SEE INSTRUCTIONS Prescribed by: LEILA RAI on 09/24/20902 Docusate Sodium 100 Mg Capsule, 100 MG PO BID PRN for CONSTIPATION-1ST LINE Prescribed by: LEILA RAI on 09/24/20902 Hydrocodone/Acetaminophen 1 Each Tablet, 1 TAB PO Q4H PRN for PAIN-MODERATE (5- 7) Prescribed by: LEILA RAI on 09/24/20902 Ibuprofen 600 Mg Tablet, 600 MG PO Q6HR Prescribed by: LEILA RAI on 09/24/20902 Insulin Aspart 100 Unit/1 Ml Susp, 6 UNIT SC WM Prescribed by: LEILA RAI on 09/24/20902 Insulin Determir 1,000 Units/10 Ml Soln, 20 UNIT SQ HS Prescribed by: LEILA RAI on 09/24/20902 Patient Home Medication List Home Medication List Reviewed: Yes Review of Systems Review of Systems Constitutional: see HPI; No chills, No fever Respiratory: No cough, No short of breath Cardiovascular: No chest pain, No edema Gastrointestinal: see HPI; No constipation, No diarrhea, No nausea, No vomiting Genitourinary: denies burning, denies discharge, denies flank pain, denies hematuria, denies pain : Yes Musculoskeletal: no symptoms reported Psychiatric/Neurological: No Symptoms Reported Past Tjadhaq-Ztenaz-Xgtaao Hx Past Med/Social Hx: Reviewed Nursing Past Med/Soc Hx Patient Social History Alcohol Use: Denies Use Drug of Choice: THC Type Used: Cigarettes Former Smoker, Quit: Jun 06, 2018 2nd Hand Smoke Exposure: No Recent Infectious Disease Expo: No Recent Hopitalizations: No Immunizations Up To Date Tetanus Booster (TDap): Less than 5yrs PED Vaccines UTD: Yes Seasonal Allergies Seasonal Allergies: No Past Medical History Surgeries: Yes (EGD) Respiratory: No Currently Using CPAP: No Currently Using BIPAP: No Cardiac: Yes High Cholesterol Neurological: Yes Headaches /Migraines Reproductive Disorders: No Female Reproductive Disorders: Denies Sexually Transmitted Disease: Yes (CHLAMYDIA) HIV/AIDS: No Genitourinary: No Gastrointestinal: Yes (CHRONIC ABDOMINAL PAIN COMPLAINTS) Chronic Constipation, Ulcer Musculoskeletal: No Endocrine: Yes Diabetes, Insulin dep HEENT: No Loss of Vision: Denies Hearing Impairment: Denies Cancer: No Psychosocial: Yes ADD/ADHD, Anxiety Integumentary: No Blood Disorders: No Family Medical History Reviewed Nursing Family Hx Diabetes mellitus MATERNAL GRANDMOTHER Hypertension MATERNAL GRANDMOTHER Diabetes, Hypertension Physical Exam Vital Signs Vital Signs - First Documented 01/24/21 16:21 Temp 36.3 Pulse 100 Resp 18 B/P (MAP) 136/85 (102) Capillary Refill : Less Than 3 Seconds Height, Weight, BMI Height: 5'4.00" Weight: 221lbs. 0.4oz. 100.003273uy; 36.00 BMI Method:Stated General Appearance: WD/WN, no apparent distress Cardiovascular: regular rate, rhythm, no murmur Respiratory: lungs clear, normal breath sounds Gastrointestinal: normal bowel sounds, non tender, soft, no organomegaly Back: normal inspection, no CVA tenderness, no vertebral tenderness Extremities: non-tender, normal inspection Neurologic/Psychiatric: alert, oriented x 3 Skin: normal color, warm/dry Progress/Results/Core Measures Suspected Sepsis Recent Fever Within 48 Hours: No Infection Criteria Present: None New/Unexplained Altered Menta: No Sepsis Screen: No Definite Risk SIRS Temperature: Pulse: 100 Respiratory Rate: 18 Laboratory Tests 01/24/21 17:26: White Blood Count 9.4 Blood Pressure 136 /85 Mean: 102 Laboratory Tests 01/24/21 17:26: Platelet Count 340 Results/Orders Lab Results Laboratory Tests Test 01/24/21 16:27 01/24/21 17:26 01/24/21 18:55 Range/Units Urine Color YELLOW Urine Clarity CLEAR Urine pH 7.0 5-9 Urine Specific [place] 1.020 1.016-1.022 Urine Protein NEGATIVE NEGATIVE Urine Glucose (UA) NEGATIVE NEGATIVE Urine Ketones NEGATIVE NEGATIVE Urine Nitrite NEGATIVE NEGATIVE Urine Bilirubin NEGATIVE NEGATIVE Urine Urobilinogen 0.2 < = 1.0 MG/DL Urine Leukocyte Esterase TRACE H NEGATIVE Urine RBC (Auto) NEGATIVE NEGATIVE Urine RBC NONE /HPF Urine WBC NONE /HPF Urine Squamous Epithelial Cells NONE /HPF Urine Crystals NONE /LPF Urine Bacteria NEGATIVE /HPF Urine Casts NONE /LPF Urine Mucus NEGATIVE /LPF Urine Culture Indicated NO White Blood Count 9.4 4.3-11.0 10^3/uL Red Blood Count 4.33 3.80-5.11 10^6/uL Hemoglobin 12.0 11.5-16.0 g/dL Hematocrit 38 35-52 % Mean Corpuscular Volume 87 80-99 fL Mean Corpuscular Hemoglobin 28 25-34 pg Mean Corpuscular Hemoglobin Concent 32 32-36 g/dL Red Cell Distribution Width 15.4 H 10.0-14.5 % Platelet Count 340 130-400 10^3/uL Mean Platelet Volume 8.9 L 9.0-12.2 fL Immature Granulocyte % (Auto) 0 % Neutrophils (%) (Auto) 70 42-75 % Lymphocytes (%) (Auto) 25 12-44 % Monocytes (%) (Auto) 5 0-12 % Eosinophils (%) (Auto) 1 0-10 % Basophils (%) (Auto) 0 0-10 % Neutrophils # (Auto) 6.5 1.8-7.8 10^3/uL Lymphocytes # (Auto) 2.3 1.0-4.0 10^3/uL Monocytes # (Auto) 0.4 0.0-1.0 10^3/uL Eosinophils # (Auto) 0.1 0.0-0.3 10^3/uL Basophils # (Auto) 0.0 0.0-0.1 10^3/uL Immature Granulocyte # (Auto) 0.0 0.0-0.1 10^3/uL Human Chorionic Gonadotropin, Quant 63215 H <5 MIU/ML Glucometer 104 70-110 MG/DL My Orders Orders - PRISCILLA CALLE MD Wet Prep (01/24/21 18:26) Acetaminophen Tablet (Tylenol Tablet) (01/24/21 18:29) Accucheck Stat ONCE (01/24/21 18:53) Chlam Dna Probe (01/24/21 19:07) Neis Herbert Dna Urine Test (01/24/21 19:07) Vital Signs/I&O 01/24/21 16:21 Temp 36.3 Pulse 100 Resp 18 B/P (MAP) 136/85 (102) Capillary Refill : Less Than 3 Seconds Blood Pressure Mean: 102 Progress Note : Progress Note Seen and evaluated. UA and labs ordered by outgoing physician and these were reviewed. UA is normal with normal CBC. Quant pending. Bedside ultrasound performed. Difficult study due to markedly inflated bladder. After patient voided, uterus easily seen with intrauterine noted with pole and heart rate of 120 with crown-rump length indication of of about 7 weeks and 1 day. Still technically difficult study due to body habitus and formal ultrasound will better delineate dating. Patient believes that she is between 4 and 8 weeks so this would fit. Wet prep ordered. Tylenol 1 g p.o. ordered. Monitor patient. 1855: Fingerstick blood sugar 104. Overall doing better. I did discuss the case with Dr. Rai and he will see her in clinic on . Discharged home with return precautions. Patient verbalized understanding of instructions and agreement with plan. She is not currently taking Metformin. 1909: Patient does have a few white cells on wet prep but no trichomoniasis or clue cells. There is urine pending for chlamydia and gonorrhea. Patient to follow-up with her doctor. Discharged home with return precautions. Patient verbalized understanding of instructions and agreement with plan. Departure Impression Primary Impression: Left lower quadrant abdominal pain during Disposition: HOME, SELF-CARE Condition: Improved Departure-Patient Inst. Decision time for Depature: 18:58 Referrals: LEILA RAI DO (PCP/Family) Primary Care Physician Patient Instructions: Abdominal Pain, Adult ED, - The Second Month Add. Discharge Instructions: All discharge instructions reviewed with patient and/or family. Voiced understanding. You may take Tylenol/acetaminophen up to 1000 mg every 6 hours as needed for pain. Drink plenty of fluids and get plenty of rest. Follow-up with Dr. Rai on as scheduled. Return for worse pain, vaginal bleeding or discharge, weakness, breathing problems or other concerns as needed. Copy Copies To 1: LEILA RAI TIMOTHY D MD Jan 24, 2021 18:28
[2021-01-24] MEDS ORDERED: ACETAMINOPHEN 500 MG TAB (TYLENOL) PO STA (18:29)
[2021-01-24 19:14] VITALS: BP 136/85
== END 2021-01-24 19:14 | disposition home or self-care (01) ==
LOC: EDUNIT# 16:01 → ER 16:03
DX: O26.891 Other specified pregnancy related conditions, first trimester (principal); R10.32 Left lower quadrant pain; E11.9 Type 2 diabetes mellitus without complications; Z3A.00 Weeks of gestation of pregnancy not specified; Z88.2 Allergy status to sulfonamides; Z88.1 Allergy status to other antibiotic agents; Z88.8 Allergy status to other drugs, medicaments and biological substances; Z87.891 Personal history of nicotine dependence; Z83.3 Family history of diabetes mellitus; Z82.49 Family history of ischemic heart disease and other diseases of the circulatory system; Z79.4 Long term (current) use of insulin
CPT/HCPCS: 36415; 81000; 82962; 84702; 85025; 87210

== ENCOUNTER 2021-02-01 10:16 | Emergency (ER) | payer MEDICAID ==
[~2021-02-01] VITALS: Ht 162.5 cm; Wt 100.0 kg
--- NOTE | 2021-02-01 10:53 | ED GU-Female ---
General Chief Complaint: OB > 20 WEEKS Stated Complaint: ABD PAIN 8 WKS Nursing Triage Note: AMB TO ED REPORTS IS APX 8 WEEKS PREG HAS HAD BACK AND LOW ABD PAIN FOR SEVERAL WEEKS. WAS SEEN IN ED FOR APX 2 WEEKS HAS NOT BEEN SEEN DR CARMONA YET TO SEE TOMORROW. WAS TOLD BY DR CARMONA OFFICE TO COME TO ED TODAY. WAS TOLD BY IN [place] WITH LAST HAD SOMETHING ON HER UTERUS THAT MAY NEED FOLLOW UP.ALSO HVING NAUSEA FOR. Nursing Sepsis Screen: No Definite Risk Source: patient Exam Limitations: no limitations (NYLA PEARCE,CHRISTOPHER STUDENT) History of Present Illness Date Seen by Provider: Feb 01, 2021 Time Seen by Provider: 10:34 Initial Comments female at around 8 weeks gestation presents to the ED with complaints of lower abdominal pain for the past 2 weeks. Noted some vaginal spotting 2 days ago that has resolved. She describes the pain as "all over" and a 10/10. The pain is worse with movement and is accompanied by nausea. The pain is not relieved by Tylenol. She had 1 episode of diarrhea prior to arrival. She denies urinary symptoms including dysuria, polyuria, hesitancy, frequency. She also denies vaginal itching/irritation, abnormal/malodorous discharge. Complaints also include headache and blurred vision. She was seen in the ED for the same complaints on 01/24/21, bedside US done at that time showing intrauterine 7wk 1 day fetus with heart rate of 120. She has not seen HYDRAULIC MECHANIC for this , it is scheduled with Dr. Carmona for tomorrow. Her last was 09/23/2020 and complicated by insulin dependent GDM. She now has a type 2 DM diagnosis from her PCP and was prescribed metformin but never began taking. Not currently taking vitamin. LMP: unsure dates of late Oct/early Nov EDC: 08/29/2021 O+ blood type per our records from 09/23/2020 Timing/Duration: other (2 weeks) Location: periumbilical, suprapubic Associated Symptoms: abdominal pain; No dysuria, No fever/chills; nausea/vomiting (NYLA PEARCE,MED STUDENT) Timing/Duration: constant, other (2 weeks) Location: suprapubic Sexual [place] History: less than 2 months ago Associated Symptoms: abdominal pain; No fever/chills (PRISCILLA CALLE MD) Allergies and Home Medications Allergies Coded Allergies: diphenhydramine (Verified Allergy, Severe, Shortness of Breath, 08/05/19) HIVES SWELLING amoxicillin (Verified Allergy, Unknown, throat swells shut, 08/05/19) sulfamethoxazole (Verified Allergy, Unknown, 08/05/19) trimethoprim (Verified Allergy, Unknown, 08/05/19) Home Medications Benzocaine/Menthol 78 Gm Aerosol, 56 ML TP UD PRN for PAIN- SEE INSTRUCTIONS Prescribed by: LEILA CARMONA on 09/24/20902 Cefdinir 300 Mg Capsule, 300 MG PO BID Prescribed by: DORINA FRANZ on 09/29/2035 Dibucaine 30 Gm Oint, 0 GM TOP UD PRN for PAIN- SEE INSTRUCTIONS Prescribed by: LEILA CARMONA on 09/24/20902 Docusate Sodium 100 Mg Capsule, 100 MG PO BID PRN for CONSTIPATION-1ST LINE Prescribed by: LEILA CARMONA on 09/24/20902 Hydrocodone/Acetaminophen 1 Each Tablet, 1 TAB PO Q4H PRN for PAIN-MODERATE (5- 7) Prescribed by: LEILA CARMONA on 09/24/20902 Ibuprofen 600 Mg Tablet, 600 MG PO Q6HR Prescribed by: LEILA CARMONA on 09/24/20902 Insulin Aspart 100 Unit/1 Ml Susp, 6 UNIT SC WM Prescribed by: LEILA CARMONA on 09/24/20902 Insulin Determir 1,000 Units/10 Ml Soln, 20 UNIT SQ HS Prescribed by: LEILA CARMONA on 09/24/20902 Patient Home Medication List Home Medication List Reviewed: Yes (PRISCILLA CALLE MD) Review of Systems Review of Systems Constitutional: No chills, No fever EENTM: blurred vision, double vision Respiratory: No cough, No dyspnea on exertion Cardiovascular: No chest pain Gastrointestinal: abdominal pain (generalized ), diarrhea, heartburn, nausea; No vomiting Genitourinary: denies burning, denies discharge, denies dysuria, denies frequency, denies flank pain, denies urgency : Yes Skin: no symptoms reported Psychiatric/Neurological: Headache (right eye to right occiput) (NYLA PEARCE,MED STUDENT) Gastrointestinal: abdominal pain (generalized ), nausea Genitourinary: denies burning, denies discharge : Yes (PRISCILLA CALLE MD) All Other Systemes Reviewed Negative Unless Noted: Yes (PRISCILLA CALLE MD) Past Jpcwywi-Tackap-Fzttao Hx Past Med/Social Hx: Reviewed Nursing Past Med/Soc Hx (PRISCILLA CALLE MD) Patient Social History Alcohol Use: Denies Use Drug of Choice: THC Smoking Status: Current Everyday Smoker Type Used: Cigarettes Former Smoker, Quit: Jun 06, 2018 2nd Hand Smoke Exposure: No Recent Infectious Disease Expo: No Recent Hopitalizations: No (NYLA PEARCE MED STUDENT) Immunizations Up To Date Tetanus Booster (TDap): Less than 5yrs PED Vaccines UTD: Yes (NYLA PEARCE MED STUDENT) Seasonal Allergies Seasonal Allergies: No (NYLA PEARCE MED STUDENT) Past Medical History Surgeries: Yes (EGD) Respiratory: No Currently Using CPAP: No Currently Using BIPAP: No Cardiac: Yes High Cholesterol Neurological: Yes Headaches /Migraines Reproductive Disorders: No Female Reproductive Disorders: Denies Sexually Transmitted Disease: Yes (CHLAMYDIA) HIV/AIDS: No Genitourinary: No Gastrointestinal: Yes (CHRONIC ABDOMINAL PAIN COMPLAINTS) Chronic Constipation, Ulcer Musculoskeletal: No Endocrine: Yes Diabetes, Insulin dep HEENT: No Loss of Vision: Denies Hearing Impairment: Denies Cancer: No Psychosocial: Yes ADD/ADHD, Anxiety Integumentary: No Blood Disorders: No (NYLA PEARCE MED STUDENT) Family Medical History Reviewed Nursing Family Hx (PRISCILLA CALLE MD) Diabetes mellitus MATERNAL GRANDMOTHER Hypertension MATERNAL GRANDMOTHER Diabetes, Hypertension (NYLA PEARCE MED STUDENT) Physical Exam Vital Signs Vital Signs - First Documented 02/01/21 10:24 Temp 36.5 Pulse 91 Resp 18 B/P (MAP) 125/80 (95) Pulse Ox 100 O2 Delivery Room Air (PRISCILLA CALLE MD) Vital Signs Capillary Refill : Less Than 3 Seconds (NYLA PEARCE MED STUDENT) Height, Weight, BMI Height: 5'4.00" Weight: 221lbs. 0.4oz. 100.699917kw; 37.00 BMI Method:Stated General Appearance: WD/WN, no apparent distress HEENT: PERRL/EOMI, pharynx normal Neck: full range of motion, supple Cardiovascular: regular rate, rhythm, no murmur Respiratory: lungs clear, normal breath sounds, no respiratory distress, no accessory muscle use Gastrointestinal: normal bowel sounds, soft; No distended, No guarding, No rebound; tenderness (diffuse, mild) Back: no CVA tenderness Extremities: no pedal edema, no calf tenderness Neurologic/Psychiatric: alert, normal mood/affect, oriented x 3 Skin: normal color, warm/dry (NYLA PEARCE,PlanG STUDENT) General Appearance: WD/WN, no apparent distress Respiratory: lungs clear, normal breath sounds Gastrointestinal: soft, tenderness (diffuse, mild) Back: normal inspection, no CVA tenderness, no vertebral tenderness Neurologic/Psychiatric: alert, oriented x 3 Skin: normal color, warm/dry (PRISCILLA CALLE MD) Progress/Results/Core Measures Suspected Sepsis Recent Fever Within 48 Hours: No Infection Criteria Present: None New/Unexplained Altered Menta: No Sepsis Screen: No Definite Risk SIRS Temperature: Pulse: 91 Respiratory Rate: 18 Laboratory Tests 02/01/21 12:09: White Blood Count 9.2 Blood Pressure 125 /80 Mean: 95 Laboratory Tests 02/01/21 12:09: Creatinine 0.77, Platelet Count 380, Total Bilirubin 0.3 (NYLA PEAREC,PlanG STUDENT) Results/Orders Lab Results Laboratory Tests Test 02/01/21 11:15 02/01/21 12:09 Range/Units Urine Color YELLOW Urine Clarity CLEAR Urine pH 7.0 5-9 Urine Specific [place] <=1.005 1.016-1.022 Urine Protein NEGATIVE NEGATIVE Urine Glucose (UA) NEGATIVE NEGATIVE Urine Ketones NEGATIVE NEGATIVE Urine Nitrite NEGATIVE NEGATIVE Urine Bilirubin NEGATIVE NEGATIVE Urine Urobilinogen 0.2 < = 1.0 MG/DL Urine Leukocyte Esterase NEGATIVE NEGATIVE Urine RBC (Auto) NEGATIVE NEGATIVE Urine RBC NONE /HPF Urine WBC RARE /HPF Urine Squamous Epithelial Cells 10-25 H /HPF Urine Crystals NONE /LPF Urine Bacteria NEGATIVE /HPF Urine Casts NONE /LPF Urine Mucus NEGATIVE /LPF Urine Culture Indicated NO White Blood Count 9.2 4.3-11.0 10^3/uL Red Blood Count 4.40 3.80-5.11 10^6/uL Hemoglobin 12.2 11.5-16.0 g/dL Hematocrit 38 35-52 % Mean Corpuscular Volume 86 80-99 fL Mean Corpuscular Hemoglobin 28 25-34 pg Mean Corpuscular Hemoglobin Concent 32 32-36 g/dL Red Cell Distribution Width 15.5 H 10.0-14.5 % Platelet Count 380 130-400 10^3/uL Mean Platelet Volume 9.0 9.0-12.2 fL Immature Granulocyte % (Auto) 0 % Neutrophils (%) (Auto) 74 42-75 % Lymphocytes (%) (Auto) 21 12-44 % Monocytes (%) (Auto) 4 0-12 % Eosinophils (%) (Auto) 1 0-10 % Basophils (%) (Auto) 0 0-10 % Neutrophils # (Auto) 6.8 1.8-7.8 10^3/uL Lymphocytes # (Auto) 1.9 1.0-4.0 10^3/uL Monocytes # (Auto) 0.3 0.0-1.0 10^3/uL Eosinophils # (Auto) 0.1 0.0-0.3 10^3/uL Basophils # (Auto) 0.0 0.0-0.1 10^3/uL Immature Granulocyte # (Auto) 0.0 0.0-0.1 10^3/uL Sodium Level 135 135-145 MMOL/L Potassium Level 4.0 3.6-5.0 MMOL/L Chloride Level 105 98-107 MMOL/L Carbon Dioxide Level 20 L 21-32 MMOL/L Anion Gap 10 5-14 MMOL/L Blood Urea Nitrogen 8 7-18 MG/DL Creatinine 0.77 0.60-1.30 MG/DL Estimat Glomerular Filtration Rate > 60 BUN/Creatinine Ratio 10 Glucose Level 94 70-105 MG/DL Calcium Level 8.9 8.5-10.1 MG/DL Corrected Calcium 8.6 8.5-10.1 MG/DL Total Bilirubin 0.3 0.1-1.0 MG/DL Aspartate Amino Transf (AST/SGOT) 18 5-34 U/L Alanine Aminotransferase (ALT/SGPT) 24 0-55 U/L Alkaline Phosphatase 59 40-136 U/L Total Protein 8.3 H 6.4-8.2 GM/DL Albumin 4.4 3.2-4.5 GM/DL Human Chorionic Gonadotropin, Quant [id number] H <5 MIU/ML (PRISCILLA CALLE MD) My Orders Orders - PRISCILLA CALLE MD Us Ob Single Fetus<14 [id number] (02/01/21 10:56) Ua Culture If Indicated (02/01/21 10:58) Cbc With Automated Diff (02/01/21 10:58) Comprehensive Metabolic Panel (02/01/21 10:58) Hcg,Quantitative (02/01/21 10:58) Ondansetron Injection (Zofran Injectio (02/01/21 11:00) Lactated Ringers (Lr 1000 Ml Iv Solution (02/01/21 10:58) Ed Iv/Invasive Line Start (02/01/21 10:58) Famotidine Injection (Pepcid Injection) (02/01/21 11:03) (PRISCILLA CALLE MD) Medications Given in ED Current Medications Medications Dose Ordered Sig/Nkechi Route Start Time Stop Time Status Last Admin Dose Admin Ondansetron HCl 4 mg ONCE ONCE IVP 02/01/21 11:00 02/01/21 11:02 DC 02/01/21 12:09 4 MG (PRISCILLA CALLE MD) Vital Signs/I&O 02/01/21 10:24 Temp 36.5 Pulse 91 Resp 18 B/P (MAP) 125/80 (95) Pulse Ox 100 O2 Delivery Room Air (PRISCILLA CALLE MD) Vital Signs/I&O Capillary Refill : Less Than 3 Seconds (NYLA PEARCE,MED STUDENT) Blood Pressure Mean: 95 Progress Note : Progress Note I have seen and evaluated the patient and agree with above except as indicated. I have directed the plan of care. Patient is here with continuing lower abdominal pain. She does follow with Dr. Carmona. She was supposed to see him last week but her appointment was actually tomorrow. She will see him tomorrow. States that she has had minimal vaginal spotting that has not happened in 2 days. Denies any significant discharge. Denies any injury. This is her third and relative close proximity in a row. Evaluation as above. Plan for IV, labs, UA, quantitative hCG and OB ultrasound. 1258: Labs reviewed but quant is still pending. Ultrasound complete and results noted below. Patient is O+ blood type. She is not actively bleeding. Wet prep done last week was negative. She has appointment with her OB tomorrow. No indication for further treatment currently and this was discussed with the patient who agreed. Discharged home with return precautions. Patient verbalized understanding of instructions and agreement with plan. Copy of the chart was sent to Dr. Carmona. (PRISCILLA CALLE MD) Diagnostic Imaging Diagonstic Imaging: Ultrasound Plain Films/CT/US/NM/MRI: pelvis Comments [facility], [place] NAME: KELBY MOSLEY [facility] REC#: [id number] PT STATUS: REG ER : 2000 PHYSICIAN: PRISCILLA CALLE MD ADMIT DATE: 02/01/21/ER Draft Date of Exam:02/01/21 US OB SINGLE FETUS<14 [id number] PROCEDURE: US OB SINGLE FETUS <14 WKS. TECHNIQUE: Multiple real-time grayscale images were obtained over the gravid uterus in various projections. INDICATION: Spotting and abdominal pain. FINDINGS: There is an intrauterine gestational sac containing a pole consistent with approximately 8 weeks 2 days gestation. heart rate was recorded at 153 bpm. There appears to be a small area of subchorionic hemorrhage in the lower uterine segment. Adnexa are unremarkable. There is no free fluid. IMPRESSION: Single live IUP 8 weeks 2 days gestational age. Estimated date of confinement sonographically is 09/11/2021. Note is made of a small subchorionic hemorrhage. Dictated on workstation # [id number] Dict: 02/01/21 1213 Trans: 02/01/21 1229 [facility] [id number] Interpreted by: ERASTO MCCORMICK MD Electronically signed by: (PRISCILLA CALLE MD) Departure Impression Primary Impression: Threatened miscarriage Additional Impression: Abdominal pain during Qualified Codes: O26.891 - Other specified related conditions, first trimester; R10.9 - Unspecified abdominal pain Disposition: HOME, SELF-CARE Condition: Improved Departure-Patient Inst. Decision time for Depature: 13:01 (PRISCILLA CALLE MD) Referrals: LEILA CARMONA DO (PCP/Family) Primary Care Physician Patient Instructions: Threatened Miscarriage (DC), Stomach Pain in Early Add. Discharge Instructions: All discharge instructions reviewed with patient and/or family. Voiced understanding. You may take Tylenol/acetaminophen 1000 mg every 6-8 hours as needed for pain. Follow-up with Dr. Carmona for recheck and further evaluation tomorrow as scheduled. Return for worse pain, vaginal bleeding greater than 2 pads per hour for more than 2 hours, or other concerns as needed. Copy Copies To 1: LEILA CARMONA [place],MED STUDENT Feb 01, 2021 10:53 PRISCILLA CALLE MD Feb 01, 2021 13:02
[2021-02-01] MEDS ORDERED: LACTATED RINGERS 1,000 ML IV STA (10:58)
[2021-02-01] MEDS ORDERED: ONDANSETRON 4 MG/2 ML (SDV) Z0FRAN IVP ONE (11:00)
[2021-02-01] MEDS ORDERED: FAMOTIDINE 20MG/2ML IV (PEPCID) IV STA (11:03)
[2021-02-01 11:23] LABS: BILIRUBIN,URINE NEGATIVE (NEGATIVE); CLARITY,URINE CLEAR; COLOR,URINE YELLOW; GLUCOSE, URINE (UA) NEGATIVE (NEGATIVE); KETONES,URINE NEGATIVE (NEGATIVE); LEUKOCYTE ESTERASE ,URINE NEGATIVE (NEGATIVE); NITRITE,URINE NEGATIVE (NEGATIVE); PROTEIN,URINE NEGATIVE (NEGATIVE)
[2021-02-01 11:41] LABS: BACTERIA,URINE NEGATIVE /HPF; WBC,URINE RARE /HPF
[2021-02-01 12:26] LABS: BASOPHILS % (AUTO) 0 % (0-10); EOSINOPHILS # (AUTO) 0.1 10^3/uL (0.0-0.3); EOSINOPHILS % (AUTO) 1 % (0-10); HEMATOCRIT 38 % (35-52); HEMOGLOBIN 12.2 g/dL (11.5-16.0); LYMPHOCYTES # (AUTO) 1.9 10^3/uL (1.0-4.0); LYMPHOCYTES % (AUTO) 21 % (12-44); MEAN CORPUSCULAR HEMOGLOBIN 28 pg (25-34); MEAN CORPUSCULAR HGB CONC 32 g/dL (32-36); MEAN CORPUSCULAR VOLUME 86 fL (80-99); MONOCYTES # (AUTO) 0.3 10^3/uL (0.0-1.0); MONOCYTES % (AUTO) 4 % (0-12); NEUTROPHILS # (AUTO) 6.8 10^3/uL (1.8-7.8); NEUTROPHILS % (AUTO) 74 % (42-75); PLATELET COUNT 380 10^3/uL (130-400); WHITE BLOOD COUNT 9.2 10^3/uL (4.3-11.0)
--- NOTE | 2021-02-01 12:30 | Diagnostic Imaging Report ---
PROCEDURE: US OB SINGLE FETUS <14 WKS. TECHNIQUE: Multiple real-time grayscale images were obtained over the gravid uterus in various projections. INDICATION: Spotting and abdominal pain. FINDINGS: There is an intrauterine gestational sac containing a pole consistent with approximately 8 weeks 2 days gestation. heart rate was recorded at 153 bpm. There appears to be a small area of subchorionic hemorrhage in the lower uterine segment. Adnexa are unremarkable. There is no free fluid. IMPRESSION: Single live IUP 8 weeks 2 days gestational age. Estimated date of confinement sonographically is 09/11/2021. Note is made of a small subchorionic hemorrhage. Dictated by: Dictated on workstation # [id number]
[2021-02-01 12:33] LABS: ALBUMIN 4.4 GM/DL (3.2-4.5)
[2021-02-01 12:34] LABS: CHLORIDE 105 MMOL/L (98-107); SODIUM 135 MMOL/L (135-145)
[2021-02-01 12:35] LABS: CALCIUM 8.9 MG/DL (8.5-10.1)
[2021-02-01 12:36] LABS: GLUCOSE 94 MG/DL (70-105); TOTAL PROTEIN 8.3 GM/DL (6.4-8.2)
[2021-02-01 12:37] LABS: CARBON DIOXIDE 20 MMOL/L (21-32)
[2021-02-01 12:38] LABS: BILIRUBIN,TOTAL 0.3 MG/DL (0.1-1.0)
[2021-02-01 12:39] LABS: ALKALINE PHOSPHATASE 59 U/L (40-136)
[2021-02-01 12:40] LABS: CREATININE SERUM 0.77 MG/DL (0.60-1.30); GFR ESTIMATED > 60
[2021-02-01 12:41] LABS: BUN/CREATININE RATIO 10
[2021-02-01 12:42] LABS: ALANINE AMINOTRANSFERASE 24 U/L (0-55)
[2021-02-01 13:28] VITALS: BP 114/49
== END 2021-02-01 13:28 | disposition home or self-care (01) ==
LOC: EDUNIT# 10:16 → ER 10:19
DX: O20.0 Threatened abortion (principal); O24.911 Unspecified diabetes mellitus in pregnancy, first trimester; E11.9 Type 2 diabetes mellitus without complications; O99.351 Diseases of the nervous system complicating pregnancy, first trimester; G43.909 Migraine, unspecified, not intractable, without status migrainosus; O99.611 Diseases of the digestive system complicating pregnancy, first trimester; K59.09 Other constipation; F17.210 Nicotine dependence, cigarettes, uncomplicated; Z79.4 Long term (current) use of insulin; Z88.8 Allergy status to other drugs, medicaments and biological substances; Z88.1 Allergy status to other antibiotic agents; Z88.2 Allergy status to sulfonamides; Z3A.08 8 weeks gestation of pregnancy
CPT/HCPCS: 36415; 76801; 80053; 81000; 84702; 85025

== ENCOUNTER 2021-03-29 20:39 | Emergency (ER) | payer MEDICAID ==
[~2021-03-29] VITALS: Ht 162.5 cm; Wt 104.3 kg
[2021-03-29 20:50] VITALS: BP 139/70
[2021-03-29 21:10] LABS: BILIRUBIN,URINE NEGATIVE (NEGATIVE); CLARITY,URINE CLEAR; COLOR,URINE YELLOW; GLUCOSE, URINE (UA) NEGATIVE (NEGATIVE); KETONES,URINE NEGATIVE (NEGATIVE); LEUKOCYTE ESTERASE ,URINE TRACE (NEGATIVE); NITRITE,URINE NEGATIVE (NEGATIVE); PROTEIN,URINE NEGATIVE (NEGATIVE)
--- NOTE | 2021-03-29 21:16 | ED GU-Female ---
General Chief Complaint: Female Reproductive Stated Complaint: VAGINAL PAIN 17 WEEKS History of Present Illness Date Seen by Provider: March 29, 2021 Time Seen by Provider: 20:55 Initial Comments 20-year-old -[place] female presents for vaginal discomfort that is been present for 4 days. She is 17 weeks gestation and believes she may have an appointment with her OB doctor tomorrow. She has not called the office about any concerns related to this . She has been seen here and had a previous ultrasound which showed no significant abnormalities. She is taking a vitamin but not daily. She reports no sexual activity for the last 4 weeks, she denies any vaginal discharge but some discomfort with urination. She has had no spotting or bleeding. Patient reports regular movement being felt from the baby. She is cutting down on her cigarette smoking, averaging 2 to 6 cigarettes a day. Timing/Duration: other (4 days) Severity/Quality: mild Associated Symptoms: No abdominal pain, No loss of bladder control, No nausea/vomiting; other Allergies and Home Medications Allergies Coded Allergies: diphenhydramine (Verified Allergy, Severe, Shortness of Breath, 08/05/19) HIVES SWELLING amoxicillin (Verified Allergy, Unknown, throat swells shut, 08/05/19) sulfamethoxazole (Verified Allergy, Unknown, 08/05/19) trimethoprim (Verified Allergy, Unknown, 08/05/19) Home Medications Benzocaine/Menthol 78 Gm Aerosol, 56 ML TP UD PRN for PAIN- SEE INSTRUCTIONS Prescribed by: LEILA RAI on 09/24/20902 Cefdinir 300 Mg Capsule, 300 MG PO BID Prescribed by: DORINA FRANZ on 09/29/20 0036 Dibucaine 30 Gm Oint, 0 GM TOP UD PRN for PAIN- SEE INSTRUCTIONS Prescribed by: LEILA RAI on 09/24/20902 Docusate Sodium 100 Mg Capsule, 100 MG PO BID PRN for CONSTIPATION-1ST LINE Prescribed by: LEILA RAI on 09/24/20902 Hydrocodone/Acetaminophen 1 Each Tablet, 1 TAB PO Q4H PRN for PAIN-MODERATE (5- 7) Prescribed by: LEILA RAI on 09/24/20902 Ibuprofen 600 Mg Tablet, 600 MG PO Q6HR Prescribed by: LEILA RAI on 09/24/20902 Insulin Aspart 100 Unit/1 Ml Susp, 6 UNIT SC WM Prescribed by: LEILA RAI on 09/24/20902 Insulin Determir 1,000 Units/10 Ml Soln, 20 UNIT SQ HS Prescribed by: LEILA RAI on 09/24/20902 Patient Home Medication List Home Medication List Reviewed: Yes Review of Systems Review of Systems Constitutional: no symptoms reported, see HPI Genitourinary: see HPI; denies discharge; pain : Yes All Other Systemes Reviewed Negative Unless Noted: Yes Past Zprypod-Bwuztx-Ismzry Hx Past Med/Social Hx: Reviewed Nursing Past Med/Soc Hx Patient Social History Drug of Choice: THC Type Used: Cigarettes Former Smoker, Quit: Jun 06, 2018 2nd Hand Smoke Exposure: No Recent Hopitalizations: No Immunizations Up To Date Tetanus Booster (TDap): Less than 5yrs PED Vaccines UTD: Yes Seasonal Allergies Seasonal Allergies: No Past Medical History Surgeries: Yes (EGD) Respiratory: No Currently Using CPAP: No Currently Using BIPAP: No Cardiac: Yes High Cholesterol Neurological: Yes Headaches /Migraines Hx : 3 Hx Para: 2 Hx Total # of Abortions (Sp): 0 Reproductive Disorders: No Female Reproductive Disorders: Denies Sexually Transmitted Disease: Yes (CHLAMYDIA) HIV/AIDS: No Genitourinary: No Gastrointestinal: Yes (CHRONIC ABDOMINAL PAIN COMPLAINTS) Chronic Constipation, Ulcer Musculoskeletal: No Endocrine: Yes Diabetes, Insulin dep HEENT: No Loss of Vision: Denies Hearing Impairment: Denies Cancer: No Psychosocial: Yes ADD/ADHD, Anxiety Integumentary: No Blood Disorders: No Family Medical History Diabetes mellitus MATERNAL GRANDMOTHER Hypertension MATERNAL GRANDMOTHER Diabetes, Hypertension Physical Exam Vital Signs Vital Signs - First Documented 03/29/21 20:50 Temp 36.7 Pulse 107 Resp 22 B/P (MAP) 139/70 (93) Pulse Ox 98 O2 Delivery Room Air Capillary Refill : Height, Weight, BMI Height: 5'4.00" Weight: 221lbs. 0.4oz. 100.980901kz; 37.00 BMI Method:Stated General Appearance: WD/WN, no apparent distress Neck: non-tender, full range of motion, supple, normal inspection Cardiovascular: normal peripheral pulses, regular rate, rhythm Respiratory: chest non-tender, lungs clear, normal breath sounds Gastrointestinal: normal bowel sounds, non tender, soft Pelvic: normal external exam, no cerv. motion tender; No discharge, No lesions, No mass, No vaginal bleeding Neurologic/Psychiatric: no motor/sensory deficits, alert, normal mood/affect, oriented x 3 Skin: normal color, warm/dry FHTs 150s Progress/Results/Core Measures Suspected Sepsis SIRS Temperature: Pulse: Respiratory Rate: Blood Pressure / Mean: Results/Orders Lab Results Laboratory Tests Test 03/29/21 20:55 Range/Units Urine Color YELLOW Urine Clarity CLEAR Urine pH 7.0 5-9 Urine Specific Eva 1.010 L 1.016-1.022 Urine Protein NEGATIVE NEGATIVE Urine Glucose (UA) NEGATIVE NEGATIVE Urine Ketones NEGATIVE NEGATIVE Urine Nitrite NEGATIVE NEGATIVE Urine Bilirubin NEGATIVE NEGATIVE Urine Urobilinogen 0.2 < = 1.0 MG/DL Urine Leukocyte Esterase TRACE H NEGATIVE Urine RBC (Auto) NEGATIVE NEGATIVE Urine RBC NONE /HPF Urine WBC 5-10 H /HPF Urine Squamous Epithelial Cells 5-10 /HPF Urine Crystals NONE /LPF Urine Bacteria NEGATIVE /HPF Urine Casts NONE /LPF Urine Mucus NEGATIVE /LPF Urine Culture Indicated NO My Orders Orders - GABBI HARDY Ua Culture If Indicated (03/29/21 21:03) Vital Signs/I&O 03/29/21 20:50 Temp 36.7 Pulse 107 Resp 22 B/P (MAP) 139/70 (93) Pulse Ox 98 O2 Delivery Room Air Capillary Refill : Departure Impression Primary Impression: 17 weeks gestation of Disposition: 01 HOME, SELF-CARE Condition: Improved Departure-Patient Inst. Decision time for Depature: 21:20 Referrals: LEILA RAI DO (PCP/Family) Primary Care Physician Patient Instructions: Smoking in , Care Add. Discharge Instructions: Keep your scheduled follow-up appointment with Dr. Rai. Take vitamins daily and drink 16 ounces of water every 2 hours while awake. Activity as tolerated. Call Dr. Rai's office during weekdays, for any OB related concerns. Return to the emergency department for new, urgent healthcare needs. All discharge instructions reviewed with patient and/or family. Voiced understanding. Copy Copies To 1: LEILA RAI AMY ARNP March 29, 2021 21:16
[2021-03-29 21:18] LABS: BACTERIA,URINE NEGATIVE /HPF
== END 2021-03-29 21:35 | disposition home or self-care (01) ==
LOC: EDUNIT# 20:39 → ER 20:42
DX: O26.892 Other specified pregnancy related conditions, second trimester (principal); N76.89 Other specified inflammation of vagina and vulva; E11.9 Type 2 diabetes mellitus without complications; Z3A.17 17 weeks gestation of pregnancy; Z88.2 Allergy status to sulfonamides; Z88.1 Allergy status to other antibiotic agents; Z88.8 Allergy status to other drugs, medicaments and biological substances; Z87.891 Personal history of nicotine dependence; Z79.4 Long term (current) use of insulin
CPT/HCPCS: 81000; 99284

== ENCOUNTER 2021-05-06 14:49 | Emergency (ER) | payer MEDICAID ==
[2021-05-06] MEDS ORDERED: FAMOTIDINE 20 MG (PEPCID) TABLET PO STA (15:01)
[2021-05-06] MEDS ORDERED: NS IV 500 ML 500 ML IV ONE (15:15)
[2021-05-06] MEDS ORDERED: ANTACID SUSP 30 ML UDC (MYLANTA) PO ONE (15:15)
[2021-05-06] MEDS ORDERED: LIDOCAINE 2% VISCOUS 15 ML UDC PO ONE (15:15)
--- NOTE | 2021-05-06 15:15 | Diagnostic Imaging Report ---
INDICATION: chest pain. TECHNIQUE: Single view chest 3:01 PM. CORRELATION STUDY: 06/25/2020 FINDINGS: The heart size, mediastinal configuration and pulmonary vascularity are within normal limits. The lungs are clear with no consolidating infiltrate. There is no significant effusion or pneumothorax. IMPRESSION: 1. Negative appearing portable chest. Dictated by: Dictated on workstation # [id number]
--- NOTE | 2021-05-06 15:27 | ED General ---
General Chief Complaint: General Problems/Pain Stated Complaint: GLUCOSE PROBLEMS Source of Information: Patient, EMS Exam Limitations: No Limitations History of Present Illness Date Seen by Provider: May 06, 2021 Time Seen by Provider: 14:35 Initial Comments Patient presents ER by EMS from home where she states she started feeling poorly today with an epigastric abdominal discomfort radiating into her midline chest substernal. She is afraid it is her heart. She denies having history of heart disease. She says the pain is not reproduced by deep inspiration or palpation of her chest. She is not having any vomiting diarrhea constipation dysuria. She is a G3, P2 at 5-1/[address] Carmona. She has a referral to the high speed operator and [facility] but has not gone there yet. She is a relatively difficult historian however we are able to piece together that she had gestational diabetes with her previous and has not needed insulin yet for this . Blood sugar was around 110 per EMS on arrival. Allergies and Home Medications Allergies Coded Allergies: diphenhydramine (Verified Allergy, Severe, Shortness of Breath, 08/05/19) HIVES SWELLING amoxicillin (Verified Allergy, Unknown, throat swells shut, 08/05/19) sulfamethoxazole (Verified Allergy, Unknown, 08/05/19) trimethoprim (Verified Allergy, Unknown, 08/05/19) Home Medications Benzocaine/Menthol 78 Gm Aerosol, 56 ML TP UD PRN for PAIN- SEE INSTRUCTIONS Prescribed by: LEILA CARMONA on 09/24/20902 Cefdinir 300 Mg Capsule, 300 MG PO BID Prescribed by: DORINA FRANZ on 09/29/20 003 Dibucaine 30 Gm Oint, 0 GM TOP UD PRN for PAIN- SEE INSTRUCTIONS Prescribed by: LEILA CARMONA on 09/24/20902 Docusate Sodium 100 Mg Capsule, 100 MG PO BID PRN for CONSTIPATION-1ST LINE Prescribed by: LEILA CARMONA on 09/24/20902 Hydrocodone/Acetaminophen 1 Each Tablet, 1 TAB PO Q4H PRN for PAIN-MODERATE (5- 7) Prescribed by: LEILA CARMONA on 09/24/20902 Ibuprofen 600 Mg Tablet, 600 MG PO Q6HR Prescribed by: LEILA CARMONA on 09/24/20902 Insulin Aspart 100 Unit/1 Ml Susp, 6 UNIT SC WM Prescribed by: LEILA CARMONA on 09/24/20902 Insulin Determir 1,000 Units/10 Ml Soln, 20 UNIT SQ HS Prescribed by: LEILA CARMONA on 09/24/20902 Patient Home Medication List Home Medication List Reviewed: Yes Review of Systems Review of Systems Constitutional: No chills, No diaphoresis EENTM: No ear discharge, No ear pain Respiratory: No cough, No short of breath Cardiovascular: No chest pain, No edema Gastrointestinal: No abdominal pain, No constipation, No diarrhea Genitourinary: No discharge, No dysuria Musculoskeletal: No back pain, No joint pain Skin: No pruritus, No rash Psychiatric/Neurological: Denies Anxiety, Denies Depressed All Other Systems Reviewed Negative Unless Noted: Yes Past Eiovvye-Nnfhrn-Sqrpvl Hx Patient Social History Alcohol Use: Denies Use Drug of Choice: THC Smoking Status: Current Everyday Smoker Type Used: Cigarettes (2 per day) Former Smoker, Quit: Jun 06, 2018 2nd Hand Smoke Exposure: No Recent Hopitalizations: No Immunizations Up To Date Tetanus Booster (TDap): Less than 5yrs PED Vaccines UTD: Yes Seasonal Allergies Seasonal Allergies: No Past Medical History Surgeries: Yes (EGD) Respiratory: No Currently Using CPAP: No Currently Using BIPAP: No Cardiac: Yes High Cholesterol Neurological: Yes Headaches /Migraines Reproductive Disorders: No Female Reproductive Disorders: Denies Sexually Transmitted Disease: Yes (CHLAMYDIA) HIV/AIDS: No Genitourinary: No Gastrointestinal: Yes (CHRONIC ABDOMINAL PAIN COMPLAINTS) Chronic Constipation, Ulcer Musculoskeletal: No Endocrine: Yes Diabetes, Insulin dep HEENT: No Loss of Vision: Denies Hearing Impairment: Denies Cancer: No Psychosocial: Yes ADD/ADHD, Anxiety Integumentary: No Blood Disorders: No Family Medical History Diabetes mellitus MATERNAL GRANDMOTHER Hypertension MATERNAL GRANDMOTHER Diabetes, Hypertension Physical Exam Vital Signs Capillary Refill : Height, Weight, BMI Height: 5'4.00" Weight: 221lbs. 0.4oz. 100.442762ib; 39.00 BMI Method:Stated General Appearance: WD/WN, Mild Distress Eyes: Bilateral Eye Normal Inspection, Bilateral Eye PERRL, Bilateral Eye EOMI HEENT: PERRL/EOMI, Pharynx Normal, Moist Mucous Membranes Neck: Full Range of Motion, Normal Inspection Respiratory: Lungs Clear, Normal Breath Sounds, No Accessory Muscle Use, No Respiratory Distress Cardiovascular: Regular Rate, Rhythm, No Edema, Normal Peripheral Pulses Gastrointestinal: Normal Bowel Sounds, Non Tender, Soft, Other (Gravid) Extremity: Normal Capillary Refill, Normal Inspection, Normal Range of Motion, No Pedal Edema Neurologic/Psychiatric: Alert, Oriented x3, No Motor/Sensory Deficits, Depressed Affect Skin: Normal Color, Warm/Dry Progress/Results/Core Measures Suspected Sepsis SIRS Temperature: Pulse: Respiratory Rate: Laboratory Tests 05/06/21 16:12: White Blood Count 8.1 Blood Pressure / Mean: Laboratory Tests 05/06/21 16:12: Platelet Count 279 05/06/21 17:20: Creatinine 0.68, INR Comment 1.0, Total Bilirubin 0.3 Results/Orders Lab Results Laboratory Tests Test 05/06/21 15:08 05/06/21 15:37 05/06/21 16:12 05/06/21 17:20 Range/Units Glucometer 123 H 70-110 MG/DL Urine Color YELLOW Urine Clarity CLEAR Urine pH 7.0 5-9 Urine Specific [place] 1.020 1.016-1.022 Urine Protein NEGATIVE NEGATIVE Urine Glucose (UA) NEGATIVE NEGATIVE Urine Ketones NEGATIVE NEGATIVE Urine Nitrite NEGATIVE NEGATIVE Urine Bilirubin NEGATIVE NEGATIVE Urine Urobilinogen 0.2 < = 1.0 MG/DL Urine Leukocyte Esterase NEGATIVE NEGATIVE Urine RBC (Auto) NEGATIVE NEGATIVE Urine RBC NONE /HPF Urine WBC NONE /HPF Urine Crystals PRESENT H /LPF Urine Amorphous Sediment LARGE [place] PHOSPHATE H /LPF Urine Bacteria NEGATIVE /HPF Urine Casts NONE /LPF Urine Mucus NEGATIVE /LPF Urine Culture Indicated NO Urine Opiates Screen NEGATIVE NEGATIVE Urine Oxycodone Screen NEGATIVE NEGATIVE Urine Methadone Screen NEGATIVE NEGATIVE Urine Propoxyphene Screen NEGATIVE NEGATIVE Urine Barbiturates Screen NEGATIVE NEGATIVE Ur Tricyclic Antidepressants Screen NEGATIVE NEGATIVE Urine Phencyclidine Screen NEGATIVE NEGATIVE Urine Amphetamines Screen NEGATIVE NEGATIVE Urine Methamphetamines Screen NEGATIVE NEGATIVE Urine Benzodiazepines Screen NEGATIVE NEGATIVE Urine Cocaine Screen NEGATIVE NEGATIVE Urine Cannabinoids Screen NEGATIVE NEGATIVE White Blood Count 8.1 4.3-11.0 10^3/uL Red Blood Count 3.73 L 3.80-5.11 10^6/uL Hemoglobin 11.0 L 11.5-16.0 g/dL Hematocrit 34 L 35-52 % Mean Corpuscular Volume 90 80-99 fL Mean Corpuscular Hemoglobin 30 25-34 pg Mean Corpuscular Hemoglobin Concent 33 32-36 g/dL Red Cell Distribution Width 16.5 H 10.0-14.5 % Platelet Count 279 130-400 10^3/uL Mean Platelet Volume 9.6 9.0-12.2 fL Immature Granulocyte % (Auto) 0 % Neutrophils (%) (Auto) 76 H 42-75 % Lymphocytes (%) (Auto) 17 12-44 % Monocytes (%) (Auto) 5 0-12 % Eosinophils (%) (Auto) 1 0-10 % Basophils (%) (Auto) 0 0-10 % Neutrophils # (Auto) 6.1 1.8-7.8 10^3/uL Lymphocytes # (Auto) 1.4 1.0-4.0 10^3/uL Monocytes # (Auto) 0.4 0.0-1.0 10^3/uL Eosinophils # (Auto) 0.1 0.0-0.3 10^3/uL Basophils # (Auto) 0.0 0.0-0.1 10^3/uL Immature Granulocyte # (Auto) 0.0 0.0-0.1 10^3/uL Prothrombin Time 13.6 12.2-14.7 SEC INR Comment 1.0 0.8-1.4 Activated Partial Thromboplast Time 31 24-35 SEC Sodium Level 138 135-145 MMOL/L Potassium Level 3.9 3.6-5.0 MMOL/L Chloride Level 107 98-107 MMOL/L Carbon Dioxide Level 18 L 21-32 MMOL/L Anion Gap 13 5-14 MMOL/L Blood Urea Nitrogen 7 7-18 MG/DL Creatinine 0.68 0.60-1.30 MG/DL Estimat Glomerular Filtration Rate > 60 BUN/Creatinine Ratio 10 Glucose Level 82 70-105 MG/DL Calcium Level 9.0 8.5-10.1 MG/DL Corrected Calcium 9.3 8.5-10.1 MG/DL Magnesium Level 2.0 1.6-2.4 MG/DL Total Bilirubin 0.3 0.1-1.0 MG/DL Aspartate Amino Transf (AST/SGOT) 15 5-34 U/L Alanine Aminotransferase (ALT/SGPT) 8 0-55 U/L Alkaline Phosphatase 59 40-136 U/L Myoglobin 21.9 10.0-92.0 NG/ML Troponin I < 0.028 <0.028 NG/ML Total Protein 7.4 6.4-8.2 GM/DL Albumin 3.6 3.2-4.5 GM/DL Lipase 23 8-78 U/L My Orders Orders - SLY NGUYEN Ed Iv/Invasive Line Start (05/06/21 15:01) Ns Iv 500 Ml (Sodium Chloride 0.9%) (05/06/21 15:15) Chest 1 View, Ap/Pa Only (05/06/21 15:01) Continuous Ekg Monitoring (05/06/21 15:) Ekg Tracing (05/06/21 15:) Accucheck Stat ONCE (05/06/21 15:) Cbc With Automated Diff (05/06/21 15:) Magnesium (05/06/21 15:) Comprehensive Metabolic Panel (05/06/21 15:) Myoglobin Serum (05/06/21 15:) Protime With Inr (05/06/21 15:) Partial Thromboplastin Time (05/06/21 15:) Lipase (05/06/21 15:01) Troponin I (05/06/21 15:01) Lidocaine 2% Viscous 15 Ml (Xylocaine Vi (05/06/21 15:15) Famotidine Tablet (Pepcid Tablet) (05/06/21 15:01) Antacid Suspension (Mylanta Suspension (05/06/21 15:15) Ua Culture If Indicated (05/06/21 15:27) Drug Screen Stat (Urine) (05/06/21 15:27) Urine Bedside (05/06/21 15:27) Medications Given in ED Current Medications Medications Dose Ordered Sig/Nkechi Route Start Time Stop Time Status Last Admin Dose Admin Al Hydrox/Mg Hydrox/Simethicone 30 ml ONCE ONCE PO 05/06/21 15:15 05/06/21 15:16 DC 05/06/21 15:14 30 ML Lidocaine HCl 15 ml ONCE ONCE PO 05/06/21 15:15 05/06/21 15:16 DC 05/06/21 15:13 15 ML Sodium Chloride 500 ml @ 0 mls/hr Q0M ONCE IV 05/06/21 15:15 05/06/21 15:16 DC 05/06/21 16:18 500 MLS/HR Vital Signs/I&O Capillary Refill : Point of Care Testing Finger Stick Blood Glucose: 123 Progress Note #1: Time: 15:31 Progress Note Patient has a flat affect. Her initial blood sugar is less concerning. For her chest pain we will get an EKG, chest x-ray some labs. We will give her a GI cocktail since she says she has a history of endoscopy for peptic ulcer disease in the past. Check some labs urine drug screen. Progress Note #2: Time: 18:36 Progress Note Patient symptoms improved after the GI cocktail. She is feeling much better and is alert, bright affect and interactive. She suspects that she may have some hiatal hernia and wants to get worked up after her is done. She is seen Dr. Dejesus in the past but became again before she can get any work-up done. She plans to do tubal ligation at the end of this with Dr. Carmona ECG Initial ECG Impression Date: May 06, 2021 Initial ECG Impression Time: 15:07 Initial ECG Rate: 89 Initial ECG Rhythm: Normal Sinus Initial ECG Intervals: Normal Initial ECG Impression: Normal Initial ECG Comparisson: No Previous ECG Available Comment Normal sinus rhythm without clinically relevant ST elevation or depression. Diagnostic Imaging Diagonstic Imaging: Xray Plain Films/CT/US/NM/MRI: chest Comments [facility] [place], [place] NAME: KELBY MOSLEY Chuyita [facility] REC#: [id number] PT STATUS: REG ER : 2000 PHYSICIAN: SLY NGUYEN MD ADMIT DATE: 05/06/21/ER Draft Date of Exam:05/06/21 CHEST 1 VIEW, AP/PA ONLY INDICATION: chest pain. TECHNIQUE: Single view chest 3:01 PM. CORRELATION STUDY: 06/25/2020 FINDINGS: The heart size, mediastinal configuration and pulmonary vascularity are within normal limits. The lungs are clear with no consolidating infiltrate. There is no significant effusion or pneumothorax. IMPRESSION: 1. Negative appearing portable chest. Dictated on workstation # [id number] Dict: 05/06/21 1514 Trans: 05/06/21 1514 DO [id number] Interpreted by: SINAI ELIZABETH DO Electronically signed by: Reviewed: Reviewed by Me Departure Impression Primary Impression: Gastritis Qualified Codes: K29.00 - Acute gastritis without bleeding Additional Impression: Qualified Codes: Z3A.22 - 22 weeks gestation of Disposition: 01 HOME, SELF-CARE Condition: Stable Departure-Patient Inst. Decision time for Depature: 18:37 Referrals: LEILA CARMONA DO (PCP/Family) Primary Care Physician Patient Instructions: Gastritis (DC) Add. Discharge Instructions: Carafate half an hour before meals and at bedtime for the next 2 weeks to help protect your esophagus and stomach. Tums, Rolaids, Mylanta or Maalox as necessary for chest or stomach pain again. Follow-up with Dr. Carmona. All discharge instructions reviewed with patient and/or family. Voiced understanding. Scripts Sucralfate (Carafate) 1 Gm Tablet 1 GM PO QIDACHS for 14 Days, #56 TAB 0 Refills Prov: SLY NGUYEN 05/06/21 Copy Copies To 1: LEILA CARMONA TITUS J May 06, 2021 15:27
[2021-05-06 15:44] LABS: BILIRUBIN,URINE NEGATIVE (NEGATIVE); CLARITY,URINE CLEAR; COLOR,URINE YELLOW; GLUCOSE, URINE (UA) NEGATIVE (NEGATIVE); KETONES,URINE NEGATIVE (NEGATIVE); LEUKOCYTE ESTERASE ,URINE NEGATIVE (NEGATIVE); NITRITE,URINE NEGATIVE (NEGATIVE); PROTEIN,URINE NEGATIVE (NEGATIVE)
[2021-05-06 15:51] LABS: AMORPHOUS SEDIMENT,UR LARGE AMOR PHOSPHATE /LPF
[2021-05-06 15:52] LABS: BACTERIA,URINE NEGATIVE /HPF
[2021-05-06 16:03] LABS: AMPHETAMINE SCREEN, URINE NEGATIVE (NEGATIVE); BARBITURATE SCREEN URINE NEGATIVE (NEGATIVE); BENZODIAZEPINES SCREEN URINE NEGATIVE (NEGATIVE); CANNABINOID SCREEN, URINE NEGATIVE (NEGATIVE); COCAINE SCREEN URINE NEGATIVE (NEGATIVE); METHADONE STAT NEGATIVE (NEGATIVE); METHAMPHETAMINE SCREEN URINE S NEGATIVE (NEGATIVE); OPIATE SCREEN URINE NEGATIVE (NEGATIVE); OXYCODONE STAT NEGATIVE (NEGATIVE); PROPOXYPHENE STAT NEGATIVE (NEGATIVE); TRICYCLIC ANTIDEPRESSANTS SCRE NEGATIVE (NEGATIVE)
[2021-05-06 16:18] LABS: BASOPHILS % (AUTO) 0 % (0-10); EOSINOPHILS # (AUTO) 0.1 10^3/uL (0.0-0.3); EOSINOPHILS % (AUTO) 1 % (0-10); HEMATOCRIT 34 % (35-52); LYMPHOCYTES # (AUTO) 1.4 10^3/uL (1.0-4.0); LYMPHOCYTES % (AUTO) 17 % (12-44); MEAN CORPUSCULAR HEMOGLOBIN 30 pg (25-34); MEAN CORPUSCULAR HGB CONC 33 g/dL (32-36); MEAN CORPUSCULAR VOLUME 90 fL (80-99); MEAN PLATELET VOLUME 9.6 fL (9.0-12.2); MONOCYTES # (AUTO) 0.4 10^3/uL (0.0-1.0); MONOCYTES % (AUTO) 5 % (0-12); NEUTROPHILS # (AUTO) 6.1 10^3/uL (1.8-7.8); NEUTROPHILS % (AUTO) 76 % (42-75); PLATELET COUNT 279 10^3/uL (130-400); WHITE BLOOD COUNT 8.1 10^3/uL (4.3-11.0)
[2021-05-06 17:44] LABS: ALBUMIN 3.6 GM/DL (3.2-4.5)
[2021-05-06 17:45] LABS: CHLORIDE 107 MMOL/L (98-107); POTASSIUM 3.9 MMOL/L (3.6-5.0); SODIUM 138 MMOL/L (135-145)
[2021-05-06 17:47] LABS: GLUCOSE 82 MG/DL (70-105); TOTAL PROTEIN 7.4 GM/DL (6.4-8.2)
[2021-05-06 17:48] LABS: CARBON DIOXIDE 18 MMOL/L (21-32)
[2021-05-06 17:49] LABS: BILIRUBIN,TOTAL 0.3 MG/DL (0.1-1.0)
[2021-05-06 17:50] LABS: ALKALINE PHOSPHATASE 59 U/L (40-136)
[2021-05-06 17:51] LABS: CREATININE SERUM 0.68 MG/DL (0.60-1.30); GFR ESTIMATED > 60
[2021-05-06 17:52] LABS: BUN/CREATININE RATIO 10
[2021-05-06 17:53] LABS: ALANINE AMINOTRANSFERASE 8 U/L (0-55)
[2021-05-06 17:55] LABS: LIPASE 23 U/L (8-78)
[2021-05-06 18:12] LABS: PROTHROMBIN TIME PATIENT 13.6 SEC (12.2-14.7)
[2021-05-06] MEDS ORDERED: SUCR1TAB36 PO (18:38)
[2021-05-06 19:09] VITALS: BP 113/60
== END 2021-05-06 19:09 | disposition home or self-care (01) ==
LOC: EDUNIT# 14:49 → ER 14:51
DX: O99.612 Diseases of the digestive system complicating pregnancy, second trimester (principal); K29.70 Gastritis, unspecified, without bleeding; F32.9 Major depressive disorder, single episode, unspecified; E11.9 Type 2 diabetes mellitus without complications; F17.210 Nicotine dependence, cigarettes, uncomplicated; Z3A.00 Weeks of gestation of pregnancy not specified; Z79.4 Long term (current) use of insulin
CPT/HCPCS: 36415; 71045; 80053; 80306; 81000; 82947; 83690; 83735; 83874; 84484; 84703; 85025; 85610; 85730; 93005

== ENCOUNTER 2021-05-18 19:31 | Outpatient (CLI) | payer MEDICAID ==
[~2021-05-18] VITALS: Ht 162.6 cm; Wt 109.0 kg
[2021-05-18 19:56] VITALS: BP 125/54
[2021-05-18 20:15] LABS: BILIRUBIN,URINE NEGATIVE (NEGATIVE); CLARITY,URINE CLEAR; COLOR,URINE YELLOW; GLUCOSE, URINE (UA) NEGATIVE (NEGATIVE); KETONES,URINE NEGATIVE (NEGATIVE); LEUKOCYTE ESTERASE ,URINE NEGATIVE (NEGATIVE); NITRITE,URINE NEGATIVE (NEGATIVE); PH,URINE 7.5 (5-9); PROTEIN,URINE NEGATIVE (NEGATIVE)
[2021-05-18 20:24] LABS: BACTERIA,URINE TRACE /HPF
--- NOTE | 2021-05-19 08:01 | Physician Query-Final Dx ---
BABS SPAULDING 05/19/21 0801: Clinic Account Progress/Dx Physician Query: Please give diagnosis Please include # weeks gestation Date of Service May 18, 2021 at 19:31 JAMISON WOOD MD 05/19/21 1246: Clinic Account Progress/Dx DIAGNOSIS: Diagnosis 23 weeks gestation with false labor BABS SPAULDING May 19, 2021 08:01 JAMISON WOOD MD May 19, 2021 12:46
== END 2021-05-18 20:37 | disposition home or self-care (01) ==
LOC: WSo 19:31 → LDRP 19:31 → WSo 20:37
PROVIDERS: ATTEND Obstetrics & Gynecology
DX: O47.02 False labor before 37 completed weeks of gestation, second trimester (principal); Z3A.23 23 weeks gestation of pregnancy
CPT/HCPCS: 81000; G0463; 99212

== ENCOUNTER 2021-06-21 20:14 | Outpatient (CLI) | payer MEDICAID ==
[~2021-06-21] VITALS: Ht 162.6 cm; Wt 108.6 kg
[2021-06-21 20:30] VITALS: BP 109/54
[2021-06-21 20:50] LABS: BILIRUBIN,URINE NEGATIVE (NEGATIVE); COLOR,URINE YELLOW; GLUCOSE, URINE (UA) NEGATIVE (NEGATIVE); KETONES,URINE NEGATIVE (NEGATIVE); LEUKOCYTE ESTERASE ,URINE NEGATIVE (NEGATIVE); NITRITE,URINE NEGATIVE (NEGATIVE); PH,URINE 7.5 (5-9); PROTEIN,URINE NEGATIVE (NEGATIVE)
[2021-06-21 20:59] LABS: AMORPHOUS SEDIMENT,UR FEW AMOR PHOSPHATE /LPF; BACTERIA,URINE FEW /HPF; CLARITY,URINE SL CLOUDY; RBC,URINE RARE /HPF; WBC,URINE RARE /HPF
[2021-06-21 21:25] VITALS: BP 109/54
--- NOTE | 2021-06-22 09:50 | Physician Query-Final Dx ---
Clinic Account Progress/Dx Physician Query: Please give diagnosis Please include # weeks gestation Date of Service Jun 21, 2021 at 20:14 BABS SPAULDING Jun 22, 2021 09:50
== END 2021-06-21 21:19 | disposition home or self-care (01) ==
LOC: WSo 20:14 → LDRP 20:14 → WSo 21:19
PROVIDERS: ATTEND Obstetrics & Gynecology
DX: O26.893 Other specified pregnancy related conditions, third trimester (principal); R10.9 Unspecified abdominal pain; Z3A.28 28 weeks gestation of pregnancy
CPT/HCPCS: 81000; 99212

== ENCOUNTER 2021-06-22 16:23 | Outpatient (CLI) | payer MEDICAID ==
[~2021-06-22] VITALS: Ht 162.6 cm; Wt 108.4 kg
[2021-06-22 16:40] VITALS: BP 107/68
[2021-06-22 16:53] VITALS: BP 107/58
[2021-06-22 17:30] VITALS: BP 107/68
[2021-06-22 17:51] LABS: BASOPHILS % (AUTO) 0 % (0-10); EOSINOPHILS # (AUTO) 0.1 10^3/uL (0.0-0.3); EOSINOPHILS % (AUTO) 1 % (0-10); HEMATOCRIT 31 % (35-52); HEMOGLOBIN 9.7 g/dL (11.5-16.0); LYMPHOCYTES # (AUTO) 1.7 10^3/uL (1.0-4.0); LYMPHOCYTES % (AUTO) 22 % (12-44); MEAN CORPUSCULAR HEMOGLOBIN 29 pg (25-34); MEAN CORPUSCULAR HGB CONC 32 g/dL (32-36); MEAN CORPUSCULAR VOLUME 92 fL (80-99); MEAN PLATELET VOLUME 9.3 fL (9.0-12.2); MONOCYTES # (AUTO) 0.4 10^3/uL (0.0-1.0); MONOCYTES % (AUTO) 5 % (0-12); NEUTROPHILS # (AUTO) 5.5 10^3/uL (1.8-7.8); NEUTROPHILS % (AUTO) 72 % (42-75); PLATELET COUNT 267 10^3/uL (130-400); WHITE BLOOD COUNT 7.7 10^3/uL (4.3-11.0)
[2021-06-22 18:31] VITALS: BP 107/68
--- NOTE | 2021-06-23 07:46 | Physician Query-Final Dx ---
BABS SPAULDING 06/23/21 0746: Clinic Account Progress/Dx Physician Query: Please give diagnosis Please include # weeks gestation Date of Service Jun 22, 2021 at 16:23 JAMISON WOOD MD 06/23/212001: Clinic Account Progress/Dx DIAGNOSIS: Diagnosis 28 weeks with false labor BABS SPAULDING Jun 23, 2021 07:46 JAMISON WOOD MD Jun 23, 2021 20:02
== END 2021-06-22 18:31 | disposition home or self-care (01) ==
LOC: WSo 16:23 → LDRP 16:24 → WSo 18:31
PROVIDERS: ATTEND Obstetrics & Gynecology
DX: O47.03 False labor before 37 completed weeks of gestation, third trimester (principal); Z3A.28 28 weeks gestation of pregnancy
CPT/HCPCS: 85025; G0463; 36415; 99214

== ENCOUNTER 2021-06-24 21:00 | Outpatient (CLI) | payer MEDICAID ==
[~2021-06-24] VITALS: Ht 162.6 cm; Wt 108.4 kg
[2021-06-24 21:15] VITALS: BP 120/68
[2021-06-24 21:37] LABS: BILIRUBIN,URINE NEGATIVE (NEGATIVE); CLARITY,URINE CLEAR; COLOR,URINE YELLOW; GLUCOSE, URINE (UA) NEGATIVE (NEGATIVE); KETONES,URINE NEGATIVE (NEGATIVE); LEUKOCYTE ESTERASE ,URINE TRACE (NEGATIVE); NITRITE,URINE NEGATIVE (NEGATIVE); PROTEIN,URINE NEGATIVE (NEGATIVE)
[2021-06-24 21:50] LABS: AMPHETAMINE SCREEN, URINE NEGATIVE (NEGATIVE); BARBITURATE SCREEN URINE NEGATIVE (NEGATIVE); BENZODIAZEPINES SCREEN URINE NEGATIVE (NEGATIVE); CANNABINOID SCREEN, URINE NEGATIVE (NEGATIVE); COCAINE SCREEN URINE NEGATIVE (NEGATIVE); METHADONE STAT NEGATIVE (NEGATIVE); METHAMPHETAMINE SCREEN URINE S NEGATIVE (NEGATIVE); OPIATE SCREEN URINE NEGATIVE (NEGATIVE); OXYCODONE STAT NEGATIVE (NEGATIVE); PROPOXYPHENE STAT NEGATIVE (NEGATIVE); TRICYCLIC ANTIDEPRESSANTS SCRE NEGATIVE (NEGATIVE)
[2021-06-24 22:00] VITALS: BP 112/53
[2021-06-24 22:17] LABS: BACTERIA,URINE FEW /HPF
[2021-06-25] MEDS ORDERED: ONDA4TAB11 PO (00:48)
== END 2021-06-24 22:15 | disposition home or self-care (01) ==
LOC: WSo 21:00 → LDRP 21:00 → WSo 22:15
PROVIDERS: ATTEND Obstetrics & Gynecology
DX: O36.8130 Decreased fetal movements, third trimester, not applicable or unspecified (principal); Z3A.29 29 weeks gestation of pregnancy
CPT/HCPCS: 80306; 81000; 82947; 99212

== ENCOUNTER 2021-06-24 21:38 | Emergency (ER) | payer MEDICAID ==
[~2021-06-24] VITALS: Ht 162.5 cm; Wt 108.4 kg
[2021-06-24] MEDS ORDERED: LACTATED RINGERS 1,000 ML IV ONE (22:15)
[2021-06-24] MEDS ORDERED: NS IV 1000 ML 1,000 ML IV STA (22:23)
[2021-06-24] MEDS ORDERED: ONDANSETRON 4 MG/2 ML (SDV) Z0FRAN IVP ONE (22:30)
--- NOTE | 2021-06-24 22:39 | ED General ---
General Stated Complaint: AMS Source of Information: Patient (LIMITED HISTORIAN), Old Records History of Present Illness Date Seen by Provider: Jun 24, 2021 Time Seen by Provider: 22:13 Initial Comments PT ARRIVES VIA WHEELCHAIR FROM OB DEPT PT IS 29 WEEKS GESTATION, AND LABOR WAS RULED OUT BY OB DEPT NO VAGINAL BLEEDING OR DISCHARGE NO ABDOMINAL PAIN PT WITH CONFUSION, ALTERED MENTAL STATUS, AND PT IS VERY PARANOID ON ARRIVAL IS UNKNOWN HOW LONG SYMPTOMS HAVE BEEN GOING ON --NO FAMILY IS HERE WITH PT PT IS KNOWN INSULIN DEPENDENT DIABETIC--IS UNKNOWN WHEN HER BLOOD SUGAR WAS LAST CHECKED PT IS KNOWN TO HAVE LONG HISTORY OF NON-COMPLIANCE--DOES NOT ROUTINELY CHECK HER BLOOD SUGAR OR FOLLOW UP WITH ANYONE REGARDING HER DIABETES PT DOES ANSWER QUESTIONS, BUT IS "SPACEY" AND APPEARS PARANOID SPEECH IS CLEAR BUT HAS DIFFICULTY COMPLETING SENTENCES AND OCCASIONAL STUTTERS PT IS VERY ANXIOUS, HYPERVENTILATING AND CRYING DOES C/O HEADACHE C/O EARS RINGING FEELS LIKE HER HEART IS RACING C/O NAUSEA, NO VOMITING NO ABDOMINAL PAIN DENIES ANY DIFFICULTY URINATING STATES SHE HAS EATEN AND DRANK TODAY PT DENIES FEVER OR RECENT ILLNESS PT LAST DELIVERED 09/23/2020 PT STATES HER KIDS ARE AT HOME WITH THEIR FATHER PCP: MELITON-JOSE PHYSICAL CHEMIST: DR. RAI Allergies and Home Medications Allergies Coded Allergies: diphenhydramine (Verified Allergy, Severe, Shortness of Breath, 08/05/19) HIVES SWELLING amoxicillin (Verified Allergy, Unknown, throat swells shut, 08/05/19) sulfamethoxazole (Verified Allergy, Unknown, 08/05/19) trimethoprim (Verified Allergy, Unknown, 08/05/19) Home Medications Ondansetron 4 Mg Tab.rapdis, 4 MG PO Q4H Prescribed by: DORINA FRANZ on 06/25/21 0048 Patient Home Medication List Home Medication List Reviewed: Yes Review of Systems Review of Systems Constitutional: no symptoms reported EENTM: see HPI, other (EARS RINGING) Respiratory: see HPI (HYPERVENTILATING) Cardiovascular: see HPI; No chest pain; other (FEELS LIKE HEART IS RACING--HEART RATE IS IN 80'S) Gastrointestinal: No abdominal pain, No diarrhea; nausea; No vomiting Genitourinary: no symptoms reported, other (PT IS 29 WEEKS ) Musculoskeletal: no symptoms reported; No back pain, No neck pain Skin: no symptoms reported; No rash Psychiatric/Neurological: See HPI, Anxiety, Headache; Denies Numbness, Denies P aresthesia, Denies Seizure, Denies Tingling, Denies Tremors, Denies Weakness Hematologic/Lymphatic: No Symptoms Reported Immunological/Allergic: no symptoms reported Past Mkwqjmo-Nnncyb-Caylwn Hx Patient Social History Tobacco Use?: Yes (1/2 PPD) Tobacco type used: Cigarettes Smoking Status: Current Everyday Smoker Substance use?: Yes Substance type: Marijuana Alcohol Use?: Yes Alcohol Frequency: Once in a while Immunizations Up To Date Tetanus Booster (TDap): Less than 5yrs PED Vaccines UTD: Yes Seasonal Allergies Seasonal Allergies: No Past Medical History Surgery/Hospitalization HX: EGD Surgeries: Yes (EGD) Respiratory: No Currently Using CPAP: No Currently Using BIPAP: No Cardiac: Yes High Cholesterol Neurological: Yes Headaches /Migraines : Yes Reproductive Disorders: No Female Reproductive Disorders: Denies Sexually Transmitted Disease: Yes (CHLAMYDIA) HIV/AIDS: No Genitourinary: No Gastrointestinal: Yes (CHRONIC ABDOMINAL PAIN COMPLAINTS) Chronic Constipation, Ulcer Musculoskeletal: No Endocrine: Yes (NON-COMPLIANT) Diabetes, Insulin dep HEENT: No Loss of Vision: Denies Hearing Impairment: Denies Cancer: No Psychosocial: Yes ADD/ADHD, Anxiety Integumentary: No Blood Disorders: No Family Medical History Diabetes mellitus MATERNAL GRANDMOTHER Hypertension MATERNAL GRANDMOTHER Diabetes, Hypertension Physical Exam Vital Signs Vital Signs - First Documented 06/24/21 22:17 Temp 37.0 Pulse 96 Resp 24 B/P (MAP) 137/71 (93) Pulse Ox 100 O2 Delivery Room Air Capillary Refill : Height, Weight, BMI Height: 5'4.00" Weight: 221lbs. 0.4oz. 100.500276mn; 41.00 BMI Method:Stated General Appearance: WD/WN, Anxious, Obese, Other (SITTING CITIZEN [place]ST[place], HYPERVENTILATING, ANXIOUS, VERY DRAMATIC, AND CRYING ) HEENT: PERRL/EOMI, Normal ENT Inspection Neck: Normal Inspection Respiratory: Normal Breath Sounds, No Accessory Muscle Use, No Respiratory Distress Cardiovascular: Regular Rate, Rhythm, No Edema, No JVD, No Murmur, Normal P eripheral Pulses Gastrointestinal: Normal Bowel Sounds, Non Tender, Soft, Other (GRAVID UTERUS) Extremity: Normal Inspection, Normal Range of Motion, Non Tender, No Calf Tenderness, No Pedal Edema Neurologic/Psychiatric: Alert, Oriented x3, No Motor/Sensory Deficits, it systems engineer II- XII Norm as Tested, Other (BEHAVIOR NOTED ABOVE) Skin: Normal Color (PT IS IGOR), Warm/Dry; No Rash Progress/Results/Core Measures Suspected Sepsis SIRS Temperature: Pulse: Respiratory Rate: Laboratory Tests 06/24/21 22:40: White Blood Count 9.6 Blood Pressure / Mean: Laboratory Tests 06/24/21 22:40: Creatinine 0.79, Platelet Count 271, Total Bilirubin 0.3 Results/Orders Lab Results Laboratory Tests Test 06/24/21 22:23 06/24/21 22:40 06/24/21 23:33 Range/Units Glucometer 86 70-110 MG/DL White Blood Count 9.6 4.3-11.0 10^3/uL Red Blood Count 3.33 L 3.80-5.11 10^6/uL Hemoglobin 9.7 L 11.5-16.0 g/dL Hematocrit 31 L 35-52 % Mean Corpuscular Volume 92 80-99 fL Mean Corpuscular Hemoglobin 29 25-34 pg Mean Corpuscular Hemoglobin Concent 32 32-36 g/dL Red Cell Distribution Width 15.1 H 10.0-14.5 % Platelet Count 271 130-400 10^3/uL Mean Platelet Volume 9.4 9.0-12.2 fL Immature Granulocyte % (Auto) 0 % Neutrophils (%) (Auto) 75 42-75 % Lymphocytes (%) (Auto) 20 12-44 % Monocytes (%) (Auto) 4 0-12 % Eosinophils (%) (Auto) 1 0-10 % Basophils (%) (Auto) 0 0-10 % Neutrophils # (Auto) 7.2 1.8-7.8 10^3/uL Lymphocytes # (Auto) 1.9 1.0-4.0 10^3/uL Monocytes # (Auto) 0.4 0.0-1.0 10^3/uL Eosinophils # (Auto) 0.1 0.0-0.3 10^3/uL Basophils # (Auto) 0.0 0.0-0.1 10^3/uL Immature Granulocyte # (Auto) 0.0 0.0-0.1 10^3/uL Erythrocyte Sedimentation Rate 51 H 0-20 MM/HR Sodium Level 140 135-145 MMOL/L Potassium Level 3.6 3.6-5.0 MMOL/L Chloride Level 110 H 98-107 MMOL/L Carbon Dioxide Level 19 L 21-32 MMOL/L Anion Gap 11 5-14 MMOL/L Blood Urea Nitrogen 4 L 7-18 MG/DL Creatinine 0.79 0.60-1.30 MG/DL Estimat Glomerular Filtration Rate 110 BUN/Creatinine Ratio 5 Glucose Level 85 70-105 MG/DL Calcium Level 8.6 8.5-10.1 MG/DL Corrected Calcium 9.0 8.5-10.1 MG/DL Magnesium Level 2.0 1.6-2.4 MG/DL Total Bilirubin 0.3 0.1-1.0 MG/DL Aspartate Amino Transf (AST/SGOT) 13 5-34 U/L Alanine Aminotransferase (ALT/SGPT) 9 0-55 U/L Alkaline Phosphatase 76 40-136 U/L Lactate Dehydrogenase 225 H 125-220 U/L C-Reactive Protein High Sensitivity 1.27 H 0.00-0.50 MG/DL Total Protein 7.1 6.4-8.2 GM/DL Albumin 3.5 3.2-4.5 GM/DL Procalcitonin 0.01 <0.10 NG/ML Serum Alcohol < 10 <10 MG/DL SARS-CoV-2 RNA (RT-PCR) Not Detected Not Detecte Micro Results Microbiology 06/24/21 Blood Culture - Preliminary, Resulted No growth 06/24/21 Blood Culture - Preliminary, Resulted No growth My Orders Orders - DORINA FRANZ DO Accucheck Stat ONCE (06/24/21 22:14) Ed Iv/Invasive Line Start (06/24/21 22:14) Monitor-Rhythm Ecg Trace Only (06/24/21 22:14) Ct Head Wo-R/O Stroke (06/24/21 22:14) Alcohol (06/24/21 22:14) Cbc With Automated Diff (06/24/21 22:14) Comprehensive Metabolic Panel (06/24/21 22:14) Magnesium (06/24/21 22:14) Ed Iv/Invasive Line Start (06/24/21 22:14) Lactated Ringers (Lr 1000 Ml Iv Solution (06/24/21 22:15) Procalcitonin (Pct) (06/24/21 22:14) Hs C Reactive Protein (06/24/21 22:14) Erythrocyte Sedimentation Rate (06/24/21 22:14) LDH (06/24/21 22:14) Blood Culture (06/24/21 22:14) Chest 1 View, Ap/Pa Only (06/24/21 22:14) Covid 19 Inhouse Test (06/24/21 22:14) Ondansetron Injection (Zofran Injectio (06/24/21 22:30) Ns Iv 1000 Ml (Sodium Chloride 0.9%) (06/24/21 22:23) Ed Iv/Invasive Line Start (06/24/21 22:23) Acetaminophen Tablet (Tylenol Tablet) (06/25/21 01:00) Medications Given in ED Vital Signs/I&O 06/24/21 06/25/21 22:17 03:35 Temp 37.0 Pulse 96 74 Resp 24 20 B/P (MAP) 137/71 (93) 128/70 Pulse Ox 100 97 O2 Delivery Room Air Room Air Capillary Refill : Point of Care Testing Finger Stick Blood Glucose: 86 Progress Note : Progress Note PT CALMED AND BEHAVIOR RETURNED TO NORMAL PT IS NOT CONFUSED, TALKS NORMALLY PT IS COOPERATIVE THROUGHOUT ER STAY NO DETERIORATION IN PT'S CONDITION DURING ER STAY ALL SYMPTOMS RESOLVED DURING ER STAY, AND PT IS SYMPTOM-FREE AT DISMISSAL UA AND UDS DONE IN OB DEPT NORMAL Diagnostic Imaging Comments CT HEAD--NO ACUTE PROCESS, PER RADIOLOGIST REPORT AT 2321 Reviewed: Reviewed by Me Departure Communication (Admissions) 0045--SPOKE WITH DR. RAI AND UPDATED HIM ON PT'S CONDITION, AGREES WITH SENDING PT HOME AND WILL HAVE HER KEEP HER SCHEDULED APPOINTMENT THIS WEEK Impression Primary Impression: TRANSINENT ALTERED MENTAL STATUS Additional Impressions: Anxiety 29 weeks gestation of Disposition: HOME, SELF-CARE Condition: Improved Departure-Patient Inst. Decision time for Depature: 00:44 Referrals: LEILA RAI DO (PCP/Family) Primary Care Physician Patient Instructions: Altered Mental Status (DC), Care During for Women With Type 1 or Type 2 Diabetes, Anxiety, Adult ED Add. Discharge Instructions: FOLLOW UP WITH DR. RAI ON SUNDAY SCHEDULED TYLENOL NEEDED FOR HEADCHE RETURN TO ER IF SYMPTOMS WORSEN Scripts Ondansetron (Ondansetron Odt) 4 Mg Tab.rapdis 4 MG PO Q4H for Nausea/Vomiting, #10 TAB Prov: DORINA FRANZ DO 06/25/21 DORINA FRANZ DO Jun 24, 2021 22:39
[2021-06-24 22:52] LABS: BASOPHILS % (AUTO) 0 % (0-10); EOSINOPHILS # (AUTO) 0.1 10^3/uL (0.0-0.3); EOSINOPHILS % (AUTO) 1 % (0-10); HEMATOCRIT 31 % (35-52); HEMOGLOBIN 9.7 g/dL (11.5-16.0); LYMPHOCYTES # (AUTO) 1.9 10^3/uL (1.0-4.0); LYMPHOCYTES % (AUTO) 20 % (12-44); MEAN CORPUSCULAR HEMOGLOBIN 29 pg (25-34); MEAN CORPUSCULAR HGB CONC 32 g/dL (32-36); MEAN CORPUSCULAR VOLUME 92 fL (80-99); MEAN PLATELET VOLUME 9.4 fL (9.0-12.2); MONOCYTES # (AUTO) 0.4 10^3/uL (0.0-1.0); MONOCYTES % (AUTO) 4 % (0-12); NEUTROPHILS # (AUTO) 7.2 10^3/uL (1.8-7.8); NEUTROPHILS % (AUTO) 75 % (42-75); PLATELET COUNT 271 10^3/uL (130-400); WHITE BLOOD COUNT 9.6 10^3/uL (4.3-11.0)
[2021-06-24 23:09] LABS: ALBUMIN 3.5 GM/DL (3.2-4.5); CHLORIDE 110 MMOL/L (98-107); POTASSIUM 3.6 MMOL/L (3.6-5.0); SODIUM 140 MMOL/L (135-145)
[2021-06-24 23:10] LABS: CALCIUM 8.6 MG/DL (8.5-10.1)
[2021-06-24 23:11] LABS: GLUCOSE 85 MG/DL (70-105); TOTAL PROTEIN 7.1 GM/DL (6.4-8.2)
[2021-06-24 23:12] LABS: CARBON DIOXIDE 19 MMOL/L (21-32)
[2021-06-24 23:13] LABS: BILIRUBIN,TOTAL 0.3 MG/DL (0.1-1.0)
[2021-06-24 23:14] LABS: ALKALINE PHOSPHATASE 76 U/L (40-136); ERYTHROCYTE SEDIMENTATION RATE 51 MM/HR (0-20)
[2021-06-24 23:15] LABS: CREATININE SERUM 0.79 MG/DL (0.60-1.30); GFR ESTIMATED 110
--- NOTE | 2021-06-24 23:15 | Diagnostic Imaging Report ---
PROCEDURE: CT head wo r/o stroke. TECHNIQUE: Multiple contiguous axial images were obtained through the brain without the use of intravenous contrast. Auto Exposure Controls were utilized during the CT exam to meet ALARA standards for radiation dose reduction. INDICATION: Headache, dizziness and neurologic deficit COMPARISON: 07/10/2018 CT HEAD: CT images of the head were obtained. FINDINGS: Ventricles and sulci are within normal limits for size. There is no intracranial hemorrhage identified. There is no abnormal mass effect or shift of midline structures. IMPRESSION: Unremarkable CT of the head. Dictated by: Dictated on workstation # [id number]
[2021-06-24 23:16] LABS: BUN/CREATININE RATIO 5
[2021-06-24 23:17] LABS: ALANINE AMINOTRANSFERASE 9 U/L (0-55)
--- NOTE | 2021-06-25 00:32 | Diagnostic Imaging Report ---
INDICATION: Altered mental status. EXAMINATION: Single AP view of the chest was obtained. COMPARISON: Examination of 05/06/2021. FINDINGS: Heart size and pulmonary vascularity are within normal limits, and the lungs are clear, bilaterally. IMPRESSION: Unremarkable chest. Dictated by: Dictated on workstation # [id number]
[2021-06-25] MEDS ORDERED: ONDA4TAB11 PO (00:48)
[2021-06-25] MEDS ORDERED: ACETAMINOPHEN 500 MG TAB (TYLENOL) PO ONE (01:00)
[2021-06-25 03:35] VITALS: BP 128/70
== END 2021-06-25 01:00 | disposition home or self-care (01) ==
LOC: ER 21:38 → EDUNIT# 21:38 → ER 06-25 01:00
DX: O99.343 Other mental disorders complicating pregnancy, third trimester (principal); R41.82 Altered mental status, unspecified; F41.9 Anxiety disorder, unspecified; E66.9 Obesity, unspecified; E11.9 Type 2 diabetes mellitus without complications; F17.210 Nicotine dependence, cigarettes, uncomplicated; Z3A.29 29 weeks gestation of pregnancy; Z20.822 Contact with and (suspected) exposure to COVID-19
CPT/HCPCS: 70450; 71045; 80053; 82947; 83615; 83735; 84145; 85025; 85652; 86141; 87040; 87636; 93041; 99284; G0480; 36415; 80320

== ENCOUNTER → 2021-07-26 | Outpatient (CLI) | payer MEDICAID ==
[~2021-07-26] MED LIST changes: +ONDA4TAB11 PO
--- NOTE | 2021-07-26 15:43 | Diagnostic Imaging Report ---
INDICATION: Gestational diabetes and followup growth. TECHNIQUE: Multiple Real-time grayscale images were obtained over the gravid uterus. COMPARISON: None FINDINGS: There is a single live fetus in a cephalic presentation. The heart rate was recorded at 136 BPM. The placenta is posterior and fundal. The amniotic fluid index is normal. The cervical length is 4.0 cm. A biophysical profile was also performed. The overall biophysical profile score is a normal 8 out of 8. The amniotic fluid index is 14 cm. Biometrical measurements are as follows: Biparietal 8.15 cm, age 32 weeks 6 days. Head circumference 31.32 cm, age 35 weeks 1 days. Abdominal circumference 28.57 cm, age 32 weeks 5 days. Femur length 6.70 cm, age 34 weeks 4 days. Sonographic estimate age: 33 weeks 6 days. Sonographic estimated date of delivery: 09/07/21. Estimated Weight: 2190 gm (+/- 320 gm). LMP percentile: 45%. heart rate: 136 beats per minute. number: 1 of 1. IMPRESSION: 1. Single live IUP of approximately 34 weeks gestational age with an estimated of confinement sonographically of 09/07/2021. 2. Normal biophysical profile score of 8 out of 8. Dictated by: Dictated on workstation # [id number]
== END ==
LOC: RAD 11:00
PROVIDERS: ATTEND Obstetrics & Gynecology
DX: O24.113 Pre-existing type 2 diabetes mellitus, in pregnancy, third trimester (principal); Z3A.34 34 weeks gestation of pregnancy
CPT/HCPCS: 76805; 76819

== ENCOUNTER 2021-08-16 18:51 | Inpatient (IN) | payer MEDICAID ==
[~2021-08-16] VITALS: Ht 162.6 cm; Wt 107.3 kg
[~2021-08-16 18:51] MED LIST changes: -DCS100C PO; +DOCU-239 PO
[2021-08-16 19:15] VITALS: BP 127/58
[2021-08-16] MEDS ORDERED: MINERAL OIL CONCENTRATE 99.9% 15 ML UDC TOP PRN (19:45)
[2021-08-16] MEDS ORDERED: NS IV 1000 ML 1,000 ML ONE (19:48)
[2021-08-16] MEDS: NS IV 1000 ML 1,000 ML IV SCH (20:06)
[2021-08-16 20:24] LABS: BASOPHILS % (AUTO) 0 % (0-10); EOSINOPHILS % (AUTO) 1 % (0-10); HEMATOCRIT 30 % (35-52); HEMOGLOBIN 9.4 g/dL (11.5-16.0); LYMPHOCYTES # (AUTO) 1.9 10^3/uL (1.0-4.0); LYMPHOCYTES % (AUTO) 23 % (12-44); MEAN CORPUSCULAR HEMOGLOBIN 28 pg (25-34); MEAN CORPUSCULAR HGB CONC 32 g/dL (32-36); MEAN CORPUSCULAR VOLUME 88 fL (80-99); MEAN PLATELET VOLUME 9.5 fL (9.0-12.2); MONOCYTES # (AUTO) 0.5 10^3/uL (0.0-1.0); MONOCYTES % (AUTO) 6 % (0-12); NEUTROPHILS # (AUTO) 5.6 10^3/uL (1.8-7.8); NEUTROPHILS % (AUTO) 70 % (42-75); PLATELET COUNT 268 10^3/uL (130-400)
[2021-08-16 20:30] VITALS: BP 112/55
[2021-08-16] MEDS ORDERED: RT-ALBUINH IH (21:04)
[2021-08-16] MEDS ORDERED: METF500S5 PO (21:04)
[2021-08-16] MEDS ORDERED: METF-399 PO (21:04)
[2021-08-16 21:30] VITALS: BP 153/86
[2021-08-16 22:30] VITALS: BP 134/63
[2021-08-16 23:30] VITALS: BP 120/57
[2021-08-16] MEDS ORDERED: HYDROmorphone 2 MG/ML VIAL (DILAUDID) IV ONE (23:45)
[2021-08-16] MEDS ORDERED: FAMOTIDINE 20MG/2ML IV (PEPCID) IVP ONE (23:45)
[2021-08-16] MEDS ORDERED: HYDROmorphone 2 MG/ML VIAL (DILAUDID) ONE (23:46)
[2021-08-16] MEDS ORDERED: FAMOTIDINE 20MG/2ML IV (PEPCID) ONE (23:47)
[2021-08-17] VITALS (76 sets, daily range): BP systolic 98–142; BP diastolic 51–88
[2021-08-17] MEDS: NS IV 1000 ML 1,000 ML IV SCH ×3 (02:23→17:57)
[2021-08-17] MEDS ORDERED: HYDROmorphone 2 MG/ML VIAL (DILAUDID) ONE (02:49)
[2021-08-17] MEDS: HYDROmorphone 2 MG/ML VIAL (DILAUDID) IVP PRN ×2 (02:57→07:42)
[2021-08-17] MEDS ORDERED: OXYTOCIN PRE-MIX DRIP 500 ML IV SCH (08:45)
--- NOTE | 2021-08-17 08:48 | History & Physical-OB ---
OB - Chief Complaint & HPI Date/Time Date of Admission: Date of Admission: Aug 16, 2021 at 6:51 pm Date seen by a Provider: Aug 17, 2021 Time Seen by a Provider: 08:00 Chief Complaint/History OB-Reason for Admission/Chief: Induction of Labor Hx : 4 Hx Para: 2 Expected Date of Delivery: Sep 12, 2021 Gestational Age in Weeks: 36 Gestational Age in Days: 1 Other reason for admission: Patient admitted for IOL due to MFM recommendation for delivery in 36 week secondary to cholestasis of and GDMA2 with poor compliance and control. Admission Nurse Assessment Rev: Yes History of Labs O pos Antibody neg GBS neg Allergies and Home Medications Allergies Coded Allergies: diphenhydramine (Verified Allergy, Severe, Shortness of Breath, 08/05/19) HIVES SWELLING amoxicillin (Verified Allergy, Unknown, throat swells shut, 08/05/19) sulfamethoxazole (Verified Allergy, Unknown, 08/05/19) trimethoprim (Verified Allergy, Unknown, 08/05/19) Patient Home Medication List Home Medication List Reviewed: Yes Albuterol Sulfate (Proair Hfa) 1 Puff Puff, 2 PUFF IH Q4H, (Reported) Entered as Reported by: BEBO HANSON on 08/16/212103 Last Action: New Order Metformin HCl (Metformin HCl) 500 Mg/5 Ml Solution, 500 MG PO AC, (Reported) Entered as Reported by: BEBO HANSON on 08/16/212103 Last Action: New Order Metformin HCl (Metformin HCl) 1,000 Mg Tablet, 1,000 MG PO HS, (Reported) Entered as Reported by: BEBO HANSON on 08/16/212103 Last Action: New Order Discontinued Medications Ondansetron (Ondansetron Odt) 4 Mg Tab.rapdis, 4 MG PO Q4H Discontinued Reason: No Longer Taking Prescribed by: DORINA FRANZ on 06/25/21 0048 Last Action: Discontinued OB - History Hx of Present Care: Yes Ultrasounds: Normal mid trimester US Obstetrical Complications: Gestational Diabetes, Other (Cholestasis) Medical Complications: None Delivery History Hx Blood Disorders: No Patient Past Medical History n/a Social History/Family History 2nd Hand Smoke Exposure: No Immunizations Hepatitis A: Yes Hepatitis B: Yes Tetanus Booster (TDap): Less than 5yrs OB - Admission Exam Physical Exam Vitals: Vital Signs 08/17/21 05:30 Temp 36.0 Pulse 63 Resp 18 B/P (MAP) 116/58 (77) O2 Delivery Room Air HEENT: NCAT Heart: Rhythm Normal Lungs: Clear Abdomen: Gravid Extremities: Normal Reflexes: Normal Cervical Dilatation: Fingertip Effacement: 50% Station: -1 Membranes: Intact Heart Rate: 130's Accelerations: Accelerations Present Decelerations: No Decelerations Short Term Variability: Present Carousel Attendant Variability: Average (6-25) Contractions on Admission: >10 Minutes Apart Intensity: Mild Labs Laboratory Tests Test 08/16/21 20:00 08/17/21 06:10 Range/Units White Blood Count 8.0 4.3-11.0 10^3/uL Red Blood Count 3.37 L 3.80-5.11 10^6/uL Hemoglobin 9.4 L 11.5-16.0 g/dL Hematocrit 30 L 35-52 % Mean Corpuscular Volume 88 80-99 fL Mean Corpuscular Hemoglobin 28 25-34 pg Mean Corpuscular Hemoglobin Concent 32 32-36 g/dL Red Cell Distribution Width 15.7 H 10.0-14.5 % Platelet Count 268 130-400 10^3/uL Mean Platelet Volume 9.5 9.0-12.2 fL Immature Granulocyte % (Auto) 0 % Neutrophils (%) (Auto) 70 42-75 % Lymphocytes (%) (Auto) 23 12-44 % Monocytes (%) (Auto) 6 0-12 % Eosinophils (%) (Auto) 1 0-10 % Basophils (%) (Auto) 0 0-10 % Neutrophils # (Auto) 5.6 1.8-7.8 10^3/uL Lymphocytes # (Auto) 1.9 1.0-4.0 10^3/uL Monocytes # (Auto) 0.5 0.0-1.0 10^3/uL Eosinophils # (Auto) 0.0 0.0-0.3 10^3/uL Basophils # (Auto) 0.0 0.0-0.1 10^3/uL Immature Granulocyte # (Auto) 0.0 0.0-0.1 10^3/uL Glucometer 86 70-110 MG/DL Glucose Level 81 70-105 MG/DL OB - Assessment/Plan/Diagnosis Assessment Assessment: induction of labor Admission Dx 20 yo @ 36.2 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
[2021-08-17] MEDS ORDERED: OXYTOCIN PRE-MIX DRIP 500 ML IV ONE (08:53)
[2021-08-17] MEDS ORDERED: fentaNYL 2 mcg/ml BUPIVA 0.125 100 ML ONE (09:04)
[2021-08-17] MEDS ORDERED: fentaNYL INJ 100 MCG/2 ML AMP ONE (09:34)
[2021-08-17] MEDS ORDERED: BUPIVACAINE 0.25% 30 ML (SENSORCAINE) VIAL ONE (09:34)
[2021-08-17] MEDS ORDERED: LACTATED RINGERS 1,000 ML IV SCH (10:15)
[2021-08-17] MEDS ORDERED: NALOXONE 0.4 MG/ML 1 ML (NARCAN) VIAL IV PRN ×3 (10:15→22:15)
[2021-08-17] MEDS ORDERED: ONDANSETRON 4 MG/2 ML (SDV) Z0FRAN IV PRN (10:15)
[2021-08-17] MEDS ORDERED: METOCLOPRAMIDE INJ 10 MG/2 ML (REGLAN) IV PRN (10:15)
[2021-08-17] MEDS ORDERED: diphenhydrAMINE 50 MG/ML INJ (BENADRYL) IV PRN (10:15)
[2021-08-17] MEDS ORDERED: EPIDURAL (fentaNYL 2 MCG/ML BUPIVA 0.125%)100 ML BAG EPI PRN (10:15)
[2021-08-17] MEDS ORDERED: LIDOCAINE/EPI 2% 1:200,00 (XYLOCAINE) 20 ML VIAL ONE (21:47)
--- NOTE | 2021-08-17 22:09 | OB Labor & Delivery Record ---
L&D History Date of Service Date of Service: Aug 17, 2021 History Expected Date of Delivery: Sep 12, 2021 Gestational Age in Weeks: 36 Hx : 4 Hx Para: 2 Complications Events: Gestational Diabetes (Pregestational Class B, Cholestasis of ) Operative Indications (Cesarea: N/A-Vaginal Delivery Intrapartal Events: None L&D Stage1 Stage One Onset of Labor - Date: Aug 17, 2021 Monitors and Tracing Monitor Mode: External Heart Rate: 120 Monitor Accelerations: Uniform Monitor Decelerations: None Station: -3 Detention Variability: Average (6-10) Short Term Variability: Present Presentation: Vertex Vital Signs VS - Last 72 Hours, by Label 08/16/21 08/16/21 08/16/21 08/16/21 19:15 19:15 20:30 21:30 Temp 36.8 36.8 Pulse 101 101 83 78 Resp 18 18 18 18 B/P (MAP) 127/58 (81) 112/55 (74) 153/86 (108) Pulse Ox 98 98 O2 Delivery Room Air Room Air Room Air Room Air 08/16/21 08/16/21 08/17/21 08/17/21 22:30 23:30 00:34 01:30 Temp 36.9 Pulse 76 77 71 66 Resp 18 18 18 18 B/P (MAP) 134/63 (86) 120/57 (78) 128/62 (84) 131/60 (83) O2 Delivery Room Air Room Air Room Air Room Air 08/17/21 08/17/21 08/17/21 08/17/21 02:30 03:30 04:30 05:30 Temp 36.0 Pulse 63 68 72 63 Resp 18 18 18 18 B/P (MAP) 124/74 (91) 128/70 (89) 117/59 (78) 116/58 (77) O2 Delivery Room Air Room Air Room Air Room Air 08/17/21 08/17/21 08/17/21 08/17/21 07:30 08:30 09:00 09:15 Temp 35.8 Pulse 67 55 70 70 Resp 18 B/P (MAP) 130/74 (92) 136/72 (93) 121/74 (90) 119/56 (77) O2 Delivery Room Air Room Air Room Air Room Air 08/17/21 08/17/21 08/17/21 08/17/21 09:30 09:33 09:41 09:44 Pulse 70 76 72 68 Resp 18 B/P (MAP) 119/56 (77) 121/71 (88) 125/77 (93) 129/77 (94) Pulse Ox 100 100 O2 Delivery Room Air Room Air Room Air Room Air 08/17/21 08/17/21 08/17/21 08/17/21 09:50 09:51 09:55 10:00 Pulse 70 65 75 75 Resp 18 B/P (MAP) 130/75 (93) 120/77 (91) 120/64 (82) 118/58 (78) Pulse Ox 100 100 100 100 O2 Delivery Room Air Room Air Room Air Room Air 08/17/21 08/17/21 08/17/21 08/17/21 10:00 10:07 10:10 10:12 Pulse 77 78 105 71 Resp 18 B/P (MAP) 120/64 (82) 114/57 (76) 98/53 (68) 102/55 (71) Pulse Ox 100 100 99 97 O2 Delivery Room Air Room Air Room Air Room Air 08/17/21 08/17/21 08/17/21 08/17/21 10:15 10:20 10:28 10:32 Pulse 68 84 65 79 Resp 18 B/P (MAP) 130/58 (82) 122/88 (99) 124/55 (78) 117/55 (75) Pulse Ox 99 99 99 100 O2 Delivery Room Air Room Air Room Air Room Air 08/17/21 08/17/21 08/17/21 08/17/21 10:35 10:42 10:45 10:52 Pulse 82 77 76 65 B/P (MAP) 120/60 (80) 120/59 (79) 125/59 (81) 128/63 (84) Pulse Ox 100 100 99 98 O2 Delivery Room Air Room Air Room Air 08/17/21 08/17/21 08/17/21 08/17/21 10:58 11:02 11:06 11:12 Pulse 76 69 71 67 B/P (MAP) 113/54 (73) 116/56 (76) 123/63 (83) 123/57 (79) Pulse Ox 98 98 100 O2 Delivery Room Air Room Air Room Air 08/17/21 08/17/21 08/17/21 08/17/21 11:30 11:45 12:00 12:15 Temp 35.8 Pulse 83 84 79 68 B/P (MAP) 102/53 (69) 120/51 (74) 116/57 (76) 103/55 (71) O2 Delivery Room Air Room Air Room Air Room Air 08/17/21 08/17/21 08/17/21 08/17/21 12:30 12:45 13:00 13:15 Pulse 65 71 Resp 18 16 B/P (MAP) 104/52 (69) 123/57 (79) O2 Delivery Room Air Room Air Room Air Room Air 08/17/21 08/17/21 08/17/21 08/17/21 13:30 13:45 14:00 14:15 Pulse 61 66 59 82 Resp 18 B/P (MAP) 125/58 (80) 125/61 (82) 126/57 (80) 129/66 (87) O2 Delivery Room Air Room Air Room Air Room Air 08/17/21 08/17/21 08/17/21 08/17/21 14:30 14:45 15:00 15:15 Pulse 69 71 90 74 Resp 18 B/P (MAP) 124/59 (80) 123/66 (85) 131/74 (93) 131/66 (87) O2 Delivery Room Air Room Air Room Air Room Air 08/17/21 08/17/21 08/17/21 08/17/21 15:30 15:45 16:00 16:15 Temp 35.8 Pulse 71 69 76 67 B/P (MAP) 125/65 (85) 131/70 (90) 142/76 (98) 129/72 (91) O2 Delivery Room Air Room Air Room Air Room Air 08/17/21 08/17/21 08/17/21 08/17/21 16:30 16:45 17:00 17:15 Pulse 73 112 B/P (MAP) 133/61 (85) 136/86 (103) O2 Delivery Room Air Room Air Room Air Room Air 08/17/21 08/17/21 08/17/21 08/17/21 17:30 17:45 18:00 18:15 Pulse 73 62 69 70 Resp 18 18 18 18 B/P (MAP) 137/74 (95) 135/67 (89) 134/72 (92) 133/66 (88) O2 Delivery Room Air Room Air Room Air Room Air 08/17/21 08/17/21 08/17/21 08/17/21 18:30 18:45 19:00 19:15 Temp 36.4 Pulse 57 75 59 63 Resp 18 18 18 18 B/P (MAP) 131/69 (89) 129/72 (91) 132/65 (87) 129/60 (83) O2 Delivery Room Air Room Air Room Air Room Air 08/17/21 08/17/21 08/17/21 19:30 19:45 20:00 Temp 36.3 Pulse 61 74 74 Resp 18 18 18 B/P (MAP) 140/71 (94) 124/59 (80) 128/75 (92) O2 Delivery Room Air Room Air Room Air Rupture of Membranes Spontaneous Ruture of Membrane: No Amniotic Membrane Rupture Time: 1645 Amniotic Membrane Fluid Desc.: Clear Vaginal Bleeding Description: Normal Show Induction/Anesthesia Epidural Cath Placement - Time: 0950 Progress/Notes Patient admitted last night for medical induction of labor, documented by MFM recommendation at 36 weeks. Her arrival BS and FBS was WNL, therefore aggressive sugar management was not necessary. She received misoprostol PO overnight, due to high presentation and no presenting engagement, pitocin was started first. She progressed to 3 cm when station progressed and AROM was performed this afternoon after epidural was received. Patient reached providers max dose of pitocin at 20mu, and made little no no change from 4pm-730 pm, pitocin however was continued. I was notified at 946 that patient was 8 cm and uncontrollably pushing at which point I rapidly presented to the hospital for delivery. L&D Stage2 Stage Two Stage II Date: Aug 17, 2021 Monitors and Tracing Monitor Mode: External Heart Rate: 120 Position: Right Occiput Anterior Presentation: Vertex Cord Descript/Complications Cord Vessel Description: 3 Vessels Complications was noted at entry into the room, gloves were put on as infant was delivered in bed with RN attending. Episiotomy/Perineal Laceration Laceraction(s)/Extensions: No Condition of Infant Delivery 1 minute Comment: 8 5 minute Comment: 9 Notes Live male infant weight 5lbs 15oz Condition of Condition of : Living Exam: No Observed Abnormalities Resuscitation Resuscitation: N/A - Spontaneous Resp L&D Stage3 Stage Three Stage III Date: Aug 17, 2021 Pictocin Pitocin Administration mu/min: 20 Pitocin ml/hr: 20 Pitocin Administration Comment: 30 mu wide open at delivery of placenta Placenta Delivery Placenta Delivery: Spontaneous Delivery Summary Summary Estimated blood loss (mL): 200 Attending at delivery: Leila Rai DO Condition of Delivery Examined: Cervix Examined, Uterus Explored Post Hemorrhage: No Condition of Mother stable Condition of (s) stable LEILA RAI DO Aug 17, 2021 22:09
--- NOTE | 2021-08-17 22:13 | Discharge Inst-Women's Service ---
Discharge Inst-Women's Serv Depart Medication/Instructions New, Converted or Re-Newed RX: RX on Chart Final Diagnosis PPD 2 NVD Problems Reviewed?: Yes Consults/Follow Up Additional Follow Up: Yes Orders/Referrals Mathew in 6 weeks Activity Activity: Activity as Tolerated Driving Instructions: No Driving for 1 Week NO SMOKING: NO SMOKING Nothing Inside Vagina: No Douching, No [place], No Tampons Diet Discharge Diet: No Restrictions Symptoms to Report to : Bleeding Excessive, Pain Increased, Fever Over 101 Degrees F, Vaginal Bleeding Increase, Questions/Concerns For Any Problems or Questions: Contact Your Physician Skin/Wound Care Infection Signs and Symptoms: Increased Redness, Foul Odor of Wound, Increased Drainage, Skin Itchy or Has a Rash, Increased Swelling, Temperature Above 101 F Operative Area Clean and Dry: Keep Incision Clean/Dry LEILA RAI DO Aug 17, 2021 22:13
[2021-08-17] MEDS ORDERED: FERR325T24 PO (22:14)
[2021-08-17] MEDS ORDERED: PNV1TABL67 PO (22:14)
[2021-08-17] MEDS ORDERED: IBUP-844 PO (22:14)
[2021-08-17] MEDS ORDERED: DOCU-239 PO (22:14)
[2021-08-17] MEDS ORDERED: ACHD5005 PO (22:14)
[2021-08-17] MEDS ORDERED: WITCH HAZEL(TUCKS) 40 EA JAR TOP PRN (22:15)
[2021-08-17] MEDS ORDERED: TETANUS,DIPTH,PERTUSS P/F (BOOSTRIX) 0.5 ML VIAL IM ONE (22:15)
[2021-08-17] MEDS ORDERED: BENZOCAINE/MENTHOL (DERMOPLAST) 56 ML CAN TP PRN (22:15)
[2021-08-17] MEDS ORDERED: MEASLES,MUMPS,RUBELLA 1 EA INJ SQ ONE (22:15)
[2021-08-17] MEDS ORDERED: DIBUCAINE 1% OINTMENT 30 GM TUBE TOP PRN (22:15)
[2021-08-17] MEDS: OXYTOCIN PRE-MIX DRIP 500 ML IV SCH (22:21)
[2021-08-17] MEDS: IBUPROFEN 600 MG (MOTRIN) TAB PO SCH (22:31)
[2021-08-18] VITALS: BP 114/55
[2021-08-18] MEDS: IBUPROFEN 600 MG (MOTRIN) TAB PO SCH ×3 (04:29→20:48)
[2021-08-18 04:30] VITALS: BP 135/71
[2021-08-18] MEDS: OXYTOCIN PRE-MIX DRIP 500 ML IV SCH (05:02)
[2021-08-18] MEDS ORDERED: CATHETER FLUSH 10 ML SYR IV SCH (06:00)
[2021-08-18 06:22] LABS: BASOPHILS % (AUTO) 0 % (0-10); EOSINOPHILS % (AUTO) 0 % (0-10); HEMATOCRIT 30 % (35-52); HEMOGLOBIN 9.2 g/dL (11.5-16.0); LYMPHOCYTES # (AUTO) 2.1 10^3/uL (1.0-4.0); LYMPHOCYTES % (AUTO) 22 % (12-44); MEAN CORPUSCULAR HEMOGLOBIN 27 pg (25-34); MEAN CORPUSCULAR HGB CONC 31 g/dL (32-36); MEAN CORPUSCULAR VOLUME 88 fL (80-99); MEAN PLATELET VOLUME 9.9 fL (9.0-12.2); MONOCYTES # (AUTO) 0.7 10^3/uL (0.0-1.0); MONOCYTES % (AUTO) 7 % (0-12); NEUTROPHILS # (AUTO) 6.9 10^3/uL (1.8-7.8); NEUTROPHILS % (AUTO) 71 % (42-75); PLATELET COUNT 239 10^3/uL (130-400); WHITE BLOOD COUNT 9.7 10^3/uL (4.3-11.0)
[2021-08-18] MEDS: PRENATAL VITAMIN 1 EA TAB PO SCH (07:47)
[2021-08-18] MEDS: DOCUSATE SODIUM 100 MG (COLACE) CAP PO SCH ×2 (07:47→20:47)
[2021-08-18] MEDS: FERROUS SULF 325 MG (IRON) TAB PO SCH (07:47)
[2021-08-18] MEDS: HYDROcodone/APAP 5 MG/325 MG (LORTAB) TAB PO PRN ×2 (07:48→22:20)
[2021-08-18 07:49] VITALS: BP 123/57
--- NOTE | 2021-08-18 08:16 | Postpartum Progress Note ---
SILVER JACKSON 08/18/21 0816: Note Note Day # 1 Subjective: Patient doing well with minor complaints of constipation/gas pain. Ambulating, voiding. Tolerating a regular diet without nausea or vomiting. Normal lochia. Pain is well controlled with oral pain medications. Breast feeding. Patient complains of GERD. Objective: Laboratory Tests 08/17/21 11:31: Glucometer 82 08/18/21 00:28: Glucometer 123H 08/18/21 06:11: White Blood Count 9.7, Red Blood Count 3.38L, Hemoglobin 9.2L, Hematocrit 30L, Mean Corpuscular Volume 88, Mean Corpuscular Hemoglobin 27, Mean Corpuscular Hemoglobin Concent 31L, Red Cell Distribution Width 15.6H, Platelet Count 239, Mean Platelet Volume 9.9, Immature Granulocyte % (Auto) 1, Neutrophils (%) (Auto) 71, Lymphocytes (%) (Auto) 22, Monocytes (%) (Auto) 7, Eosinophils (%) (Auto) 0, Basophils (%) (Auto) 0, Neutrophils # (Auto) 6.9, Lymphocytes # (Auto) 2.1, Monocytes # (Auto) 0.7, Eosinophils # (Auto) 0.0, Basophils # (Auto) 0.0, Immature Granulocyte # (Auto) 0.1, Glucose Level 75 Vital Signs Date Time Temp Pulse Resp B/P (MAP) Pulse Ox O2 Delivery O2 Flow Rate FiO2 08/18/21 07:49 36.6 79 16 123/57 (79) 97 08/18/21 04:30 Room Air Physical Exam: General - Alert and oriented, no apparent distress Abdomen - Soft, appropriately tender to palpation, non-distended, fundus firm at umbilicus Extremities - no edema Heart- RRR Assessment: post- day #1, status post vaginal delivery. Recovering well, hemodynamically stable anemia Reflux Plan: Routine care. Encourage breast feeding. Encourage ambulation. Ferrous sulfate supplementation. Begin reflux medication Plan for discharge tomorrow Vitals - Labs Vital Signs - I&O Vital Signs Date Time Temp Pulse Resp B/P (MAP) Pulse Ox O2 Delivery O2 Flow Rate FiO2 08/18/21 07:49 36.6 79 16 123/57 (79) 97 08/18/21 04:30 37.2 64 18 135/71 (92) 98 Room Air 9/23/21 00:00 36.8 67 18 114/55 (74) Room Air 08/17/21 23:31 62 18 115/68 (84) Room Air 08/17/21 23:21 67 18 117/64 (81) Room Air 08/17/21 23:02 63 18 126/60 (82) Room Air 08/17/21 22:44 36.2 64 18 116/56 (76) Room Air 08/17/21 22:28 77 18 118/73 (88) Room Air 08/17/21 22:10 87 18 119/73 (88) Room Air 08/17/21 21:30 36.5 85 18 107/62 (77) Room Air 08/17/21 21:15 77 18 116/53 (74) Room Air 08/17/21 21:00 76 18 137/71 (93) Room Air 08/17/21 20:45 62 18 125/60 (81) Room Air 08/17/21 20:30 62 18 139/60 (86) Room Air 08/17/21 20:15 76 18 130/73 (92) Room Air 08/17/21 20:00 74 18 128/75 (92) Room Air 08/17/21 19:45 36.3 74 18 124/59 (80) Room Air 08/17/21 19:30 61 18 140/71 (94) Room Air 08/17/21 19:15 63 18 129/60 (83) Room Air 08/17/21 19:00 36.4 59 18 132/65 (87) Room Air 08/17/21 18:45 75 18 129/72 (91) Room Air 08/17/21 18:30 57 18 131/69 (89) Room Air 08/17/21 18:15 70 18 133/66 (88) Room Air 08/17/21 18:00 69 18 134/72 (92) Room Air 08/17/21 17:45 62 18 135/67 (89) Room Air 08/17/21 17:30 73 18 137/74 (95) Room Air 08/17/21 17:15 Room Air 08/17/21 17:00 Room Air 08/17/21 16:45 112 136/86 (103) Room Air 08/17/21 16:30 73 133/61 (85) Room Air 08/17/21 16:15 67 129/72 (91) Room Air 08/17/21 16:00 76 142/76 (98) Room Air 08/17/21 15:45 69 131/70 (90) Room Air 08/17/21 15:30 35.8 71 125/65 (85) Room Air 08/17/21 15:15 74 18 131/66 (87) Room Air 08/17/21 15:00 90 131/74 (93) Room Air 08/17/21 14:45 71 123/66 (85) Room Air 08/17/21 14:30 69 124/59 (80) Room Air 08/17/21 14:15 82 18 129/66 (87) Room Air 08/17/21 14:00 59 126/57 (80) Room Air 08/17/21 13:45 66 125/61 (82) Room Air 08/17/21 13:30 61 125/58 (80) Room Air 08/17/21 13:15 71 16 123/57 (79) Room Air 08/17/21 13:00 Room Air 08/17/21 12:45 Room Air 08/17/21 12:30 65 18 104/52 (69) Room Air 08/17/21 12:15 68 103/55 (71) Room Air 08/17/21 12:00 79 116/57 (76) Room Air 08/17/21 11:45 35.8 84 120/51 (74) Room Air 08/17/21 11:30 83 102/53 (69) Room Air 08/17/21 11:12 67 123/57 (79) Room Air 08/17/21 11:06 71 123/63 (83) 100 Room Air 08/17/21 11:02 69 116/56 (76) 98 Room Air 08/17/21 10:58 76 113/54 (73) 98 08/17/21 10:52 65 128/63 (84) 98 08/17/21 10:45 76 125/59 (81) 99 Room Air 08/17/21 10:42 77 120/59 (79) 100 Room Air 08/17/21 10:35 82 120/60 (80) 100 Room Air 08/17/21 10:32 79 117/55 (75) 100 Room Air 08/17/21 10:28 65 18 124/55 (78) 99 Room Air 08/17/21 10:20 84 122/88 (99) 99 Room Air 08/17/21 10:15 68 130/58 (82) 99 Room Air 08/17/21 10:12 71 102/55 (71) 97 Room Air 08/17/21 10:10 105 98/53 (68) 99 Room Air 08/17/21 10:07 78 114/57 (76) 100 Room Air 08/17/21 10:00 77 18 120/64 (82) 100 Room Air 08/17/21 10:00 75 118/58 (78) 100 Room Air 08/17/21 09:55 75 18 120/64 (82) 100 Room Air 08/17/21 09:51 65 120/77 (91) 100 Room Air 08/17/21 09:50 70 130/75 (93) 100 Room Air 08/17/21 09:44 68 129/77 (94) 100 Room Air 08/17/21 09:41 72 125/77 (93) 100 Room Air 08/17/21 09:33 76 18 121/71 (88) Room Air 08/17/21 09:30 70 119/56 (77) Room Air 08/17/21 09:15 70 119/56 (77) Room Air 08/17/21 09:00 70 121/74 (90) Room Air 08/17/21 08:30 55 136/72 (93) Room Air I & O 08/18/21 07:00 Intake Total 4400 ml Balance 4400 ml Labs Laboratory Tests 08/17/21 11:31: Glucometer 82 08/18/21 00:28: Glucometer 123H 08/18/21 06:11: White Blood Count 9.7, Red Blood Count 3.38L, Hemoglobin 9.2L, Hematocrit 30L, Mean Corpuscular Volume 88, Mean Corpuscular Hemoglobin 27, Mean Corpuscular Hemoglobin Concent 31L, Red Cell Distribution Width 15.6H, Platelet Count 239, Mean Platelet Volume 9.9, Immature Granulocyte % (Auto) 1, Neutrophils (%) (Auto) 71, Lymphocytes (%) (Auto) 22, Monocytes (%) (Auto) 7, Eosinophils (%) (A uto) 0, Basophils (%) (Auto) 0, Neutrophils # (Auto) 6.9, Lymphocytes # (Auto) 2.1, Monocytes # (Auto) 0.7, Eosinophils # (Auto) 0.0, Basophils # (Auto) 0.0, Immature Granulocyte # (Auto) 0.1, Glucose Level 75 LEILA RAI DO 08/18/21 0832: Note Note Verification and Attestation of Medical Student E/M Service Diagnosis: Acute blood loss anemia superimposed on anemia of A medical student performed and documented this service in my presence. I reviewed and verified all information documented by the medical student and made modifications to such information, when appropriate. I personally performed the physical exam and medical decision making. Leila Rai, Aug 18, 2021,08:32 SILVER JACKSON Aug 18, 2021 08:16 LEILA RAI DO Aug 18, 2021 08:32
[2021-08-18] MEDS ORDERED: FAMOTIDINE 20MG/2ML IV (PEPCID) IVP SCH (09:00)
[2021-08-18] MEDS: metFORMIN 500 MG (GLUCOPHAGE) TAB PO SCH ×2 (09:11→17:17)
[2021-08-18] MEDS: FAMOTIDINE 20 MG (PEPCID) TABLET PO SCH ×2 (09:11→21:00)
[2021-08-18 14:07] VITALS: BP 122/68
--- NOTE | 2021-08-18 14:32 | Anesthesia-Regional Post-Op ---
Regional Patient Condition Mental Status: Alert, Oriented x3 Circulation: Same as Pre-Op Headache: Absent Sensation: Full Recovery Motor Block: Absent Post Op Complications Complications None Follow Up Care/Instructions Patient Instructions None needed. Anesthesia/Patient Condition Patient is doing well, no complaints, stable vital signs, no apparent adverse anesthesia problems. No complications reported per nursing. VERONICA BRIONES CRNA Aug 18, 2021 14:32
[2021-08-18 18:27] VITALS: BP 123/78
[2021-08-18 20:50] VITALS: BP 138/81
[2021-08-19] MEDS: IBUPROFEN 600 MG (MOTRIN) TAB PO SCH ×2 (02:19→08:14)
[2021-08-19 02:25] VITALS: BP 121/67
--- NOTE | 2021-08-19 07:33 | Postpartum Progress Note ---
Note Note Day # 2 Subjective: Patient is without complaints. Ambulating, voiding. Tolerating a regular diet without nausea or vomiting. Normal lochia. Pain is well controlled with oral pain medications. Objective: Physical Exam: General - Alert and oriented, no apparent distress Abdomen - Soft, appropriately tender to palpation, non-distended, fundus firm at umbilicus Extremities - no edema, negative Harman's bilaterally Assessment: Post- day # 2, status post vaginal delivery. Recovering well, hemodynamically stable Acute blood loss anemia Type 2 Diabetes Mellitus Plan: Routine care. Encourage breast feeding. Encourage ambulation. Ferrous sulfate supplementation. Plan for discharge today Vitals - Labs Vital Signs - I&O Vital Signs Date Time Temp Pulse Resp B/P (MAP) Pulse Ox O2 Delivery O2 Flow Rate FiO2 08/19/21 02:25 36.3 76 16 121/67 (85) 97 Room Air 08/18/21 20:50 36.9 72 16 138/81 (100) 98 Room Air 08/18/21 18:27 37.0 77 16 123/78 (93) 99 Room Air 08/18/21 14:07 37.0 69 16 122/68 (86) 98 Room Air 08/18/21 07:49 36.6 79 16 123/57 (79) 97 Labs Laboratory Tests 08/18/21 11:08: Glucometer 92 08/18/21 13:59: Glucometer 104 08/18/21 21:32: Glucometer 100 08/19/21 05:50: Glucometer 85 MELANIE ESQUIVEL APRN Aug 19, 2021 07:33
[2021-08-19] MEDS: PRENATAL VITAMIN 1 EA TAB PO SCH (08:14)
[2021-08-19] MEDS: DOCUSATE SODIUM 100 MG (COLACE) CAP PO SCH (08:14)
[2021-08-19] MEDS: FERROUS SULF 325 MG (IRON) TAB PO SCH (08:14)
[2021-08-19 08:15] VITALS: BP 126/72
== END 2021-08-19 12:45 | disposition home or self-care (01) | DRG 805 ==
LOC: LDRP 18:51
PROVIDERS: ADMIT Obstetrics & Gynecology; ATTEND Obstetrics & Gynecology
PROC: 3E0DXGC Introduction of Other Therapeutic Substance into Mouth and Pharynx, External Approach (ICD-10-PCS; 2021-08-16)
PROC: 10E0XZZ Delivery of Products of Conception, External Approach (ICD-10-PCS; principal; 2021-08-17)
DX: O24.425 Gestational diabetes mellitus in childbirth, controlled by oral hypoglycemic drugs (principal); K83.1 Obstruction of bile duct; Z37.0 Single live birth; O26.62 Liver and biliary tract disorders in childbirth; D62 Acute posthemorrhagic anemia; Z3A.36 36 weeks gestation of pregnancy; O90.81 Anemia of the puerperium; O99.02 Anemia complicating childbirth; D64.9 Anemia, unspecified; K21.9 Gastro-esophageal reflux disease without esophagitis; O99.613 Diseases of the digestive system complicating pregnancy, third trimester; Z88.1 Allergy status to other antibiotic agents; Z88.2 Allergy status to sulfonamides; Z88.8 Allergy status to other drugs, medicaments and biological substances
CPT/HCPCS: 36415; 82947; 85025; 86850; 86900; 86901

== ENCOUNTER 2021-09-30 03:35 | Emergency (ER) | payer MEDICAID ==
[~2021-09-30] VITALS: Ht 163 cm; Wt 99.0 kg
[~2021-09-30 03:35] MED LIST changes: +FERR325T24 PO; +METF-399 PO; +METF500S5 PO; +PNV1TABL67 PO
--- NOTE | 2021-09-30 04:05 | ED Cough/URI ---
General Stated Complaint: POSS COVID,SOB Source: patient Exam Limitations: no limitations History of Present Illness Date Seen by Provider: Sep 30, 2021 Time Seen by Provider: 03:50 Initial Comments Patient is a 21-year-old female who presents to the emergency department today with a chief complaint of shortness of breath, cough, congestion, nausea, abdominal discomfort. She has a sore throat. Patient describes subjective fever. Patient states that her symptoms started on Sunday of this week, 4 days ago. She has been taking multiple rkau-efi-fjhztgt remedies to try and alleviate her symptoms without any relief. She does smoke. She is concerned that she may be as she is 6 weeks , sexually active and had a little vaginal spotting that went away yesterday. She states "that is exactly how I found out it was last time". She has a 2-year-old, a 1-year-old and a 6-week-old baby at home. Patient denies chest pain. Denies earache. Denies rash. Denies diarrhea. Denies dysuria. Denies abdominal normal vaginal discharge. She is not Covid vaccinated. All other review of systems reviewed and negative except as stated. Timing/Duration: week, getting worse Severity/Quality: moderate, dry cough Prior Episodes/Possible Cause: unknown cause Modifying Factors: Worse With Coughing Associated Symptoms: fever/chills, muscle aches, nasal congestion, nasal marly inage, shortness of breath, sore throat, wheezing Allergies and Home Medications Allergies Coded Allergies: diphenhydramine (Verified Allergy, Severe, Shortness of Breath, 08/05/19) HIVES SWELLING amoxicillin (Verified Allergy, Unknown, throat swells shut, 08/05/19) sulfamethoxazole (Verified Allergy, Unknown, 08/05/19) trimethoprim (Verified Allergy, Unknown, 08/05/19) Patient Home Medication List Home Medication List Reviewed: Yes Albuterol Sulfate (Proair Hfa) 1 Puff Puff, 2 PUFF IH Q4H, (Reported) Entered as Reported by: BEBO HANSON on 08/16/212103 Albuterol Sulfate (Proair Hfa) 1 Puff Puff, 2 PUFF IH Q4H PRN for shortness of breath and wheeze Prescribed by: EMILIANO HEART on 09/30/21 0517 Docusate Sodium (Dok) 100 Mg Capsule, 100 MG PO BID PRN for CONSTIPATION-1ST LINE Prescribed by: LEILA RAI on 08/17/212213 Ferrous Sulfate (Ferosul) 325 Mg Tablet, 325 MG PO DAILY Prescribed by: LEILA RAI on 08/17/212213 Hydrocodone Bit/Acetaminophen (HYDROcodone/APAP 5 MG/325 MG TAB) 1 Tab Tab, 1 EA PO Q4H PRN for PAIN-MODERATE (5-7) Prescribed by: LEILA RAI on 08/17/212213 Ibuprofen (Ibu) 600 Mg Tablet, 600 MG PO Q6HR Prescribed by: LEILA RAI on 08/17/212213 Pnv with Ca,No.72/Iron/FA (Pnv Plus Multivit Tab) 1 Each Tablet, 1 EA PO DAILY@0700 Prescribed by: LEILA RAI on 08/17/212213 Review of Systems Review of Systems Constitutional: see HPI EENTM: nose congestion, throat pain Respiratory: cough, short of breath Cardiovascular: no symptoms reported Gastrointestinal: nausea Genitourinary: no symptoms reported Musculoskeletal: muscle pain (body aches) Skin: no symptoms reported Psychiatric/Neurological: No Symptoms Reported All Other Systems Reviewed Negative Unless Noted: Yes Past Mxzgixr-Fbpqyx-Mgwume Hx Immunizations Up To Date Tetanus Booster (TDap): Less than 5yrs PED Vaccines UTD: Yes Seasonal Allergies Seasonal Allergies: No Past Medical History Surgery/Hospitalization HX: EGD Surgeries: Yes (EGD) Respiratory: No Currently Using CPAP: No Currently Using BIPAP: No Cardiac: Yes High Cholesterol Neurological: Yes Headaches /Migraines Reproductive Disorders: No Female Reproductive Disorders: Denies Sexually Transmitted Disease: Yes (CHLAMYDIA) HIV/AIDS: No Genitourinary: No Gastrointestinal: Yes (CHRONIC ABDOMINAL PAIN COMPLAINTS) Chronic Constipation, Ulcer Musculoskeletal: No Endocrine: Yes (NON-COMPLIANT) Diabetes, Insulin dep HEENT: No Loss of Vision: Denies Hearing Impairment: Denies Cancer: No Psychosocial: Yes ADD/ADHD, Anxiety Integumentary: No Blood Disorders: No Family Medical History Diabetes mellitus MATERNAL GRANDMOTHER Hypertension MATERNAL GRANDMOTHER Diabetes, Hypertension Physical Exam Vital Signs - First Documented 09/30/21 03:51 Temp 36.7 Pulse 81 Resp 18 B/P (MAP) 157/85 (109) Pulse Ox 98 O2 Delivery Room Air Capillary Refill : Height: 5'4.00" Weight: 221lbs. 0.4oz. 100.055825ih; 40.58 BMI Method:Stated General Appearance: WD/WN, no apparent distress Eyes: Bilateral Eye Normal Inspection, Bilateral Eye PERRL, Bilateral Eye EOMI HEENT: PERRL/EOMI, TMs normal, pharynx normal, other (nasal mucosal congestion) Neck: normal inspection Respiratory: crackles, wheezing (scattered exp wheeze more on the left than right; occ ronchous crackles) Cardiovascular: regular rate, rhythm Gastrointestinal: normal bowel sounds, non tender, soft Extremities: non-tender, normal inspection, no pedal edema Neurologic/Psychiatric: alert, normal mood/affect, oriented x 3 Skin: normal color, warm/dry Progress/Results/Core Measures Suspected Sepsis SIRS Temperature: Pulse: Respiratory Rate: Blood Pressure / Mean: Results/Orders Lab Results Laboratory Tests Test 09/30/21 03:57 Range/Units SARS-CoV-2 RNA (RT-PCR) Not Detected Not Detecte My Orders Orders - EMILIANO HEART MD Chest 1 View, Ap/Pa Only (09/30/21 04:00) Urine Bedside (09/30/21 04:00) Covid 19 Inhouse Test (09/30/21 04:00) Vital Signs/I&O 09/30/21 09/30/21 03:51 03:51 Temp 36.7 Pulse 81 Resp 18 B/P (MAP) 157/85 (109) Pulse Ox 98 O2 Delivery Room Air Room Air Capillary Refill : Progress Note : Time: 05:14 Progress Note Patient's Covid test is negative, her chest x-ray is unremarkable. Vital signs are stable. test is negative. I recommended to the patient that I would send her an inhaler prescription over to her [facility] pharmacy. I recommended that she decrease her smoking even more. Continue vuvu-kts-vqdmkbg decongestants, cough and cold medications and ibuprofen. I told her I believe that she has a viral upper respiratory tract infection and that no antibiotics are indicated at this time. Recommend she follow-up with her primary care physician if symptoms are continuing into next week. Patient verbalized underst anding, she is comfortable with plan of care. All questions are sought and answered. Diagnostic Imaging Diagonstic Imaging: Xray Plain Films/CT/US/NM/MRI: chest Comments Chest x-ray reviewed and interpreted by me, normal clear lung wing without evidence of infiltrate or effusion, normal mediastinum, normal bony structures. Counseling-Symptomatic: 3-10 Minutes Follow-up with PCP to: Discuss Further Options Departure Impression Primary Impression: Viral upper respiratory infection Disposition: HOME, SELF-CARE Condition: Stable Departure-Patient Inst. Decision time for Depature: 05:15 Referrals: [facility] (PCP/Family) Primary Care Physician Patient Instructions: Upper Respiratory Infection ED Add. Discharge Instructions: Please try and decrease her smoking even more. Use the albuterol inhaler, 2 puffs every 4-6 hours as needed for shortness of breath. Continue using iihl-ldv-xmnilow cough and cold medications such as Mucinex sinus, Tylenol cough and cold or other decongestants. Drink plenty of fluids to stay well-hydrated. Ibuprofen as needed for body aches. Return to the emergency room for any worsening shortness of breath, high fevers, inability to hold down your medications due to vomiting or any other emergent concerning symptoms. Scripts Albuterol Sulfate (PROAIR HFA) 1 Puff Puff 2 PUFF IH Q4H PRN for shortness of breath and wheeze, #1 EA 1 PUFF = 90 MCG Prov: EMILIANO HEART MD 09/30/21 EMILIANO HEART MD Sep 30, 2021 04:05
[2021-09-30] MEDS ORDERED: RT-ALBUINH IH (05:17)
[2021-09-30 05:24] VITALS: BP 146/84
--- NOTE | 2021-09-30 05:47 | Diagnostic Imaging Report ---
INDICATION: cough, fever, congestion body aches COMPARISON: 06/24/2021 FINDINGS: Single frontal view of the chest demonstrates normal heart size and pulmonary vascularity. The lungs are well aerated and clear. No large pleural effusion or pneumothorax is seen. The visualized osseous structures show no acute abnormalities. IMPRESSION: 1. No acute cardiopulmonary process. Dictated by: Dictated on workstation # [id number]
== END 2021-09-30 05:23 | disposition home or self-care (01) ==
LOC: EDUNIT# 03:35 → ER 03:38
DX: J06.9 Acute upper respiratory infection, unspecified (principal); E11.9 Type 2 diabetes mellitus without complications; Z20.822 Contact with and (suspected) exposure to COVID-19
CPT/HCPCS: 71045; 84703; 87636

== ENCOUNTER 2021-12-04 15:17 | Emergency (ER) | payer MEDICAID ==
[~2021-12-04] VITALS: Ht 160 cm; Wt 99.8 kg
[~2021-12-04 15:17] MED LIST changes: +DICY20TA PO; -DICY20TA10 PO
[2021-12-04 15:47] VITALS: BP 139/76
--- NOTE | 2021-12-04 16:30 | ED GU-Female ---
General Chief Complaint: - Reproductive Stated Complaint: VAG BLEEDING TIMES 12 DAYS, PAIN Nursing Triage Note: PT ARRIVED BY PRIVATE VEHICLE WITH CHIEF COMPLAINT OF VAGINAL BLEEDING FOR 12 DAYS. PT DELIVERED HER LAST CHILD ON 08/17. SHE HAS HAD A PERIOD LATE AUGUST, SEPTEMBER AND OCTOBER. SINCE HER OCTOBER PERIOD SHE HAS NOT STOPPED BLEEDING. PT HAD IUD PLACED AND NOW WANTS IT REMOVED. PT CONTACTED HER OBGYN AND MISSED THEIR PHONE CALL ON SUNDAY, BUT WANTS HER IUD TAKEN OUT. VITALS WERE DONE, URINE WAS OBTAINED. REPORT WAS GIVEN TO PROVIDER. Source: patient Exam Limitations: no limitations History of Present Illness Date Seen by Provider: Dec 04, 2021 Time Seen by Provider: 16:14 Initial Comments Patient to the ER by private conveyance from home with chief complaint of vaginal bleeding since the , 10 days. She had an IUD placed about 2 weeks prior to that. Her menses last started at the beginning of October. She is describes the bleeding as at or a little bit more than a regular menses. She says she is had quarter size blood clots. She claims she has had chest pain for the past 1 or 2 days but no shortness of air or exertional dyspnea. No cough fever chills, nausea, vomiting, diarrhea. She does have some dysuria. Dr. Carmona placed the IUD. She says on Sunday she called and when they called her back she missed 2 different calls. It was after hours by time she realized she had missed their calls. She is having some pelvic pain and took some Tylenol which did not help. She took some ibuprofen which did help but she says it was not bad enough to need more ibuprofen right now. Allergies and Home Medications Allergies Coded Allergies: diphenhydramine (Verified Allergy, Severe, Shortness of Breath, 08/05/19) HIVES SWELLING amoxicillin (Verified Allergy, Unknown, throat swells shut, 08/05/19) sulfamethoxazole (Verified Allergy, Unknown, 08/05/19) trimethoprim (Verified Allergy, Unknown, 08/05/19) Patient Home Medication List Home Medication List Reviewed: Yes Albuterol Sulfate (Proair Hfa) 1 Puff Puff, 2 PUFF IH Q4H, (Reported) Entered as Reported by: BEBO HANSON on 08/16/212103 Albuterol Sulfate (Proair Hfa) 1 Puff Puff, 2 PUFF IH Q4H PRN for shortness of breath and wheeze Prescribed by: EMILIANO HEART on 09/30/21 0517 Docusate Sodium (Dok) 100 Mg Capsule, 100 MG PO BID PRN for CONSTIPATION-1ST LINE Prescribed by: LEILA CARMONA on 08/17/212213 Ferrous Sulfate (Ferosul) 325 Mg Tablet, 325 MG PO DAILY Prescribed by: LEILA CARMONA on 08/17/212213 Hydrocodone Bit/Acetaminophen (HYDROcodone/APAP 5 MG/325 MG TAB) 1 Tab Tab, 1 EA PO Q4H PRN for PAIN-MODERATE (5-7) Prescribed by: LEILA CARMONA on 08/17/212213 Ibuprofen (Ibu) 600 Mg Tablet, 600 MG PO Q6HR Prescribed by: LEILA CARMONA on 08/17/212213 Pnv with Ca,No.72/Iron/FA (Pnv Plus Multivit Tab) 1 Each Tablet, 1 EA PO DAILY@0700 Prescribed by: LEILA CARMONA on 08/17/212213 Review of Systems Review of Systems Constitutional: No chills, No diaphoresis EENTM: No ear discharge, No hearing loss Respiratory: No cough, No short of breath Cardiovascular: see HPI, chest pain; No palpitations Gastrointestinal: No abdominal pain, No constipation, No diarrhea Genitourinary: denies discharge, denies dysuria Musculoskeletal: No back pain, No joint pain All Other Systemes Reviewed Negative Unless Noted: Yes Past Xebdnfx-Ccupcc-Lmihgo Hx Patient Social History Tobacco Use?: Yes Tobacco type used: Cigarettes Substance use?: No Alcohol Use?: Yes Alcohol type: Beer Alcohol Frequency: Once in a while Pt feels they are or have been: No Immunizations Up To Date Tetanus Booster (TDap): Less than 5yrs PED Vaccines UTD: Yes First/Initial COVID19 Vaccinat: N/A Seasonal Allergies Seasonal Allergies: No Past Medical History Surgery/Hospitalization HX: EGD Surgeries: Yes (EGD) Respiratory: No Currently Using CPAP: No Currently Using BIPAP: No Cardiac: Yes High Cholesterol Neurological: Yes Headaches /Migraines Reproductive Disorders: No Female Reproductive Disorders: Denies Sexually Transmitted Disease: Yes (CHLAMYDIA) HIV/AIDS: No Genitourinary: No Gastrointestinal: Yes (CHRONIC ABDOMINAL PAIN COMPLAINTS) Chronic Constipation, Ulcer Musculoskeletal: No Endocrine: Yes (NON-COMPLIANT) Diabetes, Insulin dep HEENT: No Loss of Vision: Denies Hearing Impairment: Denies Cancer: No Psychosocial: Yes ADD/ADHD, Anxiety Integumentary: No Blood Disorders: No Family Medical History Diabetes mellitus MATERNAL GRANDMOTHER Hypertension MATERNAL GRANDMOTHER Diabetes, Hypertension Physical Exam Vital Signs Vital Signs - First Documented 12/04/21 15:47 Temp 36.7 Pulse 81 Resp 16 B/P (MAP) 139/76 (97) Pulse Ox 97 O2 Delivery Room Air Capillary Refill : Less Than 3 Seconds Height, Weight, BMI Height: 5'4.00" Weight: 221lbs. 0.4oz. 100.165533qo; 38.00 BMI Method:Stated General Appearance: WD/WN, no apparent distress HEENT: PERRL/EOMI, pharynx normal Neck: full range of motion, normal inspection Cardiovascular: normal peripheral pulses, regular rate, rhythm Respiratory: no respiratory distress, no accessory muscle use Gastrointestinal: normal bowel sounds, non tender, soft, no organomegaly, other (No mesenteric signs) Pelvic: normal external exam, no masses, vaginal bleeding (Small amount of sanguinous secretions in the vaginal vault. No clots. No lacerations or cervical lacerations. There is about 2 cm of protruding string from the cervix.) Neurologic/Psychiatric: alert, normal mood/affect, oriented x 3 Skin: normal color, warm/dry Progress/Results/Core Measures Suspected Sepsis SIRS Temperature: Pulse: 81 Respiratory Rate: 16 Blood Pressure 139 /76 Mean: 97 Results/Orders Lab Results Laboratory Tests Test 12/04/21 15:30 12/04/21 16:55 Range/Units Urine Color YELLOW Urine Clarity CLEAR Urine pH 7.5 5-9 Urine Specific Adrian 1.020 1.016-1.022 Urine Protein NEGATIVE NEGATIVE Urine Glucose (UA) NEGATIVE NEGATIVE Urine Ketones NEGATIVE NEGATIVE Urine Nitrite NEGATIVE NEGATIVE Urine Bilirubin NEGATIVE NEGATIVE Urine Urobilinogen 0.2 < = 1.0 MG/DL Urine Leukocyte Esterase NEGATIVE NEGATIVE Urine RBC (Auto) 2+ H NEGATIVE Urine RBC 2-5 H /HPF Urine WBC 0-2 /HPF Urine Squamous Epithelial Cells 0-2 /HPF Urine Renal Epithelial Cells NONE /HPF Urine Crystals NONE /LPF Urine Bacteria NEGATIVE /HPF Urine Casts NONE /LPF Urine Mucus NEGATIVE /LPF Urine Culture Indicated NO Hemoglobin 12.0 11.5-16.0 g/dL Hematocrit 38 35-52 % Micro Results Microbiology 12/04/21 Wet Prep - Final, Complete My Orders Orders - ZAIRA NGUYENUS Hitesh Hemoglobin And Hematocrit (12/04/21 16:22) Ua Culture If Indicated (12/04/21 16:23) Wet Prep (12/04/21 16:23) Urine Bedside (12/04/21 16:23) Ketorolac Injection (Toradol Injection) (12/04/21 17:45) Medications Given in ED Current Medications Medications Dose Ordered Sig/Nkechi Route Start Time Stop Time Status Last Admin Dose Admin Ketorolac Tromethamine 60 mg ONCE ONCE IM 12/04/21 17:45 12/04/21 17:46 DC 12/04/21 17:43 60 MG Vital Signs/I&O 12/04/21 15:47 Temp 36.7 Pulse 81 Resp 16 B/P (MAP) 139/76 (97) Pulse Ox 97 O2 Delivery Room Air Capillary Refill : Less Than 3 Seconds Blood Pressure Mean: 97 Progress Note #1: Time: 16:27 Progress Note Offer the patient a shot of Toradol for the discomfort and she stated she did not want a shot. We will do a speculum exam of the vagina and cervix to look for obvious emergencies. We will obtain an H&H and a bedside and urinalysis given her symptoms. Encouraged her to follow-up with Dr. Carmona for post IUD placement discomfort. Her pain does not seem to be consistent with perforation and she has a soft, nontender, nonsurgical abdomen. Progress Note #2: Time: 17:35 Progress Note Patient was sleeping when we returned to the room to do the pelvic exam. She states she would take something for pain so we will give her Toradol IM. She can follow-up with Dr. Carmona in the morning. Wet prep obtained. Patient declined STI testing. Departure Impression Primary Impression: Presence of IUD Additional Impressions: Pelvic pain Abnormal uterine bleeding Bacterial vaginitis Disposition: 01 HOME, SELF-CARE Condition: Stable Departure-Patient Inst. Decision time for Depature: 17:45 Referrals: [facility] (PCP/Family) Primary Care Physician LEILA CARMONA DO Patient Instructions: Intrauterine Devices (IUD), Pelvic Pain, Vaginitis Add. Discharge Instructions: Drink plenty of fluids. Tylenol 1000 mg every 8 hours as necessary for pain. Ibuprofen 800 mg every 8 hours necessary for pain. Heating pads can help with cramping pain. Call Dr. Carmona in the morning. Flagyl 3 times a day with food for 1 week. All discharge instructions reviewed with patient and/or family. Voiced understanding. Scripts Metronidazole (Metronidazole) 500 Mg Tablet 500 MG PO TID for 7 Days, #21 TAB 0 Refills Prov: SLY NGUYEN 12/04/21 Copy Copies To 1: LEILA CARMONA DO SLY NGUYEN Dec 04, 2021 16:30
[2021-12-04 16:41] LABS: BILIRUBIN,URINE NEGATIVE (NEGATIVE); CLARITY,URINE CLEAR; COLOR,URINE YELLOW; GLUCOSE, URINE (UA) NEGATIVE (NEGATIVE); KETONES,URINE NEGATIVE (NEGATIVE); LEUKOCYTE ESTERASE ,URINE NEGATIVE (NEGATIVE); NITRITE,URINE NEGATIVE (NEGATIVE); PH,URINE 7.5 (5-9); PROTEIN,URINE NEGATIVE (NEGATIVE)
[2021-12-04 16:47] LABS: BACTERIA,URINE NEGATIVE /HPF; SQUAMOUS EPITHELIAL CELL,UR 0-2 /HPF; WBC,URINE 0-2 /HPF
[2021-12-04] MEDS ORDERED: KETOROLAC 60 MG/2 ML VIAL IM ONE (17:45)
[2021-12-04] MEDS ORDERED: METR-145 PO (17:51)
== END 2021-12-04 18:02 | disposition home or self-care (01) ==
LOC: EDUNIT# 15:17 → ER 15:22
DX: R10.2 Pelvic and perineal pain (principal); N93.9 Abnormal uterine and vaginal bleeding, unspecified; N76.0 Acute vaginitis; E11.9 Type 2 diabetes mellitus without complications; Z72.0 Tobacco use; Z97.5 Presence of (intrauterine) contraceptive device
CPT/HCPCS: 36415; 81000; 84703; 85014; 85018; 87210; 99284

== ENCOUNTER 2022-04-04 18:03 | Emergency (ER) | payer MEDICAID ==
[~2022-04-04] VITALS: Ht 160 cm; Wt 100.0 kg
[~2022-04-04 18:03] MED LIST changes: +METR-145 PO
[2022-04-04 18:15] VITALS: BP 136/88
--- NOTE | 2022-04-04 18:38 | ED General ---
General Chief Complaint: Skin/Wound Problems Stated Complaint: ABCESS IN NECK Nursing Triage Note: ARRIVED VIA AMB TO ROOM 07. MULTIPLE COMPLAINTS INCLUDING LEFT SIDED TOOTH PAIN, NECK PAIN, ARM PAIN, EAR PAIN, AND CHEST PAIN. STATES HAS BEEN SEEN BY [facility]. History of Present Illness Date Seen by Provider: April 04, 2022 Time Seen by Provider: 18:16 Initial Comments 23-year-old female with PMH of gestational diabetes and abdominal hernia, is here with complaints of left-sided neck swelling for the past 1 month which has progressively been worsening in size and pain. Patient has associated left gum swelling and tooth pain on her lower left molar tooth. Patient is also complaining of constant retrosternal chest pain for the past few weeks which has been constant. Patient has not seen a doctor for her symptoms yet. She has a dental appointment for April. Denies acid reflux, shortness of breath, cough, fever, chills, headache, nausea and vomiting, diarrhea, abdominal pain, dysphagi a, hoarse voice. Allergies and Home Medications Allergies Coded Allergies: diphenhydramine (Verified Allergy, Severe, Shortness of Breath, 08/05/19) HIVES SWELLING amoxicillin (Verified Allergy, Unknown, throat swells shut, 08/05/19) sulfamethoxazole (Verified Allergy, Unknown, 08/05/19) trimethoprim (Verified Allergy, Unknown, 08/05/19) Patient Home Medication List Home Medication List Reviewed: Yes Albuterol Sulfate (Proair Hfa) 1 Puff Puff, 2 PUFF IH Q4H, (Reported) Entered as Reported by: BEBO HANSON on 08/16/212103 Albuterol Sulfate (Proair Hfa) 1 Puff Puff, 2 PUFF IH Q4H PRN for shortness of breath and wheeze Prescribed by: EMILIANO HEART on 09/30/21 0517 Docusate Sodium (Dok) 100 Mg Capsule, 100 MG PO BID PRN for CONSTIPATION-1ST LINE Prescribed by: LEILA RAI on 08/17/212213 Ferrous Sulfate (Ferosul) 325 Mg Tablet, 325 MG PO DAILY Prescribed by: LEILA RAI on 08/17/212213 Hydrocodone Bit/Acetaminophen (HYDROcodone/APAP 5 MG/325 MG TAB) 1 Tab Tab, 1 EA PO Q4H PRN for PAIN-MODERATE (5-7) Prescribed by: LEILA RAI on 08/17/212213 Ibuprofen (Ibu) 600 Mg Tablet, 600 MG PO Q6HR Prescribed by: LEILA RAI on 08/17/212213 Metronidazole (Metronidazole) 500 Mg Tablet, 500 MG PO TID Prescribed by: SLY NGUYEN on 12/04/21 1751 Pnv with Ca,No.72/Iron/FA (Pnv Plus Multivit Tab) 1 Each Tablet, 1 EA PO DAILY@0700 Prescribed by: LEILA RAI on 08/17/212213 Review of Systems Review of Systems Constitutional: no symptoms reported EENTM: throat pain, throat swelling Respiratory: no symptoms reported Cardiovascular: chest pain Gastrointestinal: no symptoms reported Genitourinary: no symptoms reported Musculoskeletal: no symptoms reported Skin: no symptoms reported Psychiatric/Neurological: No Symptoms Reported Hematologic/Lymphatic: No Symptoms Reported Immunological/Allergic: no symptoms reported Past Civaktb-Taovcs-Evwtti Hx Patient Social History Smoking Status: Current Everyday Smoker Smokeless Tobacco Frequency: Current Everyday User Substance use?: No Alcohol Use?: No Immunizations Up To Date Tetanus Booster (TDap): Less than 5yrs PED Vaccines UTD: Yes First/Initial COVID19 Vaccinat: N/A Seasonal Allergies Seasonal Allergies: No Past Medical History Surgery/Hospitalization HX: EGD Surgeries: Yes (EGD) Respiratory: No Currently Using CPAP: No Currently Using BIPAP: No Cardiac: Yes High Cholesterol Neurological: Yes Headaches /Migraines Reproductive Disorders: No Female Reproductive Disorders: Denies Sexually Transmitted Disease: Yes (CHLAMYDIA) HIV/AIDS: No Genitourinary: No Gastrointestinal: Yes (CHRONIC ABDOMINAL PAIN COMPLAINTS) Chronic Constipation, Ulcer Musculoskeletal: No Endocrine: Yes (NON-COMPLIANT) Diabetes, Insulin dep HEENT: No Loss of Vision: Denies Hearing Impairment: Denies Cancer: No Psychosocial: Yes ADD/ADHD, Anxiety Integumentary: No Blood Disorders: No Family Medical History Diabetes mellitus MATERNAL GRANDMOTHER Hypertension MATERNAL GRANDMOTHER Diabetes, Hypertension Physical Exam Vital Signs Vital Signs - First Documented 04/04/22 18:15 Temp 36.3 Pulse 104 Resp 16 B/P (MAP) 136/88 (104) Pulse Ox 100 O2 Delivery Room Air Capillary Refill : Less Than 3 Seconds Height, Weight, BMI Height: 5'4.00" Weight: 221lbs. 0.4oz. 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 Norm as Tested Skin: Normal Color Focused Exam Lactate Level 04/04/22 18:50: Lactic Acid Level 1.44 Lactic Acid Level Laboratory Tests Test 04/04/22 18:50 Lactic Acid Level 1.44 MMOL/L (0.50-2.00) Progress/Results/Core Measures Suspected Sepsis SIRS Temperature: Pulse: 104 Respiratory Rate: 16 Laboratory Tests 04/04/22 18:50: White Blood Count 7.1 Blood Pressure 136 /88 Mean: 104 04/04/22 18:50: Lactic Acid Level 1.44 Laboratory Tests 04/04/22 18:50: Creatinine 0.91, Platelet Count 326, Total Bilirubin 0.7 Results/Orders Lab Results Laboratory Tests Test 04/04/22 18:19 04/04/22 18:50 Range/Units Urine Test NEGATIVE NEGATIVE White Blood Count 7.1 4.3-11.0 10^3/uL Red Blood Count 4.43 3.80-5.11 10^6/uL Hemoglobin 12.7 11.5-16.0 g/dL Hematocrit 40 35-52 % Mean Corpuscular Volume 89 80-99 fL Mean Corpuscular Hemoglobin 29 25-34 pg Mean Corpuscular Hemoglobin Concent 32 32-36 g/dL Red Cell Distribution Width 15.7 H 10.0-14.5 % Platelet Count 326 130-400 10^3/uL Mean Platelet Volume 9.4 9.0-12.2 fL Immature Granulocyte % (Auto) 0 % Neutrophils (%) (Auto) 65 42-75 % Lymphocytes (%) (Auto) 28 12-44 % Monocytes (%) (Auto) 5 0-12 % Eosinophils (%) (Auto) 1 0-10 % Basophils (%) (Auto) 0 0-10 % Neutrophils # (Auto) 4.6 1.8-7.8 10^3/uL Lymphocytes # (Auto) 2.0 1.0-4.0 10^3/uL Monocytes # (Auto) 0.4 0.0-1.0 10^3/uL Eosinophils # (Auto) 0.1 0.0-0.3 10^3/uL Basophils # (Auto) 0.0 0.0-0.1 10^3/uL Immature Granulocyte # (Auto) 0.0 0.0-0.1 10^3/uL Sodium Level 141 135-145 MMOL/L Potassium Level 3.8 3.6-5.0 MMOL/L Chloride Level 107 98-107 MMOL/L Carbon Dioxide Level 22 21-32 MMOL/L Anion Gap 12 5-14 MMOL/L Blood Urea Nitrogen 10 7-18 MG/DL Creatinine 0.91 0.60-1.30 MG/DL Estimat Glomerular Filtration Rate 91 BUN/Creatinine Ratio 11 Glucose Level 93 70-105 MG/DL Lactic Acid Level 1.44 0.50-2.00 MMOL/L Calcium Level 9.4 8.5-10.1 MG/DL Corrected Calcium 8.5-10.1 MG/DL Total Bilirubin 0.7 0.1-1.0 MG/DL Aspartate Amino Transf (AST/SGOT) 19 5-34 U/L Alanine Aminotransferase (ALT/SGPT) 14 0-55 U/L Alkaline Phosphatase 54 40-136 U/L Troponin I < 0.028 <0.028 NG/ML Total Protein 8.2 6.4-8.2 GM/DL Albumin 4.6 H 3.2-4.5 GM/DL Thyroid Stimulating Hormone (TSH) 0.87 0.35-4.94 UIU/ML TSH [place] Testing 0.87 0.35-4.94 UIU/ML My Orders Orders - DOMINGA MARQUEZ MD Chest 1 View, Ap/Pa Only (04/04/22 18:31) Ct Neck (Soft Tissue) W (04/04/22 18:31) Cbc With Automated Diff (04/04/22 18:31) Comprehensive Metabolic Panel (04/04/22 18:31) Hcg,Qualitative Urine (04/04/22 18:31) Lactic Acid Analyzer (04/04/22 18:31) Thyroid Analyzer (04/04/22 18:31) Thyroid Stimulating Hormone (04/04/22 18:31) Troponin I [place] (04/04/22 18:31) Ekg Tracing (04/04/22 18:31) Iohexol Injection (Omnipaque 350 Mg/Ml 1 (04/04/22 19:00) Ns (Ivpb) (Sodium Chloride 0.9% Ivpb Bag (04/04/22 19:00) Medications Given in ED Current Medications Medications Dose Ordered Sig/Nkechi Route Start Time Stop Time Status Last Admin Dose Admin Iohexol 100 ml ONCE ONCE IV 04/04/22 19:00 04/04/22 19:01 DC 04/04/22 19:38 75 ML Sodium Chloride 100 ml ONCE ONCE IV 04/04/22 19:00 04/04/22 19:01 DC 04/04/22 19:39 80 ML Vital Signs/I&O 04/04/22 18:15 Temp 36.3 Pulse 104 Resp 16 B/P (MAP) 136/88 (104) Pulse Ox 100 O2 Delivery Room Air Capillary Refill : Less Than 3 Seconds Blood Pressure Mean: 104 Progress Note : Progress Note 1. LEFT SIDE NECK SWELLING: Lymph node enlargement & DENTAL CARIES & GINGIVITIS - CT NECK: unremarkable - Labs unremarkable - Will give Augmentin for gingivitis and dental caries - Pt has dental appointment in April. -Follow-up with PCP in the next 7 days. 2. CHEST PAIN: ACS RULE OUT: - EKG: no acute changes - Troponin: undetectable - CXR: normal - No chest pain in the ER -The patient was seen in the ED, and treated appropriately to presentation at a specific point in time. Patient is informed that there is a possibility that disease and illness can evolve and change in acuity rapidly or slowly after patient is discharged from the ER. Precautionary advice given to the patient for immediate return to ER if symptoms worsen or do not resolve, and to seek emergency care sooner rather than later. Pt also advised on the importance of PCP follow up and compliance with management and follow up plan with PCP and/or specialist, as this is part of the management plan. Pt verbally expressed understanding. ECG Initial ECG Impression Date: April 04, 2022 Initial ECG Impression Time: 18:52 Initial ECG Rate: 82 Initial ECG Rhythm: Normal Sinus Initial ECG Impression: Nonspecific Changes Diagnostic Imaging Diagonstic Imaging: Xray, CT Plain Films/CT/US/NM/MRI: chest, other (neck) Comments [facility] [place], [place] NAME: KELBY MOSLEY [facility] REC#: [id number] PT STATUS: REG ER : 2000 PHYSICIAN: DOMINGA MARQUEZ MD ADMIT DATE: 04/04/22/ER Signed Date of Exam:04/04/22 CHEST 1 VIEW, AP/PA ONLY EXAMINATION: Chest radiograph, portable AP view. DATE: 04/04/2022 6:44 PM INDICATION: 21-year-old female, neck mass. Chest pain. COMPARISON: September 30, 2021. FINDINGS: Heart size and mediastinal contours are unchanged. There is no identified pneumothorax. There is no large pleural effusion. There is no identified focal airspace consolidation. IMPRESSION: 1. No identified acute cardiopulmonary abnormality. Dictated by: Dictated on workstation # [id number] Dict: 04/04/227 Trans: 04/04/221856 [facility] [id number] Interpreted by: SISSY DONALD MD Electronically signed by: SISSY DONALD MD 04/04/221856 Departure Impression Primary Impression: Acute gingivitis Additional Impressions: Dental caries Ruled out for myocardial infarction Disposition: 01 HOME, SELF-CARE Condition: Improved Departure-Patient Inst. Referrals: [facility] (PCP/Family) Primary Care Physician Patient Instructions: Periodontal Disease Treatment (DC) Add. Discharge Instructions: - Will give Augmentin for gingivitis and dental caries - Pt has dental appointment in April. -Follow-up with PCP in the next 7 days. - No chest pain in the ER -The patient was seen in the ED, and treated appropriately to presentation at a specific point in time. Patient is informed that there is a possibility that disease and illness can evolve and change in acuity rapidly or slowly after patient is discharged from the ER. Precautionary advice given to the patient for immediate return to ER if symptoms worsen or do not resolve, and to seek emergency care sooner rather than later. Pt also advised on the importance of PCP follow up and compliance with management and follow up plan with PCP and/or specialist, as this is part of the management plan. Pt verbally expressed understanding. All discharge instructions reviewed with patient and/or family. Voiced understanding. DOMINGA MARQUEZ MD April 04, 2022 18:38
--- NOTE | 2022-04-04 18:50 | Diagnostic Imaging Report ---
EXAMINATION: Chest radiograph, portable AP view. DATE: 04/04/2022 6:44 PM INDICATION: 21-year-old female, neck mass. Chest pain. COMPARISON: September 30, 2021. FINDINGS: Heart size and mediastinal contours are unchanged. There is no identified pneumothorax. There is no large pleural effusion. There is no identified focal airspace consolidation. IMPRESSION: 1. No identified acute cardiopulmonary abnormality. Dictated by: Dictated on workstation # [id number]
[2022-04-04 19:00] LABS: BASOPHILS % (AUTO) 0 % (0-10); EOSINOPHILS # (AUTO) 0.1 10^3/uL (0.0-0.3); EOSINOPHILS % (AUTO) 1 % (0-10); HEMATOCRIT 40 % (35-52); HEMOGLOBIN 12.7 g/dL (11.5-16.0); LYMPHOCYTES % (AUTO) 28 % (12-44); MEAN CORPUSCULAR HEMOGLOBIN 29 pg (25-34); MEAN CORPUSCULAR HGB CONC 32 g/dL (32-36); MEAN CORPUSCULAR VOLUME 89 fL (80-99); MEAN PLATELET VOLUME 9.4 fL (9.0-12.2); MONOCYTES # (AUTO) 0.4 10^3/uL (0.0-1.0); MONOCYTES % (AUTO) 5 % (0-12); NEUTROPHILS # (AUTO) 4.6 10^3/uL (1.8-7.8); NEUTROPHILS % (AUTO) 65 % (42-75); PLATELET COUNT 326 10^3/uL (130-400); WHITE BLOOD COUNT 7.1 10^3/uL (4.3-11.0)
[2022-04-04] MEDS ORDERED: IOHEXOL 350 MG/ML 100 ML (OMNIPAQUE 350) VIAL IV ONE (19:00)
[2022-04-04] MEDS ORDERED: NS 100 ML (IVPB) BAG IV ONE (19:00)
[2022-04-04 19:24] LABS: ALBUMIN 4.6 GM/DL (3.2-4.5)
[2022-04-04 19:25] LABS: CALCIUM 9.4 MG/DL (8.5-10.1)
[2022-04-04 19:26] LABS: GLUCOSE 93 MG/DL (70-105)
[2022-04-04 19:27] LABS: TOTAL PROTEIN 8.2 GM/DL (6.4-8.2)
[2022-04-04 19:28] LABS: BILIRUBIN,TOTAL 0.7 MG/DL (0.1-1.0); CARBON DIOXIDE 22 MMOL/L (21-32)
[2022-04-04 19:30] LABS: ALKALINE PHOSPHATASE 54 U/L (40-136); CREATININE SERUM 0.91 MG/DL (0.60-1.30); GFR ESTIMATED 91
[2022-04-04 19:31] LABS: BUN/CREATININE RATIO 11
[2022-04-04 19:33] LABS: ALANINE AMINOTRANSFERASE 14 U/L (0-55)
[2022-04-04 19:35] LABS: CHLORIDE 107 MMOL/L (98-107); POTASSIUM 3.8 MMOL/L (3.6-5.0); SODIUM 141 MMOL/L (135-145)
[2022-04-04 19:56] LABS: TSH (THYROID ANALYZER) 0.87 UIU/ML (0.35-4.94)
--- NOTE | 2022-04-04 20:05 | Diagnostic Imaging Report ---
CLINICAL INDICATIONS: Patient with left neck mass marked with BB. EXAM: Axial CT scan of the neck performed with 75 mL of Omnipaque 350 IV contrast. Sagittal and coronal reformatted images were created. Auto Exposure Controls were utilized during the CT exam to meet ALARA standards for radiation dose reduction. COMPARISON: CT scan of the neck soft tissue without contrast dated 10/12/2016. FINDINGS: Limited visualization of intracranial structures show no significant abnormality. Stable chronic bony defect involving the anterior aspect of the basisphenoid/clivus seen on the sagittal view. Again noted, enlargement of the posterior nasopharyngeal adenoid soft tissue which is not significantly changed. There is mild prominence of the bilateral pontine tonsils which is slightly decreased in the interim. There is mild prominence of the lingual tonsils which has slightly increased in the interim. Otherwise, the nasopharynx, oropharynx, hypopharynx, and laryngeal soft tissue structures are unremarkable. Thyroid gland and salivary glands are unremarkable. There are small lymph nodes involving the submandibular regions and both sides of the neck which are not enlarged and may be reactive. There is no significant abnormality beneath the marker in the left submandibular region. There is no neck fluid collection or fat stranding. The visualized upper lung wing are clear. Paranasal sinuses and mastoid air cells are clear. Cervical spine shows no significant abnormality. IMPRESSION: 1.: Again seen, prominence of the nasopharynx, bilateral palatine tonsils and lingual tonsils likely reactive. The bilateral palatine tonsils have slightly decreased in the interim. There is slight prominence of the posterior lingual tonsils in the interim. 2: There is no significant lymphadenopathy. 3: The remainder of this exam shows no significant interval abnormality. Dictated by: Dictated on workstation # [id number]
[2022-04-04] MEDS ORDERED: CLIN-144 PO (20:56)
[2022-04-04] MEDS ORDERED: CLINDAMYCIN 600 MG/50 ML IVPB 50 ML IV ONE (21:00)
== END 2022-04-04 21:35 | disposition home or self-care (01) ==
LOC: EDUNIT# 18:03 → ER 18:07
DX: K05.00 Acute gingivitis, plaque induced (principal); K02.9 Dental caries, unspecified; R59.0 Localized enlarged lymph nodes; E11.9 Type 2 diabetes mellitus without complications; T38.3X6A Underdosing of insulin and oral hypoglycemic [antidiabetic] drugs, initial encounter; F17.200 Nicotine dependence, unspecified, uncomplicated; Z79.4 Long term (current) use of insulin; Z91.14 Patient's other noncompliance with medication regimen; Z32.02 Encounter for pregnancy test, result negative
CPT/HCPCS: 36415; 70491; 71045; 80053; 83605; 84443; 84484; 84703; 85025; 93005

== ENCOUNTER → 2022-10-09 | Outpatient (CLI) | payer MEDICAID ==
[~2022-10-09] MED LIST changes: +ALBU8.5H6 IH; +BARIUM for suspension 96% w/w (Vanilla Silq Medium Density) PO ONE; +BARIUM for suspension 98% w/w (Vanilla Silq High Density) PO ONE; +CLIN-144 PO; -METF500S5 PO; +METF500S7 PO
--- NOTE | 2022-10-09 10:23 | Diagnostic Imaging Report ---
INDICATION: Dysphagia. TECHNIQUE: The patient ingested effervescent crystals as well as thin and thick barium and imaging of the esophagus was performed in multiple obliquities. 52 seconds of fluoroscopic time was utilized. FINDINGS: The preliminary radiograph over the chest is unremarkable. The esophagus has a smooth contour. No mass or stricture is identified. No hiatal hernia or gastroesophageal reflux was demonstrated. Images of the stomach are unremarkable. IMPRESSION: Unremarkable esophagram. Dictated by: Dictated on workstation # [id number]
== END ==
LOC: RAD 09:45
PROVIDERS: ATTEND Pediatrics
DX: R13.19 Other dysphagia (principal)
CPT/HCPCS: 74220

== ENCOUNTER → 2022-11-09 | Outpatient (CLI) | payer MEDICAID ==
[~2022-11-09] MED LIST changes: -BARIUM for suspension 96% w/w (Vanilla Silq Medium Density) PO ONE; -BARIUM for suspension 98% w/w (Vanilla Silq High Density) PO ONE
== END ==
LOC: CARD 07:50
PROVIDERS: ATTEND Pediatrics
DX: R00.2 Palpitations (principal)
CPT/HCPCS: 93225; 93226

== ENCOUNTER 2023-10-17 19:35 | Emergency (ER) | payer MEDICAID ==
[~2023-10-17] VITALS: Ht 160 cm; Wt 100.0 kg
--- NOTE | 2023-10-17 20:12 | ED GU-Female ---
General Chief Complaint: - Reproductive Stated Complaint: VAGINAL BLEEDING NOT STOPPING Source: patient Exam Limitations: no limitations (MIGUEL ANGEL WAGNER APRN) History of Present Illness Date Seen by Provider: Oct 17, 2023 Time Seen by Provider: 19:45 Initial Comments 23-year-old female presents to the ER with reports of vaginal bleeding starting yesterday. She states that she has saturated approximately 10 pads over the last 2 days, states that she has used approximately 6 tampons in the last 4 hours. She reports that her last menstrual cycle was on 09/22. She states that her cycles always start on either the or of each month, so this cycle is early. She reports she took 2 home test that were negative. She states that the pain in her abdomen is similar to her menstrual cycles, just much worse than usual. She complains of her entire abdomen hurting and lower back pain. She reports she had 1 episode of vomiting today. She reports that her entire body feels hot and she also has a headache. Denies cough and sore throat. She is also complaining of dizziness. She denies diarrhea, last bowel movement was this morning. (MIGUEL ANGEL WAGNER APRN) Allergies and Home Medications Allergies Coded Allergies: diphenhydramine (Verified Allergy, Severe, Shortness of Breath, 08/05/19) HIVES SWELLING amoxicillin (Verified Allergy, Unknown, throat swells shut, 08/05/19) sulfamethoxazole (Verified Allergy, Unknown, 08/05/19) trimethoprim (Verified Allergy, Unknown, 08/05/19) Patient Home Medication List Home Medication List Reviewed: Yes (MIGUEL ANGEL WAGNER APRN) Albuterol Sulfate (Ventolin Hfa) 1 Puff Puff, 2 PUFF IH Q4H, (Reported) Entered as Reported by: BEBO HANSON on 08/16/212103 Albuterol Sulfate (Ventolin Hfa) 1 Puff Puff, 2 PUFF IH Q4H PRN for shortness of breath and wheeze Prescribed by: EMILIANO HEART on 09/30/21 05 Clindamycin HCl (Clindamycin HCl) 300 Mg Capsule, 300 MG PO Q6H Prescribed by: DOMINGA MARQUEZ MD on 04/04/222055 Docusate Sodium (Dok) 100 Mg Capsule, 100 MG PO BID PRN for CONSTIPATION-1ST LINE Prescribed by: LEILA CARMONA on 08/17/212213 Ferrous Sulfate (Ferosul) 325 Mg Tablet, 325 MG PO DAILY Prescribed by: LEILA CARMONA on 08/17/212213 Hydrocodone Bit/Acetaminophen (HYDROcodone/APAP 5 MG/325 MG TAB) 1 Tab Tab, 1 EA PO Q4H PRN for PAIN-MODERATE (5-7) Prescribed by: LEILA CARMONA on 08/17/212213 Ibuprofen (Ibu) 600 Mg Tablet, 600 MG PO Q6HR Prescribed by: LEILA CARMONA on 08/17/212213 Metronidazole (Metronidazole) 500 Mg Tablet, 500 MG PO TID Prescribed by: SLY NGUYEN on 12/04/211750 Pnv with Ca,No.72/Iron/FA (Pnv Plus Multivit Tab) 1 Each Tablet, 1 EA PO DAILY@0700 Prescribed by: LEILA CARMONA on 08/17/212213 Review of Systems Review of Systems Constitutional: see HPI (MIGUEL ANGEL WAGNER APRN) Past Fdbimmo-Setdvp-Gxjamx Hx Patient Social History Tobacco Use?: Yes Tobacco type used: Cigarettes Smoking Status: Current Everyday Smoker Use of E-Cig and/or Vaping dev: No Substance use?: Yes Substance type: Marijuana Substance frequency: Couple times a week Alcohol Use?: Yes Alcohol Frequency: Once in a while Pt feels they are or have been: No (MIGUEL ANGEL WAGNER APRN) Immunizations Up To Date Tetanus Booster (TDap): Less than 5yrs PED Vaccines UTD: Yes Influenza Vaccine Up-to-Date: No; Not Current First/Initial COVID19 Vaccinat: N/A (MIGUEL ANGEL WAGNER APRN) Seasonal Allergies Seasonal Allergies: No (MIGUEL ANGEL WAGNER APRN) Past Medical History Surgery/Hospitalization HX: PREDIABETIC EGD Surgeries: Yes (EGD) Respiratory: No Currently Using CPAP: No Currently Using BIPAP: No Cardiac: Yes High Cholesterol Neurological: Yes Headaches /Migraines Reproductive Disorders: No Female Reproductive Disorders: Denies Sexually Transmitted Disease: Yes (CHLAMYDIA) HIV/AIDS: No Genitourinary: No Gastrointestinal: Yes (CHRONIC ABDOMINAL PAIN COMPLAINTS) Chronic Constipation, Ulcer Musculoskeletal: No Endocrine: Yes (NON-COMPLIANT) Diabetes, Insulin dep HEENT: No Loss of Vision: Denies Hearing Impairment: Denies Cancer: No Psychosocial: Yes ADD/ADHD, Anxiety Integumentary: No Blood Disorders: No (MIGUEL ANGEL WAGNER APRN) Family Medical History Diabetes mellitus MATERNAL GRANDMOTHER Hypertension MATERNAL GRANDMOTHER Diabetes, Hypertension (MIGUEL ANGEL WAGNER APRN) Physical Exam Vital Signs Vital Signs - First Documented 10/17/23 19:50 Temp 36.9 Pulse 91 Resp 18 B/P (MAP) 130/83 (99) Pulse Ox 99 O2 Delivery Room Air (MARIA M,DORINA K DO) Vital Signs Capillary Refill : (MIGUEL ANGEL WAGNER APRN) Height, Weight, BMI Height: 5'4.00" Weight: 221lbs. 0.4oz. 100.658980tr; 39.00 BMI Method:Stated General Appearance: WD/WN, no apparent distress Neck: supple, normal inspection Cardiovascular: regular rate, rhythm Respiratory: lungs clear, normal breath sounds, no respiratory distress, no accessory muscle use Gastrointestinal: normal bowel sounds, soft; No guarding; tenderness (All 4 quadrants) Pelvic: normal external exam, normal adnexa, vaginal bleeding (Small amount in vaginal canal) Extremities: normal range of motion, normal inspection Neurologic/Psychiatric: alert, normal mood/affect Skin: normal color, warm/dry (MIGUEL ANGEL WAGNER APRN) Progress/Results/Core Measures Suspected Sepsis SIRS Temperature: Pulse: Respiratory Rate: Laboratory Tests 10/17/23 19:20: White Blood Count 9.1 Blood Pressure / Mean: Laboratory Tests 10/17/23 19:20: Creatinine 0.98, Platelet Count 322, Total Bilirubin 1.0 (MIGUEL ANGEL WAGNER APRN) Results/Orders Vital Signs/I&O Capillary Refill : (MIGUEL ANGEL WAGNER APRN) Progress Note : Progress Note Patient seen and evaluated, resting comfortably in bed, no acute distress. Based on exam and symptoms, workup initiated including CBC, CMP, lipase, hCG quantitative, UA, urine , COVID and flu, wet prep, gonorrhea and chlamydia testing. IV fluids and Toradol ordered. 2110 Labs reviewed. CBC grossly normal, hemoglobin normal. CMP shows slightly elevated chloride 109, total protein slightly elevated 8.5. Lipase normal. hCG quant negative. Urinalysis shows 1+ protein, trace ketones, 1+ bilirubin, 2+ RBCs, negative for infection. COVID and flu negative. Wet prep shows no clue cells, no WBCs, no yeast, no trichomonas. Results discussed with patient. This is likely just an early menstrual cycle. Patient instructed to take 80 mg ibuprofen every 8 hours and to continue an additional 24 hours after she stops bleeding. Patient instructed to follow-up with Dr. Carmona or her primary care provider if she is still having heavy bleeding by day 5 or 6 since patient's normal menstrual cycles last approximately 5 days. Patient is stable for discharge. Discharge instructions and return precautions provided. (MIGUEL ANGEL WAGNER APRN) Departure Impression Primary Impression: Vaginal bleeding Disposition: HOME, SELF-CARE Condition: Stable Departure-Patient Inst. Decision time for Depature: 21:10 (MIGUEL ANGEL WAGNER APRN) Referrals: [facility] (PCP/Family) Primary Care Physician Patient Instructions: IRREGULAR VAGINAL BLEEDING Add. Discharge Instructions: Take 800 mg of ibuprofen every 8 hours with food. Once you stop bleeding, continue taking for an additional 24 hours. This is supposed to help reduce bleeding and help with pain. If you are still having a lot of heavy bleeding by day 5 or 6, follow-up with Dr. Carmona or the [facility] clinic. Return if you are saturating a heavy pad every hour for several hours, you become dizzy, passout, short of breath, develop chest pain, or any other new, concerning, or worsening symptoms. All discharge instructions reviewed with patient and/or family. Voiced understanding. ATTENDING PHYSICIAN NOTE: I WAS PHYSICALLY PRESENT ER PHYSICIAN, BUT I WAS NOT INVOLVED IN ANY DECISION MAKING OR ANY CARE OF THIS PATIENT, AND I AM NOT COLLABORATING PHYSICIAN. (DORINA FRANZ DO) MIGUEL ANGEL WAGNER APRN Oct 17, 2023 20:12 DORINA FRANZ DO Oct 20, 2023 21:26
[2023-10-17] MEDS ORDERED: NS IV 1000 ML 1,000 ML IV SCH (20:15)
[2023-10-17] MEDS ORDERED: KETOROLAC INJ 15 MG/ML VIAL IVP ONE (20:15)
[2023-10-17 20:35] LABS: BASOPHILS % (AUTO) 0 % (0-10); EOSINOPHILS # (AUTO) 0.1 10^3/uL (0.0-0.3); EOSINOPHILS % (AUTO) 1 % (0-10); HEMATOCRIT 39 % (35-52); LYMPHOCYTES # (AUTO) 2.6 10^3/uL (1.0-4.0); LYMPHOCYTES % (AUTO) 29 % (12-44); MEAN CORPUSCULAR HEMOGLOBIN 31 pg (25-34); MEAN CORPUSCULAR HGB CONC 34 g/dL (32-36); MEAN CORPUSCULAR VOLUME 93 fL (80-99); MEAN PLATELET VOLUME 10.1 fL (9.0-12.2); MONOCYTES # (AUTO) 0.5 10^3/uL (0.0-1.0); MONOCYTES % (AUTO) 5 % (0-12); NEUTROPHILS # (AUTO) 5.9 10^3/uL (1.8-7.8); NEUTROPHILS % (AUTO) 65 % (42-75); PLATELET COUNT 322 10^3/uL (130-400); WHITE BLOOD COUNT 9.1 10^3/uL (4.3-11.0)
[2023-10-17 20:45] LABS: BACTERIA,URINE NEGATIVE /HPF; BILIRUBIN,URINE 1+ (NEGATIVE); CLARITY,URINE CLEAR; COLOR,URINE YELLOW; GLUCOSE, URINE (UA) NEGATIVE (NEGATIVE); KETONES,URINE TRACE (NEGATIVE); LEUKOCYTE ESTERASE ,URINE NEGATIVE (NEGATIVE); NITRITE,URINE NEGATIVE (NEGATIVE); PH,URINE 5.5 (5-9); PROTEIN,URINE 1+ (NEGATIVE)
[2023-10-17 20:48] LABS: ALBUMIN 4.5 GM/DL (3.2-4.5); CHLORIDE 109 MMOL/L (98-107); SODIUM 141 MMOL/L (135-145)
[2023-10-17 20:49] LABS: CALCIUM 9.4 MG/DL (8.5-10.1)
[2023-10-17 20:50] LABS: GLUCOSE 85 MG/DL (70-105)
[2023-10-17 20:51] LABS: TOTAL PROTEIN 8.5 GM/DL (6.4-8.2)
[2023-10-17 20:52] LABS: CARBON DIOXIDE 22 MMOL/L (21-32)
[2023-10-17 20:54] LABS: ALKALINE PHOSPHATASE 47 U/L (40-136); CREATININE SERUM 0.98 MG/DL (0.60-1.30); GFR ESTIMATED 82
[2023-10-17 20:55] LABS: BUN/CREATININE RATIO 16
[2023-10-17 20:57] LABS: ALANINE AMINOTRANSFERASE 14 U/L (0-55)
[2023-10-17 20:58] LABS: LIPASE 13 U/L (8-78)
[2023-10-17 21:15] VITALS: BP 103/58
== END 2023-10-17 21:15 | disposition home or self-care (01) ==
LOC: EDUNIT# 19:35 → ER 19:40
DX: N93.9 Abnormal uterine and vaginal bleeding, unspecified (principal); F17.210 Nicotine dependence, cigarettes, uncomplicated; E11.9 Type 2 diabetes mellitus without complications; Z79.4 Long term (current) use of insulin; Z28.310 Unvaccinated for COVID-19
CPT/HCPCS: 36415; 80053; 81000; 83690; 84702; 84703; 85025; 87210; 87491; 87591; 87636